=== PATIENT | male | born 1980 | race African-American/Black ===

== ENCOUNTER 2019-05-06 15:12 | Inpatient (IN) ==
--- OUTSIDE RECORDS SUMMARY | 2019-05-06 15:15 | External Medical Summary | Continuity of Care Document ---
:1980 Author Name Cecilia Mcnair Address Unavailable Unavailable , Care Team Providers Name Role Phone Unavailable Unavailable Unavailable Prabhjot [email or web address] Problems Asthma (493.90) (J45.909) Allergic rhinitis (477.9) (J30.9) Hyperlipidemia (272.4) (E78.5) Esophageal reflux (530.81) (K21.9) Allergies and Adverse Reactions No Known Drug Allergies (Allergy) Medications Fluticasone Propionate 50 MCG/ACT Nasal Suspension; USE 1 TO 2 SPRAYS IN EACH NOSTRIL ONCE DAILY. Xu Ryan 16 GM Bottle Quantity: 3 Refills: 3 ProAir HFA 108 (90 Base) MCG/ACT Inhalat ion Aerosol Solution; INHALE 2 PUFFS Every 4 hours PRN Xu Ryan 8.5 GM Inhaler Quantity: 3 Refills: 3 Montelukast Sodium 10 MG Oral Tablet; take 1 tablet by mouth once daily Xu Ryan Quantity: 90 Refills: 3 Advair Diskus 100-50 MCG/DOSE Inhalation Aerosol Powder Breath Activated; INHALE 1 PUFFS Twice daily Xu Ryan 60 Aerosol Powder Breath Quantity: 3 Activated Disp Pack Refills: 3 Simvastatin 20 MG Oral Tablet; TAKE 1 TABLET DAILY IN THE EV Xu RONQUILLO Refills: 0 Procedures Procedures not documented Immunizations Immunizations not documented Family History Unknown Family Member Family history of Asthma (V17.5) Status: Active Comment s: Family History Family history of Allergic Rhinitis Status: Active Comm ents: Family History Family history of Hyperlipidemia Status: Active Comment s: Family History Family history of Hypertension (V17.49) Status: Active Comments: Family History Social History - Smoking Status Never smoker Plan of Treatment Planned Observations Planned Goals not documented Results No Known Results Results not documented
[2019-05-06] MEDS ORDERED: ONDANSETRON INJ 2 MG/ML 2 ML VIAL IV STA (15:34)
[2019-05-06] MEDS ORDERED: LORazepam 1 MG/2 ML VIAL IV STA (15:34)
[2019-05-06] MEDS ORDERED: chlordiazePOXIDE HCl 25 MG CAP PO ONE (15:34)
[2019-05-06] MEDS ORDERED: GI COCKTAIL ED USE PO ONE (15:34)
[2019-05-06] MEDS ORDERED: LORazepam 1 MG/2 ML VIAL IV PRN (15:36)
[2019-05-06] MEDS ORDERED: SODIUM CHLORIDE 0.9% 1000ML 1,000 ML IV SCH (15:45)
[2019-05-06 15:56] LABS: Basophils # (auto) 0.01 K/uL (0-0.2); Basophils % (auto) 0.1 %; Eosinophils # (auto) 0.01 K/uL (0-0.5); Eosinophils % (auto) 0.1 %; Hematocrit (blood only) 39.7 % (42-52); Hemoglobin 14.3 g/dL (14.0-18.0); Immature Granulocytes # (auto) 0.01 K/uL (0.00-0.02); Immature Granulocytes % (auto) 0.1 %; Lymphocytes # (auto) 0.84 K/uL (1.2-3.4); Lymphocytes % (auto) 12.2 %; Mean Platelet Volume 8.5 fL (7.4-10.4); Monocytes % (auto) 2.9 %; Neutrophils # (auto) 5.81 K/uL (1.4-6.5); Neutrophils % (auto) 84.6 %; Platelet Count 243 K/uL (130-400); RDW Coefficient of Variation 14.7 % (11.5-14.5); RDW Standard Deviation 54.3 fL (36.4-46.3); Red Blood Count 3.97 M/uL (4.7-6.1); White Blood Count 6.88 K/uL (4.8-10.8)
[2019-05-06 16:06] LABS: INR 1.2 (0.9-1.1); Prothrombin Time 12.3 Seconds (9.0-12.0)
--- NOTE | 2019-05-06 16:35 | XRay Report ---
XR abdomen 2V w PA chest CLINICAL HISTORY: ab pain, vomiting pain. Nausea. COMPARISON STUDY: 04/26/2018 FINDINGS: The soft tissues, psoas shadows, renal outlines and intestinal gas pattern appear normal. T here is no evidence for bowel obstruction. There is no evidence for free intraperitoneal air. No abno rmal abdominal calcifications are seen. A frontal view of the chest was performed and is unremarkable . IMPRESSION: Normal study. The above report was generated using voice recognition software. It may contain grammatical, syntax or spelling errors. Electronically signed by: Gordon Armenta M.D. 05/06/2019 4:34 PM
[2019-05-06 16:37] LABS: Albumin Globulin Ratio 0.8 (0.9-2); Albumin Level 3.4 gm/dl (3.4-5.0); BUN Creatinine Ratio 14.3 (10-20); Bilirubin,Total 1.8 mg/dl (0.2-1); Calcium 9.2 mg/dl (8.5-10.1); Creatinine Clr Calc Pharmacy 127.8 ml/min; Est GFR (African American) 136.6; Est GFR (Non-African American) 117.8; Globulin 4.3 gm/dl (2.5-4.0); Potassium 3.5 mmol/L (3.5-5.1); Total Protein 7.7 gm/dl (6.4-8.2)
[2019-05-06 16:49] LABS: Appearance Urine Clear (Clear); Bacteria Urine Automated Negative (Negative); Color Urine Dark Yellow; Epithelial Cell Urine Auto >30 /lpf (0-5); Glucose Urine UA Negative (Negative); Ketones Urine 1+ (Negative); Leukocyte Esterase Urine Negative (Negative); Nitrite Urine Positive (Negative); Protein Urine 1+ (Negative); Specific Gravity Urine 1.037 (1.000-1.030); Urobilinogen Urine Negative (Negative); pH Urine 5.5 (4.5-7.5)
[2019-05-06 16:51] LABS: Bilirubin Urine 1+ (Negative)
[2019-05-06 16:52] LABS: Ictotest Urine Positive (Negative)
[2019-05-06] MEDS ORDERED: DIAZEPAM 5 MG/ML INJ 10ML VIAL IV STA (17:26)
--- NOTE | 2019-05-06 18:34 | History & Physical Report ---
Date of Service May 06, 2019 Assessment & Plan (1) Alcoholic hepatitis: Alex is a 39-year-old male with past medical history of hyperlipidemia, asthma, GERD, alcohol abuse, alcohol transaminitis who presents with 2 days of increased abdominal pain and vomiting context of a increased lipase suspicious for acute pancreatitis. Acute pancreatitis 2/2 alcohol abuse N.p.o. with sips and chips Banana bag x1, followed by LR 200 cc/h x 2 bags Pain control: 0.5mg morphine IV Q3H PRN - Sodium, Potassium, Cr within normal limits - US-Gallbladder to evaluate for cholelithiasis/cholecystitis - CBC daily - No leukocytosis on admit, afebrile on admit Alcohol Abuse - Recieved cholordiazepoxide 50mg x1 and ativan 1mg x2 in ED. 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 - Previously on fluoxetine, stopped >1 mo ago - Further management per primary team, would benefit from outpt followup once clinically stable. FEN/GI: NPO + LR 200cc/hr DVT Prophylaxis: SCDs Code Status: Full Code. Dispo: Med/Surg (2) Pancreatitis: (3) Alcohol abuse: (4) Encounter for smoking cessation counseling: (5) Hyperlipidemia: (6) Asthma: (7) Nausea, vomiting, and diarrhea: History of Present Illness Chief Complaint: Abdominal pain Primary Care Provider: Dorene Marquezmary Pavon is a 39-year-old male with past medical history of asthma, alcohol abuse, and hyperlipidemia who presented with 2 days of increased abdominal pain, vomiting, and decreased in context of 1/5/day alcohol use. He reports his abdominal pain began 1-2 days ago. He rates it as an 8/10 and does not know any remitting or exacerbating factors. He completely lost and has had minimal p.o. intake. Endorses fever, chills, shakes intermittent diaphoresis over the last 2 days. He has had several episodes of yellow emesis without blood or bile. Endorses intermittent diarrhea without melena or blood, denies constipation. Prior to admission he has been drinking a fifth per day of hard liquor. Last drink was this morning. He completed an inpatient detox program in [facility] in December 2017. He attended inpatient rehab after he began to have trouble with CYS last MarchJu and reports he was "always functional "up until the time, but lost due to alcohol difficulties last year. His sister Madie is formally adopting, he is not allowed to see them until procedures are complete. He reports that he has had tremors/shakes with withdrawal before, but denies any history of seizures, hallucinations, vision changes, or confusion. He reports he felt he was doing well following detox with an IOP program until his main social support his ex- had a heart attack and in March. Reports that following this he became extremely depressed and demotivated, "stopped caring, "and did not feel like he had the energy or willpower to "take care of himself ". He had tried fluoxetine for couple of weeks, but did not notice a benefit of it and stopped it. He has not taken it over a month. He also stopped taking his atorvastatin, and Pro Air. Denies auditory/visual hallucinations. Denies active/passive SI. Medical history: Hyperlipidemia, asthma, GERD, alcohol abuse Medication history: Omeprazole . Prescribed is not taking atorvastatin, montelukast, pro-air, fluoxetine. Surgical history: EGD, "normal per patient Social history: Alcohol: 1/5 hard liquor per day, most days of the week. Heavy use for several years Tobacco: Half pack per day 5-year history Recreational: Marijuana, last 3 days ago. Distant history of cocaine use more than 1 year ago. Family history: Denies Hx CODE STATUS: Full code. If he were unable to make decisions, he reports he would want his sister to call to make decisions for. Allergies Allergy/AdvReac Type Severity Reaction Status Date / Time No Known Allergies Allergy Verified 05/06/19 15:54 Home Medications Home Medications Medication Instructions Recorded Confirmed Type albuterol sulfate 2 puff INHALATION QID PRN 05/06/19 05/06/19 History omeprazole 20 mg PO DAILY 05/06/19 05/06/19 History Past Med/Surg History Medical History Hyperlipidemia (Chronic) Asthma (Chronic) Nausea, vomiting, and diarrhea (Acute) Transaminitis (Acute) Family History Other No known problems Social History Preferred Language: Syriac Feels Safe at Home: Hesitant to Answer Smoking Status: Current every day smoker Review of Systems Review of Systems: Constitutional: Endorses fever, chills, fatigue, malaise Eyes: Denies double vision, vision change, eye pain ENT: Denies ear pain, sore throat, sinus pain Cardiovascular: Denies chest pain, chest pressure, palpitations, extremity swelling Respiratory: Denies shortness of breath, cough, sputum production, difficulty breathing Gastrointestinal: Endorses abdominal pain, nausea, vomiting, diarrhea. Denies patient Genitourinary: Denies pain with urination, urinary urgency, urinary frequency Musculoskeletal: There is a fatigue, but denies weakness, muscle aches/pain, joint aches/pain Integumentary:Denies rash, lesions, bruising Neurological: Denies headache, numbness, tingling, focal weakness. Physical Exam Physical Exam: General: A&Ox3. NAD. Cooperative. Appears sad. Not responding to internal stimuli. HEENT: Atraumatic, normocephalic. No facial asymmetry. Pupils equal and reactive to light and accommodation. 23 beats of brief horizontal nystagmus which extinguish on Testing. No saccades. No visual field cuts. Visual acuity grossly intact. No carotid bruits. No anterior/posterior cervical adenopathy. Pulm: CTAB A&P. -wheezes, -rales, -rhonchi. Symmetrical chest rise. No increase work of breathing. No respiratory distress. Cardiac: RRR, -mrg. Radial pulses intact and symmetrical. Abdominal: Tender to palpation in the right upper quadrant and left quadrant without rigidity, or rebound. No guarding. Bowel sounds intact. Cerda sign equivocal. Extremities: Sensation intact in distal extremities and symmetrical. No paresthesias. Moving all extremities equally. Elbow flexion/extension, water engineer strength, finger flexion/extension, knee flexion, ankle plantarflexion/dorsiflexion intact with 5/5 strength. Constitutional: WD/WN, vitals as above Eyes: normal visual calderon by confrontation and + anicteric sclerae Neck: normal visual inspection and trachea midline Respiratory: normal respiratory effort, lungs clear to auscultation Cardiovascular: Rate/Rhythm: regular rate and regular rhythm Gastrointestinal (Abdomen): Inspection/Auscultation: + abdomen distended Percussion/Palpation: + abdomen tender (diffuse) and abdomen soft Musculoskeletal: Head/Neck/Chest: normocephalic and head atraumatic Neg for peripheral LE edema, + pedal pulses Skin: no rashes, warm and dry Neurologic: awake; not confused Speech / Cognition: normal speech Psychiatric: A+Ox3, euthymic affect Lymphatic: Exam as done by Beth Abdullahi, Results & Data Vital Signs (Past 12 Hours) Vital Signs Temp Pulse Resp BP Pulse Ox 05/06/19 16:15 97 05/06/19 15:14 37.0 C 99 H 20 153/106 H 99 Supervising Physician Co-Signing Physician Notes Pt seen and examined by me. Ongoing abd pain that is slightly better. Denies chest pain or SOB. Tolerating PO without issue. Agree with HPI/ROS as noted by Resident See above for my exam in PE section Agree with plan as outlined above Pancreatitis, likely EtOH related Pt with RUQ pain and hx of diarrhea with fatty foods, RUQ US pending Monitor LFTs NPO, IVF EtOH withdrawal protocol, hx of tremors but no seizures Hx of rehab, interested in rehab at this time PG Care Time/CCT Total # of Minutes Spent Total Time Spent with Patient: Total time spent is greater than 50% in coordination of care (as documented) at patient's floor/unit and/or counseling patient: Resident Activity Tracking Resident Involvement: Resident Care Provided Care Provided: Adult Hospital Medicine (1) Alcoholic hepatitis Ascites presence: unspecified Qualified Code(s): K70.10 - Alcoholic hepatitis without ascites (2) Pancreatitis Acute pancreatitis complication: unspecified Chronicity: acute Pancreatitis type: other Qualified Code(s): K85.80 - Other acute pancreatitis without nec rosis or infection
--- NOTE | 2019-05-06 20:20 | Emergency Department Note ---
Entered by Lore Curry acting as a scribe for Jose Broussard MD History of Present Illness General Chief complaint: Vomiting Stated complaint: VOMITING Time Seen by Provider: 05/06/19 15:18 Source: patient History of Present Illness Provider complaint: Vomiting Onset (ago): day(s) Maximum Pain Intensity: 9 Associated symptoms: + loss of appetite, + nausea/vomiting (vomiting) and + other (lousy) The patient is a 39 male w/ PMHx of asthma, transaminitis, and hyperlipidemia who presents to the ED w/ CC of intermittent vomiting beginning 2 days ago. The patient reports he has been lousy for months but his pain and vomiting started 2 days ago. He notes he vomited a lot today and has not been able to eat for a couple of days. The patient states he had a similar episode in the past and was seen here. He reports he has history of asthma, hyperlipidemia, and seasonal allergies. The patient states he is a smoker and drinks alcohol. He reports sometimes he drinks up to a fifth a day. The patient states he uses marijuana sometimes. He notes the last time he drank was this morning and the last time he used marijuana was a couple of days ago. The patient states he had a detox in December and March but is unable to continue because of his job. He reports he his last bowel movement was normal. Home Medications Home Medications Medication Instructions Recorded Confirmed Type albuterol sulfate 2 puff INHALATION QID PRN 05/06/19 05/06/19 History omeprazole 20 mg PO DAILY 05/06/19 05/06/19 History Allergies Allergy/AdvReac Type Severity Reaction Status Date / Time No Known Allergies Allergy Verified 05/06/19 15:54 Past Med/Surg History Medical History Hyperlipidemia (Chronic) Asthma (Chronic) Nausea, vomiting, and diarrhea (Acute) Transaminitis (Acute) Family History Other No known problems Social History Preferred Language: Kinyarwanda Feels Safe at Home: Hesitant to Answer Smoking Status: Current every day smoker Review of Systems See HPI for pertinent positives & negatives. and A total of 10 systems reviewed and were otherwise negative Physical Exam Vital Signs Vital Signs - 24 hr 05/06/19 15:14 05/06/19 16:15 05/06/19 18:12 Temperature 37.0 C Temperature Source Oral Sepsis Recent Fever Within 48 Hours No Sepsis New/Unexplained Change in Mental Status No Sepsis Action Taken by Nursing No Action Required Pulse Rate 99 H Pulse Rate [Finger] 98 H Pulse Rhythm Regular Pulse Strength Normal Respiratory Rate 20 17 Respiratory Effort / Characteristics Non-Labored Spontaneous Respiratory Depth Normal Respiratory Pattern Regular Blood Pressure 153/106 H Blood Pressure [Right Arm] 147/98 H Blood Pressure Mean 121 Blood Pressure Mean [Right Arm] 114 Pulse Oximetry 99 97 99 Oxygen Delivery Method Room Air Room Air Room Air 05/06/19 20:12 Temperature Temperature Source Sepsis Recent Fever Within 48 Hours Sepsis New/Unexplained Change in Mental Status Sepsis Action Taken by Nursing Pulse Rate Pulse Rate [Finger] 93 H Pulse Rhythm Pulse Strength Respiratory Rate 17 Respiratory Effort / Characteristics Respiratory Depth Respiratory Pattern Blood Pressure Blood Pressure [Right Arm] 154/104 H Blood Pressure Mean Blood Pressure Mean [Right Arm] 120 Pulse Oximetry 99 Oxygen Delivery Method Room Air GENERAL: Mildly anxious and uncomfortable in appearance. EYE EXAM: Normal conjunctiva. PERRL, no anisocoria and EOM's grossly intact w/o pain. OROPHARYNX: Moist mucous membranes. Grossly normal dentition. [No exudate, posterior pharynx is clear, no tonsillar/uvular deviation or swelling.] NECK: Supple, no nuchal rigidity, no adenopathy, non-tender. No signs of meningismus. LUNGS: Clear to auscultation. Normal chest wall mechanics. HEART: NSR, no MRG. ABDOMEN: RUQ pain, the abdomen is tender, not peritonitic, normo-active bowel sounds, no masses, no rebound or guarding. BACK: No CVA TTP. SKIN: No rashes and no bruising. UPPER EXTREMITIES: Upper extremities are grossly normal. Mild b/l UE tremors noted. LOWER EXTREMITIES: No pitting edema. No calf pain. NEURO EXAM: A&O x3, cranial nerves II-XII grossly intact, normal speech, moves all 4 extremities on command w/o issue. Course 1526: The patient was evaluated in room B12B. A complete history and physical exam was performed. 1712: I reviewed the patient's case with Dr. Abdullahi, [facility] Hospitalist. 1737: Upon reevaluation, the patient is resting comfortably. I discussed laboratory and radiographic results with him. The patient verbalized agreement of the treatment plan. The patient will be evaluated for further management and care. Administered Medications Lorazepam (Ativan) 1 mg in 2 mls @ 2 mls/min IV Q4H PRN PRN Reason: Alcohol Withdrawal Stop: 06/05/19 15:35 Last Admin: 05/06/19 16:36 Dose: 2 mls/min Documented by: [id number] Discontinued Medications Al Hydrox/Mg Hydrox/Simethicone () 1 dose PO ONE ONE Stop: 05/06/19 15:35 Last Admin: 05/06/19 16:02 Dose: 1 dose Documented by: [id number] Chlordiazepoxide HCl (Librium) 50 mg PO NOW ONE Stop: 05/06/19 15:35 Last Admin: 05/06/19 16:02 Dose: 50 mg Documented by: [id number] Diazepam (Valium) 5 mg IV NOW STA Stop: 05/06/19 17:27 Last Admin: 05/06/19 18:11 Dose: 5 mg Documented by: [id number] Lorazepam (Ativan) 1 mg in 2 mls @ 2 mls/min IV NOW STA Stop: 05/06/19 15:35 Last Admin: 05/06/19 16:02 Dose: 2 mls/min Documented by: [id number] Sodium Chloride (Nss 1000ml) 1,000 mls @ 999 mls/hr IV .Q1H1M MALU Stop: 05/06/19 16:45 Last Infusion: 05/06/19 16:58 Dose: 0 mls/hr Documented by: [id number] Admin: 05/06/19 15:54 Dose: 999 mls/hr Documented by: [id number] Ondansetron HCl (Zofran) 4 mg IV NOW STA Stop: 05/06/19 15:35 Last Admin: 05/06/19 16:03 Dose: 4 mg Documented by: [id number] Medical Decision Making Differential Diagnosis The patient is a 39 male w/ PMHx of asthma, transaminitis, and hyperlipidemia who presents to the ED w/ CC of intermittent vomiting beginning 2 days ago. Differential diagnosis: Etiologies such as biliary colic, cholecystitis, hepatitis, pancreatitis, cardiac disease, pancreatitis, gastritis, peptic ulcer disease, appendicitis, cystitis, diverticulitis, mesenteric ischemia, inflammatory bowel disease, ileus, bowel obstruction, testicular torsion, aortic pathology, shingles, as well as others were considered. Medical Records Attestation: I reviewed the patient's medical records. Home Medications Current Medication List: was personally reviewed by me Laboratory Data Attestation: I reviewed the patient's lab results. Result diagrams: 05/06/19 15:49 05/06/19 15:49 Lab Results 05/06/19 05/06/19 05/06/19 Range/Units 15:49 15:49 15:49 WBC 6.88 (4.8-10.8) K/uL RBC 3.97 L (4.7-6.1) M/uL Hgb 14.3 (14.0-18.0) g/dL Hct 39.7 L (42-52) % MCV 100.0 (80-100) fL MCH 36.0 H (25-34) pg MCHC 36.0 (32-36) g/dL RDW Std Deviation 54.3 H (36.4-46.3) fL RDW Coeff of Juli 14.7 H (11.5-14.5) % Plt Count 243 (130-400) K/uL MPV 8.5 (7.4-10.4) fL Immature Gran % (Auto) 0.1 % Neut % (Auto) 84.6 % Lymph % (Auto) 12.2 % [place] % (Auto) 2.9 % Eos % (Auto) 0.1 % Baso % (Auto) 0.1 % Immature Gran # (Auto) 0.01 (0.00-0.02) K/uL Neut # (Auto) 5.81 (1.4-6.5) K/uL Lymph # (Auto) 0.84 L (1.2-3.4) K/uL [place] # (Auto) 0.20 (0.11-0.59) K/uL Eos # (Auto) 0.01 (0-0.5) K/uL Baso # (Auto) 0.01 (0-0.2) K/uL PT 12.3 H (9.0-12.0) Seconds INR 1.2 H (0.9-1.1) Sodium 135 L (136-145) mmol/L Potassium 3.5 (3.5-5.1) mmol/L Chloride 99 (98-107) mmol/L Carbon Dioxide 20 L (21-32) mmol/L Anion Gap 16.0 H (3-11) BUN 11 (7-18) mg/dl Creatinine 0.74 (0.6-1.4) mg/dl Est Cr Clr Drug Dosing 127.8 ml/min Est GFR ( Amer) 136.6 Est GFR (Non-Af Amer) 117.8 BUN/Creatinine Ratio 14.3 (10-20) Glucose 77 (70-99) mg/dl Calcium 9.2 (8.5-10.1) mg/dl Total Bilirubin 1.8 H (0.2-1) mg/dl AST 1088 H (15-37) U/L ALT 417 H (12-78) U/L Alkaline Phosphatase 340 H (45-117) U/L Total Protein 7.7 (6.4-8.2) gm/dl Albumin 3.4 (3.4-5.0) gm/dl Globulin 4.3 H (2.5-4.0) gm/dl Albumin/Globulin Ratio 0.8 L (0.9-2) Lipase 707 H (73-393) U/L Specimen Hemolysis Urine Color Urine Appearance (Clear) Urine pH (4.5-7.5) Ur Specific [place] (1.000-1.030) Urine Protein (Negative) Urine Glucose (UA) (Negative) Urine Ketones (Negative) Urine Blood (Negative) Urine Nitrite (Negative) Urine Bilirubin (Negative) Urine Urobilinogen (Negative) Ur Leukocyte Esterase (Negative) Urine WBC (Auto) (0-5) /hpf Urine RBC (Auto) (0-4) /hpf U Hyaline Cast (Auto) (0-5) /lpf U Epithel Cells (Auto) (0-5) /lpf Urine Bacteria (Auto) (Negative) Ethyl Alcohol mg/dL (0-3) mg/dl 05/06/19 05/06/19 Range/Units 16:07 16:40 WBC (4.8-10.8) K/uL RBC (4.7-6.1) M/uL Hgb (14.0-18.0) g/dL Hct (42-52) % MCV (80-100) fL MCH (25-34) pg MCHC (32-36) g/dL RDW Std Deviation (36.4-46.3) fL RDW Coeff of Juli (11.5-14.5) % Plt Count (130-400) K/uL MPV (7.4-10.4) fL Immature Gran % (Auto) % Neut % (Auto) % Lymph % (Auto) % [place] % (Auto) % Eos % (Auto) % Baso % (Auto) % Immature Gran # (Auto) (0.00-0.02) K/uL Neut # (Auto) (1.4-6.5) K/uL Lymph # (Auto) (1.2-3.4) K/uL [place] # (Auto) (0.11-0.59) K/uL Eos # (Auto) (0-0.5) K/uL Baso # (Auto) (0-0.2) K/uL PT (9.0-12.0) Seconds INR (0.9-1.1) Sodium (136-145) mmol/L Potassium (3.5-5.1) mmol/L Chloride (98-107) mmol/L Carbon Dioxide (21-32) mmol/L Anion Gap (3-11) BUN (7-18) mg/dl Creatinine (0.6-1.4) mg/dl Est Cr Clr Drug Dosing ml/min Est GFR ( Amer) Est GFR (Non-Af Amer) BUN/Creatinine Ratio (10-20) Glucose (70-99) mg/dl Calcium (8.5-10.1) mg/dl Total Bilirubin (0.2-1) mg/dl AST (15-37) U/L ALT (12-78) U/L Alkaline Phosphatase (45-117) U/L Total Protein (6.4-8.2) gm/dl Albumin (3.4-5.0) gm/dl Globulin (2.5-4.0) gm/dl Albumin/Globulin Ratio (0.9-2) Lipase (73-393) U/L Specimen Hemolysis Urine Color Dark Yellow Urine Appearance Clear (Clear) Urine pH 5.5 (4.5-7.5) Ur Specific [place] 1.037 H (1.000-1.030) Urine Protein 1+ H (Negative) Urine Glucose (UA) Negative (Negative) Urine Ketones 1+ H (Negative) Urine Blood Negative (Negative) Urine Nitrite Positive A (Negative) Urine Bilirubin 1+ H (Negative) Urine Urobilinogen Negative (Negative) Ur Leukocyte Esterase Negative (Negative) Urine WBC (Auto) 1-5 (0-5) /hpf Urine RBC (Auto) 5-10 H (0-4) /hpf U Hyaline Cast (Auto) 10-30 H (0-5) /lpf U Epithel Cells (Auto) >30 H (0-5) /lpf Urine Bacteria (Auto) Negative (Negative) Ethyl Alcohol mg/dL 8.0 H (0-3) mg/dl Imaging Data Radiologist's Impression: Radiology results as stated below per my review and the radiologist's interpretation: XR abdomen 2V w PA chest CLINICAL HISTORY: ab pain, vomiting pain. Nausea. COMPARISON STUDY: 04/26/2018 FINDINGS: The soft tissues, psoas shadows, renal outlines and intestinal gas pattern appear normal. There is no evidence for bowel obstruction. There is no evidence for free intraperitoneal air. No abnormal abdominal calcifications are seen. A frontal view of the chest was performed and is unremarkable. IMPRESSION: Normal study. The above report was generated using voice recognition software. It may contain grammatical, syntax or spelling errors. Electronically signed by: Gordon Armenta M.D. 05/06/2019 4:34 PM Blood Pressure Blood Pressure Findings: Elevated blood pressure Blood Pressure Disposition: further management by hospitalist JULIET Narrative The patient is a 39 male w/ PMHx of asthma, transaminitis, and hyperlipidemia who presents to the ED w/ CC of intermittent vomiting beginning 2 days ago. Patient was seen and evaluated the bedside. The patient was relating that he was having some associated abdominal pain. The patient does admit to chronic alcohol use and that this may have been spurred to be even worse as the patient's ex- recently in the intensive care unit. The patient states that this has been affecting his professional and personal life and that his pain has gotten worse. The patient does appear somewhat tremulous on exam. The patient states he last drank earlier this morning. Patient's blood work is concerning for a likely acute alcoholic hepatitis and pancreatitis as he does h ave right upper quadrant and epigastric pain with an AST greater than 1000 lipase greater than 700. The patient has a normal white count. The patient's INR is slightly elevated at 1.2. The patient's sodium is slightly low this is likely secondary to his alcohol use. T bili is also elevated. Alcohol was detectable but not grossly high. The patient did receive multiple doses of IV benzodiazepines as well as some p.o. Librium. Given the concern for his hepatitis and pancreatitis with pain I believe the patient would benefit from further inpatient treatment and monitoring to ensure he does not go into withdrawal. I did speak with the on-call hospitalist who agreed to further evaluate treat the patient. Patient was admitted to the medicine service. Impression & Plan Alcoholic hepatitis, Pancreatitis, Alcohol abuse, Encounter for smoking cessation counseling, Counseling on substance use and abuse Discharge Plan Visit Data Chief Complaint: Vomiting Stated Complaint: VOMITING ED Provider: Jose Broussard Discharge Problem: Alcoholic hepatitis, Pancreatitis, Alcohol abuse, Encounter for smoking cessation counseling, Counseling on substance use and abuse Patient Disposition: Being Evaluated by Hospitalist Forms Stand Alone Forms: My [facility] [email or web address] Prescriptions Prescriptions: No Action omeprazole 20 mg capsule,delayed release(DR/EC) 20 mg PO DAILY RF: 0 albuterol sulfate 90 mcg/actuation HFA aerosol inhaler 2 puff inhalation QID PRN (Reason: Wheezing or Cough) RF: 0 Referrals Referrals: Dorene Dominguez [Primary Care Provider] - Discharge Problem: Alcoholic hepatitis Qualifiers: Ascites presence: unspecified Qualified Code(s): K70.10 - Alcoholic hepatitis without ascites Pancreatitis Qualifiers: Chronicity: acute Pancreatitis type: other Acute pancreatitis complication: unspecified Qualified Code(s): K85.80 - Other acute pancreatitis without necrosis or infection The scribe's documentation has been prepared under my direction and personally reviewed by me in its entirety. I confirm that the note above accurately reflects all work, treatment, procedures, and medical decision making performed by me.
[2019-05-06] MEDS ORDERED: LORazepam 1 MG TAB PO PRN (21:07)
[2019-05-06] MEDS ORDERED: MULTI-VITAMIN INFUSION 10 ML, THIAMINE HCL 100 MG, FOLIC ACID 1 MG in SODIUM CHLORIDE 0... IV SCH (21:30)
[2019-05-06] MEDS: MoRPHine SULFATE 2 MG/ML CARP IV PRN (22:32)
[2019-05-06] MEDS: chlordiazePOXIDE HCl 25 MG CAP PO SCH (22:32)
--- NOTE | 2019-05-06 23:02 | Ultrasound Report ---
US gallbladder HISTORY: Pain. Nausea. RUQ pain, hx of greasy food intolerance COMPARISON: 04/26/2018 FINDINGS: Normal gallbladder. Common bile duct 4 mm. Fatty infiltration of liver. Pancreas and right kidney are unremarkable. IMPRESSION: 1. Fatty infiltration of liver.. 2. Otherwise normal study. The above report was generated using voice recognition software. It may contain grammatical, syntax or spelling errors. Electronically signed by: Gordon Armenta M.D. 05/06/2019 11:01 PM
[2019-05-06] MEDS: THIAMINE HCL 100 MG TAB PO SCH (23:09)
[2019-05-06] MEDS: NICOTINE 14 MG/24 HR PATCH TD SCH (23:12)
[2019-05-07] MEDS: LACTATED RINGER'S 1,000 ML IV SCH ×5 (00:52→21:17)
[2019-05-07] MEDS ORDERED: PNEUMOCOCCAL POLYSACCHARIDES 25 MCG/0.5 ML VIAL/SYR IM ONE (02:30)
[2019-05-07] MEDS ORDERED: PNEUMOCOCCAL ADMINISTRATION CHARGE ONE (02:30)
[2019-05-07] MEDS: chlordiazePOXIDE HCl 25 MG CAP PO SCH ×4 (04:28→22:08)
[2019-05-07 06:10] LABS: Basophils # (auto) 0.01 K/uL (0-0.2); Basophils % (auto) 0.2 %; Eosinophils # (auto) 0.08 K/uL (0-0.5); Eosinophils % (auto) 1.8 %; Hematocrit (blood only) 34.2 % (42-52); Hemoglobin 11.7 g/dL (14.0-18.0); Immature Granulocytes # (auto) 0.01 K/uL (0.00-0.02); Immature Granulocytes % (auto) 0.2 %; Lymphocytes # (auto) 0.89 K/uL (1.2-3.4); Lymphocytes % (auto) 20.6 %; Mean Corpuscular Hgb Conc 34.2 g/dL (32-36); Mean Platelet Volume 8.7 fL (7.4-10.4); Monocytes # (auto) 0.26 K/uL (0.11-0.59); Neutrophils # (auto) 3.08 K/uL (1.4-6.5); Neutrophils % (auto) 71.2 %; Platelet Count 151 K/uL (130-400); RDW Coefficient of Variation 14.3 % (11.5-14.5); RDW Standard Deviation 52.4 fL (36.4-46.3); Red Blood Count 3.42 M/uL (4.7-6.1); White Blood Count 4.33 K/uL (4.8-10.8)
[2019-05-07] MEDS: MoRPHine SULFATE 2 MG/ML CARP IV PRN ×4 (06:35→21:17)
[2019-05-07 06:53] LABS: Albumin Globulin Ratio 0.8 (0.9-2); Albumin Level 2.8 gm/dl (3.4-5.0); BUN Creatinine Ratio 7.8 (10-20); Calcium 8.5 mg/dl (8.5-10.1); Creatinine Clr Calc Pharmacy 150.1 ml/min; Est GFR (African American) 145.9; Est GFR (Non-African American) 125.9; Globulin 3.6 gm/dl (2.5-4.0); Potassium 3.3 mmol/L (3.5-5.1); Total Protein 6.4 gm/dl (6.4-8.2)
[2019-05-07] MEDS ORDERED: FOLIC ACID 1 MG TAB PO SCH (09:00)
[2019-05-07] MEDS: THIAMINE HCL 100 MG TAB PO SCH (09:07)
[2019-05-07] MEDS: PANTOprazole 40 MG TAB PO SCH (09:07)
[2019-05-07] MEDS: ALBUTEROL HFA 8 GM INHALER INH PRN (09:34)
[2019-05-07] MEDS: NICOTINE 14 MG/24 HR PATCH TD SCH (09:34)
--- NOTE | 2019-05-07 11:16 | Family Medicine Progress Note ---
Date of Service May 07, 2019 Assessment & Plan (1) Alcohol-induced pancreatitis: - NPO with sips and chips - compazine PRN for nausea and vomiting - LR 200cc/hr - Pain control: 2.0mg morphine IV Q4H PRN - US Gallbladder showed normal gallbladder, normal pancreas, fatty liver changes - LFTs, alkphos improving - BP elevated likely due to pain - Consider advancing to clears later today if nausea/vomiting have subsided Present on Admission?: Yes (2) Alcohol abuse: - Pt reports drinking 1/5 of vodka daily for over a year - Pt doing well, some intermittent nausea but no tremors, sweating, agitation, is oriented - On CIWA protocol with chlordiazepoxide - CMP daily - Thiamine 100mg once daily - Folic acid 1mg IV once daily - Care management consulted for outpatient rehab, pt is amenable to rehab Present on Admission?: Yes (3) Fatty liver: - Pt's US shows signs of fatty liver disease in the setting of alcohol abuse, concern for progression to cirrhosis given patient's significant alcohol consumption and age - Daily LFTs and coag studies - Educated patient on the importance of alcohol cessation (4) Hypokalemia: - Pt's K 3.3 today, will replete 20 meq Diet: NPO with chips and sips DVT prophylaxis: SCDs, encourage ambulation Dispo: med/surg Code: FULL Supervising Physician Co-Signing Physician Notes Attending attestation Pt seen and examined in concert with Dr. Franklin. In agreement with the documented findings as noted in the resident documentation with any exceptions or additions as noted here. Improved but persistent epigastric and bilateral flank pain which was relieved w/ small dose of morphine prior to bed and with awakening this AM. Mild nausea w/ sips/chips presently. BM yesterday was nl. On examination, S1/S2 nl RRR no MCG. CTAB. Abd ND, BS+ve - TTP epigastrically predominantly. Acute alcoholic pancreatitis w/ alcohol abuse - continue IV hydration. No antiemetics required presently and minimal pain control. If improving in PM, can consider advance diet to clears. Alcohol abuse with transaminitis and fatty liver - 1/5 of vodka daily x > 1 year. Considerable home stressors including in the family and child custody problems which drive him to drink. Has been in counseling previously. 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 Strongly encouraged abstinence. Willing to d/w case management re: alcohol rehab resources. Alcohol withdrawal - continue chlordiazepoxide and monitor for further symptoms. Else see resident documentation as noted. Review of Systems Review of Systems: All systems reviewed & are unremarkable except as noted in HPI & below Constitutional: no fever, no chills and no sweats Respiratory: no cough and no dyspnea Cardiovascular: no chest pain, no palpitations and no edema Gastrointestinal: + abdominal pain (flank and epigastric), + nausea and + diarrhea/loose stools; no vomiting, no constipation, no blood in stools and no melena Genitourinary: no dysuria and no hematuria Neurologic: no tremor(s), no headache(s) and no confusion Psychiatric: no irritability, no suicidal ideation, no anxiety, no auditory hallucinations, no visual hallucinations and no tactile hallucinations Physical Exam Constitutional: well developed, well nourished and cooperative Eyes: + anicteric sclerae Respiratory: normal respiratory effort, lungs clear to auscultation no cough Cardiovascular: RRR, no murmur, no edema Extremities: normal capillary refill Gastrointestinal (Abdomen): Inspection/Auscultation: normal bowel sounds; abdomen not distended Percussion/Palpation: + abdomen tender (TTP over e pigastric area, some TTP over LUQ and RUQ near flanks) and abdomen soft; no guarding no ecchymoses of the abdomen or flanks Skin: no rashes, warm and dry Psychiatric: A+Ox3, euthymic affect Results & Data Vital Signs (Past 12 Hours) Vital Signs Temp Pulse Resp BP BP Pulse Ox 05/07/19 07:18 37.0 C 75 18 163/97 H 98 05/07/19 00:00 37.0 C 88 20 160/100 H 96 PG Care Time/CCT Total # of Minutes Spent Total Time Spent with Patient: Total time spent is greater than 50% in coordination of care (as documented) at patient's floor/unit and/or counseling patient: Resident Activity Tracking Resident Involvement: Resident Care Provided Care Provided: Adult Hospital Medicine (1) Alcohol-induced pancreatitis Acute pancreatitis complication: no infection or necrosis Chronicity: acute Qualified Code(s): K85.20 - Alcohol induced acute pancreatitis without necrosis or infection
[2019-05-07] MEDS ORDERED: PROCHLORPERAZINE 5 MG in SYRINGE 4 ML IV PRN (13:15)
[2019-05-07] MEDS: POTASSIUM CHLORIDE / WTR 10 MEQ/100 ML PLCT IV SCH ×2 (14:22→15:18)
[2019-05-07] MEDS ORDERED: HydrALAZINE HCL 20 MG/ML VIAL IV PRN (17:35)
[2019-05-08] MEDS: LACTATED RINGER'S 1,000 ML IV SCH ×2 (02:08→07:04)
[2019-05-08] MEDS: chlordiazePOXIDE HCl 25 MG CAP PO SCH (06:05)
[2019-05-08 06:12] LABS: Basophils # (auto) 0.01 K/uL (0-0.2); Basophils % (auto) 0.2 %; Hematocrit (blood only) 33.7 % (42-52); Hemoglobin 11.6 g/dL (14.0-18.0); Immature Granulocytes # (auto) 0.01 K/uL (0.00-0.02); Immature Granulocytes % (auto) 0.2 %; Lymphocytes # (auto) 1.01 K/uL (1.2-3.4); Lymphocytes % (auto) 20.3 %; Mean Corpuscular Hgb Conc 34.4 g/dL (32-36); Mean Corpuscular Volume 101.5 fL (80-100); Monocytes # (auto) 0.25 K/uL (0.11-0.59); Neutrophils % (auto) 72.3 %; Platelet Count 130 K/uL (130-400); RDW Coefficient of Variation 13.9 % (11.5-14.5); RDW Standard Deviation 51.6 fL (36.4-46.3); Red Blood Count 3.32 M/uL (4.7-6.1); White Blood Count 4.98 K/uL (4.8-10.8)
[2019-05-08 06:29] LABS: INR 1.2 (0.9-1.1); Prothrombin Time 12.2 Seconds (9.0-12.0)
[2019-05-08 06:36] LABS: RBC Morphology Unremarkable
[2019-05-08 06:41] LABS: Albumin Level 2.6 gm/dl (3.4-5.0); BUN Creatinine Ratio 2.9 (10-20); Calcium 8.6 mg/dl (8.5-10.1); Creatinine Clr Calc Pharmacy 157.6 ml/min; Est GFR (African American) 148.9; Est GFR (Non-African American) 128.4
[2019-05-08 06:44] LABS: Albumin Globulin Ratio 0.7 (0.9-2); Bilirubin,Total 1.6 mg/dl (0.2-1); Total Protein 6.6 gm/dl (6.4-8.2)
[2019-05-08] MEDS: ALBUTEROL HFA 8 GM INHALER INH PRN (07:06)
[2019-05-08] MEDS ORDERED: POTASSIUM CHLORIDE 20 MEQ in LACTATED RINGER'S 1,000 ML IV SCH (07:30)
--- NOTE | 2019-05-08 07:50 | Family Medicine Progress Note ---
Date of Service May 08, 2019 Assessment & Plan (1) Alcohol-induced pancreatitis: - Pt was advanced to full liquid diet which he has tolerated this morning, have further advanced for lunch and will monitor - compazine PRN for nausea and vomiting - Pain control: 2.0mg morphine IV Q4H PRN pain - US Gallbladder showed normal gallbladder, normal pancreas, fatty liver changes - LFTs, alkphos continue to improve - hydralazine as needed for SBP >180, DBP >110 (2) Alcohol abuse: - Pt reports drinking 1/5 of vodka daily for over a year - Pt doing well, no nausea at this time, slight epigastric pain but reports much improvement from yesterday - On CIWA protocol with chlordiazepoxide, was decreased to 10mg doses today, will decrease further to 5mg tomorrow - CMP daily - Thiamine 100mg once daily - Folic acid 1mg once daily - Care management consulted for outpatient rehab, pt is not interested in inpatient rehab however has had success in the past with alcohol rehab therapy - Have discussed naloxone as treatment for his alcohol cravings, will discuss further at scheduled follow up appointment with me in clinic (3) Fatty liver: - Pt's US shows signs of fatty liver disease in the setting of alcohol abuse, concern for progression to cirrhosis given patient's significant alcohol consumption and age - Daily LFTs and coag studies have been performed during his stay and are improving - Educated patient on the importance of alcohol cessation (4) Depression: - pt reports depressed mood since the of multiple important family members in his family within the last few years. Has been using alcohol as a coping strategy for that depression - No past or current SI/HI - Has tried counseling in the past and found it to be helpful for his depression - Was on fluoxetine outpatient for depression at one point but stopped taking it after about 4 weeks because he "didn't notice a difference" - Will start on sertraline 50mg PO daily on discharge and schedule outpatient follow up visit with me in the clinic to further discuss management Present on Admission?: Yes (5) Hypokalemia: - Pt's K 3.0 today despite 20meq oral yesterday, will replete Diet: normal low fat diet DVT prophylaxis: SCDs, encourage ambulation Dispo: home Code: FULL Supervising Physician Co-Signing Physician Notes Attending attestation Pt seen and examined in concert with Dr. Franklin. In agreement with the documented findings as noted in the resident documentation with any exceptions or additions as noted here. Gradually improved abdominal pain without pain medication mgmt. Tolerating liquid this AM. Recent history of depression/anxiety following considerable social stressors with benefit previously from therapy. Trial of fluoxetine x 1 month without apparent benefit and self d/c. Would be open to both interventions again. Reports no SI/HI, now or previously. On examination, S1/S2 nl RRR no MCG. CTAB. Abd ND, BS+ve - epigastric TTP Acute alcoholic pancreatitis w/ alcohol abuse - tolerating PO with good hydration. Advance diet and, if tolerated without pain, can discharge. Alcohol abuse with transaminitis and fatty liver - 1/5 of vodka daily x > 1 year. Considerable home stressors including in the family and child custody problems which drive him to drink. Has been in counseling previously. 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 Recommend abstinence. Case management for resources today. Alcohol withdrawal - continue chlordiazepoxide rapid taper and monitor for further symptoms. Depression/anxiety - start sertraline 50mg, group counseling encouraged. Else see resident documentation as noted. Subjective Pt seen and examined at bedside. No acute events overnight, his nausea has resolved without needing the compazine. Reports his abdominal pain is better than yesterday, no episodes of vomiting, no tremors, headaches, chest pain, SOB, diarrhea, constipation, fevers, chills, hallucinations. Had full liquid br eakfast this morning including cream of wheat. Reports feeling anxious and depressed today and wanted to discuss outpatient options for alcohol rehab as well as counseling and medication for depression. Review of Systems Review of Systems: All systems reviewed & are unremarkable except as noted in HPI & below Constitutional: no fever, no chills, no sweats and no malaise Respiratory: no cough and no dyspnea Cardiovascular: no chest pain, no palpitations, no syncope and no edema Gastrointestinal: + abdominal pain (mild, reports improvement from yesterday); no nausea (some nausea but has not needed compazine overnight) and no vomiting Genitourinary: no dysuria and no hematuria Psychiatric: + anxiety (reports some anxiety regarding his discharge and ability to remain sober) Physical Exam Constitutional: well developed, well nourished and cooperative Eyes: sclerae anicertic Respiratory: normal respiratory effort, lungs clear to auscultation no cough Cardiovascular: RRR, no murmur, no edema Extremities: normal capillary refill Gastrointestinal (Abdomen): Inspection/Auscultation: normal bowel sounds; abdomen not distended Percussion/Palpation: + abdomen tender (mild TTP epigastric area but improved from yesterday, no TTP L or R flank); no hepatosplenomegaly Skin: no rashes, warm and dry no jaundice Psychiatric: A+Ox3, euthymic affect Results & Data Vital Signs (Past 12 Hours) Vital Signs Temp Pulse Resp BP Pulse Ox 05/08/19 07:27 36.9 C 67 18 138/86 99 05/07/19 23:00 37.1 C 80 18 152/89 H 100 Laboratory Results 05/08/19 05/08/19 05/08/19 Range/Units 05:50 05:50 05:50 WBC 4.98 (4.8-10.8) K/uL RBC 3.32 L (4.7-6.1) M/uL Hgb 11.6 L (14.0-18.0) g/dL Hct 33.7 L (42-52) % MCV 101.5 H (80-100) fL MCH 34.9 H (25-34) pg MCHC 34.4 (32-36) g/dL RDW Std Deviation 51.6 H (36.4-46.3) fL RDW Coeff of Juli 13.9 (11.5-14.5) % Plt Count 130 (130-400) K/uL MPV 9.0 (7.4-10.4) fL Immature Gran % (Auto) 0.2 % Neut % (Auto) 72.3 % Lymph % (Auto) 20.3 % [place] % (Auto) 5.0 % Eos % (Auto) 2.0 % Baso % (Auto) 0.2 % Immature Gran # (Auto) 0.01 (0.00-0.02) K/uL Neut # (Auto) 3.60 (1.4-6.5) K/uL Lymph # (Auto) 1.01 L (1.2-3.4) K/uL [place] # (Auto) 0.25 (0.11-0.59) K/uL Eos # (Auto) 0.10 (0-0.5) K/uL Baso # (Auto) 0.01 (0-0.2) K/uL RBC Morphology Unremarkable PT 12.2 H (9.0-12.0) Seconds INR 1.2 H (0.9-1.1) Sodium 135 L (136-145) mmol/L Potassium 3.0 L (3.5-5.1) mmol/L Chloride 98 (98-107) mmol/L Carbon Dioxide 24 (21-32) mmol/L Anion Gap 13.0 H (3-11) BUN 2 L (7-18) mg/dl Creatinine 0.60 (0.6-1.4) mg/dl Est Cr Clr Drug Dosing 157.6 ml/min Est GFR ( Amer) 148.9 Est GFR (Non-Af Amer) 128.4 BUN/Creatinine Ratio 2.9 L (10-20) Glucose 76 (70-99) mg/dl Calcium 8.6 (8.5-10.1) mg/dl Total Bilirubin 1.6 H (0.2-1) mg/dl AST 487 H (15-37) U/L ALT 242 H (12-78) U/L Alkaline Phosphatase 242 H (45-117) U/L Total Protein 6.6 (6.4-8.2) gm/dl Albumin 2.6 L (3.4-5.0) gm/dl Globulin 4.0 (2.5-4.0) gm/dl Albumin/Globulin Ratio 0.7 L (0.9-2) Medications Administered Current Inpatient Medications Albuterol (Ventolin Hfa) 2 puffs INH QID PRN PRN Reason: Wheezing or Cough Stop: 06/05/19 21:06 Last Admin: 05/08/19 07:06 Dose: 2 puffs Documented by: Chlordiazepoxide HCl (Librium) 5 mg PO Q12H MALU Stop: 05/10/19 10:01 Chlordiazepoxide HCl (Librium) 10 mg PO Q8H MALU Stop: 05/09/19 06:21 Hydralazine HCl (Hydralazine Hcl) 10 mg IV Q6H PRN PRN Reason: SBP >180 or DBP >110 Stop: 06/06/19 17:34 Prochlorperazine 5 mg/ Syringe 5 mls @ 5 mls/min IV Q4H PRN PRN Reason: Nausea And Vomiting Stop: 06/06/19 13:14 Last Admin: 05/07/19 15:06 Dose: 5 mls/min Documented by: Folic Acid 1 mg/ Syringe 10 mls @ 5 mls/min IV QAM [facility] Stop: 06/07/19 08:59 Thiamine HCl 100 mg/ Syringe 10 mls @ 2 mls/min IV DAILY@0900 [facility] Stop: 06/07/19 08:59 Potassium Chloride 20 meq/ (Lactated Ringer's) 1,010 mls @ 200 mls/hr IV .Q5H3M [facility] Stop: 06/07/19 07:29 Lorazepam (Ativan) 1 mg PO ONE PRN; Protocol PRN Reason: EtoH Withdrawal AWSS 6-10 Miscellaneous (Remove Nicoderm Patch) 1 ea N/A QPM [facility] Stop: 06/05/19 22:59 Last Admin: 05/07/19 21:13 Dose: 1 ea Documented by: Morphine Sulfate (Morphine Sulfate) 2 mg IV Q4H PRN PRN Reason: Pain Stop: 05/20/19 18:50 Last Admin: 05/07/19 21:17 Dose: 2 mg Documented by: Nicotine ([facility]oderm Cq) [facility] [place] [facility] [place]: 06/05/19 18:44 Last Admin: 05/07/19 09:34 Dose: 14 mg Documented by: Pantoprazole Sodium (Protonix) 40 mg PO QAM [facility] Stop: 06/06/19 08:59 Last Admin: 05/07/19 09:07 Dose: 40 mg Documented by: PG Care Time/CCT Total # of Minutes Spent Total Time Spent with Patient: Total time spent is greater than 50% in coordination of care (as documented) at patient's floor/unit and/or counseling patient: Resident Activity Tracking Resident Involvement: Resident Care Provided Care Provided: Adult Hospital Medicine (1) Depression Depression Type: unspecified Qualified Code(s): F32.9 - Major depressive disorder, single episode, unspecified (2) Alcohol-induced pancreatitis Acute pancreatitis complication: no infection or necrosis Chronicity: acute Qualified Code(s): K85.20 - Alcohol induced acute pancreatitis without necrosis or infection
[2019-05-08] MEDS: NICOTINE 14 MG/24 HR PATCH TD SCH (08:26)
[2019-05-08] MEDS: PANTOprazole 40 MG TAB PO SCH (08:26)
[2019-05-08] MEDS ORDERED: FOLIC ACID 1 MG in SYRINGE 9.8 ML IV SCH (09:00)
[2019-05-08] MEDS ORDERED: THIAMINE HCL 100 MG in SYRINGE 9 ML IV SCH (09:00)
[2019-05-08] MEDS ORDERED: POTASSIUM CHLORIDE 20 MEQ TABCR PO STA (12:40)
--- NOTE | 2019-05-08 15:34 | Discharge Summary ---
Date of Service May 08, 2019 Admission HPI Per Admitting Provider Watson Pavon is a 39-year-old male with past medical history of asthma, alcohol abuse, and hyperlipidemia who presented with 2 days of increased abdominal pain, vomiting, and decreased in context of 1/5/day alcohol use. He reports his abdominal pain began 1-2 days ago. He rates it as an 8/10 and does not know any remitting or exacerbating factors. He completely lost and has had minimal p.o. intake. Endorses fever, chills, shakes intermittent diaphoresis over the last 2 days. He has had several episodes of yellow emesis without blood or bile. Endorses intermittent diarrhea without melena or blood, denies constipation. Prior to admission he has been drinking a fifth per day of hard liquor. Last drink was this morning. He completed an inpatient detox program in [facility] in December 2017. He attended inpatient rehab after he began to have trouble with CYS last MarchJu and reports he was "always functional "up until the time, but lost due to alcohol difficulties last year. His sister Madie is formally adopting, he is not allowed to see them until procedures are complete. He reports that he has had tremors/shakes with withdrawal before, but denies any history of seizures, hallucinations, vision changes, or confusion. He reports he felt he was doing well following detox with an IOP program until his main social support his ex- had a heart attack and in March. Reports that following this he became extremely depressed and demotivated, "stopped caring, "and did not feel like he had the energy or willpower to "take care of himself ". He had tried fluoxetine for couple of weeks, but did not notice a benefit of it and stopped it. He has not taken it over a month. He also stopped taking his atorvastatin, and Pro Air. Denies auditory/visual hallucinations. Denies active/passive SI. Medical history: Hyperlipidemia, asthma, GERD, alcohol abuse Medication history: Omeprazole . Prescribed is not taking atorvastatin, montelukast, pro-air, fluoxetine. Surgical history: EGD, "normal per patient Social history: Alcohol: 1/5 hard liquor per day, most days of the week. Heavy use for several years Tobacco: Half pack per day 5-year history Recreational: Marijuana, last 3 days ago. Distant history of cocaine use more than 1 year ago. Family history: Denies Hx CODE STATUS: Full code. If he were unable to make decisions, he reports he would want his sister to call to make decisions for. Admission Exam Per Admitting Provider General: A&Ox3. NAD. Cooperative. Appears sad. Not responding to internal stimuli. HEENT: Atraumatic, normocephalic. No facial asymmetry. Pupils equal and reactive to light and accommodation. 23 beats of brief horizontal nystagmus which extinguish on Testing. No saccades. No visual field cuts. Visual acuity grossly intact. No carotid bruits. No anterior/posterior cervical adenopathy. Pulm: CTAB A&P. -wheezes, -rales, -rhonchi. Symmetrical chest rise. No increase work of breathing. No respiratory distress. Cardiac: RRR, -mrg. Radial pulses intact and symmetrical. Abdominal: Tender to palpation in the right upper quadrant and left quadrant without rigidity, or rebound. No guarding. Bowel sounds intact. Cerda sign equivocal. Extremities: Sensation intact in distal extremities and symmetrical. No paresthesias. Moving all extremities equally. Elbow flexion/extension, audience development manager strength, finger flexion/extension, knee flexion, ankle plantarflexion/dorsiflexion intact with 5/5 strength. Principal Diagnosis acute alcohol pancreatitis, alcohol abuse, steatohepatosis Discharge Exam Constitutional well developed, well nourished and cooperative Eyes + anicteric sclerae Respiratory normal respiratory effort, lungs clear to auscultation no cough Cardiovascular RRR, no murmur, no edema Extremities: normal capillary refill Gastrointestinal (Abdomen) Inspection/Auscultation: normal bowel sounds; abdomen not distended Percussion/Palpation: + abdomen tender (mild TTP epigastric area but improved from yesterday, no TTP L or R flank) and abdomen soft; no guarding and no hepatosplenomegaly Skin no rashes, warm and dry no jaundice Psychiatric A+Ox3, euthymic affect Discharge Data Allergies Allergy/AdvReac Type Severity Reaction Status Date / Time No Known Allergies Allergy Verified 05/06/19 21:00 Consultations 05/06/19 17:26 ED Decision to Admit Stat 05/06/19 21:07 Consult Case Management - Discharge Planning Routine Ordered Studies 05/06/19 21:07 gallbladder HISTORY: Pain. Nausea. RUQ pain, hx of greasy food intolerance COMPARISON: 04/26/2018 FINDINGS: Normal gallbladder. Common bile duct 4 mm. Fatty infiltration of liver. Pancreas and right kidney are unremarkable. IMPRESSION: 1. Fatty infiltration of liver.. 2. Otherwise normal study. XR abdomen 2V w PA chest CLINICAL HISTORY: ab pain, vomiting pain. Nausea. COMPARISON STUDY: 04/26/2018 FINDINGS: The soft tissues, psoas shadows, renal outlines and intestinal gas pattern appear normal. There is no evidence for bowel obstruction. There is no evidence for free intraperitoneal air. No abnormal abdominal calcifications are seen. A frontal view of the chest was performed and is unremarkable. IMPRESSION: Normal study. Hospital Course (1) Alcohol-induced pancreatitis: - US Gallbladder showed normal gallbladder, normal pancreas, fatty liver changes - LFTs, alkphos continued to improve - given antiemetics, pain medication, fluids - repeat LFT at PCP appointment in 1 week (2) Alcohol abuse: - CIWA protocol with chlordiazepoxide, was decreased to one 10 mg pill 05/08 on d/c, then to 5mg TID 05/09 - received thiamine and folic acid - Care management consulted for outpatient rehab, pt is not interested in inpatient rehab however has had success in the past with alcohol rehab therapy - Have discussed naloxone as treatment for his alcohol cravings, will discuss further at scheduled follow up appointment with me in clinic (3) Fatty liver: - Pt's US shows signs of fatty liver disease in the setting of alcohol abuse, concern for progression to cirrhosis given patient's significant alcohol consumption and age - Daily LFTs and coag studies were elevated and continue to be elevated but improved during course - Educated patient on the importance of alcohol cessation (4) Depression: - pt reports depressed mood since the of multiple important family members in his family within the last few years. Has been using alcohol as a coping strategy for that depression - No past or current SI/HI - Has tried counseling in the past and found it to be helpful for his depression - Was on fluoxetine outpatient for depression at one point but stopped taking it after about 4 weeks because he "didn't notice a difference" - Will start on sertraline 50mg PO daily on discharge and schedule outpatient follow up visit with me in the clinic to further discuss management (5) Hypokalemia: - repleted Discharged to home Code: FULL Total Time Total Time Spent Total Time Spent (In Minutes): <60 minutes Discharge Plan Discharge Items Patient Disposition: Home - Self-Care Reason For Visit: ACUTE ETOH PANCREATITIS Discharge Diagnosis: acute alcohol pancreatitis, alcohol abuse, steatohepatosis Discharge Goals: Decrease discomfort, Diagnostic testing and Therapeutic intervention Activity: Resume your previous activity Non-emergency contact: Primary Care Provider Call non-emergency contact if: you have any medication questions, your symptoms worsen, your pain is worsening and your temperature is above 100.5 Follow-up/Referrals: Dorene Dominguez [Primary Care Provider] - Diet: Low Fat Addtl Provider Instructions: You were admitted for abdominal pain and vomiting and found to have pancreatitis, an inflammation of your pancreas. This was likely due to the alcohol you were drinking at home, and while you were here we treated you for withdrawal from alcohol with a medication called Librium (chlordiazepoxide). During your time here we talked about your risk of liver failure and dying if you continue to drink. You let us know that you want to stop drinking and want to do outpatient rehab. Please call the number provided to you by care management tomorrow to set up your rehab services. During your visit we also talked about your depression, and how you have taken medicine in the past but did not find it to be too helpful. Today I prescribed you Zoloft (sertraline), a medication for depression that you will take once a day regardless of how you feel. The medication can take multiple weeks to start working. We also talked about the rare possibility that the medication can make your depression worse. If you ever have any thoughts of hurting yourself or someone else go to the ER right away. We scheduled you for a follow up appointment with me in the [facility] (across the street from the hospital) for May 16 at 12:50PM. We will talk about medications to help decrease your cravings at this appointment. If you need to reschedule please call the office at . New Medications: Chlordiazepoxide - I have sent you home with a prescription for four of these pills. Take the 10mg pill this evening at around 10PM. Then tomorrow take one 5mg pill every 8 hours until you run out. DO NOT DRINK WHILE TAKING THIS MEDICATION. Sertraline - this is your new medication for depression. Take one pill once a day no matter how you feel. If you start to feel like you want to hurt yourself or someone else stop the medicine and go to the ER. Albuterol inhaler - I have sent you home with a prescription for an albuterol inhaler. You may use 2 puffs of this medication up to 4 times a day for trouble breathing. Contact [facility] clinic or return to the hospital if you are having worsening symptoms or any other concerns. Prescriptions: New chlordiazepoxide HCl 5 mg Capsule 5 mg PO Q8H Qty: 3 RF: 0 sertraline 50 mg tablet 50 mg PO DAILY Qty: 30 RF: 0 chlordiazepoxide HCl 10 mg capsule 10 mg PO ONCE Qty: 1 RF: 0 Continued omeprazole 20 mg capsule,delayed release(DR/EC) 20 mg PO DAILY RF: 0 albuterol sulfate 90 mcg/actuation HFA aerosol inhaler 2 puff inhalation QID PRN (Reason: Wheezing or Cough) Qty: 1 RF: 0 Stand-Alone Forms: My imeem, Work/School Release (Inpt) [employer]/Other Patient Handouts: Pancreatitis Acute Dc, ED Diet Low Fat Discharge Orders: Discharge Order (Routine); Ordered 05/08/19 Ordered By: Michelle Franklin Admission Data Admit Date/Time: 05/06/19 18:27 Attending Provider: Mati Olivera Admit Provider: Rei Kitchen Primary Care Provider: Dorene Dominguez Service: Medical Other Interventions: Discharge Summary Assessment (RN) Last Done: 05/08/19 15:50 DC Date/Time DO NOT enter until pt leaves facility: 05/08/19 16:40 Supervising Physician Co-Signing Physician Notes Attending attestation Pt seen and examined in concert with Dr. Franklin. In agreement with the documented findings as noted in the resident documentation with any exceptions or additions as noted here. Gradually improved abdominal pain without pain medication mgmt. Tolerating liquid this AM and progression well. Recent history of depression/anxiety foll owing considerable social stressors with benefit previously from therapy. Trial of fluoxetine x 1 month without apparent benefit and self d/c. Would be open to both interventions again. Reports no SI/HI, now or previously. On examination, S1/S2 nl RRR no MCG. CTAB. Abd ND, BS+ve - epigastric TTP Acute alcoholic pancreatitis w/ alcohol abuse - tolerating PO with good hydration. Alcohol abuse with transaminitis and fatty liver - 1/5 of vodka daily x > 1 year. Considerable home stressors including in the family and child custody problems which drive him to drink. Has been in counseling previously. 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 Recommend abstinence. Case management provided resources for rehabilitation services. Alcohol withdrawal - continue chlordiazepoxide rapid taper for tonight and tomorrow. Precautions re: worsening/changing sx. Depression/anxiety - started sertraline 50mg, group counseling encouraged. Follow up with Dr. Franklin next week. Else see resident documentation as noted. Resident Activity Tracking Resident Involvement: Resident Care Provided Care Provided: Adult Hospital Medicine
[2019-05-09] MEDS ORDERED: chlordiazePOXIDE HCl 5 MG CAP PO SCH (22:00)
== END 2019-05-08 16:40 | disposition home or self-care (01) | DRG 439 ==
LOC: ED 15:12 → SUATTDRO 18:27 → 4W 18:27
DX: K70.0 Alcoholic fatty liver; K85.20 Alcohol induced acute pancreatitis without necrosis or infection; Z79.899 Other long term (current) drug therapy; F10.188 Alcohol abuse with other alcohol-induced disorder; J45.909 Unspecified asthma, uncomplicated; F17.210 Nicotine dependence, cigarettes, uncomplicated; F32.9 Major depressive disorder, single episode, unspecified; Z63.4 Disappearance and death of family member; E78.5 Hyperlipidemia, unspecified; K21.9 Gastro-esophageal reflux disease without esophagitis; E87.6 Hypokalemia; Z65.3 Problems related to other legal circumstances; F41.9 Anxiety disorder, unspecified

== ENCOUNTER 2019-08-06 01:00 | Inpatient (IN) ==
[2019-08-06 01:18] LABS: Hematocrit (blood only) 39.8 % (42-52); Hemoglobin 14.2 g/dL (14.0-18.0); Mean Corpuscular Hemoglobin 32.9 pg (25-34); Mean Corpuscular Hgb Conc 35.7 g/dL (32-36); Mean Corpuscular Volume 92.1 fL (80-100); Mean Platelet Volume 8.8 fL (7.4-10.4); Platelet Count 262 K/uL (130-400); RDW Standard Deviation 49.3 fL (36.4-46.3); Red Blood Count 4.32 M/uL (4.7-6.1); White Blood Count 3.54 K/uL (4.8-10.8)
[2019-08-06 01:56] LABS: Albumin Globulin Ratio 0.6 (0.9-2); Albumin Level 2.8 gm/dl (3.4-5.0); BUN Creatinine Ratio 11.5 (10-20); Bilirubin,Total 2.7 mg/dl (0.2-1); Calcium 8.4 mg/dl (8.5-10.1); Creatinine Clr Calc Pharmacy 90.9 ml/min; Est GFR (African American) 105.8; Est GFR (Non-African American) 91.3; Globulin 4.7 gm/dl (2.5-4.0); Potassium 3.6 mmol/L (3.5-5.1); Total Protein 7.5 gm/dl (6.4-8.2)
[2019-08-06 02:06] LABS: Basophils # (auto) 0.02 K/uL (0-0.2); Basophils % (auto) 0.6 %; Eosinophils # (auto) 0.02 K/uL (0-0.5); Eosinophils % (auto) 0.6 %; Immature Granulocytes # (auto) 0.01 K/uL (0.00-0.02); Immature Granulocytes % (auto) 0.3 %; Lymphocytes # (auto) 1.88 K/uL (1.2-3.4); Lymphocytes % (auto) 53.1 %; Monocytes % (auto) 11.3 %; Neutrophils # (auto) 1.21 K/uL (1.4-6.5); Neutrophils % (auto) 34.1 %
[2019-08-06] MEDS ORDERED: MULTI-VITAMIN INFUSION 10 ML, THIAMINE HCL 100 MG, FOLIC ACID 1 MG in SODIUM CHLORIDE 0... IV ONE (02:50)
[2019-08-06] MEDS ORDERED: ONDANSETRON INJ 2 MG/ML 2 ML VIAL IV STA (02:51)
[2019-08-06 03:05] LABS: INR 1.2 (0.9-1.1); Prothrombin Time 12.6 Seconds (9.0-12.0)
[2019-08-06] MEDS ORDERED: IOVERSOL 100ml IV PRN (05:37)
--- NOTE | 2019-08-06 06:36 | Ultrasound Report ---
US liver CLINICAL HISTORY: abdominla pain, transaminitis pain COMPARISON STUDY: No previous studies for comparison. FINDINGS: Fatty replacement of the liver. Normal gallbladder. Common bile duct 4 mm. Right kidney is normal. IMPRESSION: Fatty replacement of the liver. Otherwise negative study. The above report was generated using voice recognition software. It may contain grammatical, syntax or spelling errors. Electronically signed by: Gordon Armenta M.D. 08/06/2019 6:34 AM
--- NOTE | 2019-08-06 06:44 | CT Scan Report ---
CT abd pelvis IV con only CT DOSE: 356.77 mGy.cm HISTORY: Pain upper abdominal pain, transaminitis TECHNIQUE: Multiaxial CT images of the abdomen and pelvis were performed following the use of intrave nous contrast. A dose lowering technique was utilized adhering to the principles of ALARA. COMPARISON STUDY: None. FINDINGS: The lung bases are clear. The liver, spleen, gallbladder, pancreas, kidneys, and adrenal gl ands are within normal limits. No bowel wall thickening or obstruction. The pelvic organs are unremar kable. No suspicious lytic or blastic osseous lesions. Note is made of fatty replacement of the liver . Normal appendix. Mild chronic sigmoid diverticulosis. No evidence for acute diverticulitis. IMPRESSION: No acute process. Chronic colonic diverticulosis. Fatty replacement of the liver. The above report was generated using voice recognition software. It may contain grammatical, syntax or spelling errors. Electronically signed by: Gordon Armenta M.D. 08/06/2019 6:43 AM
[2019-08-06 07:27] LABS: Hepatitis B Surface Antigen Neg (Neg)
[2019-08-06 07:55] LABS: Hepatitis C IgG 13Yrs+Old_Rflx Neg (Neg)
--- NOTE | 2019-08-06 08:33 | Emergency Department Note ---
History of Present Illness General Chief complaint: Abdominal Pain Stated complaint: ABDOMINAL PAIN Source: patient Mode of arrival: ambulatory Limitations: no limitations History of Present Illness Maximum Pain Intensity: 10 This patient is a 39-year-old male who presents to the emergency department for evaluation of abdominal pain. Patient states that for the past few weeks, he has had pain in both sides of his upper abdomen. He states that he has not been eating or drinking. He states the pain is there "most of the time." He reports he has been vomiting daily. Denies blood in the vomit, does note it has been darker in color. Patient admits to alcohol use every day. He states that he drinks 4 to 5 16-ounce drinks per day. He states he has been to detox twice in the past year. He also uses THC. He denies any significant withdrawal symptoms or seizures. Patient reports history of asthma and hyperlipidemia. He has had a prior EGD and has seen In [facility]. He denies any history of hepatitis, although notes that his daughter's mother does have hepatitis. Patient is a poor historian. Home Medications Home Medications Medication Instructions Recorded Confirmed Type omeprazole 20 mg PO DAILY 05/06/19 08/06/19 History sertraline 50 mg PO DAILY #30 tab 05/08/19 08/06/19 Rx Allergies Allergy/AdvReac Type Severity Reaction Status Date / Time No Known Allergies Allergy Verified 08/06/19 02:14 Past Med/Surg History Medical History Hyperlipidemia (Chronic) Asthma (Chronic) Nausea, vomiting, and diarrhea (Acute) Transaminitis (Acute) Family History Mother Myocardial infarction Social History Preferred Language: Lao Communication Ability: Effective [employer] Architect Required: No Beliefs That Will Affect Care: Synagogue Synagogue Beliefs: CHRISTIANS marital status: Single Current Living Situation: Significant Other Other Information That Helps Us Care for You: No Feels Safe at Home: Hesitant to Answer Safety Concerns: Afraid for Self Smoking Status: Current every day smoker Tobacco Type: cigarettes ; Cigarettes Per Day: 1/2 PPD ; Do You Dip or Chew Tobacco: No ; Tobacco Cessation Education Requested by Patient: Yes Hx Alcohol Use: Yes Alcohol type: beer and other Hx Substance Use: Yes substance use type: marijuana and prescription drug Last Used Substance: Just Prior to Arrival Last Used Substance Other:: YESTERDAY Review of Systems A total of 10 systems reviewed and were otherwise negative Physical Exam Vital Signs Vital Signs - 24 hr 08/06/19 01:04 08/06/19 01:06 08/06/19 01:09 Temperature 36.8 C Temperature Source Oral Sepsis Recent Fever Within 48 Hours No Sepsis Action Taken by Nursing No Action Required Pulse Rate 92 H 86 87 Pulse Rate [Right Finger] Pulse Rate from SpO2 Sensor Pulse Rhythm [Right Finger] Pulse Strength [Right Finger] Respiratory Rate 14 18 12 Respiratory Effort / Characteristics Non-Labored Respiratory Depth Normal Respiratory Pattern Regular Blood Pressure 150/100 H 150/100 H Blood Pressure [Right Arm] Blood Pressure Mean 116 116 Blood Pressure Mean [Right Arm] Blood Pressure Position [Right Arm] Pulse Oximetry 97 97 98 Oxygen Delivery Method Room Air 08/06/19 01:30 08/06/19 02:00 08/06/19 02:01 Temperature Temperature Source Sepsis Recent Fever Within 48 Hours Sepsis Action Taken by Nursing Pulse Rate 84 82 83 Pulse Rate [Right Finger] Pulse Rate from SpO2 Sensor Pulse Rhythm [Right Finger] Pulse Strength [Right Finger] Respiratory Rate 17 17 19 Respiratory Effort / Characteristics Respiratory Depth Respiratory Pattern Blood Pressure 135/97 139/102 H Blood Pressure [Right Arm] Blood Pressure Mean 109 114 Blood Pressure Mean [Right Arm] Blood Pressure Position [Right Arm] Pulse Oximetry 96 95 96 Oxygen Delivery Method 08/06/19 02:30 08/06/19 02:31 08/06/19 04:48 Temperature Temperature Source Sepsis Recent Fever Within 48 Hours Sepsis Action Taken by Nursing Pulse Rate 83 82 Pulse Rate [Right Finger] 86 Pulse Rate from SpO2 Sensor 83 Pulse Rhythm [Right Finger] Pulse Strength [Right Finger] Respiratory Rate 18 19 16 Respiratory Effort / Characteristics Non-Labored Spontaneous Respiratory Depth Normal Respiratory Pattern Regular Blood Pressure 122/77 Blood Pressure [Right Arm] 134/88 Blood Pressure Mean 92 Blood Pressure Mean [Right Arm] 103 Blood Pressure Position [Right Arm] Lying Pulse Oximetry 95 98 96 Oxygen Delivery Method Room Air 08/06/19 06:18 08/06/19 07:00 Temperature Temperature Source Sepsis Recent Fever Within 48 Hours Sepsis Action Taken by Nursing Pulse Rate Pulse Rate [Right Finger] 80 77 Pulse Rate from SpO2 Sensor Pulse Rhythm [Right Finger] Regular Pulse Strength [Right Finger] Normal Respiratory Rate 16 14 Respiratory Effort / Characteristics Non-Labored Spontaneous Respiratory Depth Normal Respiratory Pattern Regular Blood Pressure Blood Pressure [Right Arm] 141/96 H 140/103 H Blood Pressure Mean Blood Pressure Mean [Right Arm] 111 115 Blood Pressure Position [Right Arm] Lying Lying Pulse Oximetry 98 100 Oxygen Delivery Method Room Air Room Air VITALS: Vitals are noted on the nurse's note and reviewed by myself. Vital signs stable. GENERAL: This is a 39-year-old male, in no acute distress, nondiaphoretic, well-developed well-nourished. SKIN: The skin was without rashes, erythema, edema, or bruising. EARS: External auditory canals clear, tympanic membranes pearly hester without erythema or effusion bilaterally. EYES: Pupils equal round and reactive to light and accommodation. MOUTH: Mucous membranes moist. Tonsils are not enlarged. Pharynx without erythema or exudate. NECK: Supple without nuchal rigidity. No lymphadenopathy. HEART: Regular rate and rhythm without murmurs gallops or rubs. LUNGS: Clear to auscultation bilaterally without wheezes, rales or rhonchi. ABDOMEN: Positive bowel sounds x 4. Soft, mild tenderness to palpation across the upper abdomen. No guarding or rebound tenderness. NEURO: Patient was alert and oriented to person place and time. Course Consultations Consultation #1: [facility] hospitalist Administered Medications Albuterol (Duoneb) 3 ml NEB QIDR PRN PRN Reason: Shortness Of Breath Or Wheezing Stop: 09/05/19 18:59 Last Admin: 08/06/19 20:15 Dose: 3 ml Documented by: [id number] Lorazepam (Ativan) 1 mg in 2 mls @ 2 mls/min IV ONE PRN; Protocol PRN Reason: EtoH Withdrawal AWSS 6-10 Stop: 09/05/19 09:20 Last Admin: 08/07/19 17:26 Dose: 2 mls/min Documented by: [id number] Admin: 08/06/19 21:13 Dose: 2 mls/min Documented by: [id number] Miscellaneous (Remove Nicoderm Patch) 1 ea N/A HS MALU Stop: 09/05/19 20:59 Last Admin: 08/07/19 21:03 Dose: 1 ea Documented by: [id number] Admin: 08/06/19 21:12 Dose: 1 ea Documented by: [id number] Nicotine (Nicoderm Cq) 14 mg TD QAM MALU Stop: 09/05/19 12:59 Last Admin: 08/07/19 08:40 Dose: 14 mg Documented by: [id number] Admin: 08/06/19 13:56 Dose: 14 mg Documented by: [id number] Pantoprazole Sodium (Protonix) 40 mg PO BID MALU Stop: 09/06/19 20:59 Last Admin: 08/07/19 21:13 Dose: 40 mg Documented by: [id number] Sertraline HCl (Zoloft) 50 mg PO DAILY MALU Stop: 09/05/19 09:20 Last Admin: 08/07/19 08:43 Dose: 50 mg Documented by: [id number] Admin: 08/06/19 10:36 Dose: 50 mg Documented by: [id number] Discontinued Medications Gabapentin (Neurontin) 400 mg PO Q6H MALU Stop: 08/06/19 22:01 Last Admin: 08/06/19 21:13 Dose: 400 mg Documented by: [id number] Admin: 08/06/19 15:58 Dose: 400 mg Documented by: [id number] Gabapentin (Neurontin) 400 mg PO Q8H MALU Stop: 08/07/19 22:01 Last Admin: 08/07/19 21:03 Dose: 400 mg Documented by: [id number] Admin: 08/07/19 13:40 Dose: 400 mg Documented by: [id number] Admin: 08/07/19 06:29 Dose: 400 mg Documented by: [id number] Gabapentin (Neurontin) 800 mg PO NOW ONE Stop: 08/06/19 10:01 Last Admin: 08/06/19 10:37 Dose: 800 mg Documented by: [id number] Multivitamins 10 ml/ Thiamine HCl 100 mg/ Folic Acid 1 mg/Sodium Chloride 1,011.2 mls @ 1,011.2 mls/hr IV .Q1H ONE Stop: 08/06/19 03:49 Last Infusion: 08/06/19 04:46 Dose: 0 mls/hr Documented by: [id number] Admin: 08/06/19 03:10 Dose: 1,011.2 mls/hr Documented by: [id number] Lactated Ringer's (Lr) 1,000 mls @ 100 mls/hr IV .Q10H MALU Stop: 09/05/19 09:20 Last Infusion: 08/07/19 17:26 Dose: 0 mls/hr Documented by: [id number] Infusion: 08/07/19 12:00 Dose: 0 mls/hr Documented by: [id number] Admin: 08/07/19 10:33 Dose: 200 mls/hr Documented by: [id number] Infusion: 08/07/19 10:07 Dose: 200 mls/hr Documented by: [id number] Admin: 08/07/19 05:07 Dose: 200 mls/hr Documented by: [id number] Infusion: 08/07/19 05:07 Dose: 200 mls/hr Documented by: [id number] Infusion: 08/07/19 05:06 Dose: 200 mls/hr Documented by: [id number] Admin: 08/07/19 00:21 Dose: 200 mls/hr Documented by: [id number] Infusion: 08/07/19 00:21 Dose: 200 mls/hr Documented by: [id number] Admin: 08/06/19 19:58 Dose: 200 mls/hr Documented by: [id number] Infusion: 08/06/19 19:58 Dose: 200 mls/hr Documented by: [id number] Admin: 08/06/19 15:57 Dose: 200 mls/hr Documented by: [id number] Infusion: 08/06/19 15:35 Dose: 200 mls/hr Documented by: [id number] Admin: 08/06/19 10:35 Dose: 200 mls/hr Documented by: [id number] Folic Acid 1 mg/ Syringe 10 mls @ 5 mls/min IV QAM MALU Stop: 09/05/19 09:20 Last Admin: 08/07/19 08:39 Dose: 5 mls/min Documented by: [id number] Admin: 08/06/19 10:37 Dose: 5 mls/min Documented by: [id number] Thiamine HCl 100 mg/ Syringe 10 mls @ 2 mls/min IV QAM MALU Stop: 09/05/19 09:20 Last Admin: 08/07/19 08:39 Dose: 2 mls/min Documented by: [id number] Admin: 08/06/19 10:38 Dose: 2 mls/min Documented by: [id number] Pantoprazole Sodium 80 mg/ (Dextrose) 120 mls @ 480 mls/hr IV 0800 MALU Stop: 08/07/19 08:14 Last Infusion: 08/07/19 08:57 Dose: 0 mls/hr Documented by: [id number] Admin: 08/07/19 08:40 Dose: 480 mls/hr Documented by: [id number] Pantoprazole Sodium 40 mg/ (Dextrose) 100 mls @ 20 mls/hr IV Q5H MALU; Protocol Stop: 08/07/19 18:00 Last Infusion: 08/07/19 17:38 Dose: 0 mls/hr Documented by: [id number] Admin: 08/07/19 12:30 Dose: 20 mls/hr Documented by: [id number] Infusion: 08/07/19 12:30 Dose: 20 mls/hr Documented by: [id number] Admin: 08/07/19 08:40 Dose: 20 mls/hr Documented by: [id number] Magnesium Sulfate/Dextrose (Magnesium Sulfate / D5w) 1 gm in 100 mls @ 100 mls/hr IV Q1H MALU Stop: 08/07/19 13:14 Last Infusion: 08/07/19 15:03 Dose: 0 mls/hr Documented by: [id number] Admin: 08/07/19 13:39 Dose: 100 mls/hr Documented by: [id number] Infusion: 08/07/19 13:26 Dose: 100 mls/hr Documented by: [id number] Admin: 08/07/19 12:26 Dose: 100 mls/hr Documented by: [id number] Ioversol (Optiray 320 100ml) 94 ml IV ONCE PRN PRN Reason: Interaction Checking Stop: 08/10/19 05:36 Last Admin: 08/06/19 05:38 Dose: 94 ml Documented by: [id number] Ondansetron HCl (Zofran) 4 mg IV NOW [facility] Stop: 08/06/19 02:52 Last Admin: 08/06/19 02:57 Dose: 4 mg Documented by: [id number] Pantoprazole Sodium (Protonix) 40 mg PO DAILY MALU Stop: 09/05/19 09:44 Last Admin: 08/06/19 10:37 Dose: 40 mg Documented by: [id number] Medical Decision Making Differential Diagnosis Differential diagnosis includes appendicitis, diverticulitis, bowel obstruction, inflammatory bowel disease, renal colic, PUD, biliary pathology, pancreatitis, mesenteric ischemia, aortic pathology, infection, genitourinary, UTI, perforated viscus, among others. Home Medications Current Medication List: was personally reviewed by me Laboratory Data Attestation: I reviewed the patient's lab results. Result diagrams: 08/07/19 14:18 08/07/19 06:07 Lab Results 08/06/19 08/06/19 08/06/19 Range/Units 01:09 01:09 01:09 WBC 3.54 L (4.8-10.8) K/uL RBC 4.32 L (4.7-6.1) M/uL Hgb 14.2 (14.0-18.0) g/dL Hct 39.8 L (42-52) % MCV 92.1 (80-100) fL MCH 32.9 (25-34) pg MCHC 35.7 (32-36) g/dL RDW Std Deviation 49.3 H (36.4-46.3) fL RDW Coeff of Juli 15.0 H (11.5-14.5) % Plt Count 262 (130-400) K/uL MPV 8.8 (7.4-10.4) fL Immature Gran % (Auto) 0.3 % Neut % (Auto) 34.1 % Lymph % (Auto) 53.1 % Mcdonald % (Auto) 11.3 % Eos % (Auto) 0.6 % Baso % (Auto) 0.6 % Immature Gran # (Auto) 0.01 (0.00-0.02) K/uL Neut # (Auto) 1.21 L (1.4-6.5) K/uL Lymph # (Auto) 1.88 (1.2-3.4) K/uL Mcdonald # (Auto) 0.40 (0.11-0.59) K/uL Eos # (Auto) 0.02 (0-0.5) K/uL Baso # (Auto) 0.02 (0-0.2) K/uL PT 12.6 H (9.0-12.0) Seconds INR 1.2 H (0.9-1.1) Sodium 133 L (136-145) mmol/L Potassium 3.6 (3.5-5.1) mmol/L Chloride 98 (98-107) mmol/L Carbon Dioxide 26 (21-32) mmol/L Anion Gap 9.0 (3-11) BUN 12 (7-18) mg/dl Creatinine 1.04 (0.6-1.4) mg/dl Est Cr Clr Drug Dosing 90.9 ml/min Est GFR ( Amer) 105.8 Est GFR (Non-Af Amer) 91.3 BUN/Creatinine Ratio 11.5 (10-20) Glucose 146 H (70-99) mg/dl Calcium 8.4 L (8.5-10.1) mg/dl Total Bilirubin 2.7 H (0.2-1) mg/dl AST 893 H (15-37) U/L ALT 422 H (12-78) U/L Alkaline Phosphatase 423 H (45-117) U/L Total Protein 7.5 (6.4-8.2) gm/dl Albumin 2.8 L (3.4-5.0) gm/dl Globulin 4.7 H (2.5-4.0) gm/dl Albumin/Globulin Ratio 0.6 L (0.9-2) Lipase 465 H (73-393) U/L Ethyl Alcohol mg/dL (0-3) mg/dl Hepatitis A IgM Ab (NON-REACTIVE) Hep Bs Antigen (Neg) Hep B Core IgM Ab (NON-REACTIVE) Hepatitis C Antibody (Neg) 08/06/19 08/06/19 08/06/19 Range/Units 01:09 01:09 03:00 WBC (4.8-10.8) K/uL RBC (4.7-6.1) M/uL Hgb (14.0-18.0) g/dL Hct (42-52) % MCV (80-100) fL MCH (25-34) pg MCHC (32-36) g/dL RDW Std Deviation (36.4-46.3) fL RDW Coeff of Juli (11.5-14.5) % Plt Count (130-400) K/uL MPV (7.4-10.4) fL Immature Gran % (Auto) % Neut % (Auto) % Lymph % (Auto) % Mcdonald % (Auto) % Eos % (Auto) % Baso % (Auto) % Immature Gran # (Auto) (0.00-0.02) K/uL Neut # (Auto) (1.4-6.5) K/uL Lymph # (Auto) (1.2-3.4) K/uL Mcdonald # (Auto) (0.11-0.59) K/uL Eos # (Auto) (0-0.5) K/uL Baso # (Auto) (0-0.2) K/uL PT (9.0-12.0) Seconds INR (0.9-1.1) Sodium (136-145) mmol/L Potassium (3.5-5.1) mmol/L Chloride (98-107) mmol/L Carbon Dioxide (21-32) mmol/L Anion Gap (3-11) BUN (7-18) mg/dl Creatinine (0.6-1.4) mg/dl Est Cr Clr Drug Dosing ml/min Est GFR ( Amer) Est GFR (Non-Af Amer) BUN/Creatinine Ratio (10-20) Glucose (70-99) mg/dl Calcium (8.5-10.1) mg/dl Total Bilirubin (0.2-1) mg/dl AST (15-37) U/L ALT (12-78) U/L Alkaline Phosphatase (45-117) U/L Total Protein (6.4-8.2) gm/dl Albumin (3.4-5.0) gm/dl Globulin (2.5-4.0) gm/dl Albumin/Globulin Ratio (0.9-2) Lipase (73-393) U/L Ethyl Alcohol mg/dL 256.0 H (0-3) mg/dl Hepatitis A IgM Ab NON-REACTIVE (NON-REACTIVE) Hep Bs Antigen Neg (Neg) Hep B Core IgM Ab NON-REACTIVE (NON-REACTIVE) Hepatitis C Antibody Neg (Neg) Imaging Data Attestation: I personally reviewed and interpreted this imaging study as follows: Radiologist's Impression: US RUQ: No sonographic evidence of cholelithiasis, acute cholecystitis, or biliary dilatation. Echogenic liver suggesting steatosis. Unremarkable right kidney. CT ABDOMEN & PELVIS With Contrast: Hepatomegaly and steatosis. Gallbladder, spleen, pancreas, adrenal glands, and kidneys are unremarkable. Normal appendix. No obstructive or inflammatory changes of the bowel. Sigmoid diverticulosis without acute diverticulitis. Urinary bladder and prostate are unremarkable. No acute osseous findings. Radiologist: Say Akins M.D. Blood Pressure Blood Pressure Findings: Elevated blood pressure Blood Pressure Disposition: further management by hospitalist MDM Narrative The patient is a 39-year-old male who presents today complaining of abdominal pain. Labs revealed no leukocytosis or concerning anemia. Patient with transaminitis; AST 893, ALT 422, alkaline phosphatase 423 and total bilirubin 2.7. INR slightly elevated at 1.2. Lipase mildly elevated at 465. Ultrasound of the right upper quadrant performed and shows hepatic steatosis, no other acute findings. CT of the abdomen/pelvis performed with no acute findings. Given patient's significant transaminitis, ongoing pain and possibility of GI bleed, he will be admitted to the hospitalist service for further evaluation and care. Patient given IV hydration with a banana bag in the emergency department. Patient was agreeable with plan of care. Case discussed with the [facility] hospitalist service. Impression & Plan Bilateral upper abdominal pain, Transaminitis, Vomiting Discharge Plan Visit Data *Final* Discharge Date/Time: 08/06/19 08:35 Chief Complaint: Abdominal Pain Stated Complaint: ABDOMINAL PAIN ED Provider: Makenna Jett ED Midlevel Provider: Ninoska New Discharge Problem: Bilateral upper abdominal pain, Transaminitis, Vomiting Patient Disposition: Admitted As Inpatient Discharge Instructions Interventions: ED Discharge Assessment Last Done: 08/06/19 08:35 Discharge Problem: Vomiting Qualifiers: Vomiting type: unspecified Vomiting Intractability: non-intractable Nausea presence: with nausea Qualified Code(s): R11.2 - Nausea with vomiting, unspecified
[2019-08-06] MEDS ORDERED: GABAPENTIN 800MG ALCOHOL WITHDRAWAL LOAD PO STA (09:21)
[2019-08-06] MEDS ORDERED: ONDANSETRON INJ 2 MG/ML 2 ML VIAL IV PRN (09:21)
[2019-08-06] MEDS ORDERED: ACETAMINOPHEN 325 MG TAB PO PRN (09:21)
[2019-08-06] MEDS ORDERED: PANTOprazole 40 MG TAB PO SCH (09:45)
[2019-08-06] MEDS ORDERED: GABAPENTIN 400 MG CAP PO ONE (10:00)
[2019-08-06] MEDS: LACTATED RINGER'S 1,000 ML IV SCH ×3 (10:35→19:58)
[2019-08-06] MEDS: SERTRALINE HCL 50 MG TABLET PO SCH (10:36)
[2019-08-06] MEDS: FOLIC ACID 1 MG in SYRINGE 9.8 ML IV SCH (10:37)
[2019-08-06] MEDS: THIAMINE HCL 100 MG in SYRINGE 9 ML IV SCH (10:38)
[2019-08-06] MEDS: NICOTINE 14 MG/24 HR PATCH TD SCH (13:56)
--- NOTE | 2019-08-06 15:09 | History & Physical Report ---
Date of Service August 06, 2019 Assessment & Plan (1) Alcohol abuse: Drinks equivalent of 10-11 alcoholic drinks/day (drinking mostly higher ABV beer). History of withdrawals, but never need for intubation. - On gabapentin alcohol withdrawl protocol - Ativan PRN - Vitamin repletion - Counseled cessation - Will get CM on Thursday as he is interested in 30-day programs (2) Alcoholic hepatitis: AST/ALT was 893/422 on admission. Maddrey's DF was 5.5 on admission, making steroids not indicated. - Monitor LFTs & DF (3) Alcohol-induced pancreatitis: Lipase was [address] a/p on 08/06 showed no pancreatic inflammation. - LR at 200 mL/hr - Clear liquid diet - Trend lipase (4) Asthma: Reports shortness of breath, but breathing comfortably on room air. - DuoNebs PRN (5) Depression: Reports no suicidal ideation, but definite depression at the loss of his job. - Continue sertraline (6) GERD (gastroesophageal reflux disease): - Continue PPI (7) DVT prophylaxis: SCDs - Low DVT risk per admission calculator History of Present Illness Primary Care Provider: Dorene Dominguez 39yo M w/ hx of depression & alcohol abuse who presents with alcohol hepatitis and pancreatitis. He reports that he has been having increasing pain in the flanks for several weeks that has steadily increased. He reports that he has also been throwing up 1-2 times per day with bilious material. He denies any hematemesis, but does report some possible coffee ground material with his emesis. He also reports some darker, tarry stools over the last few weeks as well. He reports that he drinks the equivalent of about 10-11 beers a day (drinking a higher ABV beer in a larger 16oz can). He also reports some shortness of breath, though no cough. He denies any fevers, chills, sweats, dysuria, swelling in the abdomen or legs, any numbness, or tingling in the hands/feet. Allergies Allergy/AdvReac Type Severity Reaction Status Date / Time No Known Allergies Allergy Verified 08/06/19 02:14 Home Medications Home Medications Medication Instructions Recorded Confirmed Type omeprazole 20 mg PO DAILY 05/06/19 08/06/19 History sertraline 50 mg PO DAILY #30 tab 05/08/19 08/06/19 Rx Past Med/Surg History Medical History Hyperlipidemia (Chronic) Asthma (Chronic) Nausea, vomiting, and diarrhea (Acute) Transaminitis (Acute) Family History Mother Myocardial infarction Social History Preferred Language: Mexican Communication Ability: Effective Marketing Financial Analyst Required: No Beliefs That Will Affect Care: Spiritism Spiritism Beliefs: CHRISTIANS Current Living Situation: Significant Other Other Information That Helps Us Care for You: No Feels Safe at Home: Hesitant to Answer Safety Concerns: Afraid for Self Smoking Status: Current every day smoker Tobacco Type: cigarettes ; Cigarettes Per Day: 1/2 PPD ; Do You Dip or Chew Tobacco: No ; Tobacco Cessation Education Requested by Patient: Yes Hx Alcohol Use: Yes Alcohol type: beer and other Hx Substance Use: Yes substance use type: marijuana and prescription drug Last Used Substance: Just Prior to Arrival Last Used Substance Other:: YESTERDAY Review of Systems Review of Systems: All systems reviewed & are unremarkable except as noted in HPI & below Physical Exam Constitutional: WD/WN, vitals as above Eyes: EOM intact bilaterally; no conjunctival abnormality ENMT: external ear and nose normal, oropharynx normal Neck: trachea midline, no thyromegaly normal visual inspection Respiratory: normal respiratory effort, lungs clear to auscultation no respiratory distress Cardiovascular: RRR, no murmur, no edema Gastrointestinal (Abdomen): Inspection/Auscultation: abdomen normal to inspection and normal bowel sounds; abdomen not distended Percussion/Palpation: abdomen soft; abdomen nontender, no guarding, abdomen not rigid and no ascites Musculoskeletal: no cyanosis or clubbing, extremities motor strength 5/5 Skin: no rashes, warm and dry Neurologic: moves all extremities and awake Psychiatric: Orientation: alert, oriented to person and cooperative Results & Data Vital Signs (Past 12 Hours) Vital Signs Temp Pulse Resp BP Pulse Ox 08/06/19 08:57 36.7 C 64 16 139/92 96 08/06/19 08:25 79 16 132/86 98 08/06/19 07:00 77 14 140/103 H 100 08/06/19 06:18 80 16 141/96 H 98 08/06/19 04:48 86 16 134/88 96 Code Status & VTE Plan VTE Prophylaxis Plan VTE Prophylaxis will be ordered: Yes PG Care Time/CCT Total # of Minutes Spent Total Time Spent with Patient: Total time spent is greater than 50% in coordination of care (as documented) at patient's floor/unit and/or counseling patient: (1) Alcoholic hepatitis Ascites presence: unspecified Qualified Code(s): K70.10 - Alcoholic hepatitis without ascites (2) Alcohol-induced pancreatitis Chronicity: acute Acute pancreatitis complication: no infection or necrosis Qualified Code(s): K85.20 - Alcohol induced acute pancreatitis without necrosis or infection (3) Depression Depression Type: unspecified Qualified Code(s): F32.9 - Major depressive disorder, single episode, unspecified
[2019-08-06] MEDS: GABAPENTIN 400 MG CAP PO SCH ×2 (15:58→21:13)
[2019-08-06] MEDS ORDERED: ALBUT/IPRATROP 3MG/0.5MG NEB 3 ML VIAL NEB PRN (17:31)
[2019-08-06] MEDS: LORazepam 1 MG/2 ML VIAL IV PRN (21:13)
[2019-08-07] MEDS: LACTATED RINGER'S 1,000 ML IV SCH ×3 (00:21→10:33)
[2019-08-07] MEDS: GABAPENTIN 400 MG CAP PO SCH ×3 (06:29→21:03)
[2019-08-07 06:57] LABS: INR 1.3 (0.9-1.1)
[2019-08-07 07:09] LABS: Hematocrit (blood only) 29.5 % (42-52); Hemoglobin 10.5 g/dL (14.0-18.0); Mean Corpuscular Hemoglobin 32.7 pg (25-34); Mean Corpuscular Hgb Conc 35.6 g/dL (32-36); Mean Corpuscular Volume 91.9 fL (80-100); Mean Platelet Volume 8.9 fL (7.4-10.4); Platelet Count 226 K/uL (130-400); RDW Coefficient of Variation 15.1 % (11.5-14.5); RDW Standard Deviation 49.9 fL (36.4-46.3); Red Blood Count 3.21 M/uL (4.7-6.1); White Blood Count 3.56 K/uL (4.8-10.8)
[2019-08-07 07:30] LABS: Potassium 3.6 mmol/L (3.5-5.1)
[2019-08-07 07:31] LABS: Albumin Level 2.2 gm/dl (3.4-5.0); BUN Creatinine Ratio 7.7 (10-20); Calcium 8.7 mg/dl (8.5-10.1); Creatinine Clr Calc Pharmacy 112.6 ml/min; Est GFR (African American) 129.6; Est GFR (Non-African American) 111.9; Magnesium 1.4 mg/dl (1.8-2.4)
[2019-08-07 07:39] LABS: Albumin Globulin Ratio 0.6 (0.9-2); Bilirubin,Total 3.5 mg/dl (0.2-1); Globulin 3.7 gm/dl (2.5-4.0); Phosphorus 3.1 mg/dl (2.5-4.9); Total Protein 5.9 gm/dl (6.4-8.2)
[2019-08-07] MEDS ORDERED: PANTOprazole 80 MG in DEXTROSE 5% 100 ML IV SCH (08:00)
[2019-08-07] MEDS: FOLIC ACID 1 MG in SYRINGE 9.8 ML IV SCH (08:39)
[2019-08-07] MEDS: THIAMINE HCL 100 MG in SYRINGE 9 ML IV SCH (08:39)
[2019-08-07] MEDS: NICOTINE 14 MG/24 HR PATCH TD SCH (08:40)
[2019-08-07] MEDS: PANTOprazole 40 MG in DEXTROSE 5% 100 ML IV SCH ×2 (08:40→12:30)
[2019-08-07] MEDS: SERTRALINE HCL 50 MG TABLET PO SCH (08:43)
[2019-08-07 08:53] LABS: Ferritin 2672.5 ng/ml (8-388)
[2019-08-07 09:38] LABS: Folate (Folic Acid) 8.93 ng/ml (>5.38)
[2019-08-07] MEDS: MAGNESIUM SULFATE / D5W 1 GM/100 ML BAG IV SCH ×2 (12:26→13:39)
--- NOTE | 2019-08-07 16:48 | Hospitalist Progress Note ---
Date of Service August 07, 2019 Assessment & Plan (1) GI (gastrointestinal bleed): Patient reported weeks of coffee ground emesis and black, tarry stool. Hgb on admission was 14, down to 11 by 08/07. - Normal, brown BM on 08/07 with negative fecal occult. No emesis at all. - Started on PPI gtt on 08/07 when his hgb dropped; however, I have lower concern for GI bleed at this time given his negative fecal occult and lack of emesis. Hgb stable in the afternoon. - Continue PPI ggt for 24 hours. If hgb stable, can likely switch to PO BID. - Advance diet to full liquids per patient request. If hgb is again stable, can probably have a regular diet in the morning. (2) Alcohol abuse: Drinks equivalent of 10-11 alcoholic drinks/day (drinking mostly higher ABV beer). History of withdrawals, but never need for intubation. - On gabapentin alcohol withdrawal protocol - Ativan PRN - Vitamin repletion - Counseled cessation - Will get CM on Thursday as he is interested in 30-day programs (3) Alcoholic hepatitis: AST/ALT was 893/422 on admission. Maddrey's DF was 8.1 on 08/07, making steroids not indicated. - Monitor LFTs & DF - Improving LFTs, but DF is actually higher for higher Tbili and INR (4) Alcohol-induced pancreatitis: Lipase was [address] a/p on 08/06 showed no pancreatic inflammation. - LR at 100 mL/hr - Full liquid diet - Trend lipase - Resolved by 08/07 (5) Asthma: Reports shortness of breath, but breathing comfortably on room air. - DuoNebs PRN (6) Depression: Reports no suicidal ideation, but definite depression at the loss of his job. - Continue sertraline (7) GERD (gastroesophageal reflux disease): - Continue PPI gtt (8) DVT prophylaxis: SCDs - Low DVT risk per admission calculator & holding for possible GI bleed Subjective Feeling better today. Reports some bloating, but no nausea or vomiting. He had a BM that was brown, no tarry stool. Physical Exam Constitutional: WD/WN, vitals as above Eyes: EOM intact bilaterally; no conjunctival abnormality ENMT: external ear and nose normal, oropharynx normal Neck: trachea midline, no thyromegaly normal visual inspection Respiratory: normal respiratory effort, lungs clear to auscultation no respiratory distress Cardiovascular: RRR, no murmur, no edema Gastrointestinal (Abdomen): Inspection/Auscultation: abdomen normal to inspection and normal bowel sounds; abdomen not distended Percussion/Palpation: abdomen soft; abdomen nontender, no guarding, abdomen not rigid and no ascites Musculoskeletal: no cyanosis or clubbing, extremities motor strength 5/5 Skin: no rashes, warm and dry Neurologic: moves all extremities and awake Psychiatric: Orientation: alert, oriented to person and cooperative Results & Data Vital Signs (Past 12 Hours) Vital Signs Temp Pulse Resp BP Pulse Ox 08/07/19 15:36 36.7 C 80 21 155/92 H 100 PG Care Time/CCT Total # of Minutes Spent Total Time Spent with Patient: Total time spent is greater than 50% in coordination of care (as documented) at patient's floor/unit and/or counseling patient: (1) Alcoholic hepatitis Ascites presence: unspecified Qualified Code(s): K70.10 - Alcoholic hepatitis without ascites (2) Alcohol-induced pancreatitis Chronicity: acute Acute pancreatitis complication: no infection or necrosis Qualified Code(s): K85.20 - Alcohol induced acute pancreatitis without necrosis or infection (3) Depression Depression Type: unspecified Qualified Code(s): F32.9 - Major depressive disorder, single episode, unspecified
--- NOTE | 2019-08-07 16:48 | Gastrointestinal Consultation ---
Date of Consultation August 07, 2019 Assessment & Plan (1) GI (gastrointestinal bleed): UGI bleed--self limited with heme neg stools at present. Discussed EGD as inpt if desired. He is agreeable and plan for tomorrow afternoon with DR Elias. Proc and risks explained which include but not limited to med reaction, bleeding, perforation, aspiration. Recommend po PPI. anemia--Fe, B12, folate not explanatory elevated FE sat and ferritin-may be related to ETOH hepatitis but needs followed as outpt discussed with patient to rule out hemochromatosis elevated LFTS--likely from ETOH ETOH abuse recommend abstinece elevated lipase--resolved and no pancreatitis on CT so suspect not clinically significatn. I am going off service tomorrow at [address] Elias is assuming GI care then. History of Present Illness Reason for Consultation: coffee ground emesis Requesting Physician: Dr Link Willams Attending Physician: Link Willams MD History of Present Illness CC vomiting HPI Sister with patient for H and P. Reviewed [facility] EMR and this EMR. Noted Dr Elias OV 05/2018 for GERD, epi pain, vomiting, bloating, and diarrhea. He had EGD 06/2018 normal with random duod bx normal. Pt drinks ETOH heavily with 4-5 16 oz beers daily. He had been having epi pain, n/v, and coffee ground emeis and presented to ER. In ER noted to have elevated elevated with normocytic anemia. Ferritin and Fe sat and B12 elevated and folate normal. Stool heme neg. u/s of abdomen showed fatty liver and a/p CT diverticulosis and fatty liver. Lipase mildly elevated on admit today normal. He states abd pain 10/10 at home and 5/10 currently. States stools dark at times. No red stools nor red vomitus. States GERD and n/v better off ETOH for spell of 3 weeks. Allergies Allergy/AdvReac Type Severity Reaction Status Date / Time No Known Allergies Allergy Verified 08/06/19 02:14 Home Medications Home Medications Medication Instructions Recorded Confirmed Type omeprazole 20 mg PO DAILY 05/06/19 08/06/19 History sertraline 50 mg PO DAILY #30 tab 05/08/19 08/06/19 Rx Patient History Medical History Hyperlipidemia (Chronic) Asthma (Chronic) Nausea, vomiting, and diarrhea (Acute) Transaminitis (Acute) Family History Mother Myocardial infarction Social History Preferred Language: Danish Communication Ability: Effective Cardiology Nurse Practitioner Required: No Beliefs That Will Affect Care: Zoroastrianism Zoroastrianism Beliefs: CHRISTIANS marital status: Single Current Living Situation: Significant Other Other Information That Helps Us Care for You: No Feels Safe at Home: Hesitant to Answer Safety Concerns: Afraid for Self Smoking Status: Current every day smoker Tobacco Type: cigarettes ; Cigarettes Per Day: 1/2 PPD ; Do You Dip or Chew Tobacco: No ; Tobacco Cessation Education Requested by Patient: Yes Hx Alcohol Use: Yes Alcohol type: beer and other Hx Substance Use: Yes substance use type: marijuana and prescription drug Last Used Substance: Just Prior to Arrival Last Used Substance Other:: YESTERDAY Review of Systems Review of Systems: All systems reviewed & are unremarkable except as noted in HPI & below Physical Exam Constitutional: WD/WN, vitals as above Eyes: PERRL, conjunctivae normal, anicteric sclerae ENMT: external ear and nose normal, oropharynx normal Neck: normal visual inspection and trachea midline Respiratory: normal respiratory effort, lungs clear to auscultation Cardiovascular: RRR, no murmur, no edema Gastrointestinal (Abdomen): normal bowel sounds, soft, nontender, no hepatosplenomegaly Neurologic: patellar DTR's 2+ bilat, sensation intact Psychiatric: A+Ox3, euthymic affect Results & Data Vital Signs (Past 12 Hours) Vital Signs Temp Pulse Resp BP Pulse Ox 08/07/19 15:36 36.7 C 80 21 155/92 H 100
[2019-08-07] MEDS: LORazepam 1 MG/2 ML VIAL IV PRN (17:26)
[2019-08-07] MEDS: PANTOprazole 40 MG TAB PO SCH (21:13)
[2019-08-08 02:51] LABS: Hepatitis A Antibody IgM NON-REACTIVE (NON-REACTIVE); Hepatitis B Core Antibody IgM NON-REACTIVE (NON-REACTIVE)
[2019-08-08 07:00] LABS: Hematocrit (blood only) 29.4 % (42-52); Hemoglobin 10.5 g/dL (14.0-18.0); Mean Corpuscular Hemoglobin 33.2 pg (25-34); Mean Corpuscular Hgb Conc 35.7 g/dL (32-36); Mean Platelet Volume 8.5 fL (7.4-10.4); Platelet Count 213 K/uL (130-400); RDW Coefficient of Variation 15.6 % (11.5-14.5); RDW Standard Deviation 51.4 fL (36.4-46.3); Red Blood Count 3.16 M/uL (4.7-6.1); White Blood Count 3.47 K/uL (4.8-10.8)
[2019-08-08 07:17] LABS: INR 1.2 (0.9-1.1); Prothrombin Time 11.8 Seconds (9.0-12.0)
[2019-08-08 07:27] LABS: Albumin Level 2.3 gm/dl (3.4-5.0); BUN Creatinine Ratio 3.7 (10-20); Calcium 8.6 mg/dl (8.5-10.1); Creatinine Clr Calc Pharmacy 126.1 ml/min; Est GFR (African American) 135.8; Est GFR (Non-African American) 117.2; Potassium 3.7 mmol/L (3.5-5.1)
[2019-08-08 07:30] LABS: Albumin Globulin Ratio 0.6 (0.9-2); Bilirubin,Total 3.1 mg/dl (0.2-1); Globulin 3.8 gm/dl (2.5-4.0); Total Protein 6.1 gm/dl (6.4-8.2)
[2019-08-08] MEDS: THIAMINE HCL 100 MG TAB PO SCH (08:54)
[2019-08-08] MEDS: SERTRALINE HCL 50 MG TABLET PO SCH (08:55)
[2019-08-08] MEDS: FOLIC ACID 1 MG TAB PO SCH (08:55)
[2019-08-08] MEDS: PANTOprazole 40 MG TAB PO SCH ×2 (08:55→21:55)
[2019-08-08] MEDS: GABAPENTIN 400 MG CAP PO SCH ×2 (08:56→21:55)
[2019-08-08] MEDS: NICOTINE 14 MG/24 HR PATCH TD SCH (11:43)
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
--- NOTE | 2019-08-08 13:50 | History & Physical Report ---
Date of Service August 08, 2019 History of Present Illness Chief Complaint: Hematemesis Primary Care Provider: Dorene Dominguez For EGD Allergies Allergy/AdvReac Type Severity Reaction Status Date / Time No Known Allergies Allergy Verified 08/06/19 02:14 Home Medications Home Medications Medication Instructions Recorded Confirmed Type omeprazole 20 mg PO DAILY 05/06/19 08/06/19 History sertraline 50 mg PO DAILY #30 tab 05/08/19 08/06/19 Rx Past Med/Surg History Medical History Hyperlipidemia (Chronic) Asthma (Chronic) Nausea, vomiting, and diarrhea (Acute) Transaminitis (Acute) Family History Mother Myocardial infarction Social History Preferred Language: Ethiopian Communication Ability: Effective Home Sales Consultant Required: No Beliefs That Will Affect Care: Denominational Denominational Beliefs: CHRISTIANS marital status: Single Current Living Situation: Significant Other Other Information That Helps Us Care for You: No Feels Safe at Home: Hesitant to Answer Safety Concerns: Afraid for Self Smoking Status: Current every day smoker Tobacco Type: cigarettes ; Cigarettes Per Day: 1/2 PPD ; Do You Dip or Chew Tobacco: No ; Tobacco Cessation Education Requested by Patient: Yes Hx Alcohol Use: Yes Alcohol type: beer and other Hx Substance Use: Yes substance use type: marijuana and prescription drug Last Used Substance: Just Prior to Arrival Last Used Substance Other:: YESTERDAY Physical Exam Constitutional: well developed and well nourished Respiratory: normal respiratory effort Cardiovascular: Rate/Rhythm: regular rate and regular rhythm Gastrointestinal (Abdomen): Percussion/Palpation: abdomen soft Results & Data Vital Signs (Past 12 Hours) Vital Signs Temp Pulse Resp BP Pulse Ox 08/08/19 13:25 37.1 C 70 16 157/98 H 98 08/08/19 07:35 36.8 C 65 16 147/89 H 99 Code Status & VTE Plan VTE Prophylaxis Plan VTE Prophylaxis will be ordered: Yes
[2019-08-08] MEDS ORDERED: SODIUM CHLORIDE 0.9% 1000ML 1,000 ML IV SCH (14:00)
--- NOTE | 2019-08-08 14:07 | Anesthesiology Consultation ---
Date of Service August 08, 2019 Assessment & Plan Chart Review Chart Review: Acceptable Risk for Surgery Consults Requested none History Surgery Operation Date: 08/08/19 08:25 Proposed Procedures p Esophagogastroduodenoscopy Dr Curt Elias Height/Weight Height: 5 ft 7 in Weight: 75.7 kg Allergies Allergy/AdvReac Type Severity Reaction Status Date / Time No Known Allergies Allergy Verified 08/06/19 02:14 Medications Home Medications Medication Instructions Recorded Confirmed Last Taken omeprazole 20 mg PO DAILY 05/06/19 08/06/19 08/02/19 sertraline 50 mg PO DAILY #30 tab 05/08/19 08/06/19 08/05/19 Active Medications Generic Name Dose Route Start Last Admin Trade Name Freq PRN Reason Stop Dose Admin Albuterol 3 ml 08/06/19 17:31 08/06/19 20:15 Duoneb NEB 09/05/19 18:59 3 ml QIDR PRN Administration Shortness Of Breath Or Wheezing Folic Acid 1 mg 08/08/19 09:00 08/08/19 08:55 Folvite PO 09/07/19 08:59 1 mg QAM MALU Administration Gabapentin 400 mg 08/08/19 10:00 08/08/19 08:56 Neurontin PO 08/08/19 22:01 400 mg Q12H MALU Administration Lorazepam 1 mg in 2 mls @ 2 mls/min 08/06/19 09:21 08/07/19 17:26 Ativan IV 09/05/19 09:20 2 mls/min ONE PRN Administration EtoH Withdrawal AWSS 6-10 Protocol Miscellaneous 1 ea 08/06/19 21:00 08/07/19 21:03 Remove Nicoderm Patch N/A 09/05/19 20:59 1 ea HS MALU Administration Nicotine 14 mg 08/06/19 13:00 08/08/19 11:43 Nicoderm Cq TD 09/05/19 12:59 14 mg QAM MALU Administration Pantoprazole Sodium 40 mg 08/07/19 21:00 08/08/19 08:55 Protonix PO 09/06/19 20:59 40 mg BID MALU Administration Sertraline HCl 50 mg 08/06/19 09:21 08/08/19 08:55 Zoloft PO 09/05/19 09:20 50 mg DAILY MALU Administration Thiamine HCl 100 mg 08/08/19 09:00 08/08/19 08:54 Vitamin B-1 PO 09/07/19 08:59 100 mg QAM MALU Administration NPO Date Last Intake of Fluids: 08/08/19 Time Last Intake of Fluids: 08:00 Date Last Intake of Solids: 08/07/19 Time Last Intake of Solids: 23:00 Past Medical History Medical History Hyperlipidemia (Chronic) Asthma (Chronic) Nausea, vomiting, and diarrhea (Acute) Transaminitis (Acute) Past Family History Family History Mother Myocardial infarction Social History Smoking Status: Current every day smoker tobacco type: cigarettes Smoking cigarettes per day: 1/2 PPD Do You Dip or Chew Tobacco: No Hx Alcohol Use: Yes Alcohol type: beer and other alcohol intake frequency: 3 or more drinks per day Hx Substance Use: Yes substance use type: marijuana and prescription drug Last Used Substance: Just Prior to Arrival Last Used Substance Other:: YESTERDAY Physical Exam Vital Signs Last Vital Signs Temp 37.1 C 08/08/19 13:25 Pulse 70 08/08/19 13:25 Resp 16 08/08/19 13:25 BP 157/98 H 08/08/19 13:25 Pulse Ox 98 08/08/19 13:25 Testing Laboratory Results 08/08/19 06:51 08/08/19 06:51 PT 11.8 Seconds (9.0-12.0) 08/08/19 06:51 INR 1.2 (0.9-1.1) H 08/08/19 06:51 Blood Type O Positive 08/07/19 07:47 Antibody Screen NEGATIVE 08/07/19 07:47
--- NOTE | 2019-08-08 14:43 | GI REPORT ---
Patient Name: Watson Pavon Procedure Date: 08/08/2019 2:29 PM Date of : 1980 Admit Type: Inpatient Age: 39 Gender: Male Attending MD: Clark Elias MD Procedure: Upper GI endoscopy Providers: Clark Elias MD Referring MD: Wendy Sam Md Indications: Coffee-ground emesis Medicines: Propofol total dose 370 mg IV, Lidocaine 80 mg IV Complications: No immediate complications. Estimated Blood Loss: Estimated blood loss: none. Procedure: Pre-Anesthesia Assessment: - Prior to the procedure, a History and Physical was performed, and patient medications, allergies and sensitivities were reviewed. The patient's tolerance of previous anesthesia was reviewed. - The risks and benefits of the procedure and the sedation options and risks were discussed with the patient. All questions were answered and informed consent was obtained. After obtaining informed consent, the endoscope was passed under direct vision. Throughout the procedure, the patient's blood pressure, pulse, and oxygen saturations were monitored continuously. The Endoscope was introduced through the mouth, and advanced to the second part of duodenum. The upper GI endoscopy was accomplished without difficulty. The patient tolerated the procedure well. Findings: The Z-line was regular and was found 40 cm from the incisors. The examined esophagus was normal. Localized mild inflammation characterized by erythema was found in the gastric body. The examined duodenum was normal. Impression: - Z-line regular, 40 cm from the incisors. - Normal esophagus. - Acute gastritis. - Normal examined duodenum. - No specimens collected. Recommendation: - Return patient to hospital card for ongoing care. Clark Elias M.D. Clark Elias MD 08/08/2019 2:42:52 PM This report has been signed electronically. Note Initiated On: 08/08/2019 2:29 PM Number of Addenda: 0 I attest to the content of the Intraoperative Record and orders documented therein, exceptions below {[id number]}
[2019-08-08] MEDS ORDERED: LIDOCAINE HCL 2% 2 ML VIAL/AMP(20MG/ML) INFIL ONE (14:49)
[2019-08-08] MEDS ORDERED: PROPOFOL IV EMULSION 10 MG/ML 20 ML VIAL IV ONE (14:49)
--- NOTE | 2019-08-08 14:58 | Progress Note ---
DATE: 08/08/2019 The patient underwent an EGD today for evaluation of coffee ground emesis. The patient tolerated the procedure well and was found to have some mild erythema in the gastric body, probably from retching. There were no signs of active or passive bleeding. This was mild in character and should resolve probably within a week or two without treatment. No other source of bleeding or pathology was located. The patient tolerated the procedure well. IMPRESSION: The patient has some gastritis in the stomach, probably from vomiting. There is no active bleeding. No other additional treatment that is necessary. At this point, we will sign off the patient's case, please contact if any further GI input is needed.
--- NOTE | 2019-08-08 15:04 | Anesthesiology Progress Note ---
Date of Service August 08, 2019 Anesthesia Post Procedure Vital Signs Vital Signs: Temp Pulse Resp BP BP Pulse Ox 08/08/19 15:00 71 18 158/100 H 100 08/08/19 14:45 37.1 C 79 18 131/87 99 08/08/19 13:25 37.1 C 70 16 157/98 H 98 08/08/19 07:35 36.8 C 65 16 147/89 H 99 08/07/19 23:00 36.6 C 94 H 18 142/87 H 98 08/07/19 15:36 36.7 C 80 21 155/92 H 100 Pain Intensity Abdomen: Pain Intensity: 4 Left Buttock: Pain Intensity: 2 Transfer of Care Handoff Completed per policy Notes Mental Status: alert / awake / arousable and participated in evaluation Patient Amnestic to Procedure: Yes Nausea / Vomiting: adequately controlled Pain: adequately controlled Airway Patency, RR, SpO2: stable & adequate BP & HR: stable & adequate Hydration State: stable & adequate Anesthetic Complications: no major complications apparent
--- NOTE | 2019-08-08 15:37 | Hospitalist Progress Note ---
Date of Service August 08, 2019 Assessment & Plan (1) Bilateral upper abdominal pain: Likely secondary to alcoholic hepatitis and alcohol induced gastritis seen on EGD -Improving -Continue Protonix twice daily -Advance diet as tolerated to regular -Encouraged cessation from alcohol (2) GI (gastrointestinal bleed): Patient reported weeks of coffee ground emesis but denies black tarry stool. Hgb on admission was 14, down to 10.5 on 08/08 - Normal, brown BM on 08/07 with negative fecal occult. No emesis at all. - Started on PPI gtt on 08/07 when his hgb dropped; however, I have lower concern for GI bleed at this time given his negative fecal occult and lack of emesis. Hgb stable in the afternoon. -Change Protonix to 40 mg pO BID and remain on this for 1 month at a minimum. -Advance diet as above (3) Gastritis: As above (4) Alcohol abuse: Drinks equivalent of 10-11 alcoholic drinks/day History of withdrawals, but never need for intubation. - On gabapentin alcohol withdrawal protocol and he is interested in remaining on gabapentin daily upon discharge to reduce cravings -Interested in outpatient rehab program-Case management gave him information on this - Ativan PRN only while inpatient - Vitamin repletion with thiamine and folate (5) Alcoholic hepatitis: AST/ALT was 893/422 on admission. Maddrey's DF was 8.1 on 08/07, making steroids not indicated. LFTs remain elevated but an alcoholic hepatitis pattern, total bilirubin down from 3.1 INR 1.2 Platelets are normal Alkaline phosphatase remains elevated at 321 -Continue to follow LFTs but should improve However, ferritin is elevated at 2672 he has no family history of hemochromatosis but this should be followed as an outpatient Hepatitis A, B, and C are negative He has no evidence of gallstones or common bile duct obstruction (6) Alcohol-induced pancreatitis: Purely a chemical pancreatitis with lipase being [address] a/p on 08/06 showed no pancreatic inflammation. Lipase back to normal by the next day Does not have typical clinical signs of pancreatitis but is at risk for this given heavy alcohol use -Encouraged alcohol cessation Advancing diet today as tolerated (7) Asthma: Stable, no acute issues - DuoNebs PRN (8) Depression: Reports no suicidal ideation, but definite depression at the loss of his job. - Continue sertraline -Needs outpatient follow-up (9) GERD (gastroesophageal reflux disease): - Continue PPI as above (10) Current smoker: Encourage cessation -Continue nicotine patch as needed (11) DVT prophylaxis: SCDs - Low DVT risk per admission calculator Disposition-if tolerating regular diet and LFTs continue to improve by tomorrow, could discharge to home Subjective Feeling better. Still having some diffuse abdominal pains and occasional nausea. Is wanting to eat. Denies chest pain or shortness of breath He would like to try to quit drinking alcohol. Has a lot of social stressors Had EGD today which showed small amount of gastritis Review of Systems Review of Systems: All systems reviewed & are unremarkable except as noted in HPI & below Physical Exam Constitutional: WD/WN, vitals as above Eyes: PERRL, conjunctivae normal, anicteric sclerae ENMT: external ear and nose normal, oropharynx normal Neck: trachea midline, no thyromegaly Respiratory: normal respiratory effort, lungs clear to auscultation Cardiovascular: RRR, no murmur, no edema Gastrointestinal (Abdomen): normal bowel sounds, soft, nontender, no hepatosplenomegaly Musculoskeletal: Extremities: extremities normal to inspection; no cyanosis and no clubbing Skin: no rashes, warm and dry Neurologic: moves all extremities and awake; no focal motor deficits Psychiatric: Orientation: alert and oriented x 3 Affect: + depressed affect Mood: + depressed mood Results & Data Vital Signs (Past 12 Hours) Vital Signs Temp Pulse Resp BP Pulse Ox 08/08/19 15:15 72 18 162/95 H 100 08/08/19 15:00 71 18 158/100 H 100 08/08/19 14:45 37.1 C 79 18 131/87 99 08/08/19 13:25 37.1 C 70 16 157/98 H 98 08/08/19 07:35 36.8 C 65 16 147/89 H 99 Laboratory Results 08/08/19 08/08/19 08/08/19 Range/Units 06:51 06:51 06:51 WBC 3.47 L (4.8-10.8) K/uL RBC 3.16 L (4.7-6.1) M/uL Hgb 10.5 L (14.0-18.0) g/dL Hct 29.4 L (42-52) % MCV 93.0 (80-100) fL MCH 33.2 (25-34) pg MCHC 35.7 (32-36) g/dL RDW Std Deviation 51.4 H (36.4-46.3) fL RDW Coeff of Juli 15.6 H (11.5-14.5) % Plt Count 213 (130-400) K/uL MPV 8.5 (7.4-10.4) fL PT 11.8 (9.0-12.0) Seconds INR 1.2 H (0.9-1.1) Sodium 139 (136-145) mmol/L Potassium 3.7 (3.5-5.1) mmol/L Chloride 105 (98-107) mmol/L Carbon Dioxide 30 (21-32) mmol/L Anion Gap 4.0 (3-11) BUN 3 L (7-18) mg/dl Creatinine 0.75 (0.6-1.4) mg/dl Est Cr Clr Drug Dosing 126.1 ml/min Est GFR ( Amer) 135.8 Est GFR (Non-Af Amer) 117.2 BUN/Creatinine Ratio 3.7 L (10-20) Glucose 87 (70-99) mg/dl Calcium 8.6 (8.5-10.1) mg/dl Magnesium 2.0 (1.8-2.4) mg/dl Total Bilirubin 3.1 H (0.2-1) mg/dl AST 868 H (15-37) U/L ALT 385 H (12-78) U/L Alkaline Phosphatase 321 H (45-117) U/L Total Protein 6.1 L (6.4-8.2) gm/dl Albumin 2.3 L (3.4-5.0) gm/dl Globulin 3.8 (2.5-4.0) gm/dl Albumin/Globulin Ratio 0.6 L (0.9-2) PG Care Time/CCT Total # of Minutes Spent Total Time Spent with Patient: Total time spent is greater than 50% in coordination of care (as documented) at patient's floor/unit and/or counseling patient: (1) Depression Depression Type: unspecified Qualified Code(s): F32.9 - Major depressive disorder, single episode, unspecified (2) Alcoholic hepatitis Ascites presence: unspecified Qualified Code(s): K70.10 - Alcoholic hepatitis without ascites (3) Alcohol-induced pancreatitis Acute pancreatitis complication: no infection or necrosis Chronicity: acute Qualified Code(s): K85.20 - Alcohol induced acute pancreatitis without necrosis or infection
[2019-08-08] MEDS: LORazepam 1 MG/2 ML VIAL IV PRN (18:14)
[2019-08-08] MEDS ORDERED: LORazepam 1 MG TAB PO STA (18:38)
[2019-08-09 07:21] LABS: Basophils # (auto) 0.01 K/uL (0-0.2); Basophils % (auto) 0.3 %; Eosinophils # (auto) 0.08 K/uL (0-0.5); Eosinophils % (auto) 2.4 %; Hematocrit (blood only) 29.3 % (42-52); Hemoglobin 9.9 g/dL (14.0-18.0); Immature Granulocytes # (auto) 0.02 K/uL (0.00-0.02); Immature Granulocytes % (auto) 0.6 %; Lymphocytes # (auto) 1.33 K/uL (1.2-3.4); Lymphocytes % (auto) 40.1 %; Mean Corpuscular Hemoglobin 32.2 pg (25-34); Mean Corpuscular Hgb Conc 33.8 g/dL (32-36); Mean Corpuscular Volume 95.4 fL (80-100); Mean Platelet Volume 9.1 fL (7.4-10.4); Monocytes # (auto) 0.18 K/uL (0.11-0.59); Monocytes % (auto) 5.4 %; Neutrophils % (auto) 51.2 %; Platelet Count 224 K/uL (130-400); RDW Coefficient of Variation 16.1 % (11.5-14.5); RDW Standard Deviation 54.3 fL (36.4-46.3); Red Blood Count 3.07 M/uL (4.7-6.1); White Blood Count 3.32 K/uL (4.8-10.8)
[2019-08-09 07:56] LABS: Albumin Level 2.4 gm/dl (3.4-5.0); BUN Creatinine Ratio 5.4 (10-20); Bilirubin Direct 1.9 mg/dl (0-0.2); Calcium 8.5 mg/dl (8.5-10.1); Creatinine Clr Calc Pharmacy 133.2 ml/min; Est GFR (African American) 138.9; Est GFR (Non-African American) 119.9; Potassium 3.8 mmol/L (3.5-5.1)
--- NOTE | 2019-08-09 08:01 | Anesthesiology Progress Note ---
Date of Service August 09, 2019 Anesthesia Post Procedure Vital Signs Vital Signs: Temp Pulse Resp BP BP Pulse Ox Pulse Ox 08/09/19 07:54 36.8 C 81 16 136/86 96 08/09/19 03:40 36.7 C 68 18 129/78 99 08/09/19 00:20 99 08/08/19 23:25 37.1 C 85 18 154/80 H 99 08/08/19 22:00 37.1 C 75 18 159/92 H 99 08/08/19 20:22 37.4 C 90 16 150/96 H 98 08/08/19 18:18 36.9 C 84 20 156/95 H 99 08/08/19 15:51 37.2 C 66 20 149/94 H 98 08/08/19 15:15 72 18 162/95 H 100 08/08/19 15:00 71 18 158/100 H 100 08/08/19 14:45 37.1 C 79 18 131/87 99 08/08/19 13:25 37.1 C 70 16 157/98 H 98 Pain Intensity Abdomen: Pain Intensity: 2 Left Buttock: Pain Intensity: 0 Notes Mental Status: alert / awake / arousable and participated in evaluation Patient Amnestic to Procedure: Yes Nausea / Vomiting: adequately controlled Pain: adequately controlled Airway Patency, RR, SpO2: stable & adequate BP & HR: stable & adequate Hydration State: stable & adequate Anesthetic Complications: no major complications apparent and Pt Satisfied with anesthetic care
[2019-08-09 08:11] LABS: Bilirubin,Total 2.2 mg/dl (0.2-1); Total Protein 6.2 gm/dl (6.4-8.2)
[2019-08-09] MEDS: FOLIC ACID 1 MG TAB PO SCH (08:48)
[2019-08-09] MEDS: PANTOprazole 40 MG TAB PO SCH ×2 (08:49→15:54)
[2019-08-09] MEDS: SERTRALINE HCL 50 MG TABLET PO SCH (08:49)
[2019-08-09] MEDS: NICOTINE 14 MG/24 HR PATCH TD SCH (08:49)
[2019-08-09] MEDS: THIAMINE HCL 100 MG TAB PO SCH (08:49)
--- NOTE | 2019-08-09 09:18 | Medical Student H&P ---
Date of Service August 09, 2019 Assessment & Plan Treatment Plan (1) Gastrointestinal bleed: Patient reports several incidences of dark qanfzk-zragfk-bzph emesis over the past 1-2 weeks. Hgb on admission was 14, down to 9.9 today (08/09) with intervening Hgb of 11.0 on 08/07 and 10.5 on 08/08. EGD was performed yesterday, 08/08, and no bleeding was found. Though there was gastritis and inflammation seen in the stomach. All stools have been regular and brown in color since admission; however, patient has been unable to move his bowels since Thursday, 08/07. Patient has not had any emesis since admission. Patient was transitioned to full diet last night and has seemed to do well with both dinner last night and breakfast this morning. He was transitioned to PO PPIs BID on Thursday and should continue these on an outpatient basis. (2) Alcohol Use Disorder: Drinks equivalent of 8-12 alcoholic drinks/day (drinking 8% ABV apple cider). History of withdrawals, but never need for intubation. On gabapentin alcohol withdrawal protocol Ativan PRN Vitamin repletion Counseled cessation - Saw case management yesterday morning, 08/08. Patient has yet to receive information on outpatient support; nursing will be reaching out to them this morning. Patient has desire for cessation but worry about returning to same environment with partner who also suffers from alcohol use disorder. He would like to continue the gabapentin and ativan as an outpatient. (3) Tobacco Use: Patient has felt good using nicotine patches on an inpatient basis and would like to continue smoking cessation on an outpatient basis. Counseled on varenicline, bupropion, and nicotine patches - would like to continue this conversation with attending physician. (4) Alcoholic hepatitis: AST/ALT was 893/422 on admission and is trending down as it is 741/387 today. Maddrey's DF is 1.3 on 08/09, making steroids not indicated as prognosis is good. Continue to monitor LFTs, INR, and Total Bili. (5) Asthma: Does not endorse shortness of breath today; breathing comfortably on room air. Continue DuoNebs as needed. (6) Depression: Doing well with sertraline; continue. (7) GERD (gastroesophageal reflux disease): Continue PO PPI (8) DVT prophylaxis: SCDs - Low DVT risk per admission calculator & holding for possible GI bleed History of Present Illness Chief Complaint: Generalized Abdominal Pain Primary Care Provider: Dorene Dominguez Mr. Pavon is a 39-year-old male with a history of asthma, alcohol and substance use disorders, depression, and acute episodes of alcoholic hepatitis and pancreatitis. He presented to the ED on Thursday, 08/06, after 1-2 weeks of drinking 4-6 16 oz. hard apple ciders (8% alcohol content) per day with little to no food. At this time, the patient had some bilateral flank pain that extended broadly across his abdomen, occasionally dark, ppykbj-qrmjub-ujkl emesis 1-2 times per day, and tremors in his hands bilaterally. Upon admission, his AST and ALT were 893 and 422, respectively. Yesterday afternoon, he underwent an EGD that showed gastritis and inflammation in the stomach but no active bleeding. He was advanced to clear liquids followed by a normal diet last night and states he had a good appetite and did not have any trouble with eating. He has not moved his bowels since Thursday but feels that this may be due to not eating; he does not endorse bloating. Today, he states that he still has diffuse abdominal pain that has been present since he woke up this morning. He states that the pain feels crampy and is a 3-4 out of 10. He does not endorse nausea or vomiting. He states that he had some agitation last night but feels that this may have been due to interacting with his daughter's mother and changing hospital rooms multiple times. Over night, he had difficulty sleeping due to the addition of a roommate as well as some night sweats and chills. He states that he is anxious about being discharged from the hospital as he will have to return to his apartment where his daughter's mother lives with him. Allergies Allergy/AdvReac Type Severity Reaction Status Date / Time No Known Allergies Allergy Verified 08/06/19 02:14 Home Medications Home Medications Medication Instructions Recorded Confirmed Type sertraline 50 mg PO DAILY #30 tab 05/08/19 08/06/19 Rx folic acid 1 mg PO QAM #30 tab 08/09/19 Rx gabapentin 800 mg PO HS #60 cap 08/09/19 Rx nicotine 1 patch TD DAILY #14 ea 10/22/19 Rx pantoprazole 40 mg PO BID #60 tab 08/09/19 Rx thiamine HCl (vitamin B1) [Vitamin 100 mg PO QAM #30 tab 08/09/19 Rx B-1] Past Med/Surg History Medical History Hyperlipidemia (Chronic) Asthma (Chronic) Nausea, vomiting, and diarrhea (Acute) Transaminitis (Acute) Family History Mother Myocardial infarction Social History Preferred Language: Ukrainian 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 Beliefs That Will Affect Care: Denominational Denominational Beliefs: CHRISTIANS marital status: Single Current Living Situation: Significant Other Feels Safe at Home: Hesitant to Answer Smoking Status: Current every day smoker Tobacco Type: cigarettes ; Cigarettes Per Day: 1/2 PPD ; Hx Alcohol Use: Yes Alcohol type: beer and other Hx Substance Use: Yes substance use type: marijuana and prescription drug Last Used Substance: Just Prior to Arrival Review of Systems + chills, + sweats and + insomnia + abdominal pain and + constipation Partial thickness burn on left buttock due to falling asleep with a lit cigarette in hand. no tremor(s) + depression, + irritability and + anxiety Intermittent feelings of being too hot and too cold. + night sweats Physical Exam Physical Exam: General Appearance: Patient is in no acute distress and seems to be resting comfortably in his chair. He is friendly and cooperative. Respiratory: Lungs clear to auscultation bilaterally. No rales, rhonci, or wheezes. Cardiovascular: Regular rate and rhythm. No rubs, murmurs, or gallops. Pedal pulses appreciated. No lower extremity edema. Gastrointestinal: Some pain on palpation of right lower quadrant but otherwise abdomen was non-tender. No organomegaly. Neurological: Alert and oriented x 3. No focal neurological deficits appreciated. Slight tremor noted in hands bilaterally. Psychiatric: Patient endorses depression as well as frequent bouts of anxiety related to life stresses and apprehension around returning home. Describes mood as being low due to these things. Patient speaks at a low volume at a regular rate. Affect is consistent with stated mood. Results & Data Vital Signs (Past 12 Hours) Vital Signs Temp Pulse Resp BP BP Pulse Ox Pulse Ox 08/09/19 07:54 36.8 C 81 16 136/86 96 08/09/19 07:25 96 08/09/19 03:40 36.7 C 68 18 129/78 99 08/09/19 00:20 99 08/08/19 23:25 37.1 C 85 18 154/80 H 99 08/08/19 22:00 37.1 C 75 18 159/92 H 99 Laboratory Results Hgb 9.9 Hct 29.3 Total Bili 2.2 AST 741 ALT 387 Alk Phos 321 Code Status & VTE Plan VTE Prophylaxis Plan VTE Prophylaxis will be ordered: Yes
--- NOTE | 2019-08-09 15:40 | Discharge Summary ---
Date of Service August 09, 2019 Admission HPI Per Admitting Provider 39yo M w/ hx of depression & alcohol abuse who presents with alcohol hepatitis and pancreatitis. He reports that he has been having increasing pain in the flanks for several weeks that has steadily increased. He reports that he has also been throwing up 1-2 times per day with bilious material. He denies any hematemesis, but does report some possible coffee ground material with his emesis. He also reports some darker, tarry stools over the last few weeks as well. He reports that he drinks the equivalent of about 10-11 beers a day (drinking a higher ABV beer in a larger 16oz can). He also reports some shortness of breath, though no cough. He denies any fevers, chills, sweats, dysuria, swelling in the abdomen or legs, any numbness, or tingling in the hands/feet Principal Diagnosis Abdominal pain, alcoholic hepatitis, gastritis Discharge Exam Constitutional WD/WN, vitals as above Eyes PERRL, conjunctivae normal, anicteric sclerae ENMT external ear and nose normal, oropharynx normal Neck trachea midline, no thyromegaly Respiratory normal respiratory effort, lungs clear to auscultation Cardiovascular RRR, no murmur, no edema Gastrointestinal (Abdomen) normal bowel sounds, soft, nontender, no hepatosplenomegaly Musculoskeletal Extremities: extremities normal to inspection; no cyanosis and no clubbing Skin no rashes, warm and dry Neurologic moves all extremities and awake; no focal motor deficits Psychiatric Orientation: alert and oriented x 3 Discharge Data Allergies Allergy/AdvReac Type Severity Reaction Status Date / Time No Known Allergies Allergy Verified 08/06/19 02:14 Consultations 08/06/19 17:30 Consult Case Management - Discharge Planning Routine 08/07/19 07:40 Consult Gastroenterology Routine Procedures Performed Operation Date: 08/08/19 08:25 Actual Procedures p Esophagogastroduodenoscopy - Clark Elias Ordered Studies 08/06/19 02:50 US liver Urgent 08/06/19 05:17 CT abd pelvis IV con only Urgent Hospital Course (1) Bilateral upper abdominal pain: Likely secondary to alcoholic hepatitis and alcohol induced gastritis seen on EGD -Improving -Continue Protonix twice daily upon dc -tolerated regular diet -Encouraged cessation from alcohol (2) GI (gastrointestinal bleed): Patient reported weeks of coffee ground emesis but denies black tarry stool. Hgb on admission was 14, down to 9.9 on 08/09 Some of the drop could have been from previous GI bleeding from gastritis, some hemodilutional from IVFs - Normal, brown BM on 08/07 with negative fecal occult. No emesis at all during admission - Started on PPI gtt on 08/07 when his hgb dropped; however, with lower concern for GI bleed at this time -Changed Protonix to 40 mg pO BID and remain on this for 1 month at a minimum. -continued EtOH cessation encouraged (3) Gastritis: As above (4) Alcohol abuse: Drinks equivalent of 10-11 alcoholic drinks/day History of withdrawal, but never need for intubation. - On gabapentin alcohol withdrawal protocol and he is interested in remaining on gabapentin daily upon discharge to reduce cravings-continue gabapentin 800mg po qhs -Interested in outpatient rehab program-Case management gave him information on this - Ativan PRN only while inpatient but discussed with him about not needing for upon discharge as will be on gabapentin - Vitamin repletion with thiamine and folate (5) Alcoholic hepatitis: AST/ALT was 893/422 on admission. Maddrey's DF was 8.1 on 08/07, making steroids not indicated. LFTs remain elevated but decreasing and are in an alcoholic hepatitis pattern, total bilirubin down to 2.2 from 3.1 INR 1.2 Platelets are normal Alkaline phosphatase remains elevated at 321 -Continue to follow LFTs as an outpatient, but should improve if continues EtOH cessation However, ferritin is elevated at 2672 he has no family history of hemochromatosis but this should be followed as an outpatient by PCP or GI Hepatitis A, B, and C are negative He has no evidence of gallstones or common bile duct obstruction (6) Alcohol-induced pancreatitis: Purely a chemical pancreatitis with lipase being [address] a/p on 08/06 showed no pancreatic inflammation. Lipase back to normal by the next day Does not have typical clinical signs of pancreatitis but is at risk for this given heavy alcohol use -Encouraged alcohol cessation (7) Asthma: Stable, no acute issues - DuoNebs PRN (8) Depression: Reports no suicidal ideation, but definite depression at the loss of his job. - Continue sertraline -Needs outpatient follow-up (9) GERD (gastroesophageal reflux disease): - Continue PPI as above (10) Current smoker: Encouraged cessation -Continue nicotine patch as needed -advised to discuss with PCP regarding bupropion as outpt (11) DVT prophylaxis: SCDs - Low DVT risk per admission calculator Disposition-stable for dc to home Total Time Total Time Spent Total Time Spent (In Minutes): >30 min Total Time Includes: Examination of the Patient, Discharge Planning and Medication Reconciliation Discharge Plan Discharge Items Patient Disposition: Home - Self-Care Reason For Visit: ABDOMINAL PAIN Discharge Diagnosis: Alcoholic hepatitis, gastritis Condition on Discharge: Good Activity: Resume your previous activity Bathing: No limitations Exercise/Sports: Gradually increase as tolerated Driving/Machine Use: No limitations Non-emergency contact: Primary Care Provider and Psychiatrist Call non-emergency contact if: you have any medication questions, your symptoms worsen, your pain is not controlled, your pain is worsening, your pain is unusual for you, your pain is concerning for you, your temperature is above 101, your wound has increased redness, your wound has increased drainage and your wound pain has increased Follow-up/Referrals: Dorene Dominguez [Primary Care Provider] - 08/15/19 1:50 pm (Please, follow up at Dr. Dominguez's office with his associate, Dr. Rei Wilkins, on ThursdayAugust 15 at 1:50 pm. *If you need to change this appointment, call their office at [phone].) Diet: Regular Addtl Attending Provider Instructions: You were admitted with abdominal pain and found to have alcoholic hepatitis as well as inflammation of the stomach called gastritis on your upper endoscopy. Please continue to take the Protonix antacid pill twice daily for 1 month and then reduce down to once a day after that. It is very important that you continue to not drink any alcohol. It is also very important that you quit smoking. Please continue to take the gabapentin every night which will help reduce your cravings for alcohol. You can use nicotine replacement patches for smoking cessation and talk to your primary care doctor about starting bupropion as well. Please contact 1 of the outpatient alcohol rehab centers to set up an intake. Attending Alcoholics Anonymous meetings are also very helpful in your journey to staying sober. Please also have your primary care physician recheck your liver tests in about 1 week to ensure that your liver function is continuing to improve. Pending Studies at Discharge: No Stand-Alone Forms: Call Back Authorization, [facility], Smoking Cessation Medications and DC Order Prescriptions: New nicotine 14 mg/24 hr patch 24 hour 1 patch TD DAILY Qty: 14 RF: 2 gabapentin 400 mg Capsule 800 mg PO HS Qty: 60 RF: 0 thiamine HCl (vitamin B1) [Vitamin B-1] 100 mg Tablet 100 mg PO QAM Qty: 30 RF: 0 pantoprazole 40 mg Tablet,Delayed Release (Dr/Ec) 40 mg PO BID Qty: 60 RF: 0 folic acid 1 mg Tablet 1 mg PO QAM Qty: 30 RF: 0 Continued sertraline 50 mg tablet 50 mg PO DAILY Qty: 30 RF: 0 Discontinued omeprazole 20 mg capsule,delayed release(DR/EC) 20 mg PO DAILY RF: 0 Discharge Orders: Discharge Order (Routine); Ordered 08/09/19 Ordered By: Wendy De León/Other Patient Handouts: Gastritis, Pancreatitis Admission Data Admit Date/Time: 08/06/19 07:52 Attending Provider: Wendy Sam Admit Provider: Link Willams Primary Care Provider: Dorene Dominguez Other Providers: Juan Shaffer Other Interventions: Discharge Summary Assessment (RN) Last Done: 08/09/19 15:56 DC Date/Time DO NOT enter until pt leaves facility: 08/09/19 16:38
[2019-08-09] MEDS ORDERED: GABAPENTIN 400 MG CAP PO SCH (22:00)
== END 2019-08-09 16:38 | disposition home or self-care (01) | DRG 432 ==
LOC: ED 01:00 → 2N 07:52 → SUATTDRO 07:52 → 2N 08:35 → 3N 08-08 22:01

== ENCOUNTER 2019-10-28 16:07 | Observation (INO) ==
[2019-10-28] MEDS ORDERED: MULTI-VITAMIN INFUSION 10 ML, THIAMINE HCL 100 MG, FOLIC ACID 1 MG in SODIUM CHLORIDE 0... IV ONE (16:18)
[2019-10-28] MEDS ORDERED: FAMOTIDINE 20MG IV PUSH 20 MG/5 ML SYR IV STA (16:18)
[2019-10-28] MEDS ORDERED: LORazepam 1 MG/2 ML VIAL IV STA (16:22)
[2019-10-28] MEDS ORDERED: PROCHLORPERAZINE 1 ML IV ONE (16:22)
[2019-10-28] MEDS ORDERED: SODIUM CHLORIDE 0.9% 1000ML 1,000 ML IV SCH (16:30)
--- NOTE | 2019-10-28 16:32 | XRay Report ---
XR chest 1V portable CLINICAL HISTORY: abd pain upper COMPARISON STUDY: 05/06/2019 FINDINGS: The cardiac and mediastinal contours are normal. There is no evidence of focal pulmonary co nsolidation. There is no evidence of failure. No pleural effusions are visualized.[There is no free i ntraperitoneal air. IMPRESSION: No active disease in the chest. ACT 112: Negative or not required by law. Electronically signed by: Madi Novak M.D. 10/28/2019 4:31 PM
[2019-10-28 16:42] LABS: Basophils # (auto) 0.01 K/uL (0-0.2); Basophils % (auto) 0.1 %; Eosinophils # (auto) 0.01 K/uL (0-0.5); Eosinophils % (auto) 0.1 %; Hematocrit (blood only) 44.1 % (42-52); Hemoglobin 15.9 g/dL (14.0-18.0); Immature Granulocytes # (auto) 0.02 K/uL (0.00-0.02); Immature Granulocytes % (auto) 0.2 %; Lymphocytes # (auto) 0.83 K/uL (1.2-3.4); Lymphocytes % (auto) 9.4 %; Mean Corpuscular Hemoglobin 34.9 pg (25-34); Mean Corpuscular Hgb Conc 36.1 g/dL (32-36); Mean Corpuscular Volume 96.7 fL (80-100); Mean Platelet Volume 9.8 fL (7.4-10.4); Monocytes # (auto) 0.22 K/uL (0.11-0.59); Monocytes % (auto) 2.5 %; Neutrophils # (auto) 7.71 K/uL (1.4-6.5); Neutrophils % (auto) 87.7 %; Platelet Count 264 K/uL (130-400); RDW Coefficient of Variation 13.8 % (11.5-14.5); Red Blood Count 4.56 M/uL (4.7-6.1)
[2019-10-28 17:43] LABS: INR 1.3 (0.9-1.1); Prothrombin Time 12.7 Seconds (9.0-12.0)
[2019-10-28 18:24] LABS: Albumin Globulin Ratio 0.6 (0.9-2); Albumin Level 2.5 gm/dl (3.4-5.0); Bilirubin,Total 1.7 mg/dl (0.2-1); Calcium 8.6 mg/dl (8.5-10.1); Creatinine Clr Calc Pharmacy 95.5 ml/min; Est GFR (African American) 112.3; Est GFR (Non-African American) 96.9; Globulin 4.4 gm/dl (2.5-4.0); Phosphorus 2.9 mg/dl (2.5-4.9); Total Protein 6.9 gm/dl (6.4-8.2)
[2019-10-28 18:40] LABS: Magnesium 1.2 mg/dl (1.8-2.4); Potassium 3.7 mmol/L (3.5-5.1)
[2019-10-28] MEDS ORDERED: MAGNESIUM SULFATE / D5W 1 GM/100 ML BAG IV STA (18:45)
[2019-10-28 18:49] LABS: Bilirubin Direct 1.1 mg/dl (0-0.2)
[2019-10-28] MEDS ORDERED: SUCRALFATE 1 GM/10 ML UDC PO STA (19:07)
[2019-10-28] MEDS ORDERED: LORazepam 1 MG/2 ML VIAL IV PRN (19:26)
--- NOTE | 2019-10-28 19:45 | History & Physical Report ---
Date of Service October 28, 2019 Assessment & Plan (1) Hypomagnesemia: Watson Pavon is a 39 y/o male with past medical history of alcohol abuse, chronic alcoholic hepatitis, tobacco abuse, depression, HLD, pancreatitis, fatty liver who presented to [facility] for abdominal pain. Noted to have last significant heavy alcohol intake about 4 days ago, with 4 ounces of wine about 8 ounces ago, with concerns for alcohol withdrawal. He also was noted to have a Mag level of 1.2 and also was hyponatremic at 129. - Received 1gm of Mag in ED. - will order another 3gm of IV Mag starting on Admission - recheck in AM DVT ppx: SCDs, prefer to avoid chemical since alcoholic hep and dysfunctional l iver, prior GI bleed from alcoholic gastritis. FENGI: NSS @ 125mL/hr, Heart Healthy diet since hx of HLD Code: full Dispo: Med/surg tele since Tachycardia and need to monitor for withdrawal. (2) Hyponatremia: - Significantly low at 129, most likely from poor salt intake from a diet of alcohol which lacks salt. He is Euvolemic. - Received 1L NSS Bolus here in ED - Will continue with NSS with a meq/L of 154 to gradually rise sodium level safely in a stable patient. - Trend value, do not exceed 8 meq within 24 hours to avoid central pontine myelinolysis/Osmotic demyelination syndrome. (3) Transaminitis: - AST of 815 and ALT of 396, 2:1 ratio consistent with alcoholic hepatitis - Appears consistent with previous values and is poor indicator of damage from alcohol intake which will lead to cirrhosis as patient's liver doesn't appear to get a chance to repair. - Avoid hepatotoxic medications, hold home statin. - Trend values - US of liver in Jul 2019 admission showed fatty liver - had negative workup for Hepatitis B and C in July. (4) Alcoholic gastritis: - Most likely cause of abdominal pain - Has had same prior - Lipase was normal - prior EGD performed in July during admission showed gastritis - PPI 40mg BID for gastric acid suppression - Aspiration precautions in an alcoholic (5) Alcohol abuse: - AWSS ordered with Lorazepam IV per protocol - One-to-one observation as needed incase of hallucinations from DT - Could be anywhere from 72-96 hours from last binge drinking, notes small amount of wine today at 12pm, unreliable historian for accurate timeline but based on history could be toward the end of expected timeline for DTs, but still in window. HR is elevated, no tremors at the moment, notes some auditory hallucinations. His alcohol level was not elevated here in ED. - Banana bag given in ED along with Librium and Ativan x1 each - Strongly encouraged need to quit drinking to prevent a significantly shortened life span and cirrhosis of liver. - INR is abnormal at 1.3, PT 12.7, T Bili of 1.7, Albumin of 2.5 would be a MELD score of 7 - Continue with daily Thiamine 100mg IV and Folic Acid 1mg PO daily (6) Alcoholic hepatitis: - Appears chronic with AST: ALT 2:1 and not having any lab values that weren't elevated. He appears to have chronically elevated values >500s, consistent with alcoholic hepatitis (7) Current smoker: - Nicotine patch ordered - Smoking cessation (8) GERD (gastroesophageal reflux disease): - continue with home Protonix 40mg BID (9) Depression: Continue with Sertraline 50mg daily (10) Asthma: continue with Albuterol Sulfate 2 puff QID PRN (11) Hyperlipidemia: Hold simvastatin 5mg because of transaminitis History of Present Illness Chief Complaint: Hypomagnesemia; Abdominal Pain; Alcohol Abuse Primary Care Provider: Dorene Dominguez Watson Pavon is a 39 y/o male with past medical history of alcohol abuse, chronic alcoholic hepatitis, tobacco abuse, depression, HLD, pancreatitis, fatty liver who presented to [facility] for abdominal pain. He noted onset of pain was about 3-4 days ago per patient. He notes pain is generalized but more severe in epigastric area. He denies nausea, vomiting, diarrhea, black/bloody bowel movements. He notes pain is constant and waxes/wanes. It is worsened with movement and food, not relieved by anything. He notes a history of heavy drinking, drinking 11 beverages of hard alcohol per day but stopped about 4 days ago. His last alcoholic beverage was 4 ounces of wine at 12pm today. He notes being shaky prior to receiving benzos here in ED. He denies visual hallucinations but reports some auditory hallucinations of hearing people talking. He denies seizures or history of seizures with alcohol withdrawal. He denies head trauma. He has been to inpatient rehab x 2. Noting that he was discharged from [facility] end of July 2019 and stopped drinking for a couple weeks but then started again from life stressors from the holidays and that he ran out of his Gabapentin. He doesn't wish to go to inpatient rehab when discharged and plans to go to his sister's. He notes he wants to stop drinking so he can spend more time with his daughter. ED course: Banana Bag, Mag 1gm IV, Lorazepam 1mg IV, Librium x1 IV, NSS 1L, Pepcid 20mg IV, Sucralfate 1gm PO. Allergies Allergy/AdvReac Type Severity Reaction Status Date / Time No Known Allergies Allergy Verified 10/28/19 17:25 Home Medications Home Medications Medication Instructions Recorded Confirmed Type sertraline 50 mg PO DAILY #30 tab 05/08/19 10/28/19 Rx pantoprazole 40 mg PO BID #60 tab 08/09/19 10/28/19 Rx thiamine HCl (vitamin B1) [Vitamin 100 mg PO QAM #30 tab 08/09/19 10/28/19 Rx B-1] albuterol sulfate 2 puff INHALATION QID PRN 10/28/19 10/28/19 History simvastatin 0 mg PO HS 10/28/19 10/28/19 History Past Med/Surg History Medical History Asthma (Chronic) Hyperlipidemia (Chronic) Family History Mother Myocardial infarction Social History Preferred Language: Chinese Communication Ability: Effective [employer] Required: No Beliefs That Will Affect Care: None marital status: Unknown Current Living Situation: Significant Other Feels Safe at Home: No Is there a partner from a previous relationship who is making you feel unsafe now?: No (Ex- ) Safety Concerns: Afraid for Self Smoking Status: Current every day smoker Tobacco Type: cigarettes ; Cigarettes Per Day: 10 ; Hx Alcohol Use: Yes Alcohol type: beer and other Hx Substance Use: Yes substance use type: marijuana and prescription drug Last Used Substance: Just Prior to Arrival Last Used Substance Other:: today Review of Systems Review of Systems: All systems reviewed & are unremarkable except as noted in HPI & below Constitutional: + chills; no fever and no increased appetite Eyes: no diplopia and no eye pain Ear, Nose, Mouth, Throat: no epistaxis and no bleeding gums Respiratory: no cough and no dyspnea Cardiovascular: no chest pain and no edema Gastrointestinal: + abdominal pain; no nausea, no vomiting, no coffee ground emesis, no diarrhea/loose stools and no blood in stools Genitourinary: no dysuria and no difficulty urinating Musculoskeletal: no back pain and no joint pain Integumentary: no rash and no lesions Neurologic: no falls, no numbness and no confusion Psychiatric: no suicidal ideation, no homicidal ideation and no visual hallucinations Physical Exam Constitutional: WD/WN, vitals as above Eyes: PERRL, conjunctivae normal, anicteric sclerae ENMT: external ear and nose normal, oropharynx normal no tongue injuries or lacerations/abrasions Neck: normal visual inspection and trachea midline Respiratory: normal respiratory effort, lungs clear to auscultation Cardiovascular: RRR, no murmur, no edema Gastrointestinal (Abdomen): Inspection/Auscultation: abdomen normal to inspection; caput medusae absent Percussion/Palpation: + abdomen tender (epigastric without rebound) and abdomen soft; no guarding, abdomen not rigid and no ascites Musculoskeletal: Head/Neck/Chest: normocephalic and head atraumatic Extremities: strength 5/5 throughout Skin: no rashes, warm and dry Neurologic: moves all extremities and awake Motor/Sensory: no tremor Psychiatric: Orientation: alert and oriented x 3 Affect: + flat affect Results & Data Vital Signs (Past 12 Hours) Vital Signs Temp Pulse Pulse Resp BP BP Pulse Ox 10/28/19 18:31 95 H 27 H 10/28/19 18:30 96 H 31 H 122/74 10/28/19 18:01 98 H 25 H 10/28/19 18:00 96 H 29 H 146/96 H 10/28/19 17:31 97 H 25 H 10/28/19 17:30 97 H 24 122/84 10/28/19 17:07 95 H 24 152/107 H 10/28/19 17:06 100 H 24 152/107 H 98 10/28/19 17:00 95 H 24 10/28/19 16:30 96 H 24 10/28/19 16:18 102 H 18 10/28/19 16:16 36.8 C 99 H 20 133/84 98 10/28/19 16:11 99 H 16 133/84 Laboratory Results Laboratory Results - last 24 hr 10/28/19 10/28/19 10/28/19 15:17 16:28 17:11 WBC 8.80 RBC 4.56 L Hgb 15.9 Hct 44.1 MCV 96.7 MCH 34.9 H MCHC 36.1 H RDW Std Deviation 49.0 H RDW Coeff of Juli 13.8 Plt Count 264 MPV 9.8 Immature Gran % (Auto) 0.2 Neut % (Auto) 87.7 Lymph % (Auto) 9.4 [place] % (Auto) 2.5 Eos % (Auto) 0.1 Baso % (Auto) 0.1 Immature Gran # (Auto) 0.02 Neut # (Auto) 7.71 H Lymph # (Auto) 0.83 L [place] # (Auto) 0.22 Eos # (Auto) 0.01 Baso # (Auto) 0.01 PT 12.7 H INR 1.3 H Sodium 129 L Potassium 3.7 Chloride 91 L Carbon Dioxide 26 Anion Gap 12.0 H BUN 12 Creatinine 0.99 Est Cr Clr Drug Dosing 95.5 Est GFR ( Amer) 112.3 Est GFR (Non-Af Amer) 96.9 BUN/Creatinine Ratio 12.0 Glucose 134 H Osmolality Calcium 8.6 Phosphorus 2.9 Magnesium 1.2 L Total Bilirubin 1.7 H Direct Bilirubin 1.1 H AST 815 H ALT 396 H Alkaline Phosphatase 276 H Total Protein 6.9 Albumin 2.5 L Globulin 4.4 H Albumin/Globulin Ratio 0.6 L Lipase 387 Ethyl Alcohol mg/dL 10/28/19 10/28/19 10/28/19 17:11 17:11 20:09 WBC RBC Hgb Hct MCV MCH MCHC RDW Std Deviation RDW Coeff of Juli Plt Count MPV Immature Gran % (Auto) Neut % (Auto) Lymph % (Auto) [place] % (Auto) Eos % (Auto) Baso % (Auto) Immature Gran # (Auto) Neut # (Auto) Lymph # (Auto) [place] # (Auto) Eos # (Auto) Baso # (Auto) PT INR Sodium Cancelled Potassium Cancelled Chloride Cancelled Carbon Dioxide Cancelled Anion Gap Cancelled BUN Cancelled Creatinine Cancelled Est Cr Clr Drug Dosing Cancelled Est GFR ( Amer) Cancelled Est GFR (Non-Af Amer) Cancelled BUN/Creatinine Ratio Cancelled Glucose Cancelled Osmolality Pending Calcium Cancelled Phosphorus Cancelled Magnesium Cancelled Total Bilirubin Cancelled Direct Bilirubin Cancelled AST Cancelled ALT Cancelled Alkaline Phosphatase Cancelled Total Protein Cancelled Albumin Cancelled Globulin Cancelled Albumin/Globulin Ratio Cancelled Lipase Cancelled Ethyl Alcohol mg/dL < 3.0 Diagnostic Findings CXR - negative for acute process Code Status & VTE Plan Code Status Full Code VTE Prophylaxis Plan VTE Prophylaxis will be ordered: Yes Reason for no VTE drug order: Contraindicated Supervising Physician Co-Signing Physician Notes Attending addendum: I have physically seen this patient, have supervised the medical residents activities, and agree with the H&P unless as otherwise noted. Assessment and Plan: Alcohol abuse/chronic alcoholic hepatitis/alcoholic gastritis- Liver enzymes continue to be abnormal and about the same high as it was before. AWSS protocol Continues to have a coagulopathy with INR variable between 1.2-1.3. Patient is still in denial related to significance of his alcohol use, asking me if there is any dietary change he can make. Continue pantoprazole 40 mg p.o. twice daily. Continue thiamine 100 mg p.o. daily, folic acid 1 mg p.o. daily, and multivitamin daily. With the persistence of his abnormal liver enzymes, he should be seen by gastroenterology and/or hepatology. He may need to be considered for a liver biopsy to determine if cirrhosis is present. Remainder orders and notations as noted. Resident Activity Tracking Resident Involvement: Resident Care Provided Care Provided: Adult [facility] (1) Depression Depression Type: unspecified Qualified Code(s): F32.9 - Major depressive disorder, single episode, unspecified (2) Alcoholic hepatitis Ascites presence: unspecified Qualified Code(s): K70.10 - Alcoholic hepatitis without ascites (3) Alcoholic gastritis Chronicity: chronic Gastritis bleeding: presence of bleeding unspecified Qualified Code(s): K29.20 - Alcoholic gastritis without bleeding
[2019-10-28] MEDS ORDERED: MAGNESIUM HYDROXIDE SUSP 30 ML UDC PO PRN (21:29)
[2019-10-28] MEDS ORDERED: ALBUTEROL HFA 8 GM INHALER INH PRN (21:29)
[2019-10-28] MEDS ORDERED: ALUMINUM/MAGNESIUM SUSP 30 ML UDC PO PRN (21:29)
[2019-10-28] MEDS: SODIUM CHLORIDE 0.9% 1000ML 1,000 ML IV SCH (21:43)
[2019-10-28] MEDS: MAGNESIUM SULFATE / D5W 1 GM/100 ML BAG IV SCH ×2 (22:01→23:10)
--- NOTE | 2019-10-28 23:07 | Emergency Department Note ---
Entered by Shabana Bernard acting as a scribe for Cuco Coelho MD History of Present Illness General Chief complaint: Abdominal Pain Stated complaint: AB PAIN Time Seen by Provider: 10/28/19 16:15 Source: patient History of Present Illness Provider complaint: abdominal pain Onset (ago): week(s) (several ) Location: abdomen Severity: similar to prior episodes Pain Consistency: + other (worsening ) Relieved By: + none Associated symptoms: + loss of appetite and + nausea/vomiting The patient is a 39 year old male who presents to the Emergency Room with complaints of worsening abdominal pain. The patient reports that he has been experiencing abdominal pain for the past several weeks, but has worsening in the past several days. He notes that he has nausea and vomiting. He states that he has not been able to eat. He mentions that this pain feels similar to his history of GI issues. The patient states that he has a history of alcoholism and has withdrawal symptoms usually. He notes that during his episodes he has chills, but denies any seizure. Home Medications Home Medications Medication Instructions Recorded Confirmed Type sertraline 50 mg PO DAILY #30 tab 05/08/19 10/28/19 Rx pantoprazole 40 mg PO BID #60 tab 08/09/19 10/28/19 Rx thiamine HCl (vitamin B1) [Vitamin 100 mg PO QAM #30 tab 08/09/19 10/28/19 Rx B-1] albuterol sulfate 2 puff INHALATION QID PRN 10/28/19 10/28/19 History simvastatin 0 mg PO HS 10/28/19 10/28/19 History Allergies Allergy/AdvReac Type Severity Reaction Status Date / Time No Known Allergies Allergy Verified 10/28/19 17:25 Past Med/Surg History Medical History Asthma (Chronic) Hyperlipidemia (Chronic) Family History Mother Myocardial infarction Social History Preferred Language: Bur[place]ian Communication Ability: Effective Director Of [employer] Required: No Beliefs That Will Affect Care: None marital status: Single Current Living Situation: Significant Other Feels Safe at Home: No Is there a partner from a previous relationship who is making you feel unsafe now?: No (Ex- ) Safety Concerns: Afraid for Self Smoking Status: Current every day smoker Tobacco Type: cigarettes ; Cigarettes Per Day: 10 ; Hx Alcohol Use: Yes Alcohol type: beer and other Hx Substance Use: Yes substance use type: marijuana and prescription drug Last Used Substance: Just Prior to Arrival Last Used Substance Other:: today Review of Systems See HPI for pertinent positives & negatives. and A total of 10 systems reviewed and were otherwise negative Physical Exam Vital Signs Vital Signs - 24 hr 10/28/19 16:11 10/28/19 16:16 10/28/19 16:18 Temperature 36.8 C Temperature Source Oral Pulse Rate 99 H 99 H 102 H Pulse Rate [Right Finger] Pulse Rhythm Regular Pulse Strength Normal Respiratory Rate 16 20 18 Respiratory Effort / Characteristics Non-Labored Respiratory Depth Normal Respiratory Pattern Regular Blood Pressure 133/84 133/84 Blood Pressure [Right Arm] Blood Pressure Mean 94 100 Blood Pressure Mean [Right Arm] Blood Pressure Position Lying Pulse Oximetry 98 Oxygen Delivery Method Room Air Sepsis Recent Fever Within 48 Hours No Sepsis Action Taken by Nursing No Action Required 10/28/19 16:30 10/28/19 17:00 10/28/19 17:06 Temperature Temperature Source Pulse Rate 96 H 95 H Pulse Rate [Right Finger] 100 H Pulse Rhythm Pulse Strength Respiratory Rate 24 24 24 Respiratory Effort / Characteristics Respiratory Depth Respiratory Pattern Blood Pressure Blood Pressure [Right Arm] 152/107 H Blood Pressure Mean Blood Pressure Mean [Right Arm] 122 Blood Pressure Position Pulse Oximetry 98 Oxygen Delivery Method Room Air Sepsis Recent Fever Within 48 Hours Sepsis Action Taken by Nursing 10/28/19 17:07 10/28/19 17:30 10/28/19 17:31 Temperature Temperature Source Pulse Rate 95 H 97 H 97 H Pulse Rate [Right Finger] Pulse Rhythm Pulse Strength Respiratory Rate 24 24 25 H Respiratory Effort / Characteristics Respiratory Depth Respiratory Pattern Blood Pressure 152/107 H 122/84 Blood Pressure [Right Arm] Blood Pressure Mean 114 98 Blood Pressure Mean [Right Arm] Blood Pressure Position Pulse Oximetry Oxygen Delivery Method Sepsis Recent Fever Within 48 Hours Sepsis Action Taken by Nursing 10/28/19 18:00 10/28/19 18:01 10/28/19 18:30 Temperature Temperature Source Pulse Rate 96 H 98 H 96 H Pulse Rate [Right Finger] Pulse Rhythm Pulse Strength Respiratory Rate 29 H 25 H 31 H Respiratory Effort / Characteristics Respiratory Depth Respiratory Pattern Blood Pressure 146/96 H 122/74 Blood Pressure [Right Arm] Blood Pressure Mean 110 80 Blood Pressure Mean [Right Arm] Blood Pressure Position Pulse Oximetry Oxygen Delivery Method Sepsis Recent Fever Within 48 Hours Sepsis Action Taken by Nursing 10/28/19 18:31 10/28/19 19:00 10/28/19 19:01 Temperature Temperature Source Pulse Rate 95 H 101 H 100 H Pulse Rate [Right Finger] Pulse Rhythm Pulse Strength Respiratory Rate 27 H 33 H 30 H Respiratory Effort / Characteristics Respiratory Depth Respiratory Pattern Blood Pressure 138/85 Blood Pressure [Right Arm] Blood Pressure Mean 98 Blood Pressure Mean [Right Arm] Blood Pressure Position Pulse Oximetry Oxygen Delivery Method Sepsis Recent Fever Within 48 Hours Sepsis Action Taken by Nursing 10/28/19 19:30 10/28/19 19:31 10/28/19 20:00 Temperature Temperature Source Pulse Rate 92 H 95 H 96 H Pulse Rate [Right Finger] Pulse Rhythm Pulse Strength Respiratory Rate 21 28 H 20 Respiratory Effort / Characteristics Respiratory Depth Respiratory Pattern Blood Pressure 117/76 129/77 Blood Pressure [Right Arm] Blood Pressure Mean 95 82 Blood Pressure Mean [Right Arm] Blood Pressure Position Pulse Oximetry Oxygen Delivery Method Sepsis Recent Fever Within 48 Hours Sepsis Action Taken by Nursing 10/28/19 20:01 Temperature Temperature Source Pulse Rate 97 H Pulse Rate [Right Finger] Pulse Rhythm Pulse Strength Respiratory Rate 19 Respiratory Effort / Characteristics Respiratory Depth Respiratory Pattern Blood Pressure Blood Pressure [Right Arm] Blood Pressure Mean Blood Pressure Mean [Right Arm] Blood Pressure Position Pulse Oximetry Oxygen Delivery Method Sepsis Recent Fever Within 48 Hours Sepsis Action Taken by Nursing GENERAL: Awake, alert, uncomfortable appearing, in no distress, slightly diaphoretic HENT: Normocephalic, atraumatic. Oropharynx with dry mucous membranes and otherwise unremarkable. EYES: Normal conjunctiva. Sclera non-icteric. NECK: Supple. No nuchal rigidity. FROM. No JVD. RESPIRATORY: CTAB CARDIAC: Regular rate, normal rhythm. Extremities warm and well perfused. Pulses equal. ABDOMEN: Soft, non-distended. Generalized abdominal discomfort without any discrete tenderness to palpation. No rebound or guarding. No masses. RECTAL: Deferred. MUSCULOSKELETAL: Chest examination reveals no tenderness. The back is symmetrical on inspection without obvious abnormality. There is no CVA tenderness to palpation. No joint edema. LOWER EXTREMITIES: Calves are equal size bilaterally and non-tender. No edema. No discoloration. NEURO: Normal sensorium. No sensory or motor deficits noted. SKIN: No rash or jaundice noted. Course Course 1616: The patient was evaluated in room C3, and a complete history and physical examination were performed. 1924: I reviewed the patient's case with Dr. Horvath- [facility] Hospitalist. He will evaluate the patient for further management. Administered Medications Sodium Chloride (Nss 1000ml) 1,000 mls @ 125 mls/hr IV .Q8H MALU Stop: 11/27/19 21:28 Last Admin: 10/28/19 21:43 Dose: 125 mls/hr Documented by: [id number] Pantoprazole Sodium (Protonix) 40 mg PO BID MALU Stop: 11/27/19 21:28 Last Admin: 10/28/19 23:09 Dose: 40 mg Documented by: [id number] Discontinued Medications Sodium Chloride (Nss 1000ml) 1,000 mls @ 999 mls/hr IV .Q1H1M MALU Stop: 10/28/19 17:30 Last Infusion: 10/28/19 18:12 Dose: 0 mls/hr Documented by: [id number] Admin: 10/28/19 16:50 Dose: 999 mls/hr Documented by: [id number] Multivitamins 10 ml/ Thiamine HCl 100 mg/ Folic Acid 1 mg/Sodium Chloride 1,011.2 mls @ 1,011.2 mls/hr IV .Q1H ONE Stop: 10/28/19 17:17 Last Infusion: 10/28/19 17:50 Dose: 0 mls/hr Documented by: [id number] Admin: 10/28/19 16:49 Dose: 1,011.2 mls/hr Documented by: [id number] Famotidine (Pepcid 20mg Iv Push) 20 mg in 5 mls @ 2.5 mls/min IV NOW STA Stop: 10/28/19 16:19 Last Admin: 10/28/19 16:49 Dose: 2.5 mls/min Documented by: [id number] Lorazepam (Ativan) 1 mg in 2 mls @ 2 mls/min IV NOW STA Stop: 10/28/19 16:23 Last Admin: 10/28/19 16:49 Dose: 2 mls/min Documented by: [id number] Prochlorperazine (Compazine) 1 mls @ 1 mls/min IV ONE ONE Stop: 10/28/19 16:23 Last Admin: 10/28/19 16:49 Dose: 1 mls/min Documented by: [id number] Magnesium Sulfate/Dextrose (Magnesium Sulfate / D5w) 1 gm in 100 mls @ 100 mls/hr IV Q1H STA Stop: 10/28/19 19:44 Last Infusion: 10/28/19 19:53 Dose: 0 mls/hr Documented by: [id number] Admin: 10/28/19 18:53 Dose: 100 mls/hr Documented by: [id number] Magnesium Sulfate/Dextrose (Magnesium Sulfate / D5w) 1 gm in 100 mls @ 100 mls/hr IV Q1H MALU Stop: 10/29/19 00:49 Last Infusion: 10/29/19 01:14 Dose: 0 mls/hr Documented by: [id number] Admin: 10/29/19 00:08 Dose: 100 mls/hr Documented by: [id number] Infusion: 10/29/19 00:08 Dose: 100 mls/hr Documented by: [id number] Admin: 10/28/19 23:10 Dose: 100 mls/hr Documented by: [id number] Infusion: 10/28/19 23:01 Dose: 100 mls/hr Documented by: [id number] Admin: 10/28/19 22:01 Dose: 100 mls/hr Documented by: [id number] Sucralfate (Carafate) 1 gm PO NOW STA Stop: 10/28/19 19:08 Last Admin: 10/28/19 19:53 Dose: 1 gm Documented by: [id number] Medical Decision Making Differential Diagnosis Differential diagnosis: Etiologies such as appendicitis, diverticulitis, PUD, biliary pathology, UTI, pancreatitis, obstruction, mesenteric ischemia, aortic pathology, infections, inflammatory bowel disease, renal colic, as well as others were entertained. Medical Records Attestation: I reviewed the patient's medical records. Home Medications Current Medication List: was personally reviewed by me Laboratory Data Attestation: I reviewed the patient's lab results. Result diagrams: 10/28/19 16:28 10/28/19 17:11 Lab Results 10/28/19 10/28/19 10/28/19 Range/Units 15:17 16:28 17:11 WBC 8.80 (4.8-10.8) K/uL RBC 4.56 L (4.7-6.1) M/uL Hgb 15.9 (14.0-18.0) g/dL Hct 44.1 (42-52) % MCV 96.7 (80-100) fL MCH 34.9 H (25-34) pg MCHC 36.1 H (32-36) g/dL RDW Std Deviation 49.0 H (36.4-46.3) fL RDW Coeff of Juli 13.8 (11.5-14.5) % Plt Count 264 (130-400) K/uL MPV 9.8 (7.4-10.4) fL Immature Gran % (Auto) 0.2 % Neut % (Auto) 87.7 % Lymph % (Auto) 9.4 % [place] % (Auto) 2.5 % Eos % (Auto) 0.1 % Baso % (Auto) 0.1 % Immature Gran # (Auto) 0.02 (0.00-0.02) K/uL Neut # (Auto) 7.71 H (1.4-6.5) K/uL Lymph # (Auto) 0.83 L (1.2-3.4) K/uL [place] # (Auto) 0.22 (0.11-0.59) K/uL Eos # (Auto) 0.01 (0-0.5) K/uL Baso # (Auto) 0.01 (0-0.2) K/uL PT 12.7 H (9.0-12.0) Seconds INR 1.3 H (0.9-1.1) Sodium 129 L (136-145) mmol/L Potassium 3.7 (3.5-5.1) mmol/L Chloride 91 L (98-107) mmol/L Carbon Dioxide 26 (21-32) mmol/L Anion Gap 12.0 H (3-11) BUN 12 (7-18) mg/dl Creatinine 0.99 (0.6-1.4) mg/dl Est Cr Clr Drug Dosing 95.5 ml/min Est GFR ( Amer) 112.3 Est GFR (Non-Af Amer) 96.9 BUN/Creatinine Ratio 12.0 (10-20) Glucose 134 H (70-99) mg/dl Osmolality Calcium 8.6 (8.5-10.1) mg/dl Phosphorus 2.9 (2.5-4.9) mg/dl Magnesium 1.2 L (1.8-2.4) mg/dl Total Bilirubin 1.7 H (0.2-1) mg/dl Direct Bilirubin 1.1 H (0-0.2) mg/dl AST 815 H (15-37) U/L ALT 396 H (12-78) U/L Alkaline Phosphatase 276 H (45-117) U/L Total Protein 6.9 (6.4-8.2) gm/dl Albumin 2.5 L (3.4-5.0) gm/dl Globulin 4.4 H (2.5-4.0) gm/dl Albumin/Globulin Ratio 0.6 L (0.9-2) Lipase 387 (73-393) U/L Ethyl Alcohol mg/dL (0-3) mg/dl 10/28/19 10/28/19 10/28/19 Range/Units 17:11 17:11 20:09 WBC (4.8-10.8) K/uL RBC (4.7-6.1) M/uL Hgb (14.0-18.0) g/dL Hct (42-52) % MCV (80-100) fL MCH (25-34) pg MCHC (32-36) g/dL RDW Std Deviation (36.4-46.3) fL RDW Coeff of Juli (11.5-14.5) % Plt Count (130-400) K/uL MPV (7.4-10.4) fL Immature Gran % (Auto) % Neut % (Auto) % Lymph % (Auto) % [place] % (Auto) % Eos % (Auto) % Baso % (Auto) % Immature Gran # (Auto) (0.00-0.02) K/uL Neut # (Auto) (1.4-6.5) K/uL Lymph # (Auto) (1.2-3.4) K/uL [place] # (Auto) (0.11-0.59) K/uL Eos # (Auto) (0-0.5) K/uL Baso # (Auto) (0-0.2) K/uL PT (9.0-12.0) Seconds INR (0.9-1.1) Sodium Cancelled (136-145) mmol/L Potassium Cancelled (3.5-5.1) mmol/L Chloride Cancelled (98-107) mmol/L Carbon Dioxide Cancelled (21-32) mmol/L Anion Gap Cancelled (3-11) BUN Cancelled (7-18) mg/dl Creatinine Cancelled (0.6-1.4) mg/dl Est Cr Clr Drug Dosing Cancelled ml/min Est GFR ( Amer) Cancelled Est GFR (Non-Af Amer) Cancelled BUN/Creatinine Ratio Cancelled (10-20) Glucose Cancelled (70-99) mg/dl Osmolality Cancelled Calcium Cancelled (8.5-10.1) mg/dl Phosphorus Cancelled (2.5-4.9) mg/dl Magnesium Cancelled (1.8-2.4) mg/dl Total Bilirubin Cancelled (0.2-1) mg/dl Direct Bilirubin Cancelled (0-0.2) mg/dl AST Cancelled (15-37) U/L ALT Cancelled (12-78) U/L Alkaline Phosphatase Cancelled (45-117) U/L Total Protein Cancelled (6.4-8.2) gm/dl Albumin Cancelled (3.4-5.0) gm/dl Globulin Cancelled (2.5-4.0) gm/dl Albumin/Globulin Ratio Cancelled (0.9-2) Lipase Cancelled (73-393) U/L Ethyl Alcohol mg/dL < 3.0 (0-3) mg/dl Imaging Data Radiologist's Impression: Radiology results as stated below per my review and the radiologist's interpretation: XR chest 1V portable CLINICAL HISTORY: abd pain upper COMPARISON STUDY: 05/06/2019 FINDINGS: The cardiac and mediastinal contours are normal. There is no evidence of focal pulmonary consolidation. There is no evidence of failure. No pleural effusions are visualized.[There is no free intraperitoneal air. IMPRESSION: No active disease in the chest. ACT 112: Negative or not required by law. Electronically signed by: Madi Novak M.D. 10/28/2019 4:31 PM ECG Data Attestation: I personally reviewed and interpreted this ECG as follows: Indication: + abdominal pain Rate (beats per minute): 96 Rhythm: + normal sinus ECG Intervals/blocks: + Normal QT-c (437) ECG ST segments: no ST depression and no ST elevation ECG Findings: no PACs and no PVCs Blood Pressure Blood Pressure Findings: Elevated blood pressure Blood Pressure Disposition: did not require urgent referral MDM Narrative The patient is a pleasant 39-year-old gentleman with a past medical history of alcohol abuse, withdrawal, alcoholic gastritis and pancreatitis who presents emergency department with worsening generalized abdominal pain over the past several days per HPI. On arrival the patient is uncomfortable, no acute distress, afebrile stable vital signs. The patient appears mildly diaphoretic. He is not tremulous. He has generalized abdominal discomfort without discrete tenderness. EKG without overt acute ischemia. Chest x-ray negative for acute process/negative for free air. WBC, H/H, platelets wnl. Chemistry without acido sis. Hyponatremia of 129 with Osm pending. Magnesium of 1.2 with repletion provided. LFTs similar to prior range of values with AST, ALT, AP 800s, 300s, 200s respectively and total bilirubin 1.7. INR 1.3. Lipase wnl. etoh undetectable. Patient with some improvement after IV fluid hydration, antieme tic, Pepcid. Additionally was given Carafate for likely component of gastritis. However patient still uncomfortable. Patient is agreeable for admission. Case was discussed with Dr. Horvath, [facility] hospitalist, who will evaluate the patient for admission. Impression & Plan Alcoholic gastritis, Transaminitis, Hyponatremia, Hypomagnesemia Discharge Plan Visit Data *Final* Discharge Date/Time: 10/28/19 21:10 Chief Complaint: Abdominal Pain Stated Complaint: AB PAIN ED Provider: Cuco Coelho Discharge Problem: Alcoholic gastritis, Transaminitis, Hyponatremia, Hypomagnesemia Patient Disposition: Admitted As Inpatient Discharge Instructions Interventions: ED Discharge Assessment Last Done: 10/28/19 21:10 Discharge Problem: Alcoholic gastritis Qualifiers: Chronicity: chronic Gastritis bleeding: presence of bleeding unspecified Qualified Code(s): K29.20 - Alcoholic gastritis without bleeding The scribe's documentation has been prepared under my direction and personally reviewed by me in its entirety. I confirm that the note above accurately reflects all work, treatment, procedures, and medical decision making performed by me.
[2019-10-28] MEDS: PANTOprazole 40 MG TAB PO SCH (23:09)
[2019-10-29] MEDS: MAGNESIUM SULFATE / D5W 1 GM/100 ML BAG IV SCH (00:08)
[2019-10-29 01:33] LABS: Appearance Urine Clear (Clear); Bilirubin Urine Negative (Negative); Blood Urine Negative (Negative); Color Urine Yellow; Glucose Urine UA Negative (Negative); Ketones Urine Negative (Negative); Leukocyte Esterase Urine Negative (Negative); Nitrite Urine Negative (Negative); Protein Urine Negative (Negative); Specific Gravity Urine 1.009 (1.000-1.030); Urobilinogen Urine Negative (Negative); pH Urine 5.5 (4.5-7.5)
[2019-10-29] MEDS: SODIUM CHLORIDE 0.9% 1000ML 1,000 ML IV SCH ×3 (05:39→21:45)
[2019-10-29 06:26] LABS: Basophils # (auto) 0.01 K/uL (0-0.2); Basophils % (auto) 0.1 %; Eosinophils # (auto) 0.02 K/uL (0-0.5); Eosinophils % (auto) 0.2 %; Hematocrit (blood only) 37.2 % (42-52); Hemoglobin 13.3 g/dL (14.0-18.0); Immature Granulocytes # (auto) 0.03 K/uL (0.00-0.02); Immature Granulocytes % (auto) 0.3 %; Lymphocytes # (auto) 0.84 K/uL (1.2-3.4); Lymphocytes % (auto) 8.4 %; Mean Corpuscular Hemoglobin 34.3 pg (25-34); Mean Corpuscular Hgb Conc 35.8 g/dL (32-36); Mean Corpuscular Volume 95.9 fL (80-100); Mean Platelet Volume 9.1 fL (7.4-10.4); Monocytes # (auto) 0.41 K/uL (0.11-0.59); Monocytes % (auto) 4.1 %; Neutrophils # (auto) 8.71 K/uL (1.4-6.5); Neutrophils % (auto) 86.9 %; Platelet Count 202 K/uL (130-400); RDW Coefficient of Variation 13.8 % (11.5-14.5); RDW Standard Deviation 48.2 fL (36.4-46.3); Red Blood Count 3.88 M/uL (4.7-6.1); White Blood Count 10.02 K/uL (4.8-10.8)
[2019-10-29 06:35] LABS: INR 1.2 (0.9-1.1); Prothrombin Time 12.4 Seconds (9.0-12.0)
[2019-10-29 07:10] LABS: Albumin Globulin Ratio 0.5 (0.9-2); Albumin Level 2.1 gm/dl (3.4-5.0); BUN Creatinine Ratio 3.7 (10-20); Bilirubin,Total 1.3 mg/dl (0.2-1); Calcium 8.3 mg/dl (8.5-10.1); Creatinine Clr Calc Pharmacy 129.7 ml/min; Est GFR (African American) 132.3; Est GFR (Non-African American) 114.1; Globulin 4.3 gm/dl (2.5-4.0); Magnesium 2.5 mg/dl (1.8-2.4); Potassium 3.9 mmol/L (3.5-5.1); Total Protein 6.4 gm/dl (6.4-8.2)
[2019-10-29 07:12] LABS: Phosphorus 1.8 mg/dl (2.5-4.9)
[2019-10-29] MEDS: FOLIC ACID 1 MG TAB PO SCH (08:59)
[2019-10-29] MEDS: NICOTINE 14 MG/24 HR PATCH TD SCH (08:59)
[2019-10-29] MEDS: SERTRALINE HCL 50 MG TABLET PO SCH (08:59)
[2019-10-29] MEDS: THIAMINE HCL 100 MG in SYRINGE 9 ML IV SCH (09:00)
[2019-10-29] MEDS: ONDANSETRON INJ 2 MG/ML 2 ML VIAL IV PRN (09:37)
--- NOTE | 2019-10-29 12:38 | Hospitalist Progress Note ---
Date of Service October 29, 2019 Assessment & Plan (1) Hypomagnesemia: Continue admit to [facility] on telemetry Received 1gm of Mag in ED. He also received 3gm of IV Mag in addition Monitor electrolytes and replenish DVT ppx: SCDs due to possible hemorrhagic gastritis. FENGI: NSS @ 125mL/hr, Heart Healthy diet since hx of HLD Code: full Dispo: Med/surg tele with [facility] protocol (2) Hyponatremia: Improving , 129-->131 most likely due to alcohol abuse Continue with NSS at 80 cc/h (3) Transaminitis: Continue trending down transaminases AST of 815-->431and ALT of 396-->258, 2:1 ratio consistent with alcoholic hepatitis Appears consistent with previous values and is poor indicator of damage from alcohol intake which will lead to cirrhosis as patient's liver doesn't appear to get a chance to repair. Avoid hepatotoxic medications, hold home statin. Trend values US of liver in Jul 2019 admission showed fatty liver had negative workup for Hepatitis B and C in July. (4) Alcoholic gastritis: Most likely cause of abdominal pain Continue monitoring Lipase was normal prior EGD performed in July during admission showed gastritis PPI 40mg BID for gastric acid suppression Aspiration precautions in an alcoholic, patient is now completely alert and oriented (5) Alcohol abuse: AWSS ordered with Lorazepam IV per protocol One-to-one observation as needed incase of hallucinations from DT Banana bag given in ED along with Librium and Ativan x1 each Strongly encouraged need to quit drinking to prevent a significantly shortened life span and cirrhosis of liver. INR is abnormal at 1.3, PT 12.7, T Bili of 1.7, Albumin of 2.5 would be a MELD score of 7 Continue with daily Thiamine 100mg IV and Folic Acid 1mg PO daily (6) Alcoholic hepatitis: Appears chronic with AST: ALT 2:1 and not having any lab values that weren't elevated. He appears to have chronically elevated values >500s, consistent with alcoholic hepatitis (7) Current smoker: Nicotine patch ordered Smoking cessation recommended (8) GERD (gastroesophageal reflux disease): Continue with home Protonix 40mg BID (9) Depression: Continue with Sertraline 50mg daily (10) Asthma: continue with Albuterol Sulfate 2 puff QID PRN (11) Hiccups: Most likely due to irritation of phrenic nerve with alcohol abuse and vitamin depletion. Started Thorazine 25 mg 3 times daily scheduled. Continue thiamine and folic acid (12) Hyperlipidemia: Hold simvastatin 5mg because of transaminitis Disposition Home with family once when clinically stable Subjective Seen and examined at the bedside. He is complaining of hiccups that started this morning and are intractable. Patient stated that he is willing to eat but as soon as he had some food down he started to vomit. Patient is afebrile. Patient denies fever, chills, chest pain, shortness of breath, frequency, urgency. He still cannot tolerate any food. Review of Systems Review of Systems: All systems reviewed & are unremarkable except as noted in HPI & below Physical Exam Constitutional: WD/WN, vitals as above Eyes: PERRL, conjunctivae normal, anicteric sclerae ENMT: external ear and nose normal, oropharynx normal Neck: normal visual inspection and trachea midline Respiratory: normal respiratory effort, lungs clear to auscultation Cardiovascular: RRR, no murmur, no edema Gastrointestinal (Abdomen): Inspection/Auscultation: abdomen normal to inspection; caput medusae absent Percussion/Palpation: + abdomen tender (epigastric without rebound) and abdomen soft; no guarding, abdomen not rigid and no ascites Musculoskeletal: Head/Neck/Chest: normocephalic and head atraumatic Extremities: strength 5/5 throughout Skin: no rashes, warm and dry Neurologic: moves all extremities and awake Motor/Sensory: no tremor Psychiatric: Orientation: alert and oriented x 3 Affect: + flat affect Results & Data Vital Signs (Past 12 Hours) Vital Signs Temp Pulse Pulse Resp BP Pulse Ox 10/29/19 11:34 36.6 C 78 18 139/86 97 10/29/19 08:01 91 H 10/29/19 08:00 37.2 C 88 18 141/90 H 10/29/19 04:06 37.7 C H 93 H 18 118/74 97 PG Care Time/CCT Total # of Minutes Spent Total Time Spent with Patient: Total time spent is greater than 50% in coordination of care (as documented) at patient's floor/unit and/or counseling patient: (1) Depression Depression Type: unspecified Qualified Code(s): F32.9 - Major depressive disorder, single episode, unspecified (2) Alcoholic hepatitis Ascites presence: unspecified Qualified Code(s): K70.10 - Alcoholic hepatitis without ascites (3) Alcoholic gastritis Chronicity: chronic Gastritis bleeding: presence of bleeding unspecified Qualified Code(s): K29.20 - Alcoholic gastritis without bleeding
[2019-10-29] MEDS: PANTOprazole 40 MG TAB PO SCH ×2 (14:13→21:44)
[2019-10-29] MEDS: CHLORPROMAZINE HCL 25 MG TABLET PO SCH ×2 (14:13→21:44)
--- NOTE | 2019-10-29 21:24 | Electrocardiogram Report ---
Test Reason : Blood Pressure : / mmHG Vent. Rate : 096 BPM Atrial Rate : 096 BPM P-R Int : 120 ms QRS Dur : 088 ms QT Int : 346 ms P-R-T Axes : 038 063 042 degrees QTc Int : 437 ms Normal sinus rhythm Normal ECG When compared with ECG of 07-AUG-2019 06:43, No significant change was found Confirmed by Luis Villanueva ([id number]) on 10/29/2019 9:24:16 PM Referred By: REFERRED SELF Confirmed By:Luis Villanueva
[2019-10-29] MEDS: LORazepam 1 MG/2 ML VIAL IV PRN (21:41)
--- NOTE | 2019-10-30 01:29 | Billing Data ---
Date of Service October 30, 2019 Coding Level of Care Code 55520 Initial Inpt Care Lvl 3
[2019-10-30 05:50] LABS: Eosinophils # (auto) 0.07 K/uL (0-0.5); Eosinophils % (auto) 1.1 %; Hematocrit (blood only) 33.8 % (42-52); Hemoglobin 11.6 g/dL (14.0-18.0); Immature Granulocytes # (auto) 0.01 K/uL (0.00-0.02); Immature Granulocytes % (auto) 0.2 %; Lymphocytes # (auto) 1.17 K/uL (1.2-3.4); Lymphocytes % (auto) 18.9 %; Mean Corpuscular Hgb Conc 34.3 g/dL (32-36); Mean Corpuscular Volume 96.3 fL (80-100); Mean Platelet Volume 10.1 fL (7.4-10.4); Monocytes # (auto) 0.36 K/uL (0.11-0.59); Monocytes % (auto) 5.8 %; Neutrophils # (auto) 4.58 K/uL (1.4-6.5); Platelet Count 193 K/uL (130-400); RDW Coefficient of Variation 13.8 % (11.5-14.5); RDW Standard Deviation 48.4 fL (36.4-46.3); Red Blood Count 3.51 M/uL (4.7-6.1); White Blood Count 6.19 K/uL (4.8-10.8)
[2019-10-30] MEDS: SODIUM CHLORIDE 0.9% 1000ML 1,000 ML IV SCH (06:20)
[2019-10-30 06:22] LABS: Albumin Globulin Ratio 0.5 (0.9-2); BUN Creatinine Ratio 1.9 (10-20); Bilirubin,Total 1.2 mg/dl (0.2-1); Calcium 8.7 mg/dl (8.5-10.1); Creatinine Clr Calc Pharmacy 150.4 ml/min; Est GFR (African American) 140.6; Est GFR (Non-African American) 121.3; Globulin 4.2 gm/dl (2.5-4.0); Total Protein 6.2 gm/dl (6.4-8.2)
[2019-10-30] MEDS: SERTRALINE HCL 50 MG TABLET PO SCH (08:13)
[2019-10-30] MEDS: FOLIC ACID 1 MG TAB PO SCH (08:13)
[2019-10-30] MEDS: PANTOprazole 40 MG TAB PO SCH ×2 (08:13→20:38)
[2019-10-30] MEDS: CHLORPROMAZINE HCL 25 MG TABLET PO SCH ×3 (08:14→20:38)
[2019-10-30] MEDS: NICOTINE 14 MG/24 HR PATCH TD SCH (08:14)
--- NOTE | 2019-10-30 11:41 | Hospitalist Progress Note ---
Date of Service October 30, 2019 Assessment & Plan (1) Hypomagnesemia: Continue admit to [facility] on telemetry Improving, plan to discharge tomorrow if situation remains clinically stable. Patient reports that he is going to continue his AA meetings and he would like to find a counselor at [place] Received 1gm of Mag in ED. He also received 3gm of IV Mag in addition Monitor electrolytes and replenish DVT ppx: SCDs due to possible hemorrhagic gastritis. FENGI: NSS @ 125mL/hr, Heart Healthy diet since hx of HLD Code: full Dispo: Med/surg tele with [facility] protocol (2) Hyponatremia: Resolved, 129-->131-->139 most likely due to alcohol abuse Good p.o. intake plan to stop IV fluids (3) Transaminitis: Continue trending down transaminases AST of 815-->431-->264 and ALT of 396-->258-->195, 2:1 ratio consistent with alcoholic hepatitis Appears consistent with previous values and is poor indicator of damage from alcohol intake which will lead to cirrhosis as patient's liver doesn't appear to get a chance to repair. Avoid hepatotoxic medications, hold home statin. Trend values US of liver in Jul 2019 admission showed fatty liver had negative workup for Hepatitis B and C in July. (4) Alcoholic gastritis: Most likely cause of abdominal pain Continue monitoring Lipase was normal prior EGD performed in July during admission showed gastritis PPI 40mg BID for gastric acid suppression Aspiration precautions in an alcoholic, patient is now completely alert and oriented (5) Alcohol abuse: AWSS ordered with Lorazepam IV per protocol One-to-one observation as needed incase of hallucinations from DT Banana bag given in ED along with Librium and Ativan x1 each Strongly encouraged need to quit drinking to prevent a significantly shortened life span and cirrhosis of liver. INR is abnormal at 1.3-->1.2, PT 12.7, T Bili of 1.7, Albumin of 2.5 would be a MELD score of 7 Continue with daily Thiamine 100mg IV and Folic Acid 1mg PO daily (6) Alcoholic hepatitis: Appears chronic with AST: ALT 2:1 and not having any lab values that weren't elevated. He appears to have chronically elevated values >500s, consistent with alcoholic hepatitis (7) Current smoker: Nicotine patch ordered Smoking cessation recommended (8) GERD (gastroesophageal reflux disease): Continue with home Protonix 40mg BID (9) Depression: Continue with Sertraline 50mg daily (10) Asthma: continue with Albuterol Sulfate 2 puff QID PRN (11) Hyperlipidemia: Hold simvastatin 5mg because of transaminitis Disposition Home with family once when clinically stable Subjective Patient seen and examined at the bedside. Patient states that hiccups are improved but still occasionally present. He was started yesterday on Thorazine. Patient tolerated food well and nausea and vomiting is subsiding. P.o. intake is good. Patient is afebrile. Patient denies fever, chills, chest pain, shortness of breath, frequency, urgency. He still cannot tolerate any food. Review of Systems 2 Review of Systems: All systems reviewed & are unremarkable except as noted in HPI & below Physical Exam Constitutional: WD/WN, vitals as above Eyes: PERRL, conjunctivae normal, anicteric sclerae ENMT: external ear and nose normal, oropharynx normal Neck: normal visual inspection and trachea midline Respiratory: normal respiratory effort, lungs clear to auscultation Cardiovascular: RRR, no murmur, no edema Gastrointestinal (Abdomen): Inspection/Auscultation: abdomen normal to inspection; caput medusae absent Percussion/Palpation: abdomen soft; no guarding, abdomen not rigid and no ascites Musculoskeletal: Head/Neck/Chest: normocephalic and head atraumatic Extremities: strength 5/5 throughout Skin: no rashes, warm and dry Neurologic: moves all extremities and awake Motor/Sensory: no tremor Psychiatric: Orientation: alert and oriented x 3 Affect: + flat affect Results & Data Vital Signs (Past 12 Hours) Vital Signs Temp Pulse Pulse Resp BP Pulse Ox 10/30/19 08:22 36.9 C 85 16 146/97 H 99 10/30/19 07:22 90 10/30/19 03:56 37.1 C 98 H 18 157/97 H 98 PG Care Time/CCT Total # of Minutes Spent Total Time Spent with Patient: Total time spent is greater than 50% in coordination of care (as documented) at patient's floor/unit and/or counseling patient: (1) Depression Depression Type: unspecified Qualified Code(s): F32.9 - Major depressive disorder, single episode, unspecified (2) Alcoholic hepatitis Ascites presence: unspecified Qualified Code(s): K70.10 - Alcoholic hepatitis without ascites (3) Alcoholic gastritis Chronicity: chronic Gastritis bleeding: presence of bleeding unspecified Qualified Code(s): K29.20 - Alcoholic gastritis without bleeding
[2019-10-30] MEDS: THIAMINE HCL 100 MG in SYRINGE 9 ML IV SCH (11:49)
[2019-10-30] MEDS: ONDANSETRON INJ 2 MG/ML 2 ML VIAL IV PRN (21:48)
[2019-10-31 05:41] LABS: Basophils # (auto) 0.01 K/uL (0-0.2); Basophils % (auto) 0.2 %; Eosinophils # (auto) 0.13 K/uL (0-0.5); Eosinophils % (auto) 2.4 %; Hematocrit (blood only) 33.4 % (42-52); Hemoglobin 11.3 g/dL (14.0-18.0); Immature Granulocytes # (auto) 0.01 K/uL (0.00-0.02); Immature Granulocytes % (auto) 0.2 %; Lymphocytes # (auto) 1.35 K/uL (1.2-3.4); Lymphocytes % (auto) 24.4 %; Mean Corpuscular Hemoglobin 33.1 pg (25-34); Mean Corpuscular Hgb Conc 33.8 g/dL (32-36); Mean Corpuscular Volume 97.9 fL (80-100); Mean Platelet Volume 9.3 fL (7.4-10.4); Monocytes # (auto) 0.55 K/uL (0.11-0.59); Monocytes % (auto) 9.9 %; Neutrophils # (auto) 3.48 K/uL (1.4-6.5); Neutrophils % (auto) 62.9 %; Platelet Count 167 K/uL (130-400); RDW Coefficient of Variation 13.8 % (11.5-14.5); RDW Standard Deviation 49.2 fL (36.4-46.3); Red Blood Count 3.41 M/uL (4.7-6.1); White Blood Count 5.53 K/uL (4.8-10.8)
[2019-10-31 06:03] LABS: BUN Creatinine Ratio 4.2 (10-20); Calcium 9.2 mg/dl (8.5-10.1); Creatinine Clr Calc Pharmacy 158.6 ml/min; Est GFR (African American) 144.1; Est GFR (Non-African American) 124.3; Potassium 3.4 mmol/L (3.5-5.1)
[2019-10-31 06:05] LABS: Albumin Globulin Ratio 0.5 (0.9-2); Bilirubin,Total 1.1 mg/dl (0.2-1); Globulin 4.3 gm/dl (2.5-4.0); Total Protein 6.3 gm/dl (6.4-8.2)
[2019-10-31 06:13] LABS: Estimated Average Glucose 117 mg/dl; Hemoglobin A1C 5.7 % (4.5-5.6)
[2019-10-31] MEDS: NICOTINE 14 MG/24 HR PATCH TD SCH (08:23)
[2019-10-31] MEDS: THIAMINE HCL 100 MG in SYRINGE 9 ML IV SCH (08:23)
[2019-10-31] MEDS: SERTRALINE HCL 50 MG TABLET PO SCH (08:24)
[2019-10-31] MEDS: FOLIC ACID 1 MG TAB PO SCH (08:24)
[2019-10-31] MEDS: PANTOprazole 40 MG TAB PO SCH ×2 (08:24→20:14)
[2019-10-31] MEDS: CHLORPROMAZINE HCL 25 MG TABLET PO SCH ×3 (08:24→20:14)
[2019-10-31] MEDS: LORazepam 1 MG/2 ML VIAL IV PRN (09:30)
[2019-10-31] MEDS: POLYETHYLENE (MIRALAX) 17 GM PACK PO SCH (10:03)
[2019-10-31] MEDS ORDERED: POTASSIUM CHLORIDE 20 MEQ TABCR PO STA (13:07)
--- NOTE | 2019-10-31 13:08 | Hospitalist Progress Note ---
Date of Service October 31, 2019 Assessment & Plan (1) Hypomagnesemia: Continue admit to [facility] on telemetry Improving, plan to discharge tomorrow if situation remains clinically stable. Patient reports that he is going to continue his AA meetings and he would like to find a counselor at [place] Received 1gm of Mag in ED. He also received 3gm of IV Mag in addition Monitor electrolytes and replenish DVT ppx: SCDs due to possible hemorrhagic gastritis. FENGI: NSS @ 125mL/hr, Heart Healthy diet since hx of HLD Code: full Dispo: Med/surg tele with [facility] protocol (2) Hyponatremia: Resolved, 129-->131-->139 most likely due to alcohol abuse Good p.o. intake plan to stop IV fluids (3) Transaminitis: Continue trending down transaminases AST of 815-->431-->264 and ALT of 396-->258-->195, 2:1 ratio consistent with alcoholic hepatitis Appears consistent with previous values and is poor indicator of damage from alcohol intake which will lead to cirrhosis as patient's liver doesn't appear to get a chance to repair. Avoid hepatotoxic medications, hold home statin. Trend values US of liver in Jul 2019 admission showed fatty liver had negative workup for Hepatitis B and C in July. (4) Alcoholic gastritis: Most likely cause of abdominal pain Continue monitoring Lipase was normal prior EGD performed in July during admission showed gastritis PPI 40mg BID for gastric acid suppression Aspiration precautions in an alcoholic, patient is now completely alert and oriented (5) Alcohol abuse: AWSS ordered with Lorazepam IV per protocol One-to-one observation as needed incase of hallucinations from DT Banana bag given in ED along with Librium and Ativan x1 each Strongly encouraged need to quit drinking to prevent a significantly shortened life span and cirrhosis of liver. INR is abnormal at 1.3-->1.2, PT 12.7, T Bili of 1.7, Albumin of 2.5 would be a MELD score of 7 Continue with daily Thiamine 100mg IV and Folic Acid 1mg PO daily (6) Alcoholic hepatitis: Appears chronic with AST: ALT 2:1 and not having any lab values that weren't elevated. He appears to have chronically elevated values >500s, consistent with alcoholic hepatitis (7) Current smoker: Nicotine patch ordered Smoking cessation recommended (8) GERD (gastroesophageal reflux disease): Continue with home Protonix 40mg BID (9) Depression: Continue with Sertraline 50mg daily (10) Asthma: continue with Albuterol Sulfate 2 puff QID PRN (11) Hyperlipidemia: Hold simvastatin 5mg because of transaminitis Disposition Home with family once when clinically stable (12) Anemia: Possibly related to bone marrow suppression due to severe alcohol abuse. Iron study pending Present on Admission?: Yes Subjective Patient seen and examined at the bedside. This morning patient appeared less calm and pacing. His blood pressure was also elevated 186/110, she appeared to be signs of alcohol withdrawal. Patient hiccups are resolved on Thorazine. Patient tolerated food well and nausea and vomiting is subsiding. P.o. intake is good. Patient is afebrile. Patient denies fever, chills, chest pain, shortness of breath, frequency, urgency. He still cannot tolerate any food. Review of Systems Review of Systems: All systems reviewed & are unremarkable except as noted in HPI & below Physical Exam Constitutional: WD/WN, vitals as above Eyes: PERRL, conjunctivae normal, anicteric sclerae ENMT: external ear and nose normal, oropharynx normal Neck: normal visual inspection and trachea midline Respiratory: normal respiratory effort, lungs clear to auscultation Cardiovascular: RRR, no murmur, no edema Gastrointestinal (Abdomen): Inspection/Auscultation: abdomen normal to inspection; caput medusae absent Percussion/Palpation: abdomen soft; no guarding, abdomen not rigid and no ascites Musculoskeletal: Head/Neck/Chest: normocephalic and head atraumatic Extremities: strength 5/5 throughout Skin: no rashes, warm and dry Neurologic: moves all extremities and awake Motor/Sensory: no tremor Psychiatric: Orientation: alert and oriented x 3 Affect: + flat affect Results & Data Vital Signs (Past 12 Hours) Vital Signs Temp Pulse Pulse Resp BP BP Pulse Ox 10/31/19 08:41 37.0 C 75 20 178/93 H 186/110 H 98 10/31/19 07:00 66 10/31/19 03:55 36.9 C 63 16 153/84 H 95 PG Care Time/CCT Total # of Minutes Spent Total Time Spent with Patient: Total time spent is greater than 50% in coordination of care (as documented) at patient's floor/unit and/or counseling patient: (1) Depression Depression Type: unspecified Qualified Code(s): F32.9 - Major depressive disorder, single episode, unspecified (2) Alcoholic hepatitis Ascites presence: unspecified Qualified Code(s): K70.10 - Alcoholic hepatitis without ascites (3) Alcoholic gastritis Chronicity: chronic Gastritis bleeding: presence of bleeding unspecified Qualified Code(s): K29.20 - Alcoholic gastritis without bleeding
[2019-10-31 13:18] LABS: Reticulocyte % 0.6 % (0.5-2.0); Reticulocytes # 0.02 10^6/uL (0.02-0.10)
[2019-10-31 13:39] LABS: Iron 79 mcg/dl (35-175); Total Iron Binding Capacity 183 mcg/dl (250-450)
[2019-10-31 13:58] LABS: Folate (Folic Acid) > 24.00 ng/ml (>5.38); Vitamin B12 > 2000 pg/ml (211-911)
[2019-10-31] MEDS ORDERED: LORazepam 2 MG/4 ML VIAL IV PRN (20:51)
[2019-10-31] MEDS ORDERED: LORazepam 3 MG/6 ML VIAL IV PRN (20:51)
[2019-10-31] MEDS ORDERED: LORazepam 1 MG/2 ML VIAL IV PRN (20:51)
[2019-10-31] MEDS ORDERED: ATIVAN IV ALCOHOL WITHDRAWL IV PRN (20:51)
[2019-10-31] MEDS ORDERED: LORazepam 1 MG TAB PO PRN (20:51)
[2019-11-01 06:43] LABS: Basophils # (auto) 0.01 K/uL (0-0.2); Basophils % (auto) 0.2 %; Eosinophils % (auto) 1.9 %; Hematocrit (blood only) 33.6 % (42-52); Hemoglobin 11.3 g/dL (14.0-18.0); Immature Granulocytes # (auto) 0.03 K/uL (0.00-0.02); Immature Granulocytes % (auto) 0.6 %; Lymphocytes % (auto) 30.1 %; Mean Corpuscular Hemoglobin 32.9 pg (25-34); Mean Corpuscular Hgb Conc 33.6 g/dL (32-36); Mean Platelet Volume 9.4 fL (7.4-10.4); Monocytes # (auto) 0.72 K/uL (0.11-0.59); Monocytes % (auto) 13.6 %; Neutrophils # (auto) 2.85 K/uL (1.4-6.5); Neutrophils % (auto) 53.6 %; Platelet Count 186 K/uL (130-400); RDW Coefficient of Variation 13.8 % (11.5-14.5); RDW Standard Deviation 49.5 fL (36.4-46.3); Red Blood Count 3.43 M/uL (4.7-6.1); White Blood Count 5.31 K/uL (4.8-10.8)
[2019-11-01 07:00] LABS: Albumin Level 2.1 gm/dl (3.4-5.0); BUN Creatinine Ratio 4.1 (10-20); Calcium 9.7 mg/dl (8.5-10.1); Est GFR (Non-African American) 125.1; Potassium 3.5 mmol/L (3.5-5.1)
[2019-11-01 07:03] LABS: Albumin Globulin Ratio 0.5 (0.9-2); Bilirubin,Total 0.8 mg/dl (0.2-1); Globulin 4.5 gm/dl (2.5-4.0); Total Protein 6.6 gm/dl (6.4-8.2)
--- NOTE | 2019-11-01 08:20 | Hospitalist Progress Note ---
Date of Service November 01, 2019 Assessment & Plan (1) Hypomagnesemia: Eager to go home. Will see AA and counselor.Continue admit to [facility] on telemetry Feels better. (2) Hyponatremia: Resolved, 129-->131-->139 most likely due to alcohol abuse Good p.o. intake plan to stop IV fluids (3) Transaminitis: Improved Avoid hepatotoxic medications, hold home statin. US of liver in Jul 2019 admission showed fatty liver had negative workup for Hepatitis B and C in July. (4) Alcoholic gastritis: Resolved PPI 40mg QD for gastric acid suppression Aspiration precautions in an alcoholic, patient is now completely alert and oriented (5) Alcohol abuse: Pt will abstain from drinking alcohol and have AA support. (6) Alcoholic hepatitis: resolved (7) Current smoker: Nicotine patch ordered Smoking cessation recommended (8) GERD (gastroesophageal reflux disease): Continue with home Protonix 40mg QD (9) Depression: Continue with Sertraline 50mg daily (10) Asthma: continue with Albuterol Sulfate 2 puff QID PRN (11) Hyperlipidemia: Hold simvastatin 5mg because of transaminitis Disposition Home with family once when clinically stable (12) Anemia: Possibly related to bone marrow suppression due to severe alcohol abuse. Iron study reviewed. Subjective Patient seen and examined at the bedside. This morning patient appeared less calm and pacing. His blood pressure was also elevated 186/110, she appeared to be signs of alcohol withdrawal.Patient tolerated food well and nausea and vomiting is subsiding. P.o. intake is good. Patient is afebrile. Patient denies fever, chills, chest pain, shortness of breath, frequency, urgency. He still cannot tolerate any food. Review of Systems Review of Systems: All systems reviewed & are unremarkable except as noted in HPI & below Physical Exam Constitutional: WD/WN, vitals as above Eyes: PERRL, conjunctivae normal, anicteric sclerae ENMT: external ear and nose normal, oropharynx normal Neck: normal visual inspection and trachea midline Respiratory: normal respiratory effort, lungs clear to auscultation Cardiovascular: RRR, no murmur, no edema Gastrointestinal (Abdomen): Inspection/Auscultation: abdomen normal to inspection; caput medusae absent Percussion/Palpation: abdomen soft; no guarding, abdomen not rigid and no ascites Musculoskeletal: Head/Neck/Chest: normocephalic and head atraumatic Extremities: strength 5/5 throughout Skin: no rashes, warm and dry Neurologic: moves all extremities and awake Motor/Sensory: no tremor Psychiatric: Orientation: alert and oriented x 3 Affect: + flat affect Results & Data Vital Signs (Past 12 Hours) Vital Signs Temp Pulse Pulse Resp BP BP Pulse Ox 11/01/19 07:30 36.7 C 70 18 153/91 H 97 11/01/19 07:22 78 11/01/19 03:13 36.9 C 83 18 165/98 H 97 11/01/19 00:49 93 H 10/31/19 23:11 36.8 C 91 H 18 163/98 H 100 PG Care Time/CCT Total # of Minutes Spent Total Time Spent with Patient: Total time spent is greater than 50% in coordination of care (as documented) at patient's floor/unit and/or counseling patient: (1) Depression Depression Type: unspecified Qualified Code(s): F32.9 - Major depressive disorder, single episode, unspecified (2) Alcoholic hepatitis Ascites presence: unspecified Qualified Code(s): K70.10 - Alcoholic hepatitis without ascites (3) Alcoholic gastritis Chronicity: chronic Gastritis bleeding: presence of bleeding unspecified Qualified Code(s): K29.20 - Alcoholic gastritis without bleeding
[2019-11-01] MEDS: PANTOprazole 40 MG TAB PO SCH (09:03)
[2019-11-01] MEDS: CHLORPROMAZINE HCL 25 MG TABLET PO SCH (09:04)
[2019-11-01] MEDS: FOLIC ACID 1 MG TAB PO SCH (09:04)
[2019-11-01] MEDS: NICOTINE 14 MG/24 HR PATCH TD SCH (09:05)
[2019-11-01] MEDS: THIAMINE HCL 100 MG in SYRINGE 9 ML IV SCH (09:05)
[2019-11-01] MEDS: POLYETHYLENE (MIRALAX) 17 GM PACK PO SCH (09:05)
[2019-11-01] MEDS: SERTRALINE HCL 50 MG TABLET PO SCH (09:05)
--- NOTE | 2019-11-01 22:19 | Discharge Summary ---
Date of Service November 01, 2019 Admission HPI Per Admitting Provider Watson Pavon is a 39 y/o male with past medical history of alcohol abuse, chronic alcoholic hepatitis, tobacco abuse, depression, HLD, pancreatitis, fatty liver who presented to [facility] for abdominal pain. He noted onset of pain was about 3-4 days ago per patient. He notes pain is generalized but more severe in epigastric area. He denies nausea, vomiting, diarrhea, black/bloody bowel movements. He notes pain is constant and waxes/wanes. It is worsened with movement and food, not relieved by anything. He notes a history of heavy drinking, drinking 11 beverages of hard alcohol per day but stopped about 4 days ago. His last alcoholic beverage was 4 ounces of wine at 12pm today. He notes being shaky prior to receiving benzos here in ED. He denies visual hallucinations but reports some auditory hallucinations of hearing people talking. He denies seizures or history of seizures with alcohol withdrawal. He denies head trauma. He has been to inpatient rehab x 2. Noting that he was discharged from [facility] end of July 2019 and stopped drinking for a couple weeks but then started again from life stressors from the holidays and that he ran out of his Gabapentin. He doesn't wish to go to inpatient rehab when discharged and plans to go to his sister's. He notes he wants to stop drinking so he can spend more time with his daughter. ED course: Banana Bag, Mag 1gm IV, Lorazepam 1mg IV, Librium x1 IV, NSS 1L, Pepcid 20mg IV, Sucralfate 1gm PO. Principal Diagnosis none Discharge Exam Constitutional WD/WN, vitals as above Eyes PERRL, conjunctivae normal, anicteric sclerae ENMT external ear and nose normal, oropharynx normal Neck normal visual inspection and trachea midline Respiratory normal respiratory effort, lungs clear to auscultation Cardiovascular RRR, no murmur, no edema Gastrointestinal (Abdomen) Inspection/Auscultation: abdomen normal to inspection; caput medusae absent Percussion/Palpation: abdomen soft; no guarding, abdomen not rigid and no ascites Musculoskeletal Head/Neck/Chest: normocephalic and head atraumatic Extremities: strength 5/5 throughout Skin no rashes, warm and dry Neurologic moves all extremities and awake Motor/Sensory: no tremor Psychiatric Orientation: alert and oriented x 3 Affect: + flat affect Discharge Data Allergies Allergy/AdvReac Type Severity Reaction Status Date / Time No Known Allergies Allergy Verified 10/28/19 17:25 Consultations 10/28/19 19:07 ED Decision to Admit Stat 10/28/19 21:29 Consult Case Management - Discharge Planning Routine Hospital Course (1) Hypomagnesemia: Eager to go home. Will see AA and counselor.Continue admit to [facility] on telemetry Feels better. (2) Hyponatremia: Resolved, 129-->131-->139 most likely due to alcohol abuse Good p.o. intake plan to stop IV fluids (3) Transaminitis: Improved Avoid hepatotoxic medications, hold home statin. US of liver in Jul 2019 admission showed fatty liver had negative workup for Hepatitis B and C in July. (4) Alcoholic gastritis: Resolved PPI 40mg QD for gastric acid suppression Aspiration precautions in an alcoholic, patient is now completely alert and oriented (5) Alcohol abuse: Pt will abstain from drinking alcohol and have AA support. (6) Alcoholic hepatitis: resolved (7) Current smoker: Nicotine patch ordered Smoking cessation recommended (8) GERD (gastroesophageal reflux disease): Continue with home Protonix 40mg QD (9) Depression: Continue with Sertraline 50mg daily (10) Asthma: continue with Albuterol Sulfate 2 puff QID PRN (11) Hyperlipidemia: Hold simvastatin 5mg because of transaminitis Disposition Home with family once when clinically stable (12) Anemia: Possibly related to bone marrow suppression due to severe alcohol abuse. Iron study reviewed. Total Time Total Time Spent Total Time Spent (In Minutes): >30 min Discharge Plan Discharge Items Patient Disposition: Home - Self-Care Reason For Visit: HYPOMAGNESEMIA,ABDOMINAL PAIN,ALCOHOL ABUSE Discharge Diagnosis: HYPOMAGNESEMIA,ABDOMINAL PAIN,ALCOHOL ABUSE Goals: alcohol drinking cesation Activity: Resume your previous activity Non-emergency contact: Primary Care Provider and Specialist Call non-emergency contact if: you have any medication questions, your symptoms worsen, your pain is not controlled, your pain is worsening, you have a fever a nd your temperature is above 101 Follow-up/Referrals: Dorene Dominguez [Primary Care Provider] - 11/04/19 10:50 am (Please, follow up with Dr. Dominguez on ThursdayNovember 04 at 10:50 a m. *If you need to change this appointment, call the office at [phone].) Diet: Heart Healthy Addtl Attending Provider Instructions: Please follow up with PCP in 7 days. Continue AA meetings. Would recommend to fin counselor and population health coach. Pending Studies at Discharge: No Stand-Alone Forms: Call Back Authorization, My [facility], Smoking Cessation Medications and DC Order Prescriptions: New folic acid 1 mg Tablet 1 mg PO QAM 1 Days Qty: 30 RF: 0 gabapentin 100 mg capsule 100 mg PO BID Qty: 60 RF: 0 pantoprazole 40 mg tablet,delayed release (DR/EC) 40 mg PO DAILY 28 Days Qty: 28 RF: 0 Continued thiamine HCl (vitamin B1) [Vitamin B-1] 100 mg Tablet 100 mg PO QAM Qty: 30 RF: 0 simvastatin 5 mg Tablet 0 mg PO HS RF: 0 albuterol sulfate 90 mcg/actuation HFA aerosol inhaler 2 puff INHALATION QID PRN (Reason: Shortness Of Breath Or Wheezing) RF: 0 sertraline 50 mg tablet 50 mg PO DAILY Qty: 30 RF: 0 Discontinued pantoprazole 40 mg Tablet,Delayed Release (Dr/Ec) 40 mg PO BID Qty: 60 RF: 0 Discharge Orders: Discharge Order (Routine); Ordered 11/01/19 Ordered By: Karen Noriega Admission Data Admit Date/Time: 10/28/19 20:16 Attending Provider: Karen Noriega Admit Provider: Floyd Walls Primary Care Provider: Dorene Dominguez Other Providers: Moreno Horvath Other Interventions: Discharge Summary Assessment (RN) Last Done: 11/01/19 13:30 DC Date/Time DO NOT enter until pt leaves facility: 11/01/19 14:17
== END 2019-11-01 14:17 | disposition home or self-care (01) ==
LOC: ED 16:07 → INTOOBSV 20:16 → 2N 20:16 → SUATTDRO 20:16 → 2N 21:10

== ENCOUNTER 2020-04-14 10:35 | Observation (INO) ==
[2020-04-14] MEDS ORDERED: THIAMINE HCL 200 MG in SODIUM CHLORIDE 0.9% 50 ML IV STA (10:55)
[2020-04-14] MEDS ORDERED: ONDANSETRON INJ 2 MG/ML 2 ML VIAL IV STA (10:55)
[2020-04-14] MEDS ORDERED: PANTOprazole 40 MG in SYRINGE 0 ML IV ONE (10:55)
[2020-04-14] MEDS ORDERED: SODIUM CHLORIDE 0.9% 1000ML 1,000 ML IV SCH (11:00)
--- NOTE | 2020-04-14 11:05 | Emergency Department Note ---
Impression & Plan Alcohol withdrawal syndrome, Alcoholic intoxication, Abnormal LFTs ED Provider Note NAME: KAM PETERS III AGE: 40 SEX: M : 1980 ARRIVES VIA: Walk-In INFORMANT: Patient, ED PROVIDER(S): Agustin Mora DO CHIEF COMPLAINT: Abdominal pain HPI: The patient is a 40-year-old male who presented to the emergency department for an evaluation of abdominal pain nausea and vomiting. The patient states that he started having symptoms over the last 24 to 48 hours. He does have a history of alcoholism. He states he drinks approximately 1/5 of alcohol a day. He states he has been doing this for the last several months. He has had episodes of stopping alcohol for an extended period of time but he is also been through detox at multiple inpatient facilities. At this time the patient has been having increasing abdominal pain with abdominal distention. The patient also has been noticing epigastric abdominal pain nausea and vomiting. He denies having any hematemesis. He does state that he last drank alcohol 2 hours ago. He also had a fall this week where he struck his head and also his left upper extremity. He denies having any chest pain or difficulty breathing. He has been experiencing cough but no fever. He does use tobacco products. ROS: See above HPI for pertinent positives & negatives. A total of 10 systems reviewed and were otherwise negative. PAST MEDICAL HISTORY: See Below PAST SURGICAL HISTORY: See Below FAMILY HISTORY: See Below SOCIAL HISTORY: See Below HOME MEDICATIONS: See Below ALLERGIES: See Below VITALS: See Below PHYSICAL EXAMINATION: GENERAL: The patient is awake and alert. He is somewhat anxious appearing but overall comfortable. EYES: The conjunctivae are clear. The pupils are round and reactive. EARS, NOSE, MOUTH AND THROAT: The nose is without any evidence of any deformity. Mucous membranes are dry. NECK: The neck is nontender and supple. RESPIRATORY: Normal respiratory effort was noted. There were scattered rhonchi noted throughout. There is no tachypnea or conversational dyspnea. CARDIOVASCULAR: Regular rate and rhythm noted there no murmurs rubs or gallops normal S1 normal S2. GASTROINTESTINAL: The abdomen was moderately distended. There is epigastric tenderness to palpation. The liver appears enlarged and palpable below the right costophrenic angle. MUSCULOSKELETAL/EXTREMITIES: There is no evidence of gross deformity full range of motion is noted in the hips and shoulders. SKIN: There is no obvious evidence of any rash. There are no petechiae, pallor or cyanosis noted. NEUROLOGIC: Patient is awake alert and oriented x3 strength is symmetric patellar reflexes are 2+ bilaterally MEDICAL DECISION MAKING: [Provider summary] Triage Nursing notes reviewed. [Prior medical records reviewed] Vital Signs: reviewed and remarkable for [no significant abnormalities] Differential diagnosis: Etiologies such as appendicitis, diverticulitis, obstruction, inflammatory bowel disease, renal colic, PUD, biliary pathology, pancreatitis, mesenteric ischemia, aortic pathology, infections, genitourinary, UTI, perforated viscus, as well as others were entertained. ER treatment provided: See below Diagnostics interpreted by me: ECG: EKG was obtained in the emergency department. My interpretation is normal sinus rhythm at 77 bpm. There is no ectopy. There is no acute ST segment abnormalities noted. This was compared to a tracing from October 28, 2019. No significant changes were noted. Cardiac Monitoring: An order was placed for continuous cardiac monitoring. The monitor shows a rate of 88 with sinus rhythm. Laboratory studies: [As stated above and show below.] Imaging studies: [See below] Consultation(s): 1540: I discussed this case with Dr. Bennett. He is agreed to evaluate the terry ent in the emergency department for further management of alcohol withdrawal. ED COURSE: [] Procedures: [none] [PDMP:reviewed and no issues] [Critical Care:] [None] Past Med/Surg History Medical History Asthma Hyperlipidemia Surgical History No pertinent past surgical history Family History Mother Myocardial infarction Social History Preferred Language: Latvian Communication Ability: Effective Signal Operator Required: No Beliefs That Will Affect Care: None marital status: Unknown Current Living Situation: Significant Other Feels Safe at Home: Yes Smoking Status: Current every day smoker Tobacco Type: cigarettes ; Cigarettes Per Day: 10 ; Hx Alcohol Use: Yes Alcohol type: beer and other Hx Substance Use: Yes substance use type: marijuana and prescription drug Last Used Substance: Just Prior to Arrival Allergies Allergies Allergy/AdvReac Type Severity Reaction Status Date / Time No Known Allergies Allergy Verified 04/14/20 12:31 Home Meds Home Medications Medication Instructions Recorded Confirmed albuterol sulfate 2 puff INHALATION QID PRN 10/28/19 04/14/20 omeprazole magnesium [Prilosec OTC] 20 mg PO DAILY 12/11/19 04/14/20 Previous Rx's Medication Instructions Recorded sertraline 50 mg PO DAILY #30 tab 05/08/19 Results & Data (ED) Vital Signs Vital Signs - 24 hr 04/14/20 10:38 04/14/20 11:22 04/14/20 12:07 Temperature 37.0 C Temperature Source Oral Pulse Rate 98 H Pulse Rate [Apical] 82 Respiratory Rate 20 16 Respiratory Effort / Characteristics Non-Labored Respiratory Depth Normal Blood Pressure 152/105 H Blood Pressure [Right Arm] 158/97 H Blood Pressure Mean 120 Blood Pressure Mean [Right Arm] 117 Blood Pressure Position Sitting Pulse Oximetry 96 98 Oxygen Delivery Method Room Air Room Air Sepsis Recent Fever Within 48 Hours No Sepsis New/Unexplained Change in Mental Status No Sepsis Action Taken by Nursing No Action Required 04/14/20 12:48 04/14/20 13:37 04/14/20 15:00 Temperature Temperature Source Pulse Rate Pulse Rate [Apical] 81 82 84 Respiratory Rate 16 18 18 Respiratory Effort / Characteristics Respiratory Depth Blood Pressure Blood Pressure [Right Arm] 153/91 H 168/115 H 178/99 H Blood Pressure Mean Blood Pressure Mean [Right Arm] 111 132 125 Blood Pressure Position Pulse Oximetry 95 Oxygen Delivery Method Room Air Sepsis Recent Fever Within 48 Hours Sepsis New/Unexplained Change in Mental Status Sepsis Action Taken by Nursing Laboratory Data Result diagrams: 04/14/20 11:12 04/14/20 11:12 Lab Results 04/14/20 04/14/20 04/14/20 Range/Units 11:12 11:12 11:12 WBC 2.90 L (4.8-10.8) K/uL RBC 4.17 L (4.7-6.1) M/uL Hgb 15.6 (14.0-18.0) g/dL Hct 44.4 (42-52) % MCV 106.5 H (80-100) fL MCH 37.4 H (25-34) pg MCHC 35.1 (32-36) g/dL RDW Std Deviation 50.8 H (36.4-46.3) fL RDW Coeff of Juli 12.9 (11.5-14.5) % Plt Count 314 (130-400) K/uL MPV 8.7 (7.4-10.4) fL Immature Gran % (Auto) 0.0 % Neut % (Auto) 45.5 % Lymph % (Auto) 38.3 % [place] % (Auto) 8.3 % Eos % (Auto) 6.9 % Baso % (Auto) 1.0 % Neut # (Auto) 1.32 L (1.4-6.5) K/uL Lymph # (Auto) 1.11 L (1.2-3.4) K/uL [place] # (Auto) 0.24 (0.11-0.59) K/uL Eos # (Auto) 0.20 (0-0.5) K/uL Baso # (Auto) 0.03 (0-0.2) K/uL Immature Gran # (Auto) 0.00 (0.00-0.02) K/uL PT 14.0 H (9.0-12.0) Seconds INR 1.3 H (0.9-1.1) APTT 29.7 (21.0-31.0) Seconds PTT Ratio 1.1 Sodium 139 (136-145) mmol/L Potassium 3.5 (3.5-5.1) mmol/L Chloride 104 (98-107) mmol/L Carbon Dioxide 25 (21-32) mmol/L Anion Gap 10.0 (3-11) BUN 9 (7-18) mg/dl Creatinine 0.76 (0.6-1.4) mg/dl Est Cr Clr Drug Dosing 133.4 ml/min Est GFR ( Amer) 134.1 Est GFR (Non-Af Amer) 115.7 BUN/Creatinine Ratio 12.2 (10-20) Glucose 94 (70-99) mg/dl Osmolality (280-300) mOsm/kg Calcium 9.4 (8.5-10.1) mg/dl Magnesium 2.1 (1.8-2.4) mg/dl Total Bilirubin 0.4 (0.2-1) mg/dl Direct Bilirubin 0.2 (0-0.2) mg/dl AST 555 H (15-37) U/L ALT 232 H (12-78) U/L Alkaline Phosphatase 296 H (45-117) U/L Total Creatine Kinase 300 (39-308) U/L Troponin I < 0.015 (0-0.045) ng/ml Total Protein 8.4 H (6.4-8.2) gm/dl Albumin 3.5 (3.4-5.0) gm/dl Lipase 313 (73-393) U/L Ethyl Alcohol mg/dL (0-3) mg/dl 04/14/20 04/14/20 Range/Units 11:12 11:12 WBC (4.8-10.8) K/uL RBC (4.7-6.1) M/uL Hgb (14.0-18.0) g/dL Hct (42-52) % MCV (80-100) fL MCH (25-34) pg MCHC (32-36) g/dL RDW Std Deviation (36.4-46.3) fL RDW Coeff of Juli (11.5-14.5) % Plt Count (130-400) K/uL MPV (7.4-10.4) fL Immature Gran % (Auto) % Neut % (Auto) % Lymph % (Auto) % [place] % (Auto) % Eos % (Auto) % Baso % (Auto) % Neut # (Auto) (1.4-6.5) K/uL Lymph # (Auto) (1.2-3.4) K/uL [place] # (Auto) (0.11-0.59) K/uL Eos # (Auto) (0-0.5) K/uL Baso # (Auto) (0-0.2) K/uL Immature Gran # (Auto) (0.00-0.02) K/uL PT (9.0-12.0) Seconds INR (0.9-1.1) APTT (21.0-31.0) Seconds PTT Ratio Sodium (136-145) mmol/L Potassium (3.5-5.1) mmol/L Chloride (98-107) mmol/L Carbon Dioxide (21-32) mmol/L Anion Gap (3-11) BUN (7-18) mg/dl Creatinine (0.6-1.4) mg/dl Est Cr Clr Drug Dosing ml/min Est GFR ( Amer) Est GFR (Non-Af Amer) BUN/Creatinine Ratio (10-20) Glucose (70-99) mg/dl Osmolality 365 H* (280-300) mOsm/kg Calcium (8.5-10.1) mg/dl Magnesium (1.8-2.4) mg/dl Total Bilirubin (0.2-1) mg/dl Direct Bilirubin (0-0.2) mg/dl AST (15-37) U/L ALT (12-78) U/L Alkaline Phosphatase (45-117) U/L Total Creatine Kinase (39-308) U/L Troponin I (0-0.045) ng/ml Total Protein (6.4-8.2) gm/dl Albumin (3.4-5.0) gm/dl Lipase (73-393) U/L Ethyl Alcohol mg/dL 237.6 H (0-3) mg/dl Administered Medications Discontinued Medications Sodium Chloride (Nss 1000ml) 1,000 mls @ 999 mls/hr IV .Q1H1M MALU Stop: 04/14/20 12:00 Last Infusion: 04/14/20 12:13 Dose: 0 mls/hr Documented by: [id number] Admin: 04/14/20 11:19 Dose: 999 mls/hr Documented by: [id number] Thiamine HCl 200 mg/ Sodium (Chloride) 52 mls @ 208 mls/hr IV NOW STA Stop: 04/14/20 11:09 Last Infusion: 04/14/20 11:37 Dose: 0 mls/hr Documented by: [id number] Admin: 04/14/20 11:21 Dose: 208 mls/hr Documented by: [id number] Pantoprazole Sodium 40 mg/ (Syringe) 10 mls @ 5 mls/min IV NOW ONE Stop: 04/14/20 10:56 Last Admin: 04/14/20 11:19 Dose: 5 mls/min Documented by: [id number] Lorazepam (Ativan) 1 mg in 2 mls @ 2 mls/min IV NOW STA Stop: 04/14/20 14:49 Last Admin: 04/14/20 14:59 Dose: 2 mls/min Documented by: [id number] Ondansetron HCl (Zofran) 4 mg IV NOW STA Stop: 04/14/20 10:56 Last Admin: 04/14/20 11:21 Dose: 4 mg Documented by: [id number] Discharge Plan Visit Data Chief Complaint: Alcohol Withdrawal Stated Complaint: VOMITING,FLANK PAIN,UNABLE TO EAT ED Provider: Agustin Mora Discharge Problem: Alcohol withdrawal syndrome, Alcoholic intoxication, Abnormal LFTs Forms Stand Alone Forms: [facility] [employer] Prescriptions Prescriptions: No Action albuterol sulfate 90 mcg/actuation HFA aerosol inhaler 2 puff INHALATION QID PRN (Reason: Shortness Of Breath Or Wheezing) RF: 0 omeprazole magnesium [Prilosec OTC] 20 mg Tablet,Delayed Release (Dr/Ec) 20 mg PO DAILY RF: 0 sertraline 50 mg tablet 50 mg PO DAILY Qty: 30 RF: 0 Discharge Problem: Alcohol withdrawal syndrome Qualifiers: Complication of substance-induced condition: with unspecified complication Qualified Code(s): F10.239 - Alcohol dependence with withdrawal, unspecified Alcoholic intoxication Qualifiers: Complication of substance-induced condition: uncomplicated Qualified Code(s): F10.920 - Alcohol use, unspecified with intoxication, uncomplicated
[2020-04-14 11:28] LABS: Basophils # (auto) 0.03 K/uL (0-0.2); Eosinophils % (auto) 6.9 %; Hematocrit (blood only) 44.4 % (42-52); Hemoglobin 15.6 g/dL (14.0-18.0); Lymphocytes # (auto) 1.11 K/uL (1.2-3.4); Lymphocytes % (auto) 38.3 %; Mean Corpuscular Hemoglobin 37.4 pg (25-34); Mean Corpuscular Hgb Conc 35.1 g/dL (32-36); Mean Corpuscular Volume 106.5 fL (80-100); Mean Platelet Volume 8.7 fL (7.4-10.4); Monocytes # (auto) 0.24 K/uL (0.11-0.59); Monocytes % (auto) 8.3 %; Neutrophils # (auto) 1.32 K/uL (1.4-6.5); Neutrophils % (auto) 45.5 %; Platelet Count 314 K/uL (130-400); RDW Coefficient of Variation 12.9 % (11.5-14.5); RDW Standard Deviation 50.8 fL (36.4-46.3); Red Blood Count 4.17 M/uL (4.7-6.1)
[2020-04-14 11:40] LABS: INR 1.3 (0.9-1.1); Partial Thromboplastin Ratio 1.1; Partial Thromboplastin Time 29.7 Seconds (21.0-31.0)
[2020-04-14 11:54] LABS: Alanine Aminotransferase 232 U/L (12-78); Albumin Level 3.5 gm/dl (3.4-5.0); Aspartate Aminotransferase 555 U/L (15-37); BUN Creatinine Ratio 12.2 (10-20); Bilirubin Direct 0.2 mg/dl (0-0.2); Blood Urea Nitrogen 9 mg/dl (7-18); Calcium 9.4 mg/dl (8.5-10.1); Carbon Dioxide 25 mmol/L (21-32); Chloride 104 mmol/L (98-107); Creatinine Clr Calc Pharmacy 133.4 ml/min; Est GFR (African American) 134.1; Est GFR (Non-African American) 115.7; Glucose 94 mg/dl (70-99); Lipase 313 U/L (73-393); Magnesium 2.1 mg/dl (1.8-2.4); Potassium 3.5 mmol/L (3.5-5.1); Sodium 139 mmol/L (136-145)
[2020-04-14 11:57] LABS: Alkaline Phosphatase 296 U/L (45-117); Bilirubin,Total 0.4 mg/dl (0.2-1); Creatine Kinase 300 U/L (39-308); Total Protein 8.4 gm/dl (6.4-8.2); Troponin I < 0.015 ng/ml (0-0.045)
--- NOTE | 2020-04-14 11:59 | XRay Report ---
XR chest 1V portable CLINICAL HISTORY: pain pain COMPARISON STUDY: 10/28/2019 FINDINGS: The bones soft tissues and hemidiaphragms are normal. The cardiomediastinal silhouette is n ormal. The lungs are clear. The pulmonary vasculature is normal. IMPRESSION: Negative chest. ACT 112: Negative or not required by law. The above report was generated using voice recognition software. It may contain grammatical, syntax or spelling errors. Electronically signed by: Gordon Armenta M.D. 04/14/2020 11:58 AM
--- NOTE | 2020-04-14 13:35 | CT Scan Report ---
CT head/brain wo con CT DOSE: 1286.66 mGy.cm HISTORY: Mental status change. Trauma. fall TECHNIQUE: Multiaxial CT images of the head were performed without the use of intravenous contrast. A dose lowering technique was utilized adhering to the principles of ALARA. Comparison: None. Findings: The paranasal sinuses and mastoid air cells are clear. The calvarium and skull base are int act. The ventricles and sulci are within normal limits. There is no mass, hematoma, midline shift, or acute infarct. Impression: No acute intracranial abnormality. ACT 112: Negative or not required by law. The above report was generated using voice recognition software. It may contain grammatical, syntax or spelling errors. Electronically signed by: Gordon Armenta M.D. 04/14/2020 1:34 PM
--- NOTE | 2020-04-14 13:42 | CT Scan Report ---
CT abd pelvis wo con CT DOSE: HISTORY: Nausea vomiting TECHNIQUE: Multiaxial CT images of the abdomen and pelvis were performed without contrast. A dose lo wering technique was utilized adhering to the principles of ALARA. COMPARISON STUDY: 12/11/2019 FINDINGS: Lung bases are clear. Moderate hepatomegaly. Fatty replacement of the liver. Spleen and kid neys are unremarkable. Nonobstructive bowel pattern. Slight colonic wall edematous change. Bladder is midline. No free fluid within the pelvic cul-de-sac. IMPRESSION: 1. Hepatomegaly with fatty infiltration.. 2. Otherwise negative abdomen and pelvis. 3. Normal appendix. ACT 112: Negative or not required by law. The above report was generated using voice recognition software. It may contain grammatical, syntax or spelling errors. Electronically signed by: Gordon Armenta M.D. 04/14/2020 1:41 PM
[2020-04-14] MEDS ORDERED: LORazepam 1 MG/2 ML VIAL IV STA (14:48)
--- NOTE | 2020-04-14 15:28 | Electrocardiogram Report ---
Test Reason : Blood Pressure : / mmHG Vent. Rate : 077 BPM Atrial Rate : 077 BPM P-R Int : 132 ms QRS Dur : 096 ms QT Int : 418 ms P-R-T Axes : 036 056 042 degrees QTc Int : 473 ms Normal sinus rhythm Normal ECG When compared with ECG of 28-OCT-2019 16:37, No significant change was found Confirmed by Darien Lee ([id number]) on 04/14/2020 3:28:14 PM Referred By: Confirmed By:Doni Lee
--- NOTE | 2020-04-14 16:19 | History & Physical Report ---
Date of Service April 14, 2020 Assessment & Plan (1) Acute alcoholic hepatitis: Suspected due to acute abdominal pain in setting of increased acute on chronic LFTs. Functioning of liver relatively good with normal platelets, PTINR at baseline 1.3 and bilirubin 0.4 Maddrey's discriminant function 9.6 - no need for glucocorticoids IV thiamine given in ER therefore no use in taking level Trend CMP Alternative diagnoses: Prior viral hepatitis panel in Jul 2019, will repeat with AM labs TSH pending at time of admission Acetaminophen level pending at time of admission (2) Leukopenia: Supports diagnosis above of acute alcoholic hepatitis (3) Gastritis: Alternative cause of acute abdominal pain. Pantoprazole 40mg IV given in ER. Continue with pantoprazole 40mg PO daily as per hospital formulary (switched from his usual omeprazole). (4) Alcoholic intoxication: Risk of alcohol withdrawal, alcohol level positive in ER. Lorazepam 1mg IV given in ER. Start AWSS. Start alcohol withdrawal gabapentin protocol to limit use of benzodiazepines. Lorazepam 1-3mg PO PRN as per withdrawal protocol - depending on use; may need for MALU clonazepam but will defer for now. Consult top case assembler for possible referral to inpatient rehab (5) Fatty liver: Noted on CT. Suspected underlying alcoholic liver disease Follow up outpatient (6) Macrocytosis without anemia: B12 and folate levels with AM labs (7) DVT prophylaxis: Given young age and likely mobility no need for mechanical or chemical prophylaxis for now Admission and Anticipated Discharge Date Admission Date: 04/14/2020 History of Present Illness Chief Complaint: Alcohol intoxication/withdrawal Primary Care Provider: Dorene Dominguez Watson Pavon is a 40 year old male with known alcohol use disorder who presents to the ER with abdominal pain, nausea and vomiting. Started with abdominal pain at both sides started initially all week. Worse when he stops drinking alcohol. Cramping sensation. Associated nausea, vomiting, sweating, wild dreams. No hematemesis. Usually occurs within a day of stopping drinking. [place] like he was going through withdrawal when he first arrived and Ativan given which helped his symptoms. Last drank alcohol 2 hours ago. No change in bowel habits, constipation, diarrhea, melena, bright red blood in stool. Usually drinks 1/5th Vodka/day for the last 2 years. Not currently drinking more or less. Went cold turkey for 3 days, 2 weeks ago and went back to drinking alcohol due to severity of his withdrawal symptoms. Previous inpatient detox x2 - [facility] ([facility] Allergies Allergy/AdvReac Type Severity Reaction Status Date / Time No Known Allergies Allergy Verified 04/14/20 12:31 Home Medications Home Medications Medication Instructions Recorded Confirmed Type sertraline 50 mg PO DAILY #30 tab 05/08/19 04/14/20 Rx albuterol sulfate 2 puff INHALATION QID PRN 10/28/19 04/14/20 History omeprazole magnesium [Prilosec OTC] 20 mg PO DAILY 12/11/19 04/14/20 History Past Med/Surg History Medical History Abnormal LFTs (Acute) Alcohol use disorder Asthma Hyperlipidemia Surgical History No pertinent past surgical history Family History Mother Myocardial infarction Social History (Updated 04/15/20 @ 11:37 by Karols Bennett MD) Preferred Language: Croatian Communication Ability: Effective Systems Administration Analyst Required: No Beliefs That Will Affect Care: None marital status: Single Current Living Situation: Alone Other Information That Helps Us Care for You: No Feels Safe at Home: Yes Safety Concerns: Afraid for Self Smoking Status: Current every day smoker Tobacco Type: cigarettes ; Cigarettes Per Day: 10 ; Do You Dip or Chew Tobacco: No ; Second Hand Exposure: Yes ; Hx Alcohol Use: Yes Alcohol type: beer and hard liquor Alcohol type Comment: Fifth of vodka daily Alcohol Intake Frequency: Daily Hx Substance Use: Yes substance use type: marijuana and prescription drug Last Used Substance: Just Prior to Arrival Review of Systems Review of Systems: All systems reviewed & are unremarkable except as noted in HPI & below Physical Exam Constitutional: well developed and well nourished; no acute distress Eyes: + anicteric sclerae; normal pupil size ENMT: external ear and nose normal, oropharynx normal Neck: trachea midline, no thyromegaly Respiratory: normal respiratory effort, lungs clear to auscultation Cardiovascular: RRR, no murmur, no edema Gastrointestinal (Abdomen): Inspection/Auscultation: abdomen normal to inspection and normal bowel sounds; abdomen not distended Percussion/Palpation: + abdomen tender (RUQ pain), abdomen soft and + hepatomegaly; no guarding and abdomen not rigid Musculoskeletal: no cyanosis or clubbing, extremities motor strength 5/5 Skin: no rashes, warm and dry Neurologic: moves all extremities and awake; no focal motor deficits and not confused Speech / Cognition: normal speech Motor/Sensory: no tremor, no pronator drift and no sensory deficit Psychiatric: Orientation: alert and oriented x 3 Genitourinary: no CVA tenderness Lymphatic: no cervical or axillary lymphadenopathy Results & Data Results & Data ([facility]) Vital Signs (Past 12 Hours) Vital Signs Temp Pulse Pulse Resp BP BP Pulse Ox 04/14/20 15:00 84 18 178/99 H 95 04/14/20 13:37 82 18 168/115 H 04/14/20 12:48 81 16 153/91 H 04/14/20 12:07 82 16 158/97 H 04/14/20 11:22 98 04/14/20 10:38 37.0 C 98 H 20 152/[address] head/brain wo con Impression: No acute intracranial abnormality. XR chest 1V portable IMPRESSION: Negative chest. CT abd pelvis wo con IMPRESSION: 1. Hepatomegaly with fatty infiltration.. 2. Otherwise negative abdomen and pelvis. 3. Normal appendix. ECG Indication: toxicologic Rate (beats per minute): 77 Rhythm: normal sinus Findings: no acute ischemic change Comparison ECG Date: from (Oct 28, 2019) Change: no significant change Code Status & VTE Plan Code Status Full VTE Prophylaxis Plan VTE Prophylaxis will be ordered: No Reason for no VTE drug order: Treatment not indicated Reason for no VTE mechanical prophylaxis: Treatment not indicated PG Care Time/CCT Total # of Minutes Spent Total Time Spent with Patient: Total time spent is greater than 50% in coordination of care (as documented) at patient's floor/unit and/or counseling patient: Coding Level of Care Code 73552 Initial Inpt Care Lvl 3 Diagnoses Acute alcoholic hepatitis K70.10 Leukopenia D72.818 Leukopenia type: other Gastritis K29.70 Alcoholic intoxication F10.920 Complication of substance-induced condition: uncomplicated Fatty liver K76.0 Macrocytosis without anemia D75.89 DVT prophylaxis Z29.9 (1) Alcoholic intoxication Complication of substance-induced condition: uncomplicated Qualified Code(s): F10.920 - Alcohol use, unspecified with intoxication, uncomplicated (2) Leukopenia Leukopenia type: other Qualified Code(s): D72.818 - Other decreased white blood cell count
[2020-04-14] MEDS ORDERED: ALUMINUM/MAGNESIUM SUSP 30 ML UDC PO PRN (17:54)
[2020-04-14] MEDS ORDERED: ONDANSETRON INJ 2 MG/ML 2 ML VIAL IV PRN (17:54)
[2020-04-14] MEDS ORDERED: MAGNESIUM HYDROXIDE SUSP 30 ML UDC PO PRN (17:54)
[2020-04-14] MEDS ORDERED: GABAPENTIN 1200MG ALCOHOL WITHDRAWAL LOAD PO STA (17:54)
[2020-04-14] MEDS ORDERED: POLYETHYLENE (MIRALAX) 17 GM PACK PO PRN (17:54)
[2020-04-14] MEDS ORDERED: GABAPENTIN 600 MG TAB PO SCH (18:00)
[2020-04-14] MEDS: THIAMINE HCL 100 MG TAB PO SCH (20:10)
[2020-04-14] MEDS: ACETAMINOPHEN 325 MG TAB PO PRN (20:18)
[2020-04-14 20:26] LABS: Appearance Urine Clear (Clear); Bacteria Urine Automated Negative (Negative); Bilirubin Urine Negative (Negative); Blood Urine Negative (Negative); Color Urine Dark Yellow; Epithelial Cell Urine Auto 20-30 /lpf (0-5); Glucose Urine UA Negative (Negative); Ketones Urine 1+ (Negative); Leukocyte Esterase Urine Negative (Negative); Nitrite Urine Negative (Negative); Protein Urine 1+ (Negative); RBC Urine Automated 0-4 /hpf (0-4); Specific Gravity Urine 1.036 (1.000-1.030); Urobilinogen Urine Negative (Negative)
[2020-04-14 20:36] LABS: Mucus Urine Present (None Prsent)
[2020-04-14 20:50] LABS: Amphetamines+Metham, Urine Neg (Neg); Barbiturates, Urine Neg (Neg); Benzodiazepine, Urine Neg (Neg); Cocaine, Urine Neg (Neg); MDMA (Ecstacy), Urine Pos (Neg); Methadone, Urine Neg (Neg); Opiate, Urine Neg (Neg); Phencyclidine, Urine Neg (Neg)
[2020-04-14] MEDS ORDERED: HydrALAZINE HCL 20 MG/ML VIAL IV PRN (22:21)
[2020-04-14] MEDS: SODIUM CHLOR 0.45% + 20MEQ KCL 20 MEQ/1,000 ML BAG IV SCH (22:58)
[2020-04-15] MEDS: GABAPENTIN 600 MG TAB PO SCH ×4 (00:07→21:11)
[2020-04-15] MEDS: SODIUM CHLOR 0.45% + 20MEQ KCL 20 MEQ/1,000 ML BAG IV SCH ×2 (06:21→14:28)
[2020-04-15 06:58] LABS: Hematocrit (blood only) 38.9 % (42-52); Hemoglobin 13.4 g/dL (14.0-18.0); Mean Corpuscular Hemoglobin 36.8 pg (25-34); Mean Corpuscular Hgb Conc 34.4 g/dL (32-36); Mean Corpuscular Volume 106.9 fL (80-100); Mean Platelet Volume 8.7 fL (7.4-10.4); Platelet Count 222 K/uL (130-400); RDW Coefficient of Variation 12.9 % (11.5-14.5); RDW Standard Deviation 51.1 fL (36.4-46.3); Red Blood Count 3.64 M/uL (4.7-6.1); White Blood Count 4.51 K/uL (4.8-10.8)
[2020-04-15 07:07] LABS: INR 1.3 (0.9-1.1); Prothrombin Time 13.3 Seconds (9.0-12.0)
[2020-04-15 07:30] LABS: Albumin Level 3.1 gm/dl (3.4-5.0); BUN Creatinine Ratio 9.3 (10-20); Calcium 9.2 mg/dl (8.5-10.1); Creatinine Clr Calc Pharmacy 143.1 ml/min; Est GFR (African American) 137.9; Potassium 3.4 mmol/L (3.5-5.1)
[2020-04-15 07:33] LABS: Albumin Globulin Ratio 0.7 (0.9-2); Bilirubin,Total 0.8 mg/dl (0.2-1); Globulin 4.3 gm/dl (2.5-4.0); Total Protein 7.4 gm/dl (6.4-8.2)
[2020-04-15] MEDS: PANTOprazole 40 MG TAB PO SCH (08:17)
[2020-04-15] MEDS: THIAMINE HCL 100 MG TAB PO SCH (08:18)
[2020-04-15] MEDS: SERTRALINE HCL 50 MG TABLET PO SCH (08:18)
[2020-04-15 09:21] LABS: Hepatitis B Surface Antigen Neg (Neg)
[2020-04-15 09:22] LABS: Folate (Folic Acid) 15.45 ng/ml (>5.38)
[2020-04-15 09:50] LABS: Hepatitis C IgG 13Yrs+Old_Rflx Neg (Neg)
[2020-04-15] MEDS: HydrALAZINE HCL 20 MG/ML VIAL IV PRN ×2 (11:09→23:10)
--- NOTE | 2020-04-15 11:17 | Hospitalist Progress Note ---
Date of Service April 15, 2020 Assessment & Plan (1) Leukopenia: 40 yo M PMHx depression, anxiety, alcohol abuse disorder admitted for alcoholic hepatitis. Acute alcohol hepatitis: - Patient's abdominal pain and nausea are improving but not resolved at this time. - LFTs on admission: AST 555, ALT 232, Alk Phos 296, Tbili 0.8 - Downtrending since admission, but still grossly elevated. - Lipase normal, CTAP without evidence of pancreatitis. Fatty liver infiltration only. - MELD score 9 (1.9% three month mortality), Child Miller score 6 (15-20 year life expectancy given current lab values). - Leukopenia, electrolyte abnormalities, macrocytosis, elevated INR 1.3 all suggestive of chronic heavy alcohol use. - Advanced diet to regular, patient may eat as he tolerates but will scale back if becomes nauseous or has more abdominal pain. - Viral Hepatitis panel Hep C negative, Hep B surface Ag negative, Hep B core Ag and Hep A pending. - Continue IV fluids. - Continue thiamine, electrolyte repletion as needed. - Administered Vitamin K 10mg, recheck coag panel AM. - AWSS protocol, patient's highest score 3 and so has not received Ativan. Ativan PRN AWSS 6-10. Alcohol abuse disorder: - Used motivational interviewing with the patient today to attempt to determine his goals: goals are his physical wellness, spending time with his daughter. - Poor social supports in that his spouse has alcohol use disorder as well, however it sounds as if she too is seeking help. - Care Management provided patient with inpatient and outpatient rehab information; pt will think over both options. - Attempted to have PCP follow up last time I discharged him personally, will try again this admission. Code Status: FULL CODE FEN/GI: Regular diet as tolerated, NSS with KCl 20 meq @ 125cc/hr DVT ppx: ad gini on demand Dispo: med/surg for continued supportive care of alcohol hepatitis, pending patient decision regarding alcohol rehab (2) Abnormal LFTs: (3) Acute alcoholic hepatitis: (4) Alcohol withdrawal syndrome: (5) Alcohol abuse with alcohol-induced disorder: Admission and Anticipated Discharge Date Admission Date: April 14, 2020 Supervising Physician Co-Signing Physician Notes I personally examined the patient and verified all mcduffie points of history and exam, discussed case, and agree with decision making with Dr Velez. pain/nausea still there but feeling a bit better. not really shaky right now. vitals noted nad heent nc at mmm breathing unlabored no accessory muscles good effort. no tremulousness. mental status intact. no focal neuro deficits EtOH hepatitis - stable/slightly improved. give vitamin K for trial of synthetic function - check INR tomorrow. continue supportive care and trend LFT. encouaged cessation EtOH withdrawal - fortunately right now seems mild, but also only about 24hrs since last drink. continue protocol, continue to follow EtOH abuse - seems to self-medicate for anxiety. discussed external factors vs perception, with coping skills also being important in management. right now seems that only main coping skill is EtOH - discussed physical activity for stress management vs meditative/musical type of calm stress management. he expressed appreciation of these thoughts. would probably benefit from counselling both for anxiety and EtOH anxiety - as above, continue sertraline otherwise as above Subjective Today patient is feeling much more well than when he arrived to ED; is still having frequent bouts of diarrhea, and some intermittent nausea. No more agitation, still with mild tremor. No palpitations. Discussed at length that he came into the hospital because he and his girlfriend both use alcohol and felt that they "needed help to get well" so he came to the hospital. Has a long history of alcohol abuse, last admitted several months ago for alcoholic hepatitis and admitted by myself in April 2019 for alcohol p ancreatitis. Has poor coping skills and has periods of sobriety but when social stressors become too much to handle he self-medicates with alcohol. Started taking sertraline after April 2019 admission, but did not follow up with myself in primary care clinic. He reports feeling "fed up with drinking, but I don't know how to stop". Has had temporary success with inpatient and outpatient rehab in the past, but will relapse when stress arises. He is most concerned with his daughter and being available for her, while also being healthy in his life both for himself and for her. At this time denies chest pain, palpitations, shortness of breath, abdominal pain, fevers or chills. No agitation, no hallucinations. Review of Systems Review of Systems: All systems reviewed & are unremarkable except as noted in Subjective Constitutional: no fever, no chills and no malaise Respiratory: no cough and no dyspnea Cardiovascular: no chest pain, no palpitations and no edema Gastrointestinal: + diarrhea/loose stools; no abdominal pain and no constipation Physical Exam Constitutional: WD/WN, vitals as above Eyes: PERRL, conjunctivae normal, anicteric sclerae ENMT: external ear and nose normal, oropharynx normal Neck: normal visual inspection Respiratory: normal respiratory effort, lungs clear to auscultation Cardiovascular: RRR, no murmur, no edema Gastrointestinal (Abdomen): normal bowel sounds, soft, nontender, no hepatosplenomegaly Musculoskeletal: no cyanosis or clubbing, extremities motor strength 5/5 Skin: no rashes, warm and dry Neurologic: AAOx3, normal speech. PERRLA, EOMI, no nystagmus. Normal visual acuity bilaterally. Bilateral UE, LE, and face without sensory or motor deficits. Mild resting tremoe Psychiatric: A+Ox3, euthymic affect Results & Data Results & Data ([facility]) Vital Signs (Past 12 Hours) Vital Signs Temp Pulse Pulse Resp BP BP Pulse Ox 04/15/20 08:20 179/106 H 04/15/20 08:00 91 H 04/15/20 07:55 36.8 C 84 18 169/114 H 96 04/15/20 03:00 36.9 C 87 20 174/104 H 94 Resident Activity Tracking Resident Involvement: Resident Care Provided Care Provided: Adult Hospital Medicine (1) Alcohol withdrawal syndrome Complication of substance-induced condition: with unspecified complication Qualified Code(s): F10.239 - Alcohol dependence with withdrawal, unspecified (2) Leukopenia Leukopenia type: other Qualified Code(s): D72.818 - Other decreased white blood cell count
[2020-04-15] MEDS ORDERED: LOPERAMIDE HCL 2 MG CAP PO PRN (12:39)
[2020-04-15] MEDS: ACETAMINOPHEN 325 MG TAB PO PRN (12:55)
[2020-04-15] MEDS ORDERED: PHYTONADIONE 10 MG in SODIUM CHLORIDE 0.9% 50 ML IV SCH (14:30)
--- NOTE | 2020-04-15 16:14 | Billing Data ---
Date of Service April 15, 2020 Coding Level of Care Code 80976 Subseq Hosp Care Lvl 3
[2020-04-15] MEDS: LORazepam 1 MG TAB PO PRN (21:15)
[2020-04-15] MEDS: ALBUTEROL HFA 8 GM INHALER INH PRN (21:34)
[2020-04-16] MEDS: SODIUM CHLOR 0.45% + 20MEQ KCL 20 MEQ/1,000 ML BAG IV SCH ×3 (00:01→16:31)
[2020-04-16] MEDS: GABAPENTIN 600 MG TAB PO SCH ×2 (06:09→17:38)
[2020-04-16 06:56] LABS: Hematocrit (blood only) 37.5 % (42-52); Hemoglobin 12.9 g/dL (14.0-18.0); Mean Corpuscular Hemoglobin 36.6 pg (25-34); Mean Corpuscular Hgb Conc 34.4 g/dL (32-36); Mean Corpuscular Volume 106.5 fL (80-100); Mean Platelet Volume 9.2 fL (7.4-10.4); Platelet Count 191 K/uL (130-400); RDW Coefficient of Variation 12.6 % (11.5-14.5); RDW Standard Deviation 49.4 fL (36.4-46.3); Red Blood Count 3.52 M/uL (4.7-6.1); White Blood Count 3.02 K/uL (4.8-10.8)
[2020-04-16 07:08] LABS: INR 1.2 (0.9-1.1); Prothrombin Time 12.2 Seconds (9.0-12.0)
[2020-04-16 07:31] LABS: BUN Creatinine Ratio 4.3 (10-20); Calcium 9.1 mg/dl (8.5-10.1); Creatinine Clr Calc Pharmacy 152.5 ml/min; Est GFR (African American) 141.3; Est GFR (Non-African American) 121.9; Potassium 3.6 mmol/L (3.5-5.1)
[2020-04-16 07:34] LABS: Albumin Globulin Ratio 0.7 (0.9-2); Bilirubin,Total 0.9 mg/dl (0.2-1); Globulin 4.6 gm/dl (2.5-4.0); Total Protein 7.6 gm/dl (6.4-8.2)
[2020-04-16] MEDS: SERTRALINE HCL 50 MG TABLET PO SCH (07:51)
[2020-04-16] MEDS: PANTOprazole 40 MG TAB PO SCH (07:52)
[2020-04-16] MEDS: THIAMINE HCL 100 MG TAB PO SCH (07:52)
[2020-04-16] MEDS: lisinopriL 10 MG TAB PO SCH (09:39)
[2020-04-16] MEDS ORDERED: SODIUM CHLORIDE 0.65% NA SOLN 45 ML (OCEAN) PRN (12:12)
--- NOTE | 2020-04-16 12:22 | Hospitalist Progress Note ---
Date of Service April 16, 2020 Assessment & Plan (1) Leukopenia: 40 yo M PMHx depression, anxiety, alcohol abuse disorder admitted for alcoholic hepatitis. Acute alcohol hepatitis: - Patient's abdominal pain and nausea are improved - LFTs on admission: AST 555, ALT 232, Alk Phos 296, Tbili 0.8 - Downtrending this AM: AST 473, ALT 201, Alk Phos 237 - Lipase normal, CTAP without evidence of pancreatitis. Fatty liver infiltration only - MELD score 9 (1.9% three month mortality), Child Miller score 6 (15-20 year life expectancy given current lab values) - Viral Hepatitis panel Hep C negative, Hep B surface Ag negative, Hep B core Ag and Hep A pending. - Continue IV fluids - Continue thiamine, electrolyte repletion as needed. - AWSS protocol Alcohol use disorder: - goals are his physical wellness, spending time with his daughter. - Poor social supports in that his spouse has alcohol use disorder as well, however it sounds as if she too is seeking help. - Care Management provided patient with inpatient and outpatient rehab informa tion; pt leaning toward outpatient rehab at this time - will arrange follow-up with Dr. Franklin this week, with considerations of Naltrexone/Vivitrol injections in clinic HTN: - elevated SBP overnight, potential contributions from continued alcohol withdrawal - started Lisinopril 10mg QAM - continue to monitor Diet: Regular, NSS with KCl 20 meq @ 125cc/hr DVT ppx: ad gini as tolerated Code Status: Full Code Admission and Anticipated Discharge Date Admission Date: April 14, 2020 Supervising Physician Co-Signing Physician Notes Resident Physician Supervision Note: I independently interviewed and examined the patient and verified the mcduffie history and physical, reviewed labs and image studies, discussed the case with the resident Dr. Lobo and agree with the findings and care plan. Subjective Patient feels well this morning, does not feel like he has had any continued abdominal pain or nausea/vomiting at this point. Received one dose of Ativan overnight. Main form of his withdrawal over the last three months he feels like has represented it self as wild and weird dreams, and last night this was heightened. Review of Systems Review of Systems: All systems reviewed & are unremarkable except as noted in Subjective Physical Exam Constitutional: WD/WN, vitals as above Eyes: PERRL, conjunctivae normal, anicteric sclerae Respiratory: normal respiratory effort, lungs clear to auscultation Cardiovascular: Rate/Rhythm: regular rate and regular rhythm Heart Sounds: normal S1 and normal S2; no gallop, no murmur and no cardiac rub Vessels: no JVD Gastrointestinal (Abdomen): normal bowel sounds, soft, nontender, no hepatosplenomegaly Musculoskeletal: no cyanosis or clubbing, extremities motor strength 5/5 Skin: no rashes, warm and dry Neurologic: patellar DTR's 2+ bilat, sensation intact moves all extremities; no focal motor deficits Motor/Sensory: no tremor and normal movement Psychiatric: A+Ox3, euthymic affect Results & Data Results & Data ([facility]) Vital Signs (Past 12 Hours) Vital Signs Temp Pulse Resp BP Pulse Ox 04/16/20 11:31 37.2 C 89 18 164/105 H 92 04/16/20 07:40 36.9 C 76 18 154/93 H 97 04/16/20 04:18 36.8 C 78 20 164/101 H 98 Laboratory Results 04/16/20 04/16/20 04/16/20 Range/Units 06:13 06:13 06:13 WBC 3.02 L (4.8-10.8) K/uL RBC 3.52 L (4.7-6.1) M/uL Hgb 12.9 L (14.0-18.0) g/dL Hct 37.5 L (42-52) % MCV 106.5 H (80-100) fL MCH 36.6 H (25-34) pg MCHC 34.4 (32-36) g/dL RDW Std Deviation 49.4 H (36.4-46.3) fL RDW Coeff of Juli 12.6 (11.5-14.5) % Plt Count 191 (130-400) K/uL MPV 9.2 (7.4-10.4) fL PT 12.2 H (9.0-12.0) Seconds INR 1.2 H (0.9-1.1) Sodium 139 (136-145) mmol/L Potassium 3.6 (3.5-5.1) mmol/L Chloride 106 (98-107) mmol/L Carbon Dioxide 25 (21-32) mmol/L Anion Gap 8.0 (3-11) BUN 3 L (7-18) mg/dl Creatinine 0.67 (0.6-1.4) mg/dl Est Cr Clr Drug Dosing 152.5 ml/min Est GFR ( Amer) 141.3 Est GFR (Non-Af Amer) 121.9 BUN/Creatinine Ratio 4.3 L (10-20) Glucose 94 (70-99) mg/dl Calcium 9.1 (8.5-10.1) mg/dl Total Bilirubin 0.9 (0.2-1) mg/dl AST 473 H (15-37) U/L ALT 201 H (12-78) U/L Alkaline Phosphatase 237 H (45-117) U/L Total Protein 7.6 (6.4-8.2) gm/dl Albumin 3.0 L (3.4-5.0) gm/dl Globulin 4.6 H (2.5-4.0) gm/dl Albumin/Globulin Ratio 0.7 L (0.9-2) Medications Administered Current Inpatient Medications Al Hydrox/Mg Hydrox/Simethicone (Maalox) 15 ml PO Q4H PRN PRN Reason: Dyspepsia Stop: 05/14/20 17:53 Albuterol (Ventolin Hfa) 2 puffs INH QID PRN PRN Reason: Shortness Of Breath Or Wheezing Stop: 05/15/20 12:36 Last Admin: 04/15/20 21:34 Dose: 2 puffs Documented by: Gabapentin (Neurontin) 600 mg PO Q12H [facility] Stop: 04/17/20 06:01 Gabapentin (Neurontin) 600 mg PO Q24H [facility] Stop: 04/18/20 06:01 Hydralazine HCl (Hydralazine Hcl) 5 mg IV Q4H PRN PRN Reason: SBP >180, DBP > 110 Stop: 05/14/20 22:20 Last Admin: 04/15/20 23:10 Dose: 5 mg Documented by: Potassium Chloride/Sodium Chloride (1/2 Nss + 20meq Kcl 1000ml) 20 meq in 1,000 mls @ 125 mls/hr IV .Q8H [facility] Stop: 05/14/20 22:29 Last Admin: 04/16/20 07:51 Dose: 125 mls/hr Documented by: Lisinopril (Zestril) 10 mg PO QAM [facility] Stop: 05/16/20 09:29 Last Admin: 04/16/20 09:39 Dose: 10 mg Documented by: Loperamide HCl (Imodium) 2 mg PO Q12H PRN PRN Reason: Diarrhea Stop: 05/15/20 12:38 Last Admin: 04/15/20 12:55 Dose: 2 mg Documented by: Lorazepam (Ativan) 1 - 3 mg PO UD PRN; Protocol PRN Reason: EtoH Withdrawal AWSS 6-10+ Stop: 05/14/20 17:53 Last Admin: 04/15/20 21:15 Dose: 1 mg Documented by: Magnesium Hydroxide (Milk Of Magnesia) 30 ml PO Q12H PRN PRN Reason: Constipation Stop: 05/14/20 17:53 Ondansetron HCl (Zofran) 4 mg IV Q6H PRN PRN Reason: Nausea Stop: 05/14/20 17:53 Last Admin: 04/15/20 11:05 Dose: 4 mg Documented by: Pantoprazole Sodium (Protonix) 40 mg PO DAILY [facility]; Protocol Stop: 05/15/20 08:59 Last Admin: 04/16/20 07:52 Dose: 40 mg Documented by: Polyethylene Glycol (Miralax Powder Packet) 17 gm PO DAILY PRN PRN Reason: Constipation Stop: 05/14/20 17:53 Sertraline HCl (Zoloft) 50 mg PO DAILY [facility] Stop: 05/15/20 08:59 Last Admin: 04/16/20 07:51 Dose: 50 mg Documented by: Thiamine HCl (Vitamin B-1) 100 mg PO QAM [facility] Stop: 05/14/20 17:53 Last Admin: 04/16/20 07:52 Dose: 100 mg Documented by: Resident Activity Tracking Resident Involvement: Resident Care Provided Care Provided: Adult Hospital Medicine (1) Leukopenia Leukopenia type: other Qualified Code(s): D72.818 - Other decreased white blood cell count
[2020-04-16] MEDS: LORazepam 1 MG TAB PO PRN (16:35)
[2020-04-16] MEDS: NICOTINE 7 MG/24 HR TDSY TD SCH (20:24)
[2020-04-17] MEDS: SODIUM CHLOR 0.45% + 20MEQ KCL 20 MEQ/1,000 ML BAG IV SCH ×2 (00:12→08:06)
[2020-04-17] MEDS: GABAPENTIN 600 MG TAB PO SCH (05:10)
[2020-04-17] MEDS: ALBUTEROL HFA 8 GM INHALER INH PRN (07:03)
[2020-04-17] MEDS: PANTOprazole 40 MG TAB PO SCH (07:43)
[2020-04-17] MEDS: THIAMINE HCL 100 MG TAB PO SCH (07:43)
[2020-04-17] MEDS: SERTRALINE HCL 50 MG TABLET PO SCH (07:44)
[2020-04-17] MEDS: lisinopriL 10 MG TAB PO SCH (07:44)
[2020-04-17] MEDS: NICOTINE 7 MG/24 HR TDSY TD SCH (07:45)
[2020-04-17 08:08] LABS: INR 1.2 (0.9-1.1); Prothrombin Time 12.6 Seconds (9.0-12.0)
[2020-04-17 08:22] LABS: Albumin Level 3.2 gm/dl (3.4-5.0); BUN Creatinine Ratio 7.4 (10-20); Calcium 9.2 mg/dl (8.5-10.1); Creatinine Clr Calc Pharmacy 151.5 ml/min; Est GFR (African American) 140.4; Est GFR (Non-African American) 121.2; Potassium 3.6 mmol/L (3.5-5.1)
[2020-04-17 08:25] LABS: Albumin Globulin Ratio 0.7 (0.9-2); Bilirubin,Total 0.7 mg/dl (0.2-1); Globulin 4.7 gm/dl (2.5-4.0); Total Protein 7.9 gm/dl (6.4-8.2)
--- NOTE | 2020-04-17 11:03 | Discharge Summary ---
Date of Service April 17, 2020 Admission HPI Per Admitting Provider Watson Pavon is a 40 year old male with known alcohol use disorder who presents to the ER with abdominal pain, nausea and vomiting. Started with abdominal pain at both sides started initially all week. Worse when he stops drinking alcohol. Cramping sensation. Associated nausea, vomiting, sweating, wild dreams. No hematemesis. Usually occurs within a day of stopping drinking. [place] like he was going through withdrawal when he first arrived and Ativan given which helped his symptoms. Last drank alcohol 2 hours ago. No change in bowel habits, constipation, diarrhea, melena, bright red blood in stool. Usually drinks 1/5th Vodka/day for the last 2 years. Not currently drinking more or less. Went cold turkey for 3 days, 2 weeks ago and went back to drinking alcohol due to severity of his withdrawal symptoms. Previous inpatient detox x2 - [facility] ([facility]). Principal Diagnosis Alcoholic Hepatitis Discharge Exam Constitutional WD/WN, vitals as above Eyes PERRL, conjunctivae normal, anicteric sclerae Respiratory normal respiratory effort, lungs clear to auscultation Cardiovascular Rate/Rhythm: regular rate and regular rhythm Heart Sounds: normal S1 and normal S2; no gallop, no murmur and no cardiac rub Vessels: no JVD Gastrointestinal (Abdomen) normal bowel sounds, soft, nontender, no hepatosplenomegaly Musculoskeletal no cyanosis or clubbing, extremities motor strength 5/5 Skin no rashes, warm and dry Neurologic patellar DTR's 2+ bilat, sensation intact moves all extremities; no focal motor deficits Motor/Sensory: no tremor and normal movement Psychiatric A+Ox3, euthymic affect Discharge Data Allergies Allergy/AdvReac Type Severity Reaction Status Date / Time No Known Allergies Allergy Verified 04/14/20 12:31 Consultations 04/14/20 15:48 ED Decision to Admit Stat 04/14/20 20:08 Consult Case Management - Discharge Planning Routine Ordered Studies 04/14/20 10:56 CT abd pelvis wo con Stat CT head/brain wo con Stat Hospital Course (1) Leukopenia: 40 yo M PMHx depression, anxiety, alcohol abuse disorder admitted for alcoholic hepatitis. Acute alcohol hepatitis: - Patient's abdominal pain and nausea are improved - LFTs on admission: AST 555, ALT 232, Alk Phos 296, Tbili 0.8 - Downtrending on discharge: AST 423, ALT 224, Alk Phos 223, Tbili 0.7 - CTAP without evidence of pancreatitis. Fatty liver infiltration only - MELD score 9 (1.9% three month mortality), Child Miller score 6 (15-20 year life expectancy given current lab values) - Viral Hepatitis panel Hep C negative, Hep B surface Ag negative, Hep B core Ag and Hep A pending. - repeat Hepatic Function Test in one week Alcohol use disorder: - goals are his physical wellness, spending time with his daughter. - Poor social supports in that his spouse has alcohol use disorder as well, however it sounds as if she too is seeking help. - Care Management provided patient with inpatient and outpatient rehab information; pt leaning toward outpatient rehab at this time - will arrange follow-up with Dr. Franklin this week, with considerations of Naltrexone/Vivitrol injections in clinic - Continue Gabapentin 600mg BID for an additional week, before downtrend to 600mg Q24h to curb craving while waiting for Lft to normalize before starting naltrexone - Continue thiamine 100mg daily Probable underlying Anxiety ds - continue Zoloft 50mg daily HTN: - started Lisinopril 10mg QAM - monitor outpatient BPs, as portion of hypertension may be related to alcohol withdrawals. Total Time Total Time Spent Total Time Spent (In Minutes): 30 Discharge Plan Discharge Items Patient Disposition: Home - Self-Care Reason For Visit: ALCOHOL INTOXICATION, ACUTE ALCOHOLIC HEPATITIS Discharge Diagnosis: alcohol-induced hepatitis Activity: Per Instructions section Non-emergency contact: Primary Care Provider Call non-emergency contact if: you have any medication questions and your symptoms worsen Follow-up/Referrals: Dorene Dominguez [Primary Care Provider] - Michelle Franklin DO [Resident] - 04/19/20 12:50 pm Diet: Regular Addtl Attending Provider Instructions: You were admitted to the hospital for abdominal pain, nausea, and vomiting. You were found on labwork and cat scan of your belly to have alcohol-induced hepatitis. You were treated with IV fluids, given medication to help prevent alcohol withdrawal symptoms, and given resources for inpatient/outpatient rehab options. Additionally, you were started on a medication for your blood pressure that now that you should continue now that you are being discharged. Following discharge you will have a follow up appointment with Dr. Franklin on 04/19 at 12:50pm to establish care and to discuss maintaining your sobriety. This appointment will be conducted at the [facility] at [address], [place], [place]. This is the building right in-front of the hospital on your left hand side as you are entering the hospital grounds. In one week, you will have a recheck of your Liver enzymes to continue to monitor when you would be eligible to receive the outpatient medications. Pending Studies at Discharge: No Stand-Alone Forms: My [facility], Smoking Cessation Medications and DC Order Prescriptions: New thiamine HCl (vitamin B1) [Vitamin B-1] 100 mg Tablet 100 mg PO QAM 30 Days Qty: 30 RF: 0 lisinopril 10 mg Tablet 10 mg PO QAM 30 Days Qty: 30 RF: 0 gabapentin 600 mg tablet 600 mg PO BID 7 Days Qty: 14 RF: 0 Continued albuterol sulfate 90 mcg/actuation HFA aerosol inhaler 2 puff INHALATION QID PRN (Reason: Shortness Of Breath Or Wheezing) RF: 0 omeprazole magnesium [Prilosec OTC] 20 mg Tablet,Delayed Release (Dr/Ec) 20 mg PO DAILY RF: 0 sertraline 50 mg tablet 50 mg PO DAILY Qty: 30 RF: 0 Discharge Orders: Discharge Order (Routine); Ordered 04/17/20 Ordered By: Jacques Lobo Admission Data Admit Date/Time: 04/14/20 15:54 Attending Provider: Mahsa Gaitan Admit Provider: Karlos Bennett Primary Care Provider: Dorene Dominguez Other Providers: Karlos Bennett ; Kindra Wilson ; Robb Chou Other Interventions: Discharge Summary Assessment (RN) Last Done: 04/17/20 11:02 DC Date/Time DO NOT enter until pt leaves facility: 04/17/20 11:43 Supervising Physician Co-Signing Physician Notes Resident Physician Supervision Note: I independently interviewed and examined the patient and verified the mcduffie history and physical, reviewed labs and image studies, discussed the case with the resident Dr. Lobo and agree with the findings and care plan. Resident Activity Tracking Resident Involvement: Resident Care Provided Care Provided: Adult Hospital Medicine
[2020-04-17 13:25] LABS: Hepatitis A Antibody IgM NON-REACTIVE (NON-REACTIVE); Hepatitis B Core Antibody IgM NON-REACTIVE (NON-REACTIVE)
[2020-04-18] MEDS ORDERED: GABAPENTIN 600 MG TAB PO SCH (06:00)
[2020-04-19 12:59] LABS: MDA negative; MDEA negative; MDMA (Ecstasy) Urine, Confirm negative; Marijuana Quant, GCMS Urine 20 ng/mL (<5)
== END 2020-04-17 11:43 | disposition home or self-care (01) ==
LOC: ED 10:35 → 2W 15:54 → SUATTDRO 15:54 → INTOOBSV 15:54 → 2W 17:39

== ENCOUNTER 2020-05-02 21:50 | Observation (INO) ==
[2020-05-02] MEDS ORDERED: LORazepam 1 MG/2 ML VIAL IV STA (22:32)
[2020-05-02] MEDS ORDERED: ONDANSETRON INJ 2 MG/ML 2 ML VIAL IV STA (22:32)
[2020-05-02] MEDS ORDERED: SODIUM CHLORIDE 0.9% 1000ML 1,000 ML IV SCH (22:45)
[2020-05-02 22:59] LABS: Basophils # (auto) 0.02 K/uL (0-0.2); Basophils % (auto) 0.6 %; Hematocrit (blood only) 41.6 % (42-52); Hemoglobin 14.9 g/dL (14.0-18.0); Lymphocytes % (auto) 45.7 %; Mean Corpuscular Hemoglobin 36.4 pg (25-34); Mean Corpuscular Hgb Conc 35.8 g/dL (32-36); Mean Corpuscular Volume 101.7 fL (80-100); Mean Platelet Volume 9.1 fL (7.4-10.4); Monocytes # (auto) 0.17 K/uL (0.11-0.59); Monocytes % (auto) 5.2 %; Neutrophils # (auto) 1.49 K/uL (1.4-6.5); Neutrophils % (auto) 45.5 %; Platelet Count 205 K/uL (130-400); RDW Coefficient of Variation 12.5 % (11.5-14.5); RDW Standard Deviation 46.5 fL (36.4-46.3); Red Blood Count 4.09 M/uL (4.7-6.1); White Blood Count 3.28 K/uL (4.8-10.8)
[2020-05-02 23:12] LABS: INR 1.3 (0.9-1.1); Partial Thromboplastin Time 28.2 Seconds (21.0-31.0); Prothrombin Time 13.5 Seconds (9.0-12.0)
[2020-05-02 23:14] LABS: Albumin Level 3.6 gm/dl (3.4-5.0); BUN Creatinine Ratio 9.8 (10-20); Calcium 8.7 mg/dl (8.5-10.1); Creatinine Clr Calc Pharmacy 137.7 ml/min; Est GFR (African American) 140.4; Est GFR (Non-African American) 121.2; Magnesium 1.7 mg/dl (1.8-2.4); Potassium 3.1 mmol/L (3.5-5.1)
[2020-05-02 23:17] LABS: Albumin Globulin Ratio 0.7 (0.9-2); Bilirubin,Total 0.7 mg/dl (0.2-1); Globulin 4.9 gm/dl (2.5-4.0); Total Protein 8.5 gm/dl (6.4-8.2)
[2020-05-03 00:56] LABS: Appearance Urine Clear (Clear); Bilirubin Urine Negative (Negative); Blood Urine Negative (Negative); Color Urine Dark Yellow; Glucose Urine UA Negative (Negative); Ketones Urine Trace (Negative); Leukocyte Esterase Urine Negative (Negative); Nitrite Urine Negative (Negative); Protein Urine Negative (Negative); Specific Gravity Urine 1.024 (1.000-1.030); Urobilinogen Urine Negative (Negative); pH Urine 6.5 (4.5-7.5)
--- NOTE | 2020-05-03 00:56 | Emergency Department Note ---
History of Present Illness General Chief complaint: Flank Pain Stated complaint: SIDE PAINS, CANT EAT OR DRINK, VOMITING, DEPRESSIO History of Present Illness Maximum Pain Intensity: 9 This 40 yo presents to the ER complaining of alcohol abuse Location: Generalized Quality: Shaky Severity: Moderate Duration: Today Timing: Today Context: Patient states he is an alcoholic and needs help with detox Modifying factors: better with alcohol; worse with not drinking Patient states he has been drinking since his last discharge. Patient complains of feeling nausea and having bouts of diarrhea. He last drank a few hours ago. Patient denies chest pain, dyspnea, fevers, abdominal pain. Home Medications Home Medications Medication Instructions Recorded Confirmed Type sertraline 50 mg PO DAILY #30 tab 05/08/19 05/02/20 Rx albuterol sulfate 2 puff INHALATION QID PRN 10/28/19 05/02/20 History omeprazole magnesium [Prilosec OTC] 20 mg PO BID 12/11/19 05/02/20 History lisinopril 10 mg PO QAM 30 Days #30 tab 04/17/20 05/02/20 Rx thiamine HCl (vitamin B1) [Vitamin 100 mg PO QAM 30 Days #30 tab 04/17/20 05/02/20 Rx B-1] gabapentin 600 mg PO BID 05/02/20 05/02/20 History Allergies Allergy/AdvReac Type Severity Reaction Status Date / Time No Known Allergies Allergy Verified 05/02/20 23:27 Past Med/Surg History Medical History Abnormal LFTs (Acute) Alcohol use disorder Asthma Hyperlipidemia Surgical History No pertinent past surgical history Family History Mother Myocardial infarction Social History Preferred Language: Tajik Communication Ability: Effective Neurophysiological Technician Required: No Beliefs That Will Affect Care: None marital status: Single Current Living Situation: Alone Feels Safe at Home: Yes Smoking Status: Current every day smoker Tobacco Type: cigarettes ; Cigarettes Per Day: 10 ; Second Hand Exposure: Yes ; Hx Alcohol Use: Yes Alcohol type: beer and hard liquor Alcohol type Comment: Fifth of vodka daily Alcohol Intake Frequency: Daily Hx Substance Use: Yes substance use type: marijuana and prescription drug Last Used Substance: Just Prior to Arrival Review of Systems A total of 10 systems reviewed and were otherwise negative Physical Exam Vital Signs Vital Signs - 24 hr 05/02/20 21:59 05/02/20 22:52 05/02/20 23:00 Temperature 36.8 C Temperature Source Oral Pulse Rate 92 H 83 Pulse Rate from SpO2 Sensor 82 Respiratory Rate 18 15 Blood Pressure 163/105 H 159/107 H Blood Pressure Mean 124 119 Pulse Oximetry 98 100 99 Oxygen Delivery Method Room Air Room Air Sepsis Recent Fever Within 48 Hours No Sepsis New/Unexplained Change in Mental Status No Sepsis Action Taken by Nursing No Action Required 05/02/20 23:30 05/03/20 00:00 Temperature Temperature Source Pulse Rate 93 H 91 H Pulse Rate from SpO2 Sensor 93 H 91 H Respiratory Rate 25 H 19 Blood Pressure 169/106 H 163/102 H Blood Pressure Mean 126 123 Pulse Oximetry 97 98 Oxygen Delivery Method Sepsis Recent Fever Within 48 Hours Sepsis New/Unexplained Change in Mental Status Sepsis Action Taken by Nursing VITALS: Vitals are noted on the nurse's note and reviewed by myself. Vital signs reviewed. GENERAL: Male with EtOH odor, in no acute distress, nondiaphoretic, well- developed well-nourished. SKIN: The skin was without rashes, erythema, edema, or bruising. There is no tenting of the skin. Capillary reflex less than 2 seconds. HEAD: Normocephalic atraumatic. EARS: External auditory canals clear, tympanic membranes pearly hester without erythema or effusion bilaterally. EYES: Pupils equal round and reactive to light and accommodation. Conjunctivae with mild injection, sclerae without icterus. Extraocular movements intact. NOSE: Patent, turbinates without inflammation or discharge. MOUTH: Mucous membranes moist. Pharynx without erythema or exudate. Uvula midline. Airway patent. Tongue does not deviate. NECK: Supple without nuchal rigidity. No lymphadenopathy. No thyromegaly. Cervical spine is nontender. No JVD. HEART: Regular rate and rhythm LUNGS: Clear to auscultation bilaterally without wheezes, rales or rhonchi. No retractions or accessory muscle use. ABDOMEN: Positive bowel sounds x 4. Normal tympanic percussion. Soft, nontender, without masses or organomegaly. Cerda sign negative. No guarding or rebound tenderness. No CVA tenderness MUSCULOSKELETAL: No muscle atrophy, erythema, or edema noted. NEURO: Patient was alert and oriented to person place and time. Normal sensation to light and sharp touch. No focal neurological deficits. Course Administered Medications Discontinued Medications Sodium Chloride (Nss 1000ml) 1,000 mls @ 999 mls/hr IV .Q1H1M MALU Stop: 05/02/20 23:45 Last Infusion: 05/03/20 00:33 Dose: 0 mls/hr Documented by: [id number] Admin: 05/02/20 22:58 Dose: 999 mls/hr Documented by: [id number] Lorazepam (Ativan) 1 mg in 2 mls @ 2 mls/min IV NOW STA Stop: 05/02/20 22:33 Last Admin: 05/02/20 22:59 Dose: 2 mls/min Documented by: [id number] Ondansetron HCl (Zofran) 4 mg IV NOW STA Stop: 05/02/20 22:33 Last Admin: 05/02/20 22:58 Dose: 4 mg Documented by: [id number] Medical Decision Making Medical Records Attestation: I reviewed the patient's medical records. Home Medications Current Medication List: was personally reviewed by me Laboratory Data Attestation: I reviewed the patient's lab results. Result diagrams: 05/02/20 22:47 05/02/20 22:47 Lab Results 05/02/20 05/02/20 05/02/20 Range/Units 22:47 22:47 22:47 WBC 3.28 L (4.8-10.8) K/uL RBC 4.09 L (4.7-6.1) M/uL Hgb 14.9 (14.0-18.0) g/dL Hct 41.6 L (42-52) % MCV 101.7 H (80-100) fL MCH 36.4 H (25-34) pg MCHC 35.8 (32-36) g/dL RDW Std Deviation 46.5 H (36.4-46.3) fL RDW Coeff of Juli 12.5 (11.5-14.5) % Plt Count 205 (130-400) K/uL MPV 9.1 (7.4-10.4) fL Immature Gran % (Auto) 0.0 % Neut % (Auto) 45.5 % Lymph % (Auto) 45.7 % [place] % (Auto) 5.2 % Eos % (Auto) 3.0 % Baso % (Auto) 0.6 % Neut # (Auto) 1.49 (1.4-6.5) K/uL Lymph # (Auto) 1.50 (1.2-3.4) K/uL [place] # (Auto) 0.17 (0.11-0.59) K/uL Eos # (Auto) 0.10 (0-0.5) K/uL Baso # (Auto) 0.02 (0-0.2) K/uL Immature Gran # (Auto) 0.00 (0.00-0.02) K/uL PT 13.5 H (9.0-12.0) Seconds INR 1.3 H (0.9-1.1) APTT 28.2 (21.0-31.0) Seconds PTT Ratio 1.0 Sodium 140 (136-145) mmol/L Potassium 3.1 L (3.5-5.1) mmol/L Chloride 106 (98-107) mmol/L Carbon Dioxide 27 (21-32) mmol/L Anion Gap 8.0 (3-11) BUN 7 (7-18) mg/dl Creatinine 0.68 (0.6-1.4) mg/dl Est Cr Clr Drug Dosing 137.7 ml/min Est GFR ( Amer) 140.4 Est GFR (Non-Af Amer) 121.2 BUN/Creatinine Ratio 9.8 L (10-20) Glucose 93 (70-99) mg/dl Calcium 8.7 (8.5-10.1) mg/dl Magnesium 1.7 L (1.8-2.4) mg/dl Total Bilirubin 0.7 (0.2-1) mg/dl AST 823 H (15-37) U/L ALT 341 H (12-78) U/L Alkaline Phosphatase 282 H (45-117) U/L Total Protein 8.5 H (6.4-8.2) gm/dl Albumin 3.6 (3.4-5.0) gm/dl Globulin 4.9 H (2.5-4.0) gm/dl Albumin/Globulin Ratio 0.7 L (0.9-2) Lipase 276 (73-393) U/L Urine Color Urine Appearance (Clear) Urine pH (4.5-7.5) Ur Specific [place] (1.000-1.030) Urine Protein (Negative) Urine Glucose (UA) (Negative) Urine Ketones (Negative) Urine Blood (Negative) Urine Nitrite (Negative) Urine Bilirubin (Negative) Urine Urobilinogen (Negative) Ur Leukocyte Esterase (Negative) Ethyl Alcohol mg/dL (0-3) mg/dl 05/02/20 05/03/20 Range/Units 22:47 00:38 WBC (4.8-10.8) K/uL RBC (4.7-6.1) M/uL Hgb (14.0-18.0) g/dL Hct (42-52) % MCV (80-100) fL MCH (25-34) pg MCHC (32-36) g/dL RDW Std Deviation (36.4-46.3) fL RDW Coeff of Juli (11.5-14.5) % Plt Count (130-400) K/uL MPV (7.4-10.4) fL Immature Gran % (Auto) % Neut % (Auto) % Lymph % (Auto) % [place] % (Auto) % Eos % (Auto) % Baso % (Auto) % Neut # (Auto) (1.4-6.5) K/uL Lymph # (Auto) (1.2-3.4) K/uL [place] # (Auto) (0.11-0.59) K/uL Eos # (Auto) (0-0.5) K/uL Baso # (Auto) (0-0.2) K/uL Immature Gran # (Auto) (0.00-0.02) K/uL PT (9.0-12.0) Seconds INR (0.9-1.1) APTT (21.0-31.0) Seconds PTT Ratio Sodium (136-145) mmol/L Potassium (3.5-5.1) mmol/L Chloride (98-107) mmol/L Carbon Dioxide (21-32) mmol/L Anion Gap (3-11) BUN (7-18) mg/dl Creatinine (0.6-1.4) mg/dl Est Cr Clr Drug Dosing ml/min Est GFR ( Amer) Est GFR (Non-Af Amer) BUN/Creatinine Ratio (10-20) Glucose (70-99) mg/dl Calcium (8.5-10.1) mg/dl Magnesium (1.8-2.4) mg/dl Total Bilirubin (0.2-1) mg/dl AST (15-37) U/L ALT (12-78) U/L Alkaline Phosphatase (45-117) U/L Total Protein (6.4-8.2) gm/dl Albumin (3.4-5.0) gm/dl Globulin (2.5-4.0) gm/dl Albumin/Globulin Ratio (0.9-2) Lipase (73-393) U/L Urine Color Dark Yellow Urine Appearance Clear (Clear) Urine pH 6.5 (4.5-7.5) Ur Specific [place] 1.024 (1.000-1.030) Urine Protein Negative (Negative) Urine Glucose (UA) Negative (Negative) Urine Ketones Trace H (Negative) Urine Blood Negative (Negative) Urine Nitrite Negative (Negative) Urine Bilirubin Negative (Negative) Urine Urobilinogen Negative (Negative) Ur Leukocyte Esterase Negative (Negative) Ethyl Alcohol mg/dL 288.1 H (0-3) mg/dl Blood Pressure Blood Pressure Findings: Elevated blood pressure Blood Pressure Disposition: Referred to patients primary care provider MDM Narrative Prior records/ancillary studies reviewed and summarized above. Nursing notes reviewed. Additional history obtained from nursing. The patient's history was concerning for alcoholism. Differential diagnosis: Etiologies such as alcoholism, withdrawal, metabolic, infection, hypo/hyperglycemia, electrolyte abnormalities, cardiac sources, intracerebral event, toxicologic, neurologic, as well as others were entertained. Physical examination: As above. ER treatment provided: IV Lock An order was placed for continuous cardiac monitoring. The monitor shows a rate of 60-1 10 with a sinus rhythm. IV fluids, Ativan On reassessment the patient felt better. Diagnostics interpretation by me: The labs revealed elevated LFTs slightly higher from baseline. INR 1.3. Elevated alcohol Consultation: A consultation was placed with the hospitalist, Dr. Aldana. The case was discussed and diagnostics were reviewed. The patient was evaluated in the ER for further treatment. Exam and history seem consistent with alcohol abuse with withdrawal symptoms. Patient is requesting admission. Medicine was consulted. Patient felt better after the Ativan. Patient will be evaluated for possible admission. By the evaluation outlined above emergent etiologies such as infection, cardiac sources, intracerebral event, neurologic, abnormalities blood glucose, metabolic, as well as others were deemed relatively unlikely. The pt informed about the findings as listed above. All questions were answered and pleased with the treatment. The chart was completed utilizing [employer] Speech voice recognition software. Grammatical errors, random word insertions, pronoun errors, and incomplete sentences are an occassional consequence of this system due to software limitations, ambient noise, and hardware issues. Any formal questions or concerns about the content, text, or information contained within the body of this dictation should be directly addressed to the physician marketing assistant retail division for clarification. Impression & Plan Acute alcoholic hepatitis, Alcohol abuse with alcohol-induced disorder Discharge Plan Visit Data Chief Complaint: Flank Pain Stated Complaint: SIDE PAINS, CANT EAT OR DRINK, VOMITING, DEPRESSIO ED Provider: Omid Isaac ED Midlevel Provider: Anitra Perez Discharge Problem: Acute alcoholic hepatitis, Alcohol abuse with alcohol-induced disorder Patient Disposition: Being Evaluated by Hospitalist Condition: Fair Forms Stand Alone Forms: [facility] [place] Prescriptions Prescriptions: No Action albuterol sulfate 90 mcg/actuation HFA aerosol inhaler 2 puff INHALATION QID PRN (Reason: Shortness Of Breath Or Wheezing) RF: 0 omeprazole magnesium [Prilosec OTC] 20 mg Tablet,Delayed Release (Dr/Ec) 20 mg PO BID RF: 0 sertraline 50 mg tablet 50 mg PO DAILY Qty: 30 RF: 0 thiamine HCl (vitamin B1) [Vitamin B-1] 100 mg Tablet 100 mg PO QAM 30 Days Qty: 30 RF: 0 lisinopril 10 mg Tablet 10 mg PO QAM 30 Days Qty: 30 RF: 0 gabapentin 600 mg Tablet 600 mg PO BID RF: 0 Referrals Referrals: Dorene Dominguez [Primary Care Provider] -
--- NOTE | 2020-05-03 00:58 | History & Physical Report ---
Date of Service May 03, 2020 Assessment & Plan (1) Alcohol abuse with alcohol-induced disorder: Watson Pavon is a 40 y/o male with past medical history of alcohol abuse, chronic alcoholic hepatitis, tobacco abuse, depression, HLD, pancreatitis, fatty liver who presented to [facility] for abdominal pain. - Typical symptoms that patient presents with during alcohol abuse. No signs of infection. Patient obviously intoxicated in ED currently, with EtOH level of 288. - He received NSS 1L Bolus, Zofran 4mg IV x1, Ativan 1mg x1 in ED. - Labs consistent with long standing alcohol abuse. - AST 823 and ALT 341. - Suspect flank pain from musculoskeletal soreness from vomiting vs. swollen inflammed liver from alcohol abuse. vs. gastritis. Lipase WNL, no pancreatitis. - MELD score 9 with 1.9% 3 month mortality. - Does not wish to go to inpatient rehab. - INR elevated at 1.3, no signs of acute bleeding - Cardiac monitoring to watch for withdrawal tachycardia - Provided education to patient on need to quit. - AWSS protocol with Gabapentin load and Ativan PO protocols ordered. No prior history of seziure and still acutely intoxicated. Hopefully Gabapentin load will help limit need for significant Ativan dosage, but will treat appropriately based on withdrawal symptoms. - Will also give a Banana bag x1, LR 1L Bolus as hypovolemic, Zofran 1mg IV PRN, Aspiration precautions, fall precautions. FENGI: Regular diet, LR 1L Bolus since hypokalemic and requires more fluid support, Pantoprazole 40mg PO DVT ppx: Young and mobile with fall risk and already INR of 1.3, no current indications, very low risk. Code: Full Code Dispo: Med/surg Tele, Observation (2) Alcoholic intoxication: as above (3) Gastritis: Patient's omeprazole NF, will order Pantoprazole 40mg PO daily (4) Macrocytosis without anemia: Etiology from Alcohol abuse; MCV > 100; Folate 1mg PO ordered (5) Acute hypokalemia: 3.1 in ED Treat with KCl 40meq PO. Trend (6) Hypomagnesemia: 1.7 in ED replace with Mag Oxide 400mg PO x1 repeat in AM History of Present Illness Chief Complaint: Alcohol Withdrawal Management Primary Care Provider: Dorene Dominguez Caveat: History Limited by Alcohol intoxication Watson Pavon is a 40 y/o male with past medical history of alcohol abuse, chronic alcoholic hepatitis, tobacco abuse, depression, HLD, pancreatitis, fatty liver who presented to [facility] for abdominal pain. He noted onset of pain was about 2 days ago per patient. He notes pain is localized to bilateral flanks. He notes nausea, vomiting for two days with limited oral intake, poor appetite from nausea. Denies diarrhea, black/bloody bowel movements. He notes pain is constant and waxes/wanes. It is worsened with movement and food, not relieved by anything. He notes a history of heavy drinking, drinking maybe 2 pints of vodka per day for the past 7 days. He notes his last drink was 6pm on 05/02 which is approximately 6 hours ago. He notes chattering of teeth prior to receiving Ativan x1 here in ED. He denies visual hallucinations and auditory hallucinations. He denies seizures or history of seizures with alcohol withdrawal. He denies head trauma. He has been to inpatient rehab x 2. He has been seen at [facility] several times for same with most recent discharge on 04/17/2020. He doesn't wish to go to inpatient rehab when discharged as he has to move out of his apartment in 2 weeks. He came here to the ED after family told him to seek help, which he admits he needs. He notes his Dad "reamed me out" over his drinking. He notes that his is also an alcoholic and came to the hospital to be evaluated as well for same. Allergies Allergy/AdvReac Type Severity Reaction Status Date / Time No Known Allergies Allergy Verified 05/02/20 23:27 Home Medications Home Medications Medication Instructions Recorded Confirmed Type sertraline 50 mg PO DAILY #30 tab 05/08/19 05/02/20 Rx albuterol sulfate 2 puff INHALATION QID PRN 10/28/19 05/02/20 History omeprazole magnesium [Prilosec OTC] 20 mg PO BID 12/11/19 05/02/20 History lisinopril 10 mg PO QAM 30 Days #30 tab 04/17/20 05/02/20 Rx thiamine HCl (vitamin B1) [Vitamin 100 mg PO QAM 30 Days #30 tab 04/17/20 05/02/20 Rx B-1] gabapentin 600 mg PO BID 05/02/20 05/02/20 History Past Med/Surg History Medical History Abnormal LFTs (Acute) Alcohol use disorder Asthma Hyperlipidemia Surgical History No pertinent past surgical history Family History Mother Myocardial infarction Social History Preferred Language: Armenian Communication Ability: Effective Manager Culture Required: No Beliefs That Will Affect Care: None marital status: Single Current Living Situation: Alone Other Information That Helps Us Care for You: No Feels Safe at Home: Yes Safety Concerns: Feels Safe At This Time Smoking Status: Current every day smoker Tobacco Type: cigarettes ; Cigarettes Per Day: 10 ; Do You Dip or Chew Tobacco: Yes ; Second Hand Exposure: Yes ; Hx Alcohol Use: Yes Alcohol type: beer Alcohol type Comment: Fifth of vodka daily Alcohol Intake Frequency: Daily Hx Substance Use: Yes substance use type: marijuana Last Used Substance: Just Prior to Arrival Review of Systems Review of Systems: Caveat: Limited by Acute Alcohol intoxication Constitutional: no fever and no chills Eyes: no diplopia and no spots in vision Ear, Nose, Mouth, Throat: no epistaxis and no sore throat Respiratory: no cough and no dyspnea Cardiovascular: no chest pain and no palpitations Gastrointestinal: as per Subjective / HPI Genitourinary: no dysuria and no urinary frequency Musculoskeletal: no back pain and no neck pain Integumentary: no rash and no unusual bruising Neurologic: no falls, no localized weakness, no numbness, no seizure-like activity and no syncope Endocrine: no polydipsia, no polyphagia and no polyuria Physical Exam Constitutional: cooperative and comfortable appears acutely intoxicated Eyes: PERRL, conjunctivae normal, anicteric sclerae ENMT: external ear and nose normal, oropharynx normal Neck: normal visual inspection and trachea midline Respiratory: normal respiratory effort, lungs clear to auscultation Cardiovascular: RRR, no murmur, no edema Gastrointestinal (Abdomen): Percussion/Palpation: abdomen nontender, no guarding and abdomen not rigid mildly distended Musculoskeletal: Head/Neck/Chest: normocephalic and head atraumatic Skin: no rashes, warm and dry Neurologic: moves all extremities and awake slurred speech Psychiatric: Orientation: alert and oriented x 3 Affect: + depressed affect Suicidal Thoughts: denies suicidal thoughts Homicidal Thoughts: denies homicidal thoughts Hallucinations: no auditory hallucinations and no visual hallucinations Judgement: + impaired judgement Results & Data Results & Data ([facility]) Vital Signs (Past 12 Hours) Vital Signs Temp Pulse Resp BP Pulse Ox 05/03/20 00:00 91 H 19 163/102 H 98 05/02/20 23:30 93 H 25 H 169/106 H 97 05/02/20 23:00 83 15 159/107 H 99 05/02/20 22:52 100 05/02/20 21:59 36.8 C 92 H 18 163/105 H 98 Laboratory Results Laboratory Results - last 24 hr 05/02/20 05/02/20 05/02/20 22:47 22:47 22:47 WBC 3.28 L RBC 4.09 L Hgb 14.9 Hct 41.6 L MCV 101.7 H MCH 36.4 H MCHC 35.8 RDW Std Deviation 46.5 H RDW Coeff of Juli 12.5 Plt Count 205 MPV 9.1 Immature Gran % (Auto) 0.0 Neut % (Auto) 45.5 Lymph % (Auto) 45.7 Hendry % (Auto) 5.2 Eos % (Auto) 3.0 Baso % (Auto) 0.6 Neut # (Auto) 1.49 Lymph # (Auto) 1.50 Hendry # (Auto) 0.17 Eos # (Auto) 0.10 Baso # (Auto) 0.02 Immature Gran # (Auto) 0.00 PT 13.5 H INR 1.3 H APTT 28.2 PTT Ratio 1.0 Sodium 140 Potassium 3.1 L Chloride 106 Carbon Dioxide 27 Anion Gap 8.0 BUN 7 Creatinine 0.68 Est Cr Clr Drug Dosing 137.7 Est GFR ( Amer) 140.4 Est GFR (Non-Af Amer) 121.2 BUN/Creatinine Ratio 9.8 L Glucose 93 Calcium 8.7 Magnesium 1.7 L Total Bilirubin 0.7 AST 823 H ALT 341 H Alkaline Phosphatase 282 H Total Protein 8.5 H Albumin 3.6 Globulin 4.9 H Albumin/Globulin Ratio 0.7 L Lipase 276 Urine Color Urine Appearance Urine pH Ur Specific Benham Urine Protein Urine Glucose (UA) Urine Ketones Urine Blood Urine Nitrite Urine Bilirubin Urine Urobilinogen Ur Leukocyte Esterase Urine Opiates Screen Ur Methadone, Qual Urine Barbiturates Ur Phencyclidine (PCP) U Amphetamin/Meth Scrn Urine MDEA MDMA (Ecstasy) Screen MDMA Urine MDMA U Benzodiazepines Scrn Ur Cocaine Metabolite U Marijuana (THC) Screen U Marijuana THC Carboxy Drug Screen Comment Ethyl Alcohol mg/dL 05/02/20 05/03/20 05/03/20 22:47 00:38 00:38 WBC RBC Hgb Hct MCV MCH MCHC RDW Std Deviation RDW Coeff of Juli Plt Count MPV Immature Gran % (Auto) Neut % (Auto) Lymph % (Auto) Hendry % (Auto) Eos % (Auto) Baso % (Auto) Neut # (Auto) Lymph # (Auto) Hendry # (Auto) Eos # (Auto) Baso # (Auto) Immature Gran # (Auto) PT INR APTT PTT Ratio Sodium Potassium Chloride Carbon Dioxide Anion Gap BUN Creatinine Est Cr Clr Drug Dosing Est GFR ( Amer) Est GFR (Non-Af Amer) BUN/Creatinine Ratio Glucose Calcium Magnesium Total Bilirubin AST ALT Alkaline Phosphatase Total Protein Albumin Globulin Albumin/Globulin Ratio Lipase Urine Color Dark Yellow Urine Appearance Clear Urine pH 6.5 Ur Specific Benham 1.024 Urine Protein Negative Urine Glucose (UA) Negative Urine Ketones Trace H Urine Blood Negative Urine Nitrite Negative Urine Bilirubin Negative Urine Urobilinogen Negative Ur Leukocyte Esterase Negative Urine Opiates Screen Neg Ur Methadone, Qual Neg Urine Barbiturates Neg Ur Phencyclidine (PCP) Neg U Amphetamin/Meth Scrn Neg Urine MDEA MDMA (Ecstasy) Screen Pos H MDMA Urine MDMA U Benzodiazepines Scrn Neg Ur Cocaine Metabolite Neg U Marijuana (THC) Screen Pos H U Marijuana THC Carboxy Drug Screen Comment Ethyl Alcohol mg/dL 288.1 H 05/03/20 00:38 WBC RBC Hgb Hct MCV MCH MCHC RDW Std Deviation RDW Coeff of Juli Plt Count MPV Immature Gran % (Auto) Neut % (Auto) Lymph % (Auto) Hendry % (Auto) Eos % (Auto) Baso % (Auto) Neut # (Auto) Lymph # (Auto) Hendry # (Auto) Eos # (Auto) Baso # (Auto) Immature Gran # (Auto) PT INR APTT PTT Ratio Sodium Potassium Chloride Carbon Dioxide Anion Gap BUN Creatinine Est Cr Clr Drug Dosing Est GFR ( Amer) Est GFR (Non-Af Amer) BUN/Creatinine Ratio Glucose Calcium Magnesium Total Bilirubin AST ALT Alkaline Phosphatase Total Protein Albumin Globulin Albumin/Globulin Ratio Lipase Urine Color Urine Appearance Urine pH Ur Specific Benham Urine Protein Urine Glucose (UA) Urine Ketones Urine Blood Urine Nitrite Urine Bilirubin Urine Urobilinogen Ur Leukocyte Esterase Urine Opiates Screen Ur Methadone, Qual Urine Barbiturates Ur Phencyclidine (PCP) U Amphetamin/Meth Scrn Urine MDEA Pending MDMA (Ecstasy) Screen MDMA Pending Urine MDMA Pending U Benzodiazepines Scrn Ur Cocaine Metabolite U Marijuana (THC) Screen U Marijuana THC Carboxy Pending Drug Screen Comment Pending Ethyl Alcohol mg/dL Code Status & VTE Plan Code Status Full Code VTE Prophylaxis Plan VTE Prophylaxis will be ordered: No Reason for no VTE drug order: Treatment not indicated Reason for no VTE mechanical prophylaxis: Treatment not indicated Supervising Physician Co-Signing Physician Notes Attending addendum: I have physically seen this patient, have supervised the medical residents activities, and agree with the H&P unless as otherwise noted. Assessment and Plan: Alcohol abuse/alcoholic hepatitis/risk of withdrawal/severe abdominal pain- Received 1 L normal saline bolus in ED, and will give a second liter. AST 823, ALT 341, about the highest that he is ever had. INR 1.3, indicates early coagulopathy, with his highest being 1.8 in the past. AWSS protocol with gabapentin. Thiamine 100 mg p.o. Daily Folic acid 1 mg p.o. daily Nephrocaps 1 tablet p.o. daily Education. Hypokalemia/hypomagnesemia- Klor-Con 40 mEq p.o. x1 now and mag oxide 400 mg p.o. x1 NSS + KCl 20 mEq At 100 mils per hour. Repeat labs in a.m. Gastritis- Pantoprazole 40 mg p.o. daily Remainder of orders and notations as noted Resident Activity Tracking Resident Involvement: Resident Care Provided Care Provided: Adult Hospital Medicine (1) Alcoholic intoxication Complication of substance-induced condition: uncomplicated Qualified Code(s): F10.920 - Alcohol use, unspecified with intoxication, uncomplicated
[2020-05-03] MEDS ORDERED: MAGNESIUM OXIDE 400 MG TAB PO ONE (01:00)
[2020-05-03 01:17] LABS: Amphetamines+Metham, Urine Neg (Neg); Barbiturates, Urine Neg (Neg); Benzodiazepine, Urine Neg (Neg); Cocaine, Urine Neg (Neg); MDMA (Ecstacy), Urine Pos (Neg); Methadone, Urine Neg (Neg); Opiate, Urine Neg (Neg); Phencyclidine, Urine Neg (Neg)
[2020-05-03] MEDS ORDERED: POTASSIUM CHLORIDE 20 MEQ TABCR PO STA (01:49)
[2020-05-03] MEDS ORDERED: ONDANSETRON INJ 2 MG/ML 2 ML VIAL IV PRN (01:49)
[2020-05-03] MEDS ORDERED: POLYETHYLENE (MIRALAX) 17 GM PACK PO PRN (01:49)
[2020-05-03] MEDS ORDERED: GABAPENTIN 1200MG ALCOHOL WITHDRAWAL LOAD PO STA (01:49)
[2020-05-03] MEDS ORDERED: MAGNESIUM HYDROXIDE SUSP 30 ML UDC PO PRN (01:49)
[2020-05-03] MEDS ORDERED: LORazepam 1 MG TAB PO PRN (01:49)
[2020-05-03] MEDS ORDERED: LACTATED RINGER'S 1,000 ML IV ONE (01:49)
[2020-05-03] MEDS ORDERED: ALUMINUM/MAGNESIUM SUSP 30 ML UDC PO PRN (01:49)
[2020-05-03] MEDS ORDERED: GABAPENTIN 600 MG TAB PO SCH (02:00)
[2020-05-03] MEDS ORDERED: MULTI-VITAMIN INFUSION 10 ML, THIAMINE HCL 100 MG, FOLIC ACID 1 MG in SODIUM CHLORIDE 0... IV ONE (03:00)
[2020-05-03] MEDS: PANTOprazole 40 MG TAB PO SCH (03:27)
[2020-05-03] MEDS: FOLIC ACID 1 MG TAB PO SCH (08:03)
[2020-05-03] MEDS: GABAPENTIN 600 MG TAB PO SCH ×3 (08:03→21:38)
[2020-05-03] MEDS: SERTRALINE HCL 50 MG TABLET PO SCH (08:04)
[2020-05-03] MEDS: THIAMINE HCL 100 MG TAB PO SCH (08:04)
[2020-05-03 09:08] LABS: Acetaminophen < 2 ug/ml (10-30); Salicylate < 1.7 mg/dl (2.8-20)
--- NOTE | 2020-05-03 10:17 | Hospitalist Progress Note ---
Date of Service May 03, 2020 Assessment & Plan (1) Alcohol abuse with alcohol-induced disorder: 40 yo M PMHx alcohol abuse, chronic alcoholic hepatitis, tobacco abuse, depression, HLD, pancreatitis, fatty liver admitted for alcohol withdrawal and abdominal pain. Chronic Alcohol Hepatitis and Alcohol Withdrawal in patient with Alcohol Abuse Hx: - Typical symptoms that patient presents with during alcohol abuse. Patient is afebrile and without leukocytosis. - On arrival patient was intoxicated in ED, with EtOH level of 288. - He received NSS 1L Bolus, Zofran 4mg IV x1, Ativan 1mg x1 in ED, Ativan x1 overnight for AWSS score 6. - AST 823 and ALT 341. INR 1.3, normal Tbili. No signs of active bleeding and INR persistently elevated on several admissions. - MELD score 9 with 1.9% 3 month mortality. - Does not wish to go to inpatient rehab, however will call patient's sister at patient's request today to see if he can be eventually discharged to a safer, sober environment. - Continue cardiac monitoring to watch for withdrawal tachycardia. - AWSS Ativan protocol, gabapentin. No prior history of seizure. - Discussed gravity of patient's condition and concern for bad outcomes in the future, and patient wants help however feels "trapped". Integrative Medicine Physician to provide outpatient resources. - Zofran PRN nausea. - Thiamine, folic acid, magnesium while admitted. Full diet as tolerated, replete electrolytes as needed. Hypokalemia/ Hypomagnesemia: - K 3.1 on admission. Mg 1.7 on admission. - Admits to very little food intake recently, will replete orally and repeat BMP. Gastritis: - Pantoprazole 40mg daily while admitted. Macrocytosis without anemia: - MCV >100, no anemia. - Likely 2/2 alcohol abuse. - Folate ordered. FEN/GI: Regular diet, Pantoprazole 40mg PO DVT ppx: Young and mobile with fall risk and already INR of 1.3, no current indications, very low risk. Code: Full Code Dispo: Med/surg Tele, Observation (2) Alcoholic intoxication: (3) Gastritis: (4) Macrocytosis without anemia: (5) Acute hypokalemia: (6) Hypomagnesemia: Admission and Anticipated Discharge Date Admission Date: May 03, 2020 Supervising Physician Co-Signing Physician Notes I also saw the patient this afternoon concurrent with the resident physician and I confirmed [email or web address] portions the history and physical examination. I agree with the impression and plan as noted above. Upon our exam, the patient is alert and oriented. He answers questions appropriately. His affect is blunted. He tells us that the abdominal pain noted earlier has improved; he does note a decreased appetite. This is the second admission for similar in the last 2 weeks. Blood pressure 157/87 INR 1.3 Potassium 3.1, magnesium 1.7 AST 823, ALT 341, alkaline phosphatase 282. Total bilirubin 0.7 Impression Alcoholism, withdrawal Hypokalemia, hypomagnesemia Alcoholic hepatitis Plan Replete electrolytes Protocol management of withdrawal Thiamine, folic acid supplementation Case management referral Subjective Patient with some anxiety and tremulousness overnight. Some abdominal pain worst on the epigastric and LUQ areas. No nausea or vomiting. Reports that after being discharged last admission that same day his roommate who is also an alcohol abuser was asking him to go get alcohol. Reports doing much better with sobriety when he lives in s house with sober people like his sister. He is not interested in inpatient rehab at this time however would like me to call his sister to see if he can live with her following d/c. At this time denies shortness of breath, chest pain, fevers or chills, some tremors and anxiety, no auditory or visual hallucinations, no agitation. Review of Systems Review of Systems: All systems reviewed & are unremarkable except as noted in Subjective Physical Exam Constitutional: WD/WN, vitals as above cooperative and comfortable Eyes: PERRL, conjunctivae normal, anicteric sclerae ENMT: external ear and nose normal, oropharynx normal Neck: normal visual inspection and trachea midline Respiratory: normal respiratory effort, lungs clear to auscultation Cardiovascular: RRR, no murmur, no edema Gastrointestinal (Abdomen): Inspection/Auscultation: normal bowel sounds Percussion/Palpation: + abdomen tender (epigastric, LUQ); no guarding and abdomen not rigid mildly distended Musculoskeletal: no cyanosis or clubbing, extremities motor strength 5/5 Skin: no rashes, warm and dry no jaundice Neurologic: PERRL, EOMI, accommodation nl, no face palsy, no dysarthria moves all extremities and awake no asterixis Psychiatric: Orientation: alert and oriented x 3 Affect: + depressed affect Suicidal Thoughts: denies suicidal thoughts Homicidal Thoughts: denies homicidal thoughts Hallucinations: no auditory hallucinations and no visual hallucinations Judgement: + impaired judgement Results & Data Results & Data ([facility]) Vital Signs (Past 12 Hours) Vital Signs Temp Pulse Pulse Resp BP BP BP 05/03/20 08:36 96 H 05/03/20 07:20 36.5 C 95 H 16 157/87 H 05/03/20 03:26 36.7 C 90 20 158/92 H 05/03/20 02:38 87 05/03/20 01:30 36.7 C 80 19 173/118 H 05/03/20 01:00 91 H 18 172/107 H 05/03/20 00:00 91 H 19 163/102 H 05/02/20 23:30 93 H 25 H 169/106 H 05/02/20 23:00 83 15 159/107 H 05/02/20 22:52 Pulse Ox 05/03/20 08:36 05/03/20 07:20 97 05/03/20 03:26 100 05/03/20 02:38 05/03/20 01:30 100 05/03/20 01:00 98 05/03/20 00:00 98 05/02/20 23:30 97 05/02/20 23:00 99 05/02/20 22:52 100 Resident Activity Tracking Resident Involvement: Resident Care Provided Care Provided: Adult Hospital Medicine (1) Alcoholic intoxication Complication of substance-induced condition: uncomplicated Qualified Code(s): F10.920 - Alcohol use, unspecified with intoxication, uncomplicated
[2020-05-03] MEDS ORDERED: LORazepam 2 MG/4 ML VIAL IV PRN (11:21)
[2020-05-03] MEDS ORDERED: LORazepam 3 MG/6 ML VIAL IV PRN (11:21)
[2020-05-03] MEDS ORDERED: ATIVAN IV ALCOHOL WITHDRAWL IV PRN (11:21)
[2020-05-03] MEDS: LORazepam 1 MG/2 ML VIAL IV PRN ×4 (12:21→23:51)
[2020-05-03] MEDS: NICOTINE 21 MG/24 HR TDSY TD SCH (21:38)
--- NOTE | 2020-05-04 02:02 | Billing Data ---
Date of Service May 04, 2020 Coding Level of Care Code 87932 Initial Inpt Care Lvl 3
[2020-05-04] MEDS: GABAPENTIN 600 MG TAB PO SCH ×3 (06:35→23:28)
[2020-05-04] MEDS: PANTOprazole 40 MG TAB PO SCH (08:09)
[2020-05-04] MEDS: SERTRALINE HCL 50 MG TABLET PO SCH (08:09)
[2020-05-04] MEDS: FOLIC ACID 1 MG TAB PO SCH (08:09)
[2020-05-04] MEDS: NICOTINE 21 MG/24 HR TDSY TD SCH (08:09)
[2020-05-04] MEDS: THIAMINE HCL 100 MG TAB PO SCH (08:09)
[2020-05-04] MEDS: LORazepam 1 MG/2 ML VIAL IV PRN ×3 (08:19→20:47)
[2020-05-04 08:24] LABS: Hematocrit (blood only) 36.1 % (42-52); Hemoglobin 12.7 g/dL (14.0-18.0); Mean Corpuscular Hemoglobin 35.9 pg (25-34); Mean Corpuscular Hgb Conc 35.2 g/dL (32-36); Mean Platelet Volume 9.6 fL (7.4-10.4); Platelet Count 125 K/uL (130-400); RDW Coefficient of Variation 12.3 % (11.5-14.5); RDW Standard Deviation 45.7 fL (36.4-46.3); Red Blood Count 3.54 M/uL (4.7-6.1); White Blood Count 2.22 K/uL (4.8-10.8)
[2020-05-04 08:47] LABS: INR 1.3 (0.9-1.1); Prothrombin Time 13.1 Seconds (9.0-12.0)
[2020-05-04 08:52] LABS: Albumin Level 3.1 gm/dl (3.4-5.0); BUN Creatinine Ratio 4.7 (10-20); Creatinine Clr Calc Pharmacy 143.3 ml/min; Est GFR (African American) 137.9; Magnesium 1.2 mg/dl (1.8-2.4); Potassium 3.3 mmol/L (3.5-5.1)
[2020-05-04 08:59] LABS: Albumin Globulin Ratio 0.7 (0.9-2); Bilirubin,Total 1.7 mg/dl (0.2-1); Globulin 4.6 gm/dl (2.5-4.0); Total Protein 7.7 gm/dl (6.4-8.2)
[2020-05-04] MEDS: lisinopriL 10 MG TAB PO SCH (09:40)
--- NOTE | 2020-05-04 14:41 | Hospitalist Progress Note ---
Date of Service May 04, 2020 Assessment & Plan (1) Alcohol abuse with alcohol-induced disorder: 40 yo M PMHx alcohol abuse, chronic alcoholic hepatitis, tobacco abuse, depression, HLD, pancreatitis, fatty liver admitted for alcohol withdrawal and abdominal pain. Chronic Alcohol Hepatitis and Alcohol Withdrawal in patient with Alcohol Abuse Hx: - Typical symptoms that patient presents with during alcohol abuse. Patient is afebrile and without leukocytosis. Intermittent tachycardia to 100s without sensation of palpitations. - On arrival patient was intoxicated in ED, with EtOH level of 288. - He received NSS 1L Bolus, Zofran 4mg IV x1, Ativan 1mg x1 in ED, Ativan x1 overnight for AWSS score 6. - LFTs uptrending (AST 823->1331, ALT 341 -> 482). INR 1.3. TBili 0.7->1.7 today. Plts 205 -> 125. No signs of active bleeding and INR persistently elevated on several admissions. - MELD score 9 with 1.9% 3 month mortality on admission - GI consult placed and appreciate recommendations. US Abdomen placed today. - Continue cardiac monitoring to watch for withdrawal tachycardia. - AWSS Ativan protocol, gabapentin. No prior history of seizure. - Zofran PRN nausea. - Thiamine, folic acid, magnesium while admitted. Full diet as tolerated, replete electrolytes as needed. - Discussed gravity of patient's condition and concern for bad outcomes in the future, and patient wants help however feels "trapped". Freight Flow Sales Leader to provide outpatient resources. - Does not wish to go to inpatient rehab, however will call patient's sister at patient's request today to see if he can be eventually discharged to a safer, sober environment. - Repeat CMP tomorrow. HTN: - This admission with BP 160s/110s with some tachycardia as above. - Labetalol 5mg IV q6h PRN SBP 180, DBP > 110. - Continue home lisinopril 10mg daily. Hypokalemia/ Hypomagnesemia: - K 3.1 -> 3.3 today. Mg 1.7 -> 1.2 today. - Admits to very little food intake recently. - KCl 40meq PO, Mag Sulfate 1g x2 IV given. - Repeat CMP tomorrow. Gastritis: - Pantoprazole 40mg daily. Macrocytosis without anemia: - MCV >100, no anemia. - Likely 2/2 alcohol abuse. - Folate ordered. FEN/GI: Regular diet, Pantoprazole 40mg PO; replete electrolytes as needed DVT ppx: Young and mobile with fall risk and already INR of 1.3, no current indications, very low risk Code: Full Code Dispo: Med/surg Tele (2) Alcoholic intoxication: (3) Gastritis: (4) Macrocytosis without anemia: (5) Acute hypokalemia: (6) Hypomagnesemia: Admission and Anticipated Discharge Date Admission Date: May 03, 2020 Supervising Physician Co-Signing Physician Notes Patient seen and examined with PGY-2 Dr. Franklin. Agree with history, exam findings, assessment and plan of care as outlined. In brief, Mr. Pavon is a 40 year old male with history significant for gastritis, HTN and alcohol use disorder. admitted for ETOH withdrawal. He is feeling less shaky today. Was ambulating in the muhammad. Denies palpitations or chest pain. Does not some abdominal pain in the upper sides of the abdomen. On exam, his abdomen is a bit distended, but soft and nontender. No asterixis. Not tremulous. Seen ambulating in the hallway with a steady gait. 1. Alcohol use disorder, in withdrawal. AWSS protocol. Continue folic acid. Motivated to maintain sobriety. 2. EOTH hepatitis. Liver enzymes are now starting to trend up. INR is elevated despite no anticoagulation. ABD ultrasound ordered. Appreciate GI recommendations. 3. Electrolyte derangement. repleting Mg and K. 4. Gastritis. Continue PPI. Dispo: pending clinical improvement. Subjective Patient without acute events overnight. Needed Ativan twice overnight for AWSS score 6. Had episodes of hypertension overnight. On interview denies abdominal pain, nausea, vomiting, constipation. Endorses diarrhea, not watery and non- bloody. Denies chest pain or shortness of breath. No dizziness or headaches. No fevers or chills. Denies tremors on my interview. Some mild anxiety when prompted. Review of Systems Review of Systems: All systems reviewed & are unremarkable except as noted in Subjective Physical Exam Constitutional: WD/WN, vitals as above cooperative and comfortable Eyes: PERRL, conjunctivae normal, anicteric sclerae ENMT: external ear and nose normal, oropharynx normal Neck: normal visual inspection Respiratory: normal respiratory effort, lungs clear to auscultation Cardiovascular: RRR, no murmur, no edema Gastrointestinal (Abdomen): Inspection/Auscultation: normal bowel sounds Percussion/Palpation: + abdomen tender (epigastric, LUQ); no guarding and abdomen not rigid mildly distended Musculoskeletal: no cyanosis or clubbing, extremities motor strength 5/5 Skin: no rashes, warm and dry no jaundice Neurologic: moves all extremities and awake no asterixis Psychiatric: Orientation: alert and oriented x 3 Affect: + depressed affect Results & Data Results & Data ([facility]) Vital Signs (Past 12 Hours) Vital Signs Temp Pulse Pulse Resp BP BP Pulse Ox 05/04/20 12:30 110 H 05/04/20 11:59 36.9 C 99 H 22 156/112 H 155/105 H 96 05/04/20 07:46 37.1 C 89 18 159/99 H 159/106 H 97 05/04/20 07:00 102 H 05/04/20 03:00 37.0 C 98 H 18 160/107 H 94 Resident Activity Tracking Resident Involvement: Resident Care Provided Care Provided: Adult Hospital Medicine (1) Alcoholic intoxication Complication of substance-induced condition: uncomplicated Qualified Code(s): F10.920 - Alcohol use, unspecified with intoxication, uncomplicated
[2020-05-04] MEDS ORDERED: LABETALOL HCL IV 5 MG/ML 20ML IV PRN (15:25)
[2020-05-04] MEDS ORDERED: POTASSIUM CHLORIDE 20 MEQ TABCR PO STA (17:24)
[2020-05-04] MEDS: MAGNESIUM SULFATE / D5W 1 GM/100 ML BAG IV SCH ×2 (18:53→20:39)
--- NOTE | 2020-05-04 18:56 | Ultrasound Report ---
US abdomen complete CLINICAL HISTORY: 40 years-old Male with Abdominal pain, diarrhea. Acute generalized abdominal pain with diarrhea TECHNIQUE: Multiple real time sonographic images of the abdomen were obtained assessing hester-scale a ppearance. COMPARISON: CT abdomen and pelvis 04/14/2020 FINDINGS: PANCREAS: The pancreas is partially obscured by bowel gas. The visualized portions of the pancreas are normal without focal lesion or pancreatic duct dilatation. LIVER: Hepatomegaly with hepatic steatosis. There is no intrahepatic bile duct dilation, focal lesi on, or contour nodularity. There is no ascites. GALLBLADDER: The gallbladder is mildly contracted without cholelithiasis, wall thickening, or perich olecystic fluid. Negative sonographic Cerda's sign. The common bile duct measures cm. RIGHT KIDNEY: The right kidney measures 11.4 cm. The parenchymal echotexture and cortical thickness are normal. No nephrolithiasis or hydronephrosis. LEFT KIDNEY: The left kidney measures 11.2 cm. The parenchymal echotexture and cortical thickness a re normal. No nephrolithiasis or hydronephrosis. SPLEEN: The spleen measures 9.8 cm and is normal in echotexture. No focal lesions are identified. VASCULATURE: The visualized aorta and inferior vena cava are sub-visualized although appear normal a s seen. IMPRESSION: 1. Hepatomegaly with hepatic steatosis. 2. Otherwise unremarkable abdominal ultrasound. ACT 112: Negative or not required by law. The above report was generated using voice recognition software. It may contain grammatical, syntax o r spelling errors. Electronically signed by: Bharat Light M.D. 05/04/2020 6:55 PM
[2020-05-05 07:58] LABS: Basophils # (auto) 0.01 K/uL (0-0.2); Basophils % (auto) 0.3 %; Eosinophils # (auto) 0.21 K/uL (0-0.5); Hematocrit (blood only) 36.4 % (42-52); Hemoglobin 12.4 g/dL (14.0-18.0); Immature Granulocytes # (auto) 0.01 K/uL (0.00-0.02); Immature Granulocytes % (auto) 0.3 %; Lymphocytes # (auto) 0.96 K/uL (1.2-3.4); Lymphocytes % (auto) 32.1 %; Mean Corpuscular Hemoglobin 35.3 pg (25-34); Mean Corpuscular Hgb Conc 34.1 g/dL (32-36); Mean Corpuscular Volume 103.7 fL (80-100); Mean Platelet Volume 9.6 fL (7.4-10.4); Monocytes # (auto) 0.17 K/uL (0.11-0.59); Monocytes % (auto) 5.7 %; Neutrophils # (auto) 1.63 K/uL (1.4-6.5); Neutrophils % (auto) 54.6 %; Platelet Count 132 K/uL (130-400); RDW Coefficient of Variation 12.5 % (11.5-14.5); RDW Standard Deviation 47.6 fL (36.4-46.3); Red Blood Count 3.51 M/uL (4.7-6.1); White Blood Count 2.99 K/uL (4.8-10.8)
[2020-05-05 08:02] LABS: Albumin Level 3.1 gm/dl (3.4-5.0); BUN Creatinine Ratio 9.1 (10-20); Calcium 9.1 mg/dl (8.5-10.1); Creatinine Clr Calc Pharmacy 154.4 ml/min; Est GFR (African American) 142.1; Est GFR (Non-African American) 122.6; Magnesium 1.9 mg/dl (1.8-2.4); Potassium 3.6 mmol/L (3.5-5.1)
[2020-05-05 08:05] LABS: Albumin Globulin Ratio 0.7 (0.9-2); Bilirubin,Total 1.3 mg/dl (0.2-1); Globulin 4.6 gm/dl (2.5-4.0); Total Protein 7.7 gm/dl (6.4-8.2)
[2020-05-05] MEDS: PANTOprazole 40 MG TAB PO SCH (08:13)
[2020-05-05] MEDS: SERTRALINE HCL 50 MG TABLET PO SCH (08:13)
[2020-05-05] MEDS: THIAMINE HCL 100 MG TAB PO SCH (08:13)
[2020-05-05] MEDS: NICOTINE 21 MG/24 HR TDSY TD SCH (08:13)
[2020-05-05] MEDS: lisinopriL 10 MG TAB PO SCH (08:13)
[2020-05-05] MEDS: FOLIC ACID 1 MG TAB PO SCH (08:13)
[2020-05-05] MEDS ORDERED: LORazepam 0.5 MG TAB PO STA (11:28)
[2020-05-05] MEDS: GABAPENTIN 600 MG TAB PO SCH (11:33)
--- NOTE | 2020-05-05 13:38 | Discharge Summary ---
Date of Service May 05, 2020 Admission HPI Per Admitting Provider Caveat: History Limited by Alcohol intoxication Watson Pavon is a 40 y/o male with past medical history of alcohol abuse, chronic alcoholic hepatitis, tobacco abuse, depression, HLD, pancreatitis, fatty liver who presented to [facility] for abdominal pain. He noted onset of pain was about 2 days ago per patient. He notes pain is localized to bilateral flanks. He notes nausea, vomiting for two days with limited oral intake, poor appetite from nausea. Denies diarrhea, black/bloody bowel movements. He notes pain is constant and waxes/wanes. It is worsened with movement and food, not relieved by anything. He notes a history of heavy drinking, drinking maybe 2 pints of vodka per day for the past 7 days. He notes his last drink was 6pm on 05/02 which is approximately 6 hours ago. He notes chattering of teeth prior to receiving Ativan x1 here in ED. He denies visual hallucinations and auditory hallucinations. He denies seizures or history of seizures with alcohol withdrawal. He denies head trauma. He has been to inpatient rehab x 2. He has been seen at [facility] several times for same with most recent discharge on 04/17/2020. He doesn't wish to go to inpatient rehab when discharged as he has to move out of his apartment in 2 weeks. He came here to the ED after family told him to seek help, which he admits he needs. He notes his Dad "reamed me out" over his drinking. He notes that his is also an alcoholic and came to the hospital to be evaluated as well for same. Admission Exam Per Admitting Provider Constitutional: cooperative and comfortable appears acutely intoxicated Eyes: PERRL, conjunctivae normal, anicteric sclerae ENMT: external ear and nose normal, oropharynx normal Neck: normal visual inspection and trachea midline Respiratory: normal respiratory effort, lungs clear to auscultation Cardiovascular: RRR, no murmur, no edema Gastrointestinal (Abdomen): Percussion/Palpation: abdomen nontender, no guarding and abdomen not rigid mildly distended Musculoskeletal: Head/Neck/Chest: normocephalic and head atraumatic Skin: no rashes, warm and dry Neurologic: moves all extremities and awake slurred speech Psychiatric: Orientation: alert and oriented x 3 Affect: + depressed affect Suicidal Thoughts: denies suicidal thoughts Homicidal Thoughts: denies homicidal thoughts Hallucinations: no auditory hallucinations and no visual hallucinations Judgement: + impaired judgement Principal Diagnosis alcohol hepatitis alcohol withdrawal Discharge Exam Constitutional WD/WN, vitals as above Eyes PERRL, conjunctivae normal, anicteric sclerae Neck normal visual inspection Respiratory normal respiratory effort, lungs clear to auscultation Cardiovascular RRR, no murmur, no edema Gastrointestinal (Abdomen) Inspection/Auscultation: + abdomen distended (Mildly) and normal bowel sounds Percussion/Palpation: abdomen soft; abdomen nontender and no guarding Skin no rashes, warm and dry Neurologic Motor/Sensory: no asterixis Psychiatric A+Ox3, euthymic affect Discharge Data Allergies Allergy/AdvReac Type Severity Reaction Status Date / Time No Known Allergies Allergy Verified 05/02/20 23:27 Consultations 05/02/20 23:53 ED Decision to Admit Stat 05/03/20 01:49 Consult Case Management - Discharge Planning Routine Ordered Studies 05/04/20 13:21 US abdomen complete Routine Hospital Course (1) Alcohol abuse with alcohol-induced disorder: 40 yo M PMHx alcohol abuse, chronic alcoholic hepatitis, tobacco abuse, depression, HLD, pancreatitis, fatty liver admitted for alcohol withdrawal and abdominal pain. Chronic Alcohol Hepatitis and Alcohol Withdrawal in patient with Alcohol Abuse Hx: - Typical symptoms that patient presents with during alcohol abuse. Patient is afebrile and without leukocytosis. Intermittent tachycardia to 100s without sensation of palpitations. - On arrival patient was intoxicated in ED, with EtOH level of 288. - He received IV fluids, Zofran, Ativan per AWSS protocol. No seizures. - LFTs this admission: AST 823->1331->892, ALT 341 -> 482->421). TBili 0 .7->1.7->1.3 today. INR 1.3. Plts 205 -> 125->132. No signs of active bleeding and INR persistently elevated on several admissions. - MELD score 9 with 1.9% 3 month mortality on admission. - US Abdomen showed fatty liver but no other acute abnormalities. - Intermittent tachycardia with HR curve downtrending since admission to normalization. - Thiamine, folic acid, magnesium while admitted. - Discussed gravity of patient's condition and concern for bad outcomes in the future, and patient wants help however feels "trapped". Displayer provided outpatient resources. - Does not wish to go to inpatient rehab, however will move in with sister who is not an alcohol abuser to be in a more safe environment. - Repeat CMP by PCP. - Patient may benefit from naltrexone therapy in outpatient setting. HTN: - This admission with BP 160s/110s with some tachycardia as above. - Continue home lisinopril 10mg daily. May need titrated up in outpatient setting. Hypokalemia/ Hypomagnesemia: - K and Mg repleted x1 this admission, likely low 2/2 poor PO intake for several days in outpatient setting. - Admits to very little food intake recently. Good appetite on discharge. Gastritis: - Continue pantoprazole 40mg daily in outpatient setting. Macrocytosis without anemia: - MCV >100, no anemia. - Likely 2/2 alcohol abuse. - Folate repletion provided while admitted. Dispo: home with self care (2) Alcoholic intoxication: as above (3) Gastritis: (4) Macrocytosis without anemia: (5) Acute hypokalemia: (6) Hypomagnesemia: Total Time Total Time Spent Total Time Spent (In Minutes): see attending attestation Discharge Plan Discharge Items Patient Disposition: Home - Self-Care Reason For Visit: ALCOHOL WITHDRAWAL Discharge Diagnosis: alcohol hepatitis alcohol withdrawal Condition on Discharge: Fair Activity: Per Instructions section Non-emergency contact: Primary Care Provider and Body Joiner Call non-emergency contact if: your symptoms worsen and your temperature is above 101 Follow-up/Referrals: Clark Elias [Physician] - (Please call Dr. Elias's office for an appointment to discuss your liver disease.) Michelle Franklin DO [Resident] - (Please schedule an appointment with Dr. Franklin at your earliest convenience.) Diet: Regular Addtl Attending Provider Instructions: You were admitted to the hospital for hepatitis causing abdominal pain. You had labwork and an ultrasound which showed that your alcohol use have caused inflammation and damage to your liver. While you were here we gave you medication for the symptoms of alcohol withdrawal, and your symptoms continued to improve. You were tolerating food well and did not have any belly pain, and we felt safe to discharge you home. It is important that you do not return to drinking. With time the alcohol use will cause permanent harm to your liver. If you are interested, please use the provided resources for outpatient alcohol rehab services. To promote success, you should have no alcohol in the house. You should limit those experiences and stressors that make you want to drink. Seek out supportive friends and family who encourage you not to drink alcohol. While you were admitted your blood pressure was very high. We can discuss this more at your follow up appointment in my office. Please continue taking your lisinopril. Please call my (Dr. Franklin's) office at [phone] to schedule an appointment for follow up within 7 days of discharge. At that visit we can talk about medicine to help stop your alcohol cravings. We cannot start these medications until your liver has recovered completely from the damage that your prior alcohol use has done, however these medicines could provide you a lot of benefit and are worth considering. Please call Dr. Elias, the GI doctors office to schedule an appointment to talk about your liver inflammation. The number for his office is listed above. I have sent your lisinopril 10 milligrams once daily and Protonix (pantoprazole) once daily to the [facility] on [address]. Pending Studies at Discharge: No Stand-Alone Forms: My [facility], Smoking Cessation Medications and DC Order Prescriptions: New pantoprazole 40 mg Tablet,Delayed Release (Dr/Ec) 40 mg PO QAM Qty: 30 RF: 0 lisinopril 10 mg Tablet 10 mg PO QAM Qty: 30 RF: 0 Continued albuterol sulfate 90 mcg/actuation HFA aerosol inhaler 2 puff INHALATION QID PRN (Reason: Shortness Of Breath Or Wheezing) RF: 0 omeprazole magnesium [Prilosec OTC] 20 mg Tablet,Delayed Release (Dr/Ec) 20 mg PO BID RF: 0 sertraline 50 mg tablet 50 mg PO DAILY Qty: 30 RF: 0 thiamine HCl (vitamin B1) [Vitamin B-1] 100 mg Tablet 100 mg PO QAM 30 Days Qty: 30 RF: 0 gabapentin 600 mg Tablet 600 mg PO BID RF: 0 Discontinued lisinopril 10 mg Tablet 10 mg PO QAM 30 Days Qty: 30 RF: 0 Discharge Orders: Discharge Order (Routine); Ordered 05/05/20 Ordered By: Michelle Franklin Admission Data Admit Date/Time: 05/05/20 07:13 Attending Provider: Shari Chin Admit Provider: Floyd Walls Primary Care Provider: Dorene Dominguez Other Providers: Moreno Horvath Other Interventions: Discharge Summary Assessment (RN) Last Done: 05/05/20 14:49 DC Date/Time DO NOT enter until pt leaves facility: 05/05/20 14:58 Supervising Physician Co-Signing Physician Notes Patient seen and examined with PGY-2 Dr. Franklin. Agree with history, exam findings, assessment and plan of care as outlined. In brief, Mr. Pavon is a 40 year old male with history significant for gastritis, HTN and alcohol use disorder. Admitted for ETOH withdrawal and alcohol related hepatitis. Abdominal pain is resolved. Feeling well. No complaints this morning. On exam, well appearing. No asterixis. Not tremulous. 1. Alcohol use disorder. AWSS protocolhas not required Ativan. Continue folic acid. Motivated to maintain sobriety. 2. EOTH hepatitis. Liver enzymes are now improving and trending down again. INR is elevated despite no anticoagulation. Abdominal ultrasound showed fatty liver. 3. Electrolyte derangement. Repleted Mg and K. 4. Gastritis. Continue PPIRx sent to pharmacy for home. Dispo: discharge home today. Will follow up with Dr. Franklin at [facility] late next week. I personally spent 25 minutes discharge planning for this patient. Resident Activity Tracking Resident Involvement: Resident Care Provided Care Provided: Adult Hospital Medicine
[2020-05-06] MEDS ORDERED: GABAPENTIN 600 MG TAB PO SCH (12:00)
[2020-05-07 06:59] LABS: MDA negative; MDEA negative; MDMA (Ecstasy) Urine, Confirm negative; Marijuana Quant, GCMS Urine 21 ng/mL (<5)
== END 2020-05-05 14:58 | disposition home or self-care (01) | DRG 433 ==
LOC: ED 21:50 → 2W 21:50 → SUATTDRO 05-03 00:51 → 2W 05-03 01:25

== ENCOUNTER 2020-05-26 10:08 | Inpatient (IN) ==
[2020-05-26] MEDS ORDERED: MULTI-VITAMIN INFUSION 10 ML, THIAMINE HCL 100 MG, FOLIC ACID 1 MG in SODIUM CHLORIDE 0... IV ONE (10:18)
[2020-05-26] MEDS ORDERED: LORazepam 2 MG/4 ML VIAL IV STA (10:18)
[2020-05-26] MEDS ORDERED: ONDANSETRON INJ 2 MG/ML 2 ML VIAL IV STA (10:18)
[2020-05-26] MEDS ORDERED: PROMETHAZINE 6.25 MG/50.25 ML BAG IV STA (10:18)
--- NOTE | 2020-05-26 10:25 | Emergency Department Note ---
Impression & Plan Alcohol withdrawal, Hypomagnesemia, Hypokalemia, Elevated liver enzymes, Shaking ED Provider Note NAME: KAM PETERS III AGE: 40 SEX: M : 1980 ARRIVES VIA: Ambulance INFORMANT: [Patient][ems, nurses] ED PROVIDER(S): [Tunde Hammond MD] CHIEF COMPLAINT: Shaking, vomiting. HISTORY OF PRESENT ILLNESS: The patient is a 40-year-old male presents the ED with complaints of shaking, vomiting and he thinks alcohol withdrawal. He also has some left upper quadrant abdominal pain that is moderate in severity and intermittent, no pain radiation. The patient is an alcoholic. He typically drinks about 1/5 of liquor a day. His last alcohol intake was at 7 PM last evening. He has not had alcohol today. He feels he may be having withdrawal. He feels very shaky and he is trembling. The patient has had issues like this in the past. He was admitted to our spital and then discharged on the of last month. He was then seen in the ER on the of last month for similar symptoms to today symptoms. The patient states that he is now living with his sister, he has been with her now for 1 day. This has caused some increased stress in his life. He and his sister called the ambulance today. The sister was concerned about possible seizure although, the patient never lost consciousness and thinks he was just trembling. REVIEW OF SYSTEMS: See HPI for pertinent positives and negatives. A total of ten systems were rev iewed and were otherwise negative. PMHx/PSHx: See Below SOCIAL HISTORY: See Below. PHYSICAL EXAM: GENERAL: Patient is in mild distress, seems anxious, trembling. HEENT: No acute trauma, normocephalic atraumatic, mucous membranes moist, no nasal congestion, no scleral icterus. NECK: No stridor, no adenopathy, no meningismus, trachea is midline. LUNGS: Clear to auscultation bilaterally, no wheeze, no rhonchi, breath sounds equal. HEART: Without murmurs gallops or rubs, regular rate and rhythm. ABDOMEN: Soft, nontender, bowel sounds positive, no hernias, no peritonitis. I cannot really reproduce any abdominal pain with palpation. EXTREMITIES: No cyanosis or edema, full range of motion of all the joints wi thout pain or difficulty, no signs for acute trauma. NEUROLOGIC: Oriented x 3, no acute motor or sensory deficits, no focal weakness. No extremity drift although he does have significant extremity trembling and shaking. SKIN: No rash, no jaundice, no diaphoresis. DIFFERENTIAL DIAGNOSIS: Appendicitis, infections, diverticulitis, UTI, obstruction, mesenteric ischemia, aortic pathology, inflammatory bowel disease, renal colic, PUD, pancreatitis, biliary pathology, hernia, volvulus, constipation, alcohol withdrawal, dehydration, seizure, gastritis, as well as other pathologies. EMERGENCY DEPARTMENT COURSE/PROCEDURES: ECG: Indication was possible seizure. The ECG shows a normal sinus rhythm with a rate of 72. The QTc is 481. There is no ST elevation, no PVCs. Continuous Cardiac Monitoring: An order was placed for continuous cardiac monitoring. The monitor shows a rate of 79 with normal sinus rhythm. Critical Care Note: I have personally spent greater than 35 minutes of critical care time in the direct management of this patient. This includes bedside care, interpretation of diagnostic studies, and testing, discussion with consultants, patient, and family members, and other required patient management activities. This 35 minutes is in excess of all separately billable procedures. MEDICAL DECISION MAKING: There is a lower white blood cell count and hemoglobin, this is baseline looking back at previous testing. There was a normal platelet count. INR slightly elevated, likely consistent with his liver disease. Potassium is low at 2.9. Magnesium was low at 1.2. No kidney failure. There were significant liver enzyme elevations, likely consistent with his alcohol abuse/alcoholic liver disease. ECG showed a sinus rhythm, no acute ischemia. Cardiac enzyme testing x1 is not consistent with acute cardiac injury. No evidence for pancreatitis by our testing. The patient appeared to be in a euthyroid state. Alcohol level was undetectable. Urine tox and urinalysis are still pending. Chest x-ray did not show CHF or pneumonia. The patient presents with tremors and shakes. He appeared to be in alcohol withdrawal. He was given IV Ativan, 2 mg. He received a small bolus of IV saline. He was given IV saline mixed with multivitamins, thiamine and folate. He received IV magnesium and IV potassium. He was given a dose of IV Zofran for nausea. He received IV Phenergan for nausea. The patient has had significant improvement with the above medications, he seems to be much more comfortable. He no longer seems to be shaky. I do not think the patient had a true seizure. I think he was shaking from alcohol withdrawal. He did not lose his consciousness. The patient does have significant electrolyte abnormalities as well as significantly elevated liver enzymes. He has not been able to eat. I do think hospitalization is warranted. I spoke to the patient and case management. The on-call hospitalist was consulted. Past Med/Surg History Medical History Abnormal LFTs (Acute) Alcohol use disorder Asthma Hyperlipidemia Surgical History No pertinent past surgical history Social History Smoking Status: Current every day smoker Tobacco Type: Cigarettes Cigarettes Per Day: 10; Second Hand Exposure: Yes; Hx Alcohol Use: Yes Alcohol type: beer and hard liquor Alcohol type Comment: Fifth of vodka daily Hx Substance Use: Yes Last Used Substance: Just Prior to Arrival Last Used Substance Other:: today Preferred Language: Kenyan Communication Ability: Effective Technical Solutions Director Required: No Beliefs That Will Affect Care: None marital status: Single Current Living Situation: Family Current Living Situation Comment: MOVED IN WITH SISTER How many Children do You have: 1 Other Information That Helps Us Care for You: No Feels Safe at Home: Yes Safety Concerns: Feels Safe At This Time Allergies Allergies Allergy/AdvReac Type Severity Reaction Status Date / Time No Known Allergies Allergy Verified 05/26/20 11:13 Home Meds Home Medications Medication Instructions Recorded Confirmed albuterol sulfate 2 puff INHALATION QID PRN 10/28/19 05/26/20 omeprazole magnesium [Prilosec OTC] 20 mg PO BID 12/11/19 05/26/20 sertraline 50 mg PO HS 05/26/20 05/26/20 Previous Rx's Medication Instructions Recorded pantoprazole 40 mg PO QAM #30 tab 05/05/20 Results & Data (ED) Vital Signs Vital Signs - 24 hr 05/26/20 10:16 05/26/20 10:52 05/26/20 11:00 Temperature 37.3 C Temperature Source Oral Pulse Rate 93 H 77 72 Pulse Rate from SpO2 Sensor 77 74 Pulse Rhythm Regular Respiratory Rate 18 19 20 Respiratory Effort / Characteristics Non-Labored Spontaneous Respiratory Depth Normal Respiratory Pattern Regular Blood Pressure 173/98 H 154/114 H 161/103 H Blood Pressure Mean 123 127 124 Pulse Oximetry 98 98 98 Oxygen Delivery Method Room Air Sepsis Recent Fever Within 48 Hours No Sepsis New/Unexplained Change in Mental Status No Sepsis Action Taken by Nursing No Action Required 05/26/20 11:30 05/26/20 12:00 05/26/20 12:30 Temperature Temperature Source Pulse Rate 83 81 90 Pulse Rate from SpO2 Sensor 84 82 88 Pulse Rhythm Respiratory Rate 22 23 20 Respiratory Effort / Characteristics Respiratory Depth Respiratory Pattern Blood Pressure 162/104 H 171/116 H 166/108 H Blood Pressure Mean 111 142 132 Pulse Oximetry 99 99 98 Oxygen Delivery Method Sepsis Recent Fever Within 48 Hours Sepsis New/Unexplained Change in Mental Status Sepsis Action Taken by Long-Term Medications Current Medication List: was personally reviewed by me Laboratory Data Attestation: I reviewed the patient's lab results. Result diagrams: 05/26/20 10:42 05/26/20 10:42 Lab Results 05/26/20 05/26/20 05/26/20 Range/Units 10:42 10:42 10:42 WBC 3.86 L (4.8-10.8) K/uL RBC 3.48 L (4.7-6.1) M/uL Hgb 12.4 L (14.0-18.0) g/dL Hct 34.9 L (42-52) % MCV 100.3 H (80-100) fL MCH 35.6 H (25-34) pg MCHC 35.5 (32-36) g/dL RDW Std Deviation 50.2 H (36.4-46.3) fL RDW Coeff of Juli 14.0 (11.5-14.5) % Plt Count 165 (130-400) K/uL MPV 8.7 (7.4-10.4) fL Immature Gran % (Auto) 0.0 % Neut % (Auto) 74.4 % Lymph % (Auto) 15.5 % [place] % (Auto) 7.5 % Eos % (Auto) 2.3 % Baso % (Auto) 0.3 % Neut # (Auto) 2.87 (1.4-6.5) K/uL Lymph # (Auto) 0.60 L (1.2-3.4) K/uL [place] # (Auto) 0.29 (0.11-0.59) K/uL Eos # (Auto) 0.09 (0-0.5) K/uL Baso # (Auto) 0.01 (0-0.2) K/uL Immature Gran # (Auto) 0.00 (0.00-0.02) K/uL PT 13.2 H (9.0-12.0) Seconds INR 1.3 H (0.9-1.1) APTT 25.1 (21.0-31.0) Seconds PTT Ratio 0.9 Sodium 141 (136-145) mmol/L Potassium 2.9 L (3.5-5.1) mmol/L Chloride 105 (98-107) mmol/L Carbon Dioxide 26 (21-32) mmol/L Anion Gap 10.0 (3-11) BUN 6 L (7-18) mg/dl Creatinine 0.81 (0.6-1.4) mg/dl Est Cr Clr Drug Dosing 115.6 ml/min Est GFR ( Amer) 130.7 Est GFR (Non-Af Amer) 112.7 BUN/Creatinine Ratio 6.9 L (10-20) Glucose 116 H (70-99) mg/dl Calcium 9.1 (8.5-10.1) mg/dl Magnesium 1.2 L (1.8-2.4) mg/dl Total Bilirubin 1.6 H (0.2-1) mg/dl AST 1183 H (15-37) U/L ALT 462 H (12-78) U/L Alkaline Phosphatase 220 H (45-117) U/L Total Creatine Kinase 213 (39-308) U/L Troponin I < 0.015 (0-0.045) ng/ml Total Protein 8.6 H (6.4-8.2) gm/dl Albumin 3.4 (3.4-5.0) gm/dl Globulin 5.2 H (2.5-4.0) gm/dl Albumin/Globulin Ratio 0.7 L (0.9-2) Lipase 279 (73-393) U/L TSH 0.782 (0.300-4.500) uIu/ml Ethyl Alcohol mg/dL (0-3) mg/dl 08/08/20 Range/Units 10:42 WBC (4.8-10.8) K/uL RBC (4.7-6.1) M/uL Hgb (14.0-18.0) g/dL Hct (42-52) % MCV (80-100) fL MCH (25-34) pg MCHC (32-36) g/dL RDW Std Deviation (36.4-46.3) fL RDW Coeff of Juli (11.5-14.5) % Plt Count (130-400) K/uL MPV (7.4-10.4) fL Immature Gran % (Auto) % Neut % (Auto) % Lymph % (Auto) % [place] % (Auto) % Eos % (Auto) % Baso % (Auto) % Neut # (Auto) (1.4-6.5) K/uL Lymph # (Auto) (1.2-3.4) K/uL [place] # (Auto) (0.11-0.59) K/uL Eos # (Auto) (0-0.5) K/uL Baso # (Auto) (0-0.2) K/uL Immature Gran # (Auto) (0.00-0.02) K/uL PT (9.0-12.0) Seconds INR (0.9-1.1) APTT (21.0-31.0) Seconds PTT Ratio Sodium (136-145) mmol/L Potassium (3.5-5.1) mmol/L Chloride (98-107) mmol/L Carbon Dioxide (21-32) mmol/L Anion Gap (3-11) BUN (7-18) mg/dl Creatinine (0.6-1.4) mg/dl Est Cr Clr Drug Dosing ml/min Est GFR ( Amer) Est GFR (Non-Af Amer) BUN/Creatinine Ratio (10-20) Glucose (70-99) mg/dl Calcium (8.5-10.1) mg/dl Magnesium (1.8-2.4) mg/dl Total Bilirubin (0.2-1) mg/dl AST (15-37) U/L ALT (12-78) U/L Alkaline Phosphatase (45-117) U/L Total Creatine Kinase (39-308) U/L Troponin I (0-0.045) ng/ml Total Protein (6.4-8.2) gm/dl Albumin (3.4-5.0) gm/dl Globulin (2.5-4.0) gm/dl Albumin/Globulin Ratio (0.9-2) Lipase (73-393) U/L TSH (0.300-4.500) uIu/ml Ethyl Alcohol mg/dL < 3.0 (0-3) mg/dl Administered Medications Potassium Chloride 40 meq/ (Sodium Chloride) 1,020 mls @ 125 mls/hr IV .Q8H10M MALU Stop: 05/27/20 14:58 Last Admin: 05/26/20 14:49 Dose: 125 mls/hr Documented by: [id number] Nicotine (Nicoderm Cq) 7 mg TD QAM MALU Stop: 06/25/20 14:59 Last Admin: 05/26/20 15:54 Dose: 7 mg Documented by: [id number] Discontinued Medications Gabapentin (Neurontin) 1,200 mg PO NOW ONE Stop: 05/26/20 14:46 Last Admin: 05/26/20 14:56 Dose: 1,200 mg Documented by: [id number] Sodium Chloride (Nss) 500 mls @ 999 mls/hr IV .Q31M MALU Stop: 05/26/20 11:00 Last Infusion: 05/26/20 11:15 Dose: 0 mls/hr Documented by: [id number] Admin: 05/26/20 10:32 Dose: 999 mls/hr Documented by: [id number] Lorazepam (Ativan) 2 mg in 4 mls @ 4 mls/min IV NOW STA Stop: 05/26/20 10:19 Last Admin: 05/26/20 10:32 Dose: 4 mls/min Documented by: [id number] Promethazine HCl (Phenergan) 6.25 mg in 50.25 mls @ 201 mls/hr IV NOW STA Stop: 05/26/20 10:32 Last Infusion: 05/26/20 10:51 Dose: 0 mls/hr Documented by: [id number] Admin: 05/26/20 10:32 Dose: 201 mls/hr Documented by: [id number] Multivitamins 10 ml/ Thiamine HCl 100 mg/ Folic Acid 1 mg/Sodium Chloride 1,011.2 mls @ 1,011.2 mls/hr IV .Q1H ONE Stop: 05/26/20 11:17 Last Infusion: 05/26/20 11:48 Dose: 0 mls/hr Documented by: [id number] Admin: 05/26/20 10:46 Dose: 1,011.2 mls/hr Documented by: [id number] Magnesium Sulfate/Dextrose (Magnesium Sulfate / D5w) 1 gm in 100 mls @ 100 mls/hr IV Q1H MALU Stop: 05/26/20 13:21 Last Infusion: 05/26/20 14:39 Dose: 0 mls/hr Documented by: [id number] Admin: 05/26/20 12:55 Dose: 1,003 mls/hr Documented by: [id number] Infusion: 05/26/20 12:50 Dose: 0 mls/hr Documented by: [id number] Admin: 05/26/20 11:47 Dose: 100 mls/hr Documented by: [id number] Potassium Chloride (K Fernando / Wtr) 10 meq in 100 mls @ 100 mls/hr IV ONE ONE Stop: 05/26/20 12:21 Last Infusion: 05/26/20 12:50 Dose: 0 mls/hr Documented by: [id number] Admin: 05/26/20 11:47 Dose: 100 mls/hr Documented by: [id number] Ondansetron HCl (Zofran) 4 mg IV NOW STA Stop: 05/26/20 10:19 Last Admin: 05/26/20 10:32 Dose: 4 mg Documented by: [id number] Imaging Data Radiologist's Impression: XR chest 1V portable CLINICAL HISTORY: weakness COMPARISON STUDY: 04/14/2020 FINDINGS: The bones soft tissues and hemidiaphragms are normal. The cardiomediastinal silhouette is normal. The lungs are clear. The pulmonary vasculature is normal. IMPRESSION: Negative chest. Blood Pressure Blood Pressure Findings: Elevated blood pressure Blood Pressure Disposition: further management by hospitalist Discharge Plan Visit Data *Final* Discharge Date/Time: 05/26/20 13:36 Chief Complaint: Illness ED Provider: Tunde Hammond Discharge Problem: Alcohol withdrawal, Hypomagnesemia, Hypokalemia, Elevated liver enzymes, Shaking Patient Disposition: Admitted As Inpatient Condition: Fair Discharge Instructions Interventions: ED Discharge Assessment Last Done: 05/26/20 13:36 Discharge Problem: Alcohol withdrawal Qualifiers: Complication of substance-induced condition: uncomplicated Qualified Code(s): F10.230 - Alcohol dependence with withdrawal, uncomplicated
[2020-05-26] MEDS ORDERED: SODIUM CHLORIDE 0.9% 500 ML IV SCH (10:30)
[2020-05-26 10:57] LABS: Basophils # (auto) 0.01 K/uL (0-0.2); Basophils % (auto) 0.3 %; Eosinophils # (auto) 0.09 K/uL (0-0.5); Eosinophils % (auto) 2.3 %; Hematocrit (blood only) 34.9 % (42-52); Hemoglobin 12.4 g/dL (14.0-18.0); Lymphocytes % (auto) 15.5 %; Mean Corpuscular Hemoglobin 35.6 pg (25-34); Mean Corpuscular Hgb Conc 35.5 g/dL (32-36); Mean Corpuscular Volume 100.3 fL (80-100); Mean Platelet Volume 8.7 fL (7.4-10.4); Monocytes # (auto) 0.29 K/uL (0.11-0.59); Monocytes % (auto) 7.5 %; Neutrophils # (auto) 2.87 K/uL (1.4-6.5); Neutrophils % (auto) 74.4 %; Platelet Count 165 K/uL (130-400); RDW Standard Deviation 50.2 fL (36.4-46.3); Red Blood Count 3.48 M/uL (4.7-6.1); White Blood Count 3.86 K/uL (4.8-10.8)
--- NOTE | 2020-05-26 10:59 | XRay Report ---
XR chest 1V portable CLINICAL HISTORY: weakness COMPARISON STUDY: 04/14/2020 FINDINGS: The bones soft tissues and hemidiaphragms are normal. The cardiomediastinal silhouette is n ormal. The lungs are clear. The pulmonary vasculature is normal. IMPRESSION: Negative chest. ACT 112: Negative or not required by law. The above report was generated using voice recognition software. It may contain grammatical, syntax or spelling errors. Electronically signed by: Godron Armenta M.D. 05/26/2020 10:58 AM
[2020-05-26 11:12] LABS: INR 1.3 (0.9-1.1); Partial Thromboplastin Ratio 0.9; Partial Thromboplastin Time 25.1 Seconds (21.0-31.0); Prothrombin Time 13.2 Seconds (9.0-12.0)
[2020-05-26 11:14] LABS: Alanine Aminotransferase 462 U/L (12-78); Albumin Level 3.4 gm/dl (3.4-5.0); BUN Creatinine Ratio 6.9 (10-20); Blood Urea Nitrogen 6 mg/dl (7-18); Calcium 9.1 mg/dl (8.5-10.1); Carbon Dioxide 26 mmol/L (21-32); Chloride 105 mmol/L (98-107); Creatinine Clr Calc Pharmacy 115.6 ml/min; Est GFR (African American) 130.7; Est GFR (Non-African American) 112.7; Glucose 116 mg/dl (70-99); Lipase 279 U/L (73-393); Magnesium 1.2 mg/dl (1.8-2.4); Potassium 2.9 mmol/L (3.5-5.1); Sodium 141 mmol/L (136-145)
[2020-05-26] MEDS ORDERED: POTASSIUM CHLORIDE / WTR 10 MEQ/100 ML PLCT IV ONE (11:22)
[2020-05-26 11:25] LABS: Albumin Globulin Ratio 0.7 (0.9-2); Alkaline Phosphatase 220 U/L (45-117); Aspartate Aminotransferase 1183 U/L (15-37); Bilirubin,Total 1.6 mg/dl (0.2-1); Creatine Kinase 213 U/L (39-308); Globulin 5.2 gm/dl (2.5-4.0); Thyroid Stimulating Hormone 0.782 uIu/ml (0.300-4.500); Total Protein 8.6 gm/dl (6.4-8.2); Troponin I < 0.015 ng/ml (0-0.045)
[2020-05-26] MEDS: MAGNESIUM SULFATE / D5W 1 GM/100 ML BAG IV SCH ×2 (11:47→12:55)
--- NOTE | 2020-05-26 11:53 | History & Physical Report ---
Date of Service May 26, 2020 Assessment & Plan (1) Alcohol withdrawal syndrome: Gabapentin for at risk of alcohol withdrawal - did well on this previously Ativan PRN for AWSS >=6 Patient appears to be more interest in inpatient rehabilitation on this occasion although he has said similar things in the past. (2) Acute alcoholic hepatitis: Ellinger alcoholic hepatitis score 6 - lower risk of Maddrey's discriminate function 7.1 - good prognosis, no need for prednisolone Gentle IV hydration, repeat CMP with AM labs (3) Acute hypokalemia: KCl with IV fluids. Monitor daily. (4) Hypomagnesemia: Mg 1.2. Mg sulphage 1g IV given in ER. Repeat with AM labs History of Present Illness Chief Complaint: Alcohol withdrawal, request for alcohol detox. Primary Care Provider: Dorene Dominguez Watson Pavon is a 40 year old male well known to our service with alcohol use disorder and chronic alcoholic steatohepatitis who presents to the ER with alcohol withdrawal, shaking vomiting, LUQ pain, requesting detox and possible inpatient rehabilitation. Similar symptoms to every time he stops drinking alcohol. Last drink was last nigth. He reportedly went back to drinking alcohol almost immediately on discharge on the last occasion. He has been struggling since his partner he was living with also has alcohol use disorder. He apparently has moved on in with his sister since then however. He usually drinks fifth vodka/day. No melena, bright red blood in stool, change in bowels. Allergies Allergy/AdvReac Type Severity Reaction Status Date / Time No Known Allergies Allergy Verified 05/26/20 11:13 Home Medications Home Medications Medication Instructions Recorded Confirmed Type albuterol sulfate 2 puff INHALATION QID PRN 10/28/19 05/26/20 History omeprazole magnesium [Prilosec OTC] 20 mg PO BID 12/11/19 05/26/20 History pantoprazole 40 mg PO QAM #30 tab 05/05/20 05/26/20 Rx sertraline 50 mg PO HS 05/26/20 05/26/20 History Past Med/Surg History Medical History Abnormal LFTs (Acute) Alcohol use disorder Asthma Hyperlipidemia Surgical History No pertinent past surgical history Social History Smoking Status: Current every day smoker Tobacco Type: Cigarettes Cigarettes Per Day: 10; Second Hand Exposure: Yes; Hx Alcohol Use: Yes Alcohol type: beer and hard liquor Alcohol type Comment: Fifth of vodka daily Hx Substance Use: Yes Last Used Substance: Just Prior to Arrival Last Used Substance Other:: today Preferred Language: Kuwaiti Communication Ability: Effective Harpsichord Maker Required: No Beliefs That Will Affect Care: None marital status: Single Current Living Situation: Family Current Living Situation Comment: MOVED IN WITH SISTER How many Children do You have: 1 Other Information That Helps Us Care for You: No Feels Safe at Home: Yes Safety Concerns: Feels Safe At This Time Review of Systems Review of Systems: All systems reviewed & are unremarkable except as noted in HPI & below Physical Exam Constitutional: well developed and well nourished; no acute distress Eyes: + anicteric sclerae; normal pupil size ENMT: external ear and nose normal, oropharynx normal Respiratory: normal respiratory effort, lungs clear to auscultation Cardiovascular: RRR, no murmur, no edema Gastrointestinal (Abdomen): Inspection/Auscultation: abdomen normal to inspection and normal bowel sounds Percussion/Palpation: + abdomen tender (Generlazed, worse in LUQ), abdomen soft and + hepatomegaly; no guarding and abdomen not rigid Musculoskeletal: no cyanosis or clubbing, extremities motor strength 5/5 Skin: no rashes, warm and dry Neurologic: moves all extremities and awake; not confused Psychiatric: A+Ox3, euthymic affect Genitourinary: no CVA tenderness Lymphatic: no cervical or axillary lymphadenopathy Results & Data Results & Data ([facility]) Vital Signs (Past 12 Hours) Vital Signs Temp Pulse Resp BP Pulse Ox 05/26/20 10:52 77 19 154/114 H 98 05/26/20 10:16 37.3 C 93 H 18 173/98 H 98 Diagnostic Findings XR chest 1V portable IMPRESSION: Negative chest. ECG Indication: abdominal pain Rate (beats per minute): 72 Rhythm: normal sinus Findings: no acute ischemic change Comparison ECG Date: from (04/14/2020) Change: no significant change Code Status & VTE Plan Code Status Full VTE Prophylaxis Plan VTE Prophylaxis will be ordered: No Reason for no VTE drug order: Treatment not indicated Reason for no VTE mechanical prophylaxis: Treatment not indicated PG Care Time/CCT Total # of Minutes Spent Total Time Spent with Patient: Total time spent is greater than 50% in coordination of care (as documented) at patient's floor/unit and/or counseling patient: Coding Level of Care Code 18925 Initial Inpt Care Lvl 2 Diagnoses Alcohol withdrawal syndrome F10.239 Complication of substance-induced condition: with unspecified complication Acute alcoholic hepatitis K70.10 Acute hypokalemia E87.6 Hypomagnesemia E83.42 (1) Alcohol withdrawal syndrome Complication of substance-induced condition: with unspecified complication Qualified Code(s): F10.239 - Alcohol dependence with withdrawal, unspecified
[2020-05-26] MEDS ORDERED: ALBUTEROL HFA 8 GM INHALER INH PRN (14:26)
[2020-05-26] MEDS ORDERED: GABAPENTIN 1200MG ALCOHOL WITHDRAWAL LOAD PO STA (14:26)
[2020-05-26] MEDS ORDERED: GABAPENTIN 600 MG TAB PO ONE (14:45)
[2020-05-26] MEDS: POTASSIUM CHLORIDE 40 MEQ in SODIUM CHLORIDE 0.45 % 1,000 ML IV SCH ×2 (14:49→23:21)
[2020-05-26] MEDS ORDERED: NICOTINE POLACRILEX 2 MG GUM MT PRN (14:58)
[2020-05-26] MEDS: NICOTINE 7 MG/24 HR TDSY TD SCH (15:54)
[2020-05-26 16:37] LABS: Appearance Urine Clear (Clear); Bacteria Urine Automated Negative (Negative); Blood Urine Negative (Negative); Color Urine Dark Yellow; Epithelial Cell Urine Auto >30 /lpf (0-5); Glucose Urine UA Negative (Negative); Ketones Urine Trace (Negative); Leukocyte Esterase Urine Trace (Negative); Nitrite Urine Negative (Negative); Protein Urine 1+ (Negative); RBC Urine Automated 0-4 /hpf (0-4); Specific Gravity Urine 1.019 (1.000-1.030); Urobilinogen Urine Negative (Negative); pH Urine 6.5 (4.5-7.5)
[2020-05-26 17:01] LABS: Bilirubin Urine Negative (Negative); Ictotest Urine Negative (Negative)
[2020-05-26 17:02] LABS: Amphetamines+Metham, Urine Neg (Neg); Barbiturates, Urine Neg (Neg); Benzodiazepine, Urine Neg (Neg); Cocaine, Urine Neg (Neg); MDMA (Ecstacy), Urine Neg (Neg); Methadone, Urine Neg (Neg); Opiate, Urine Neg (Neg); Phencyclidine, Urine Neg (Neg)
[2020-05-26 17:14] LABS: Mucus Urine Present (None Prsent)
--- NOTE | 2020-05-26 18:50 | Electrocardiogram Report ---
Test Reason : Blood Pressure : / mmHG Vent. Rate : 072 BPM Atrial Rate : 072 BPM P-R Int : 126 ms QRS Dur : 090 ms QT Int : 440 ms P-R-T Axes : 036 053 026 degrees QTc Int : 481 ms Normal sinus rhythm Prolonged QT Abnormal ECG When compared with ECG of 14-APR-2020 11:09, No significant change was found Confirmed by Darien Lee ([id number]) on 05/26/2020 6:50:12 PM Referred By: REFERRED SELF Confirmed By:Doni Lee
[2020-05-26] MEDS: GABAPENTIN 600 MG TAB PO SCH (19:29)
[2020-05-26] MEDS: SERTRALINE HCL 50 MG TABLET PO SCH (19:29)
[2020-05-26] MEDS ORDERED: MoRPHine SULFATE 2 MG/ML CARP IV STA (23:04)
[2020-05-26] MEDS: POTASSIUM CHLORIDE / WTR 10 MEQ/100 ML PLCT IV SCH (23:51)
[2020-05-27] MEDS: POTASSIUM CHLORIDE / WTR 10 MEQ/100 ML PLCT IV SCH ×3 (00:55→02:46)
[2020-05-27] MEDS: GABAPENTIN 600 MG TAB PO SCH ×3 (01:50→18:08)
[2020-05-27] MEDS ORDERED: Nursing to Pharmacy Communication SCH ×2 (04:15→13:15)
[2020-05-27 07:08] LABS: Hematocrit (blood only) 30.8 % (42-52); Hemoglobin 10.6 g/dL (14.0-18.0); Mean Corpuscular Hemoglobin 35.6 pg (25-34); Mean Corpuscular Hgb Conc 34.4 g/dL (32-36); Mean Corpuscular Volume 103.4 fL (80-100); Mean Platelet Volume 8.7 fL (7.4-10.4); Platelet Count 122 K/uL (130-400); RDW Coefficient of Variation 14.2 % (11.5-14.5); RDW Standard Deviation 53.1 fL (36.4-46.3); Red Blood Count 2.98 M/uL (4.7-6.1)
[2020-05-27 07:16] LABS: INR 1.2 (0.9-1.1); Prothrombin Time 12.8 Seconds (9.0-12.0)
[2020-05-27] MEDS: PANTOprazole 40 MG TAB PO SCH (07:47)
[2020-05-27] MEDS: FOLIC ACID 1 MG TAB PO SCH (07:48)
[2020-05-27] MEDS: NICOTINE 7 MG/24 HR TDSY TD SCH (07:48)
[2020-05-27] MEDS: THIAMINE HCL 100 MG TAB PO SCH (07:48)
[2020-05-27 08:00] LABS: Albumin Globulin Ratio 0.7 (0.9-2); Albumin Level 2.9 gm/dl (3.4-5.0); BUN Creatinine Ratio 3.5 (10-20); Bilirubin,Total 1.6 mg/dl (0.2-1); Calcium 8.9 mg/dl (8.5-10.1); Creatinine Clr Calc Pharmacy 148.6 ml/min; Est GFR (African American) 144.9; Globulin 4.1 gm/dl (2.5-4.0)
[2020-05-27] MEDS: POTASSIUM CHLORIDE 40 MEQ in SODIUM CHLORIDE 0.45 % 1,000 ML IV SCH (10:26)
--- NOTE | 2020-05-27 15:21 | Hospitalist Progress Note ---
Date of Service May 27, 2020 Assessment & Plan (1) Alcohol withdrawal syndrome: Gabapentin for at risk of alcohol withdrawal - did well on this previously Ativan PRN for AWSS >=6 Utox on admission + for THC, otherwise neg Patient appears to be more interest in inpatient rehabilitation on this occasion although he has said similar things in the past Pt interested in medical marijuana card, given info for Dr. Rei Jordan in [place] (2) Acute alcoholic hepatitis: [place] alcoholic hepatitis score 6 - lower risk of Maddrey's discriminate function 7.1 - good prognosis, no need for prednisolone Gentle IV hydration, LFTs improving hx of fatty liver seen on prior imaging (3) Acute hypokalemia: KCl with IV fluids. Monitor daily. (4) Hypomagnesemia: Mg 1.2. Mg sulphage 1g IV given in ER. Repeat without change Replace and monitor (5) HTN (hypertension): Pt did not fill lisinopril rx given on recent d/c BP still quite elevated in the 170s systolic Start HCTZ 25mg, which is generally more effective and better tolerated than lisinopril in pts of decent (6) Abdominal pain: L sided pain with bloating, similar to recent pancreatitis Lipase 279 on admission, repeat NPO for now Ongoing IVF (7) DVT prophylaxis: ambulation (8) B12 deficiency: Presumed due to elevated MCV with mild anemia and now with fingers and toes with numbness and tingling in the setting of long standing alcohol use Low value of checking B12 again due to replacement on admission Tx IM daily Started on B1, folate on admission Admission and Anticipated Discharge Date Admission Date: May 26, 2020 Subjective Pt states he still feels "off", but better than yesterday overall. He was very anxious this AM, but this is better. Still feels shaky, but also better. He did eat lunch and no n/v, but did note some L sided abd pain and now with bloating, which he did not have prior. Pain is somewhat similar to onset of pain when pt had pancreatitis. Pt denies fever, SOB, chest pain, c/d, LE pain or swelling. Pt states he has a lot of stress right now with moving to his sister's home. His girlfriend is currently in rehab. He states that he is interested in outpt vs inpt rehab. He has gone in the past. His concern at present is COVID and restrictions in different facilities. He does want to pursue counseling regardless. CM has given him a list of resources. He is also interested in a medical marijuana card for help with his anxiety. Pt states he was given an rx for HTN medication on recent d/c, but never filled it. Pt also notes b/l fingers and toes with numbness and tingling, which is new. Review of Systems Review of Systems: Pertinent positives and negatives reviewed in HPI--all others negative Physical Exam Constitutional: WD/WN, vitals as above Eyes: normal visual calderon by confrontation and + anicteric sclerae Neck: normal visual inspection and trachea midline Respiratory: normal respiratory effort, lungs clear to auscultation Cardiovascular: Rate/Rhythm: regular rate and regular rhythm Gastrointestinal (Abdomen): Inspection/Auscultation: abdomen not distended Percussion/Palpation: abdomen soft; abdomen nontender Musculoskeletal: Head/Neck/Chest: normocephalic and head atraumatic negative for edema, peripheral pulses intact Skin: no rashes, warm and dry Neurologic: awake; not confused Speech / Cognition: + abnormal speech (pt does have occasional stutter) Psychiatric: A+Ox3, euthymic affect Results & Data Results & Data ([facility]) Vital Signs (Past 12 Hours) Vital Signs Temp Pulse Resp BP Pulse Ox 05/27/20 07:52 37.2 C 76 17 172/107 H 97 PG Care Time/CCT Total # of Minutes Spent Total Time Spent with Patient: Total time spent is greater than 50% in coordination of care (as documented) at patient's floor/unit and/or counseling patient: Coding Level of Care Code 23944 Subseq Hosp Care Lvl 3 Diagnoses Alcohol withdrawal syndrome F10.239 Complication of substance-induced condition: with unspecified complication Acute alcoholic hepatitis K70.10 Acute hypokalemia E87.6 Hypomagnesemia E83.42 HTN (hypertension) I10 Abdominal pain R10.9 DVT prophylaxis Z29.9 B12 deficiency E53.8 (1) Alcohol withdrawal syndrome Complication of substance-induced condition: with unspecified complication Qualified Code(s): F10.239 - Alcohol dependence with withdrawal, unspecified
[2020-05-27] MEDS: hydroCHLOROthiazide 25 MG TAB PO SCH (15:58)
[2020-05-27] MEDS: CYANOCOBALAMIN 1000 MCG/ML VIAL IM SCH (15:58)
[2020-05-27] MEDS: MAGNESIUM SULFATE / D5W 1 GM/100 ML BAG IV SCH ×2 (15:58→18:09)
[2020-05-27] MEDS ORDERED: MULTI-VITAMIN INFUSION 10 ML, THIAMINE HCL 100 MG, FOLIC ACID 1 MG in SODIUM CHLORIDE 0... IV ONE (16:00)
[2020-05-27] MEDS: SERTRALINE HCL 50 MG TABLET PO SCH (20:23)
[2020-05-27] MEDS: LORazepam 1 MG/2 ML VIAL IV PRN (23:50)
[2020-05-28] MEDS: GABAPENTIN 600 MG TAB PO SCH ×2 (01:07→14:20)
[2020-05-28 08:10] LABS: BUN Creatinine Ratio 4.8 (10-20); Calcium 9.6 mg/dl (8.5-10.1); Creatinine Clr Calc Pharmacy 131.9 ml/min; Est GFR (African American) 137.9; Magnesium 2.1 mg/dl (1.8-2.4); Potassium 3.9 mmol/L (3.5-5.1)
[2020-05-28 08:12] LABS: Albumin Globulin Ratio 0.7 (0.9-2); Bilirubin,Total 1.6 mg/dl (0.2-1); Globulin 4.6 gm/dl (2.5-4.0); Total Protein 7.6 gm/dl (6.4-8.2)
[2020-05-28] MEDS: FOLIC ACID 1 MG TAB PO SCH (08:57)
[2020-05-28] MEDS: hydroCHLOROthiazide 25 MG TAB PO SCH (08:57)
[2020-05-28] MEDS: NICOTINE 7 MG/24 HR TDSY TD SCH (08:57)
[2020-05-28] MEDS: THIAMINE HCL 100 MG TAB PO SCH (08:57)
[2020-05-28] MEDS: PANTOprazole 40 MG TAB PO SCH (08:58)
[2020-05-28] MEDS: CYANOCOBALAMIN 1000 MCG/ML VIAL IM SCH (08:58)
[2020-05-28] MEDS: LACTATED RINGER'S 1,000 ML IV SCH ×2 (14:22→22:48)
--- NOTE | 2020-05-28 19:55 | Hospitalist Progress Note ---
Date of Service May 28, 2020 Assessment & Plan (1) Alcohol withdrawal syndrome: Gabapentin for at risk of alcohol withdrawal - did well on this previously Ativan PRN for AWSS >=6 Utox on admission + for THC, otherwise neg Patient making plans with CM for [facility] on d/c Pt interested in medical marijuana card, given info for Dr. Rei Jordan in [place] (2) Acute alcoholic hepatitis: [place] alcoholic hepatitis score 6 - lower risk of Maddrey's discriminate function 7.1 - good prognosis, no need for prednisolone Gentle IV hydration, LFTs improving hx of fatty liver seen on prior imaging (3) Acute hypokalemia: KCl with IV fluids. Monitor daily. (4) Hypomagnesemia: Mg 1.2. Mg sulphage 1g IV given in ER. Repeat without change Replace and monitor (5) HTN (hypertension): Pt did not fill lisinopril rx given on recent d/c BP still quite elevated in the 170s systolic Start HCTZ 25mg, which is generally more effective and better tolerated than lisinopril in pts of decent (6) Abdominal pain: L sided pain with bloating, similar to recent pancreatitis Lipase 279 on admission, repeat on 05/27 was 424 Trial of clears given sx mostly resolved (7) DVT prophylaxis: ambulation (8) B12 deficiency: Presumed due to elevated MCV with mild anemia and now with fingers and toes with numbness and tingling in the setting of long standing alcohol use Low value of checking B12 again due to replacement on admission Tx IM daily Started on B1, folate on admission, should continue all of these as outpt (9) Hyperlipidemia: Pt states he was to be taking medication for this, but has not Lipid panel pending Admission and Anticipated Discharge Date Admission Date: May 26, 2020 Subjective Pt is feeling much better today. Not as much anxiety. Minimal tremors. He states that his abd pain and bloating are much better. He is hungry and would like to eat. Still with some bloating, but much less. Pain is "essentially gone". Pt denies fever, SOB, chest pain, c/d, LE pain or swelling. Review of Systems Review of Systems: Pertinent positives and negatives reviewed in HPI--all others negative Physical Exam Constitutional: WD/WN, vitals as above Eyes: normal visual calderon by confrontation and + anicteric sclerae Neck: normal visual inspection and trachea midline Respiratory: normal respiratory effort, lungs clear to auscultation Cardiovascular: Rate/Rhythm: regular rate and regular rhythm Gastrointestinal (Abdomen): Inspection/Auscultation: + abdomen distended (much improved, soft) Percussion/Palpation: abdomen soft; abdomen nontender Musculoskeletal: Head/Neck/Chest: normocephalic and head atraumatic Skin: no rashes, warm and dry Neurologic: awake; not confused Speech / Cognition: + abnormal speech (pt does have occasional stutter) Psychiatric: A+Ox3, euthymic affect Results & Data Results & Data ([facility]) Vital Signs (Past 12 Hours) Vital Signs Temp Pulse Resp BP Pulse Ox 05/28/20 15:27 36.9 C 69 18 142/92 H 98 PG Care Time/CCT Total # of Minutes Spent Total Time Spent with Patient: Total time spent is greater than 50% in coordination of care (as documented) at patient's floor/unit and/or counseling patient: Coding Level of Care Code 85828 Subseq Hosp Care Lvl 3 Diagnoses Alcohol withdrawal syndrome F10.239 Complication of substance-induced condition: with unspecified complication Acute alcoholic hepatitis K70.10 Acute hypokalemia E87.6 Hypomagnesemia E83.42 HTN (hypertension) I10 Abdominal pain R10.9 DVT prophylaxis Z29.9 B12 deficiency E53.8 Hyperlipidemia E78.5 (1) Alcohol withdrawal syndrome Complication of substance-induced condition: with unspecified complication Qualified Code(s): F10.239 - Alcohol dependence with withdrawal, unspecified
[2020-05-28] MEDS: SERTRALINE HCL 50 MG TABLET PO SCH (20:27)
[2020-05-29] MEDS ORDERED: LOPERAMIDE HCL 2 MG CAP PO STA (01:16)
[2020-05-29] MEDS: GABAPENTIN 600 MG TAB PO SCH (02:09)
[2020-05-29] MEDS: LACTATED RINGER'S 1,000 ML IV SCH ×2 (07:30→16:08)
[2020-05-29 07:59] LABS: Albumin Level 2.9 gm/dl (3.4-5.0); BUN Creatinine Ratio 4.4 (10-20); Calcium 9.7 mg/dl (8.5-10.1); Creatinine Clr Calc Pharmacy 128.3 ml/min; Est GFR (African American) 136.4; Est GFR (Non-African American) 117.7; Potassium 3.8 mmol/L (3.5-5.1)
[2020-05-29 08:02] LABS: Albumin Globulin Ratio 0.7 (0.9-2); Bilirubin,Total 1.2 mg/dl (0.2-1); Globulin 4.4 gm/dl (2.5-4.0); Total Protein 7.4 gm/dl (6.4-8.2)
[2020-05-29] MEDS: hydroCHLOROthiazide 25 MG TAB PO SCH (10:16)
[2020-05-29] MEDS: FOLIC ACID 1 MG TAB PO SCH (10:16)
[2020-05-29] MEDS: NICOTINE 7 MG/24 HR TDSY TD SCH (10:17)
[2020-05-29] MEDS: CYANOCOBALAMIN 1000 MCG/ML VIAL IM SCH (10:17)
[2020-05-29] MEDS: THIAMINE HCL 100 MG TAB PO SCH (10:17)
[2020-05-29] MEDS: PANTOprazole 40 MG TAB PO SCH (10:17)
[2020-05-29] MEDS ORDERED: IBUPROFEN 200 MG TAB PO STA (16:52)
[2020-05-29] MEDS ORDERED: LORazepam 1 MG TAB PO STA (20:25)
[2020-05-29] MEDS: SERTRALINE HCL 50 MG TABLET PO SCH (20:44)
--- NOTE | 2020-05-29 22:33 | Hospitalist Progress Note ---
Date of Service May 29, 2020 Assessment & Plan (1) Alcohol withdrawal syndrome: Gabapentin for at risk of alcohol withdrawal - did well on this previously. Will continue to titrate his gabapentin. Patient awaiting placement Ativan PRN for AWSS >=6 Utox on admission + for THC, otherwise neg Patient making plans with CM for [facility] on d/c Pt interested in medical marijuana card, given info for Dr. Rei Jordan in [place] (2) Acute alcoholic hepatitis: [place] alcoholic hepatitis score 6 - lower risk of Maddrey's discriminate function 7.1 - good prognosis, no need for prednisolone Gentle IV hydration, LFTs improving hx of fatty liver seen on prior imaging (3) Acute hypokalemia: KCl with IV fluids. Monitor daily. (4) Hypomagnesemia: replaced and will monitor. (5) HTN (hypertension): Pt did not fill lisinopril rx given on recent d/c BP still quite elevated in the 170s systolic Start HCTZ 25mg, which is generally more effective and better tolerated than lisinopril in pts of decent (6) Abdominal pain: L sided pain with bloating, similar to recent pancreatitis Lipase 279 on admission, repeat on 05/27 was 424 Trial of clears given sx mostly resolved (7) DVT prophylaxis: ambulation (8) B12 deficiency: Presumed due to elevated MCV with mild anemia and now with fingers and toes with numbness and tingling in the setting of long standing alcohol use Low value of checking B12 again due to replacement on admission Tx IM daily Continue B1, folate on admission, should continue all of these as outpt (9) Hyperlipidemia: Pt states he was to be taking medication for this, but has not Lipid panel: LDL is high. Admission and Anticipated Discharge Date Admission Date: May 26, 2020 Subjective 40 YO MALE REPORTS feeling better today. He reports his symptoms have improved and he has less tremors today. Review of Systems Review of Systems: All systems reviewed & are unremarkable except as noted in HPI & below Physical Exam Physical Exam: Constitutional: WD/WN, vitals as above Eyes: normal visual calderon by confrontation and + anicteric sclerae Neck: normal visual inspection and trachea midline Respiratory: normal respiratory effort, lungs clear to auscultation Cardiovascular: Rate/Rhythm: regular rate and regular rhythm Gastrointestinal (Abdomen): Inspection/Auscultation: + abdomen distended (much improved, softer) Percussion/Palpation: abdomen soft; abdomen nontender Musculoskeletal: Head/Neck/Chest: normocephalic and head atraumatic Skin: no rashes, warm and dry Neurologic: awake; not confused Speech / Cognition: + abnormal speech (pt does have occasional stutter) Psychiatric: A+Ox3, euthymic affect Results & Data Results & Data ([facility]) Vital Signs (Past 12 Hours) Vital Signs Temp Pulse Resp BP BP Pulse Ox 05/29/20 19:20 64 174/111 H 171/106 H 05/29/20 19:09 36.9 C 62 16 189/100 H 97 05/29/20 15:06 37.1 C 63 18 160/95 H 98 PG Care Time/CCT Total # of Minutes Spent Total Time Spent with Patient: Total time spent is greater than 50% in coordination of care (as documented) at patient's floor/unit and/or counseling patient: Coding Level of Care Code 08026 Subseq Hosp Care Lvl 2 Diagnoses Alcohol withdrawal syndrome F10.239 Complication of substance-induced condition: with unspecified complication Acute alcoholic hepatitis K70.10 Acute hypokalemia E87.6 Hypomagnesemia E83.42 HTN (hypertension) I10 Abdominal pain R10.9 DVT prophylaxis Z29.9 B12 deficiency E53.8 Hyperlipidemia E78.5 (1) Alcohol withdrawal syndrome Complication of substance-induced condition: with unspecified complication Qualified Code(s): F10.239 - Alcohol dependence with withdrawal, unspecified
[2020-05-30 00:55] LABS: Marijuana Quant, GCMS Urine 12 ng/mL (<5)
[2020-05-30] MEDS ORDERED: GABAPENTIN 600 MG TAB PO SCH (02:00)
[2020-05-30] MEDS: hydroCHLOROthiazide 25 MG TAB PO SCH (09:10)
[2020-05-30] MEDS: THIAMINE HCL 100 MG TAB PO SCH (09:10)
[2020-05-30] MEDS: FOLIC ACID 1 MG TAB PO SCH (09:10)
[2020-05-30] MEDS: NICOTINE 7 MG/24 HR TDSY TD SCH (09:10)
[2020-05-30] MEDS: PANTOprazole 40 MG TAB PO SCH (09:10)
[2020-05-30] MEDS: CYANOCOBALAMIN 1000 MCG/ML VIAL IM SCH (09:10)
[2020-05-30] MEDS: SERTRALINE HCL 50 MG TABLET PO SCH (19:54)
--- NOTE | 2020-05-30 22:34 | Hospitalist Progress Note ---
Date of Service May 30, 2020 Assessment & Plan (1) Alcohol withdrawal syndrome: Gabapentin for at risk of alcohol withdrawal - did well on this previously. Will continue to titrate his gabapentin. Patient awaiting placement Ativan PRN for AWSS >=6 Utox on admission + for THC, otherwise neg Patient making plans with CM for [facility] on d/c Pt interested in medical marijuana card, given info for Dr. Rei Jordan in [place]. Patient continues to wait for placement. (2) Acute alcoholic hepatitis: [place] alcoholic hepatitis score 6 - lower risk of Maddrey's discriminate function 7.1 - good prognosis, no need for prednisolone Gentle IV hydration, LFTs improving hx of fatty liver seen on prior imaging (3) Acute hypokalemia: KCl with IV fluids. Monitor daily. (4) Hypomagnesemia: replaced and will monitor. (5) HTN (hypertension): Pt did not fill lisinopril rx given on recent d/c BP still quite elevated in the 170s systolic Start HCTZ 25mg, which is generally more effective and better tolerated than lisinopril in pts of decent (6) Abdominal pain: L sided pain with bloating, similar to recent pancreatitis Lipase 279 on admission, repeat on 05/27 was 424 Trial of clears given sx mostly resolved (7) DVT prophylaxis: ambulation (8) B12 deficiency: Presumed due to elevated MCV with mild anemia and now with fingers and toes with numbness and tingling in the setting of long standing alcohol use Low value of checking B12 again due to replacement on admission Tx IM daily Continue B1, folate on admission, should continue all of these as outpt (9) Hyperlipidemia: Pt states he was to be taking medication for this, but has not Lipid panel: LDL is high. Admission and Anticipated Discharge Date Admission Date: May 26, 2020 Subjective 40 yo male reports that he still has tremors, but they are better than yesterday. Review of Systems Review of Systems: All systems reviewed & are unremarkable except as noted in HPI & below Physical Exam Physical Exam: Constitutional: WD/WN, vitals as above Eyes: normal visual calderon by confrontation and + anicteric sclerae Neck: normal visual inspection and trachea midline Respiratory: normal respiratory effort, lungs clear to auscultation Cardiovascular: Rate/Rhythm: regular rate and regular rhythm Gastrointestinal (Abdomen): Inspection/Auscultation: + abdomen distended (much improved, softer) Percussion/Palpation: abdomen soft; abdomen nontender Musculoskeletal: Head/Neck/Chest: normocephalic and head atraumatic Skin: no rashes, warm and dry Neurologic: awake; not confused Speech / Cognition: + abnormal speech (pt does have occasional stutter) Psychiatric: A+Ox3, euthymic affect Results & Data Results & Data ([facility]) Vital Signs (Past 12 Hours) Vital Signs Temp Pulse Resp BP Pulse Ox 05/30/20 15:49 36.8 C 75 18 149/87 H 96 PG Care Time/CCT Total # of Minutes Spent Total Time Spent with Patient: Total time spent is greater than 50% in coordination of care (as documented) at patient's floor/unit and/or counseling patient: Coding Level of Care Code 02721 Subseq Hosp Care Lvl 2 Diagnoses Alcohol withdrawal syndrome F10.239 Complication of substance-induced condition: with unspecified complication Acute alcoholic hepatitis K70.10 Acute hypokalemia E87.6 Hypomagnesemia E83.42 HTN (hypertension) I10 Abdominal pain R10.9 DVT prophylaxis Z29.9 B12 deficiency E53.8 Hyperlipidemia E78.5 Time Spent (min) 25 (1) Alcohol withdrawal syndrome Complication of substance-induced condition: with unspecified complication Qualified Code(s): F10.239 - Alcohol dependence with withdrawal, unspecified
[2020-05-31] MEDS: PANTOprazole 40 MG TAB PO SCH (06:13)
[2020-05-31] MEDS: NICOTINE 7 MG/24 HR TDSY TD SCH (09:34)
[2020-05-31] MEDS: THIAMINE HCL 100 MG TAB PO SCH (09:34)
[2020-05-31] MEDS: FOLIC ACID 1 MG TAB PO SCH (09:34)
[2020-05-31] MEDS: hydroCHLOROthiazide 25 MG TAB PO SCH (09:34)
[2020-05-31] MEDS: CYANOCOBALAMIN 1000 MCG/ML VIAL IM SCH (09:35)
[2020-05-31] MEDS: LORazepam 0.5 MG/1 ML VIAL IV PRN (11:40)
[2020-05-31] MEDS: SERTRALINE HCL 50 MG TABLET PO SCH (20:35)
--- NOTE | 2020-05-31 21:43 | Hospitalist Progress Note ---
Date of Service May 31, 2020 Assessment & Plan (1) Alcohol withdrawal syndrome: Gabapentin for at risk of alcohol withdrawal - did well on this previously. Will continue to titrate his gabapentin. Patient awaiting placement Ativan PRN for AWSS >=6 Utox on admission + for THC, otherwise neg Patient making plans with CM for [facility] on d/c Patient appears to be improving today. Pt interested in medical marijuana card, given info for Dr. Rei Jordan in [place]. Patient continues to wait for placement. Patient will need to be more complaint with his medications such as his sertraline. (2) Acute alcoholic hepatitis: [place] alcoholic hepatitis score 6 - lower risk of Maddrey's discriminate function 7.1 - good prognosis, no need for prednisolone Gentle IV hydration, LFTs improving hx of fatty liver seen on prior imaging (3) Acute hypokalemia: KCl with IV fluids. Monitor daily. (4) Hypomagnesemia: replaced and will monitor. (5) HTN (hypertension): Pt did not fill lisinopril rx given on recent d/c BP still quite elevated in the 170s systolic Start HCTZ 25mg, which is generally more effective and better tolerated than lisinopril in pts of decent (6) Abdominal pain: L sided pain with bloating, similar to recent pancreatitis Lipase 279 on admission, repeat on 05/27 was 424 Trial of clears given sx mostly resolved (7) DVT prophylaxis: ambulation (8) B12 deficiency: Presumed due to elevated MCV with mild anemia and now with fingers and toes with numbness and tingling in the setting of long standing alcohol use Low value of checking B12 again due to replacement on admission Tx IM daily Continue B1, folate on admission, should continue all of these as outpt (9) Hyperlipidemia: Pt states he was to be taking medication for this, but has not Lipid panel: LDL is high. Admission and Anticipated Discharge Date Admission Date: May 26, 2020 Subjective Patient reports he is having less tremors today. He reports he is having some anxiety. He starts sertraline at home, but reports he is not compliant with it. Review of Systems Review of Systems: All systems reviewed & are unremarkable except as noted in HPI & below Physical Exam Physical Exam: Constitutional: WD/WN, vitals as above Eyes: normal visual calderon by confrontation and + anicteric sclerae Neck: normal visual inspection and trachea midline Respiratory: normal respiratory effort, lungs clear to auscultation Cardiovascular: Rate/Rhythm: regular rate and regular rhythm Gastrointestinal (Abdomen): Inspection/Auscultation: + abdomen distended (much improved, softer) Percussion/Palpation: abdomen soft; abdomen nontender Musculoskeletal: Head/Neck/Chest: normocephalic and head atraumatic Skin: no rashes, warm and dry Neurologic: awake; not confused Speech / Cognition: + abnormal speech (pt does have occasional stutter) Psychiatric: A+Ox3, euthymic affect Results & Data Results & Data ([facility]) Vital Signs (Past 12 Hours) Vital Signs Temp Pulse Resp BP Pulse Ox 05/31/20 15:43 36.9 C 65 17 139/83 99 05/31/20 11:36 36.9 C 80 16 135/81 98 PG Care Time/CCT Total # of Minutes Spent Total Time Spent with Patient: Total time spent is greater than 50% in coordination of care (as documented) at patient's floor/unit and/or counseling patient: Coding Level of Care Code 65233 Subseq Hosp Care Lvl 2 Diagnoses Alcohol withdrawal syndrome F10.239 Complication of substance-induced condition: with unspecified complication Acute alcoholic hepatitis K70.10 Acute hypokalemia E87.6 Hypomagnesemia E83.42 HTN (hypertension) I10 Abdominal pain R10.9 DVT prophylaxis Z29.9 B12 deficiency E53.8 Hyperlipidemia E78.5 Time Spent (min) 25 (1) Alcohol withdrawal syndrome Complication of substance-induced condition: with unspecified complication Qualified Code(s): F10.239 - Alcohol dependence with withdrawal, unspecified
[2020-06-01] MEDS: PANTOprazole 40 MG TAB PO SCH (08:58)
[2020-06-01] MEDS: NICOTINE 7 MG/24 HR TDSY TD SCH (08:59)
[2020-06-01] MEDS: FOLIC ACID 1 MG TAB PO SCH (08:59)
[2020-06-01] MEDS: hydroCHLOROthiazide 25 MG TAB PO SCH (08:59)
[2020-06-01] MEDS: CYANOCOBALAMIN 1000 MCG/ML VIAL IM SCH (09:00)
[2020-06-01] MEDS: THIAMINE HCL 100 MG TAB PO SCH (09:00)
[2020-06-01] MEDS: SERTRALINE HCL 50 MG TABLET PO SCH (20:39)
--- NOTE | 2020-06-01 22:41 | Hospitalist Progress Note ---
Date of Service June 01, 2020 Assessment & Plan (1) Alcohol withdrawal syndrome: Gabapentin for at risk of alcohol withdrawal - did well on this previously. Will continue to titrate his gabapentin. Patient awaiting placement Ativan PRN for AWSS >=6 Utox on admission + for THC, otherwise neg Patient making plans with CM for [facility] on d/c Patient appears to be back to his baseline today. Pt interested in medical marijuana card, given info for Dr. Rei Jordan in [place]. Patient continues to wait for placement. Patient will need to be more complaint with his medications such as his sertraline as he does not take it daily at home. (2) Acute alcoholic hepatitis: [place] alcoholic hepatitis score 6 - lower risk of Maddrey's discriminate function 7.1 - good prognosis, no need for prednisolone Gentle IV hydration, LFTs improving hx of fatty liver seen on prior imaging (3) Acute hypokalemia: KCl with IV fluids. Monitor daily. (4) Hypomagnesemia: replaced and will monitor. (5) HTN (hypertension): Pt did not fill lisinopril rx given on recent d/c BP still quite elevated in the 170s systolic Start HCTZ 25mg, which is generally more effective and better tolerated than lisinopril in pts of decent (6) Abdominal pain: L sided pain with bloating, similar to recent pancreatitis Lipase 279 on admission, repeat on 05/27 was 424 Trial of clears given sx mostly resolved (7) DVT prophylaxis: ambulation (8) B12 deficiency: Presumed due to elevated MCV with mild anemia and now with fingers and toes with numbness and tingling in the setting of long standing alcohol use Low value of checking B12 again due to replacement on admission Tx IM daily Continue B1, folate on admission, should continue all of these as outpt (9) Hyperlipidemia: Pt states he was to be taking medication for this Lipid panel: LDL is high. may consider low intermediate dose at discharge. Admission and Anticipated Discharge Date Admission Date: May 26, 2020 Subjective Patient reports he is back to his baseline. He is concerned if his meds will be sent to his rehab and is teyw ill accept him with covid pending. Case management has left for the day. will discus with them in AM. Review of Systems Review of Systems: All systems reviewed & are unremarkable except as noted in HPI & below Physical Exam Physical Exam: Constitutional: WD/WN, vitals as above Eyes: normal visual calderon by confrontation and + anicteric sclerae Neck: normal visual inspection and trachea midline Respiratory: normal respiratory effort, lungs clear to auscultation Cardiovascular: Rate/Rhythm: regular rate and regular rhythm Gastrointestinal (Abdomen): Inspection/Auscultation: + abdomen distended (much improved, softer) Percussion/Palpation: abdomen soft; abdomen nontender Musculoskeletal: Head/Neck/Chest: normocephalic and head atraumatic Skin: no rashes, warm and dry Neurologic: awake; not confused Speech / Cognition: + abnormal speech (pt does have occasional stutter) Psychiatric: A+Ox3, euthymic affect Results & Data Results & Data ([facility]) Vital Signs (Past 12 Hours) Vital Signs Temp Pulse Resp BP Pulse Ox 06/01/20 15:01 37.2 C 83 17 133/77 96 PG Care Time/CCT Total # of Minutes Spent Total Time Spent with Patient: Total time spent is greater than 50% in coordination of care (as documented) at patient's floor/unit and/or counseling patient: Coding Level of Care Code 59452 Subseq Hosp Care Lvl 2 Diagnoses Alcohol withdrawal syndrome F10.239 Complication of substance-induced condition: with unspecified complication Acute alcoholic hepatitis K70.10 Acute hypokalemia E87.6 Hypomagnesemia E83.42 HTN (hypertension) I10 Abdominal pain R10.9 DVT prophylaxis Z29.9 B12 deficiency E53.8 Hyperlipidemia E78.5 Time Spent (min) 25 (1) Alcohol withdrawal syndrome Complication of substance-induced condition: with unspecified complication Qualified Code(s): F10.239 - Alcohol dependence with withdrawal, unspecified
[2020-06-02] MEDS: LORazepam 0.5 MG/1 ML VIAL IV PRN (01:39)
[2020-06-02] MEDS: NICOTINE 7 MG/24 HR TDSY TD SCH (09:32)
[2020-06-02] MEDS: CYANOCOBALAMIN 1000 MCG/ML VIAL IM SCH (09:33)
[2020-06-02] MEDS: FOLIC ACID 1 MG TAB PO SCH (09:33)
[2020-06-02] MEDS: hydroCHLOROthiazide 25 MG TAB PO SCH (09:33)
[2020-06-02] MEDS: PANTOprazole 40 MG TAB PO SCH (09:33)
[2020-06-02] MEDS: THIAMINE HCL 100 MG TAB PO SCH (09:33)
--- NOTE | 2020-06-02 16:38 | Hospitalist Progress Note ---
Date of Service June 02, 2020 Assessment & Plan (1) Alcohol withdrawal syndrome: Gabapentin for at risk of alcohol withdrawal - did well on this previously. - No withdrawal symptoms today. - Finished gabapentin. -> Patient making plans with for [facility] on d/c. (2) Acute alcoholic hepatitis: [place] alcoholic hepatitis score 6 - lower risk of . Maddrey's discriminate function was 7.1 - good prognosis, no need for prednisolone. Hx of fatty liver seen on prior imaging. - LFTs improving -> AST/ALT were last checked on 05/29 and were coming down. (3) HTN (hypertension): Pt did not fill lisinopril rx given on recent d/c. BP still quite elevated in the 170s systolic. - Started HCTZ on 05/27 -> BP generally ok at this point. (4) B12 deficiency: Presumed due to elevated MCV with mild anemia and now with fingers and toes with numbness and tingling in the setting of long standing alcohol use. - Tx IM daily - Discharge on oral - Continue B1, folate (5) Hyperlipidemia: Pt states he was to be taking medication for this. Lipid panel: LDL is high. - Consider statin on discharge; would like LFTs to be nearly normal before starting (6) DVT prophylaxis: Ambulation Admission and Anticipated Discharge Date Admission Date: May 26, 2020 Subjective Feels fine. Just waiting for Covid test for discharge. Reports no fevers/chills, chest pain, shortness of breath, abdominal pain, nausea, or vomiting. Physical Exam Constitutional: WD/WN, vitals as above Eyes: EOM intact bilaterally; no conjunctival abnormality ENMT: external ear and nose normal, oropharynx normal Neck: trachea midline, no thyromegaly normal visual inspection Respiratory: normal respiratory effort, lungs clear to auscultation no respiratory distress Cardiovascular: RRR, no murmur, no edema Gastrointestinal (Abdomen): Inspection/Auscultation: abdomen normal to inspection; abdomen not distended Musculoskeletal: no cyanosis or clubbing, extremities motor strength 5/5 Skin: no rashes, warm and dry Neurologic: moves all extremities and awake Psychiatric: Orientation: alert, oriented to person and cooperative Results & Data Results & Data ([facility]) Vital Signs (Past 12 Hours) Vital Signs Temp Pulse Resp BP Pulse Ox 06/02/20 07:42 36.6 C 59 L 16 132/86 99 PG Care Time/CCT Total # of Minutes Spent Total Time Spent with Patient: Total time spent is greater than 50% in coordination of care (as documented) at patient's floor/unit and/or counseling patient: Coding Level of Care Code 76472 Subseq Hosp Care Lvl 2 Diagnoses Alcohol withdrawal syndrome F10.239 Complication of substance-induced condition: with unspecified complication Acute alcoholic hepatitis K70.10 HTN (hypertension) I10 B12 deficiency E53.8 Hyperlipidemia E78.5 DVT prophylaxis Z29.9 (1) Alcohol withdrawal syndrome Complication of substance-induced condition: with unspecified complication Qualified Code(s): F10.239 - Alcohol dependence with withdrawal, unspecified
[2020-06-02] MEDS: SERTRALINE HCL 50 MG TABLET PO SCH (20:34)
[2020-06-03] MEDS: LORazepam 0.5 MG/1 ML VIAL IV PRN (00:01)
[2020-06-03 07:18] LABS: Hematocrit (blood only) 35.8 % (42-52); Hemoglobin 12.1 g/dL (14.0-18.0); Mean Corpuscular Hemoglobin 35.3 pg (25-34); Mean Corpuscular Hgb Conc 33.8 g/dL (32-36); Mean Corpuscular Volume 104.4 fL (80-100); Mean Platelet Volume 9.1 fL (7.4-10.4); Platelet Count 368 K/uL (130-400); RDW Coefficient of Variation 14.9 % (11.5-14.5); RDW Standard Deviation 57.9 fL (36.4-46.3); Red Blood Count 3.43 M/uL (4.7-6.1); White Blood Count 4.35 K/uL (4.8-10.8)
[2020-06-03 08:04] LABS: Albumin Level 3.1 gm/dl (3.4-5.0); BUN Creatinine Ratio 18.1 (10-20); Calcium 8.8 mg/dl (8.5-10.1); Creatinine Clr Calc Pharmacy 126.5 ml/min; Est GFR (African American) 135.6; Magnesium 1.9 mg/dl (1.8-2.4); Potassium 3.4 mmol/L (3.5-5.1)
[2020-06-03 08:08] LABS: Albumin Globulin Ratio 0.7 (0.9-2); Bilirubin,Total 0.6 mg/dl (0.2-1); Globulin 4.4 gm/dl (2.5-4.0); Phosphorus 3.9 mg/dl (2.5-4.9); Total Protein 7.5 gm/dl (6.4-8.2)
[2020-06-03] MEDS: hydroCHLOROthiazide 25 MG TAB PO SCH (08:58)
[2020-06-03] MEDS: FOLIC ACID 1 MG TAB PO SCH (08:58)
[2020-06-03] MEDS: PANTOprazole 40 MG TAB PO SCH (08:59)
[2020-06-03] MEDS: NICOTINE 7 MG/24 HR TDSY TD SCH (08:59)
[2020-06-03] MEDS: CYANOCOBALAMIN 1000 MCG/ML VIAL IM SCH (08:59)
[2020-06-03] MEDS: THIAMINE HCL 100 MG TAB PO SCH (08:59)
--- NOTE | 2020-06-03 15:57 | Hospitalist Progress Note ---
Date of Service June 03, 2020 Assessment & Plan (1) Alcohol withdrawal syndrome: Gabapentin for at risk of alcohol withdrawal - did well on this previously. - No withdrawal symptoms today. - Finished gabapentin. -> Patient making plans with for [facility] on d/c. Still stable. (2) Acute alcoholic hepatitis: [place] alcoholic hepatitis score 6 - lower risk of . Maddrey's discriminate function was 7.1 - good prognosis, no need for prednisolone. Hx of fatty liver seen on prior imaging. - LFTs improving -> AST/ALT were last checked on 05/29 and were coming down. - Down to 110/140 on 06/03. (3) HTN (hypertension): Pt did not fill lisinopril rx given on recent d/c. BP still quite elevated in the 170s systolic. - Started HCTZ on 05/27 -> BP generally ok at this point. (4) B12 deficiency: Presumed due to elevated MCV with mild anemia and now with fingers and toes with numbness and tingling in the setting of long standing alcohol use. - Tx IM daily - Discharge on oral - Continue B1, folate (5) Hyperlipidemia: Pt states he was to be taking medication for this. Lipid panel: LDL is high. - Consider statin on discharge; would like LFTs to be nearly normal before starting (6) DVT prophylaxis: Ambulation Admission and Anticipated Discharge Date Admission Date: May 26, 2020 Subjective No focal complaints today. A bit tired. Reports no fevers/chills, chest pain, shortness of breath, abdominal pain, nausea, or vomiting. Physical Exam Constitutional: WD/WN, vitals as above Eyes: EOM intact bilaterally; no conjunctival abnormality ENMT: external ear and nose normal, oropharynx normal Neck: trachea midline, no thyromegaly normal visual inspection Respiratory: normal respiratory effort, lungs clear to auscultation no respiratory distress Cardiovascular: RRR, no murmur, no edema Gastrointestinal (Abdomen): Inspection/Auscultation: abdomen normal to insp ection; abdomen not distended Musculoskeletal: no cyanosis or clubbing, extremities motor strength 5/5 Skin: no rashes, warm and dry Neurologic: moves all extremities and awake Psychiatric: Orientation: alert, oriented to person and cooperative Results & Data Results & Data ([facility]) Vital Signs (Past 12 Hours) Vital Signs Temp Pulse Resp BP Pulse Ox 06/03/20 07:57 36.8 C 62 15 124/75 98 PG Care Time/CCT Total # of Minutes Spent Total Time Spent with Patient: Total time spent is greater than 50% in coordination of care (as documented) at patient's floor/unit and/or counseling patient: Coding Level of Care Code 08203 Subseq Hosp Care Lvl 2 Diagnoses Alcohol withdrawal syndrome F10.239 Complication of substance-induced condition: with unspecified complication Acute alcoholic hepatitis K70.10 HTN (hypertension) I10 B12 deficiency E53.8 Hyperlipidemia E78.5 DVT prophylaxis Z29.9 (1) Alcohol withdrawal syndrome Complication of substance-induced condition: with unspecified complication Qualified Code(s): F10.239 - Alcohol dependence with withdrawal, unspecified
[2020-06-03] MEDS: SERTRALINE HCL 50 MG TABLET PO SCH (20:57)
[2020-06-03] MEDS: LORazepam 1 MG/2 ML VIAL IV PRN (23:43)
[2020-06-04] MEDS: FOLIC ACID 1 MG TAB PO SCH (08:05)
[2020-06-04] MEDS: hydroCHLOROthiazide 25 MG TAB PO SCH (08:05)
[2020-06-04] MEDS: PANTOprazole 40 MG TAB PO SCH (08:05)
[2020-06-04] MEDS: THIAMINE HCL 100 MG TAB PO SCH (08:05)
[2020-06-04] MEDS: CYANOCOBALAMIN 1000 MCG/ML VIAL IM SCH (08:06)
[2020-06-04] MEDS: NICOTINE 7 MG/24 HR TDSY TD SCH (08:06)
--- NOTE | 2020-06-04 15:25 | Hospitalist Progress Note ---
Date of Service June 04, 2020 Assessment & Plan (1) Alcohol withdrawal syndrome: Gabapentin for at risk of alcohol withdrawal - did well on this previously. - No withdrawal symptoms today. - Finished gabapentin. -> Patient making plans with for [facility] on d/c. Still stable, but not lost the bed. (2) Acute alcoholic hepatitis: [place] alcoholic hepatitis score 6 - lower risk of . Maddrey's discriminate function was 7.1 - good prognosis, no need for prednisolone. Hx of fatty liver seen on prior imaging. - LFTs improving -> AST/ALT were last checked on 05/29 and were coming down. - Down to 110/140 on 06/03. (3) HTN (hypertension): Pt did not fill lisinopril rx given on recent d/c. BP still quite elevated in the 170s systolic. - Started HCTZ on 05/27 -> BP generally ok at this point. (4) B12 deficiency: Presumed due to elevated MCV with mild anemia and now with fingers and toes with numbness and tingling in the setting of long standing alcohol use. - Tx IM daily - Discharge on oral - Continue B1, folate (5) Hyperlipidemia: Pt states he was to be taking medication for this. Lipid panel: LDL is high. - Consider statin on discharge; would like LFTs to be nearly normal before starting (6) DVT prophylaxis: Ambulation Admission and Anticipated Discharge Date Admission Date: May 26, 2020 Subjective No issues. Reports no fevers/chills, chest pain, shortness of breath, abdominal pain, nausea, or vomiting. Physical Exam Constitutional: WD/WN, vitals as above Eyes: EOM intact bilaterally; no conjunctival abnormality ENMT: external ear and nose normal, oropharynx normal Neck: trachea midline, no thyromegaly normal visual inspection Respiratory: normal respiratory effort, lungs clear to auscultation no respiratory distress Cardiovascular: RRR, no murmur, no edema Gastrointestinal (Abdomen): Inspection/Auscultation: abdomen normal to inspection; abdomen not distended Musculoskeletal: no cyanosis or clubbing, extremities motor strength 5/5 Skin: no rashes, warm and dry Neurologic: moves all extremities and awake Psychiatric: Orientation: alert, oriented to person and cooperative Results & Data Results & Data ([facility]) Vital Signs (Past 12 Hours) Vital Signs Temp Pulse Resp BP Pulse Ox 06/04/20 07:37 36.6 C 67 18 139/81 99 PG Care Time/CCT Total # of Minutes Spent Total Time Spent with Patient: Total time spent is greater than 50% in coordination of care (as documented) at patient's floor/unit and/or counseling patient: Coding Level of Care Code 59461 Subseq Hosp Care Lvl 1 Diagnoses Alcohol withdrawal syndrome F10.239 Complication of substance-induced condition: with unspecified complication Acute alcoholic hepatitis K70.10 HTN (hypertension) I10 B12 deficiency E53.8 Hyperlipidemia E78.5 DVT prophylaxis Z29.9 (1) Alcohol withdrawal syndrome Complication of substance-induced condition: with unspecified complication Qualified Code(s): F10.239 - Alcohol dependence with withdrawal, unspecified
[2020-06-04] MEDS: SERTRALINE HCL 50 MG TABLET PO SCH (20:45)
[2020-06-04] MEDS: MELATONIN 3 MG TAB PO PRN (20:46)
[2020-06-04] MEDS ORDERED: TRAZODONE HCL 50 MG TAB PO PRN (21:00)
[2020-06-05] MEDS: CYANOCOBALAMIN 1000 MCG/ML VIAL IM SCH (07:55)
[2020-06-05] MEDS: FOLIC ACID 1 MG TAB PO SCH (07:55)
[2020-06-05] MEDS: NICOTINE 7 MG/24 HR TDSY TD SCH (07:56)
[2020-06-05] MEDS: PANTOprazole 40 MG TAB PO SCH (07:56)
[2020-06-05] MEDS: hydroCHLOROthiazide 25 MG TAB PO SCH (07:56)
[2020-06-05] MEDS: THIAMINE HCL 100 MG TAB PO SCH (07:56)
--- NOTE | 2020-06-05 16:33 | Hospitalist Progress Note ---
Date of Service June 05, 2020 Assessment & Plan (1) Alcohol withdrawal syndrome: Gabapentin for at risk of alcohol withdrawal - did well on this previously. - No withdrawal symptoms today. - Finished gabapentin. -> Patient making plans with for [facility] on d/c. Still stable, but now lost the bed. Plan for discharge once able. (2) Acute alcoholic hepatitis: [place] alcoholic hepatitis score 6 - lower risk of . Maddrey's discriminate function was 7.1 - good prognosis, no need for prednisolone. Hx of fatty liver seen on prior imaging. - LFTs improving -> AST/ALT were last checked on 05/29 and were coming down. - Down to 110/140 on 06/03. (3) HTN (hypertension): Pt did not fill lisinopril rx given on recent d/c. - Started HCTZ on 05/27 -> BP generally ok at this point. Now 125/80. (4) B12 deficiency: Presumed due to elevated MCV with mild anemia and now with fingers and toes with numbness and tingling in the setting of long standing alcohol use. - Tx IM daily - Discharge on oral - Continue B1, folate (5) Hyperlipidemia: Pt states he was to be taking medication for this. Lipid panel: LDL is high. - Consider statin on discharge; would like LFTs to be nearly normal before starting (6) DVT prophylaxis: Ambulation Admission and Anticipated Discharge Date Admission Date: May 26, 2020 Subjective No issues. No major issues overnight. Reports no fevers/chills, chest pain, shortness of breath, abdominal pain, nausea, or vomiting. Physical Exam Constitutional: WD/WN, vitals as above Eyes: EOM intact bilaterally; no conjunctival abnormality ENMT: external ear and nose normal, oropharynx normal Neck: trachea midline, no thyromegaly normal visual inspection Respiratory: normal respiratory effort, lungs clear to auscultation no res piratory distress Cardiovascular: RRR, no murmur, no edema Gastrointestinal (Abdomen): Inspection/Auscultation: abdomen normal to inspection; abdomen not distended Musculoskeletal: no cyanosis or clubbing, extremities motor strength 5/5 Skin: no rashes, warm and dry Neurologic: moves all extremities and awake Psychiatric: Orientation: alert, oriented to person and cooperative Results & Data Results & Data ([facility]) Vital Signs (Past 12 Hours) Vital Signs Temp Pulse Resp BP Pulse Ox 06/05/20 15:26 37.1 C 90 16 124/79 97 06/05/20 08:31 36.5 C 61 17 144/90 H 98 PG Care Time/CCT Total # of Minutes Spent Total Time Spent with Patient: Total time spent is greater than 50% in coordination of care (as documented) at patient's floor/unit and/or counseling patient: Coding Level of Care Code 42728 Subseq Hosp Care Lvl 1 Diagnoses Alcohol withdrawal syndrome F10.239 Complication of substance-induced condition: with unspecified complication Acute alcoholic hepatitis K70.10 HTN (hypertension) I10 B12 deficiency E53.8 Hyperlipidemia E78.5 DVT prophylaxis Z29.9 (1) Alcohol withdrawal syndrome Complication of substance-induced condition: with unspecified complication Qualified Code(s): F10.239 - Alcohol dependence with withdrawal, unspecified
[2020-06-05] MEDS: SERTRALINE HCL 50 MG TABLET PO SCH (20:57)
[2020-06-05] MEDS: MELATONIN 3 MG TAB PO PRN (20:58)
[2020-06-06] MEDS: hydroCHLOROthiazide 25 MG TAB PO SCH (07:54)
[2020-06-06] MEDS: PANTOprazole 40 MG TAB PO SCH (07:54)
[2020-06-06] MEDS: THIAMINE HCL 100 MG TAB PO SCH (07:54)
[2020-06-06] MEDS: CYANOCOBALAMIN 1000 MCG/ML VIAL IM SCH (07:54)
[2020-06-06] MEDS: FOLIC ACID 1 MG TAB PO SCH (07:54)
[2020-06-06] MEDS: NICOTINE 7 MG/24 HR TDSY TD SCH (07:54)
--- NOTE | 2020-06-06 12:49 | Hospitalist Progress Note ---
Date of Service June 06, 2020 Assessment & Plan (1) Alcohol withdrawal syndrome: Gabapentin for at risk of alcohol withdrawal - did well on this previously. - No withdrawal symptoms today. - Finished gabapentin. -> Patient making plans with for [facility] on d/c. Still stable, but now lost the bed. Plan for discharge once able. Hopefully this weekend. (2) Acute alcoholic hepatitis: [place] alcoholic hepatitis score 6 - lower risk of . Maddrey's discriminate function was 7.1 - good prognosis, no need for prednisolone. Hx of fatty liver seen on prior imaging. - LFTs improving -> AST/ALT were last checked on 05/29 and were coming down. - Down to 110/140 on 06/03. Will recheck tomorrow AM. (3) HTN (hypertension): Pt did not fill lisinopril rx given on recent d/c. - Started HCTZ on 05/27 -> BP generally ok at this point. Now 140/90. (4) B12 deficiency: Presumed due to elevated MCV with mild anemia and now with fingers and toes with numbness and tingling in the setting of long standing alcohol use. - Tx IM daily - Discharge on oral - Continue B1, folate (5) Hyperlipidemia: Pt states he was to be taking medication for this. Lipid panel: LDL is high. - Consider statin on discharge; would like LFTs to be nearly normal before starting (6) DVT prophylaxis: Ambulation Admission and Anticipated Discharge Date Admission Date: May 26, 2020 Subjective No issues today. Doing well. Reports no fevers/chills, chest pain, shortness of breath, abdominal pain, nausea, or vomiting. Physical Exam Constitutional: WD/WN, vitals as above Eyes: EOM intact bilaterally; no conjunctival abnormality ENMT: external ear and nose normal, oropharynx normal Neck: trachea midline, no thyromegaly normal visual inspection Respiratory: normal respiratory effort, lungs clear to auscultation no respiratory distress Cardiovascular: RRR, no murmur, no edema Gastrointestinal (Abdomen): Inspection/Auscultation: abdomen normal to inspection; abdomen not distended Musculoskeletal: no cyanosis or clubbing, extremities motor strength 5/5 Skin: no rashes, warm and dry Neurologic: moves all extremities and awake Psychiatric: Orientation: alert, oriented to person and cooperative Results & Data Results & Data ([facility]) Vital Signs (Past 12 Hours) Vital Signs Pulse Resp BP Pulse Ox 06/06/20 08:49 62 17 142/93 H 98 PG Care Time/CCT Total # of Minutes Spent Total Time Spent with Patient: Total time spent is greater than 50% in coordination of care (as documented) at patient's floor/unit and/or counseling patient: Coding Level of Care Code 57714 Subseq Hosp Care Lvl 2 Diagnoses Alcohol withdrawal syndrome F10.239 Complication of substance-induced condition: with unspecified complication Acute alcoholic hepatitis K70.10 HTN (hypertension) I10 B12 deficiency E53.8 Hyperlipidemia E78.5 DVT prophylaxis Z29.9 (1) Alcohol withdrawal syndrome Complication of substance-induced condition: with unspecified complication Qualified Code(s): F10.239 - Alcohol dependence with withdrawal, unspecified
[2020-06-06] MEDS: SERTRALINE HCL 50 MG TABLET PO SCH (20:36)
[2020-06-06] MEDS: MELATONIN 3 MG TAB PO PRN (20:37)
[2020-06-07 07:38] LABS: Hematocrit (blood only) 37.6 % (42-52); Hemoglobin 12.5 g/dL (14.0-18.0); Mean Corpuscular Hemoglobin 35.7 pg (25-34); Mean Corpuscular Hgb Conc 33.2 g/dL (32-36); Mean Corpuscular Volume 107.4 fL (80-100); Platelet Count 518 K/uL (130-400); RDW Coefficient of Variation 14.4 % (11.5-14.5); RDW Standard Deviation 57.1 fL (36.4-46.3); White Blood Count 4.53 K/uL (4.8-10.8)
[2020-06-07 07:47] LABS: INR 1.1 (0.9-1.1); Prothrombin Time 11.5 Seconds (9.0-12.0)
[2020-06-07 08:09] LABS: Albumin Level 3.4 gm/dl (3.4-5.0); BUN Creatinine Ratio 15.3 (10-20); Calcium 9.8 mg/dl (8.5-10.1); Creatinine Clr Calc Pharmacy 105.2 ml/min; Est GFR (African American) 125.7; Est GFR (Non-African American) 108.5; Potassium 3.7 mmol/L (3.5-5.1)
[2020-06-07 08:12] LABS: Albumin Globulin Ratio 0.8 (0.9-2); Bilirubin,Total 0.3 mg/dl (0.2-1); Globulin 4.5 gm/dl (2.5-4.0); Total Protein 7.9 gm/dl (6.4-8.2)
[2020-06-07] MEDS: hydroCHLOROthiazide 25 MG TAB PO SCH (08:20)
[2020-06-07] MEDS: THIAMINE HCL 100 MG TAB PO SCH (08:20)
[2020-06-07] MEDS: PANTOprazole 40 MG TAB PO SCH (08:20)
[2020-06-07] MEDS: NICOTINE 7 MG/24 HR TDSY TD SCH (08:20)
[2020-06-07] MEDS: FOLIC ACID 1 MG TAB PO SCH (08:20)
[2020-06-07] MEDS: CYANOCOBALAMIN 1000 MCG/ML VIAL IM SCH (08:21)
--- NOTE | 2020-06-07 13:59 | Hospitalist Progress Note ---
Date of Service June 07, 2020 Assessment & Plan (1) Alcohol withdrawal syndrome: - No withdrawal symptoms currently . - Finished gabapentin. -> Patient making plans with CM for [facility] on d/c. Hopefully this Thursday. (2) Acute alcoholic hepatitis: [place] alcoholic hepatitis score 6 - lower risk of . Maddrey's discriminate function was 7.1 - good prognosis, no need for prednisolone. Hx of fatty liver seen on prior imaging. - LFTs continue to trend downward. (3) HTN (hypertension): Pt did not fill lisinopril rx given on recent d/c. - Started HCTZ on 05/27 -> BP acceptable . (4) B12 deficiency: Presumed due to elevated MCV with mild anemia and now with fingers and toes with numbness and tingling in the setting of long standing alcohol use. - Tx IM daily - Discharge on oral B12 - Continue B1, folate (5) Hyperlipidemia: Pt states he was to be taking medication for this. Lipid panel: LDL is high. - Consider statin on discharge; would like LFTs to be nearly normal before starting (6) DVT prophylaxis: Ambulation Admission and Anticipated Discharge Date Admission Date: May 26, 2020 Subjective Alert and oriented. No complaints. Anticipate discharge on Thursday to [facility]. Liver function enzymes continue to trend downward Review of Systems Review of Systems: Constitutional-no fever or chills ENT-no blurred vision, no double vision, no epistaxis, no sore throat Respiratory-no cough, no wheezing, no shortness of breath Cardiac-no palpitations, no chest pain, no syncope GI-no nausea, vomiting, diarrhea, melena, hematochezia -no urinary retention, no urinary incontinence, no dysuria, no hematuria Musculoskeletal-no joint pain, no muscle tenderness Skin-no bruising, no rashes, no pruritus Neuro-no isolated weakness, no paresthesia, no weakness Psych-no depression, no anxiety Physical Exam Physical Exam: General-alert and oriented x3, no fevers, no chills HEENT-head atraumatic and normocephalic, TMs intact bilaterally, pupils equal and reactive to light, extraocular muscles intact Neck-no lymphadenopathy or thyromegaly, trachea midline Chest-clear to auscultation percussion. No rales wheezing or rhonchi Cardiac-regular rate and rhythm, normal S1 and S2, no murmurs Abdomen-normal bowel sounds, nontender, no hepatosplenomegaly Extremities-no cyanosis, clubbing, or edema Neuro-cranial nerves II through XII intact, motor and sensory function within normal limits, strength symmetrical 5/5, no focal deficits Psych-normal affect, normal mood Results & Data Results & Data ([facility]) Vital Signs (Past 12 Hours) Vital Signs Temp Pulse Resp BP Pulse Ox 06/07/20 07:31 36.5 C 63 16 142/88 H 98 Laboratory Results 06/07/20 07:24 06/07/20 07:24 PG Care Time/CCT Total # of Minutes Spent Total Time Spent with Patient: Total time spent is greater than 50% in coordination of care (as documented) at patient's floor/unit and/or counseling patient: Coding Level of Care Code 34636 Subseq Hosp Care Lvl 2 Diagnoses Alcohol withdrawal syndrome F10.239 Complication of substance-induced condition: with unspecified complication Acute alcoholic hepatitis K70.10 HTN (hypertension) I10 B12 deficiency E53.8 Hyperlipidemia E78.5 DVT prophylaxis Z29.9 (1) Alcohol withdrawal syndrome Complication of substance-induced condition: with unspecified complication Qualified Code(s): F10.239 - Alcohol dependence with withdrawal, unspecified
[2020-06-07] MEDS: SERTRALINE HCL 50 MG TABLET PO SCH (20:53)
[2020-06-07] MEDS: MELATONIN 3 MG TAB PO PRN (20:55)
[2020-06-08] MEDS: hydroCHLOROthiazide 25 MG TAB PO SCH (09:36)
[2020-06-08] MEDS: PANTOprazole 40 MG TAB PO SCH (09:36)
[2020-06-08] MEDS: FOLIC ACID 1 MG TAB PO SCH (09:36)
[2020-06-08] MEDS: THIAMINE HCL 100 MG TAB PO SCH (09:36)
[2020-06-08] MEDS: CYANOCOBALAMIN 1000 MCG/ML VIAL IM SCH (09:36)
[2020-06-08] MEDS: NICOTINE 7 MG/24 HR TDSY TD SCH (11:42)
--- NOTE | 2020-06-08 12:04 | Hospitalist Progress Note ---
Date of Service June 08, 2020 Assessment & Plan (1) Alcohol withdrawal syndrome: - No withdrawal symptoms currently . - Finished gabapentin. -> Patient making plans with for [facility] [facility] [facility] on d/c. Hopefully this Thursday. (2) Acute alcoholic hepatitis: [place] alcoholic hepatitis score 6 - lower risk of . Maddrey's discriminate function was 7.1 - good prognosis, no need for prednisolone. Hx of fatty liver seen on prior imaging. - LFTs continue to trend downward. Repeat liver panel tomorrow, June 09 (3) HTN (hypertension): Pt did not fill lisinopril rx given on recent d/c. - Started HCTZ on 05/27 -> BP acceptable . (4) B12 deficiency: Presumed due to elevated MCV with mild anemia and now with fingers and toes with numbness and tingling in the setting of long standing alcohol use. - Tx IM daily - Discharge on oral B12 - Continue B1, folate (5) Hyperlipidemia: Pt states he was to be taking medication for this. Lipid panel: LDL is high. - Consider statin therapy when liver profile normalizes. (6) DVT prophylaxis: Ambulation Admission and Anticipated Discharge Date Admission Date: May 26, 2020 Subjective Alert and oriented. No complaints. Review of Systems Review of Systems: Constitutional-no fever or chills ENT-no blurred vision, no double vision, no epistaxis, no sore throat Respiratory-no cough, no wheezing, no shortness of breath Cardiac-no palpitations, no chest pain, no syncope GI-no nausea, vomiting, diarrhea, melena, hematochezia -no urinary retention, no urinary incontinence, no dysuria, no hematuria Musculoskeletal-no joint pain, no muscle tenderness Skin-no bruising, no rashes, no pruritus Neuro-no isolated weakness, no paresthesia, no weakness Psych-no depression, no anxiety Physical Exam Physical Exam: General-alert and oriented x3, no fevers, no chills HEENT-head atraumatic and normocephalic, TMs intact bilaterally, pupils equal and reactive to light, extraocular muscles intact Neck-no lymphadenopathy or thyromegaly, trachea midline Chest-clear to auscultation percussion. No rales wheezing or rhonchi Cardiac-regular rate and rhythm, normal S1 and S2, no murmurs Abdomen-normal bowel sounds, nontender, no hepatosplenomegaly Extremities-no cyanosis, clubbing, or edema Neuro-cranial nerves II through XII intact, motor and sensory function within normal limits, strength symmetrical 5/5, no focal deficits Psych-normal affect, normal mood Results & Data Results & Data ([facility]) Vital Signs (Past 12 Hours) Vital Signs Temp Pulse Resp BP Pulse Ox 06/08/20 07:45 36.7 C 59 L 16 155/94 H 98 PG Care Time/CCT Total # of Minutes Spent Total Time Spent with Patient: Total time spent is greater than 50% in coordination of care (as documented) at patient's floor/unit and/or counseling patient: Coding Level of Care Code 82277 Subseq Hosp Care Lvl 2 Diagnoses Alcohol withdrawal syndrome F10.239 Complication of substance-induced condition: with unspecified complication Acute alcoholic hepatitis K70.10 HTN (hypertension) I10 B12 deficiency E53.8 Hyperlipidemia E78.5 DVT prophylaxis Z29.9 (1) Alcohol withdrawal syndrome Complication of substance-induced condition: with unspecified complication Qualified Code(s): F10.239 - Alcohol dependence with withdrawal, unspecified
[2020-06-08] MEDS: SERTRALINE HCL 50 MG TABLET PO SCH (21:07)
[2020-06-08] MEDS: MELATONIN 3 MG TAB PO PRN (23:45)
[2020-06-09 06:28] LABS: Albumin Level 3.2 gm/dl (3.4-5.0); Bilirubin Direct 0.1 mg/dl (0-0.2); Bilirubin,Total 0.4 mg/dl (0.2-1); Total Protein 7.4 gm/dl (6.4-8.2)
[2020-06-09] MEDS: NICOTINE 7 MG/24 HR TDSY TD SCH (08:45)
[2020-06-09] MEDS: THIAMINE HCL 100 MG TAB PO SCH (08:46)
[2020-06-09] MEDS: hydroCHLOROthiazide 25 MG TAB PO SCH (08:46)
[2020-06-09] MEDS: CYANOCOBALAMIN 1000 MCG/ML VIAL IM SCH (08:47)
[2020-06-09] MEDS: PANTOprazole 40 MG TAB PO SCH (08:47)
[2020-06-09] MEDS: FOLIC ACID 1 MG TAB PO SCH (08:47)
--- NOTE | 2020-06-09 14:33 | Hospitalist Progress Note ---
Date of Service June 09, 2020 Assessment & Plan (1) Alcohol withdrawal: Patient has completed alcohol withdrawal protocol Has been accepted for [place] re[facility] It is anticipated the bed will be available on Thursday and that he will be eligible for transfer as long as his hepatitis panel is improving Continue with multivitamin, folic acid, thiamine Lorazepam as needed Discussed need for complete abstinence. Patient endorses same (2) Acute alcoholic hepatitis: LFTs are trending down nicely Do not anticipate any further intervention Continue to follow daily labs (3) HTN (hypertension): Patient is not on any outpatient antihypertensives Was started on hydrochlorothiazide 25 mg every morning this admission Continue to follow trend of systolic blood pressure Will need outpatient follow-up (4) B12 deficiency: Continue cyanocobalamin 1000 mcg IM daily while inpatient We will need to discharge on oral B12 Continue folic acid (5) Hyperlipidemia: Pt states he was to be taking medication for this. Lipid panel: LDL is high. We will begin statin therapy when liver profile normalizes (6) DVT prophylaxis: No chemical prophylaxis required Patient is ambulating frequently throughout the day in the hallways Continue to monitor Admission and Anticipated Discharge Date Admission Date: May 26, 2020 Subjective There is a 40-year-old -Tong[place] male admitted 05/26/2020 for alcohol intoxication and alcoholic hepatitis. He has completed withdrawal protocol and at this point is comfortable. He has no further signs of withdrawal. He continues to have elevated transaminases but they are trending down nicely. He has no nausea or vomiting. He is tolerating diet. He is ambulating in the halls with no difficulty. At this point in time the patient has been accepted for inpatient alcohol rehab and is awaiting an open bed. Review of Systems Review of Systems: All systems reviewed & are unremarkable except as noted in HPI & below Physical Exam Physical Exam: GENERAL : No acute distress EYES: No icterus, gaze conjugate NOSE: No evidence of epistaxis MOUTH: No lesions or candidiasis NECK: Supple LUNGS: CTA B/L, no wheezes, rales or rhonchi HEART: Regular, rate controlled ABDOMEN: Soft, NT, ND, BS Present EXTREMITIES: No LE edema, pedal pulses intact NEURO: A&OX3 Results & Data Results & Data ([facility]) Vital Signs (Past 12 Hours) Vital Signs Temp Pulse Resp BP Pulse Ox 06/09/20 07:37 36.4 C L 68 16 137/88 99 Laboratory Results Laboratory Tests 05/29/20 06/03/20 06/07/20 07:12 06:40 07:24 AST 400 H 108 H 75 H ALT 267 H 139 H 112 H Alkaline Phosphatase 166 H 124 H 111 06/09/20 05:28 AST 61 H ALT 97 H Alkaline Phosphatase 105 06/07/20 07:24 Diagnostic Findings No new diagnostics PG Care Time/CCT Total # of Minutes Spent Total Time Spent with Patient: Total time spent is greater than 50% in coordination of care (as documented) at patient's floor/unit and/or counseling patient: 30 minutes Coding Level of Care Code 89788 Subseq Hosp Care Lvl 2 Diagnoses Alcohol withdrawal F10.230 Complication of substance-induced condition: uncomplicated Acute alcoholic hepatitis K70.10 HTN (hypertension) I10 B12 deficiency E53.8 Hyperlipidemia E78.5 DVT prophylaxis Z29.9 Time Spent (min) 30 (1) Alcohol withdrawal Complication of substance-induced condition: uncomplicated Qualified Code(s): F10.230 - Alcohol dependence with withdrawal, uncomplicated
[2020-06-09] MEDS: SERTRALINE HCL 50 MG TABLET PO SCH (20:39)
[2020-06-09] MEDS: MELATONIN 3 MG TAB PO PRN (23:20)
[2020-06-10 08:12] LABS: Albumin Level 3.1 gm/dl (3.4-5.0); Bilirubin Direct 0.1 mg/dl (0-0.2); Bilirubin,Total 0.3 mg/dl (0.2-1); Total Protein 7.5 gm/dl (6.4-8.2)
[2020-06-10] MEDS: NICOTINE 7 MG/24 HR TDSY TD SCH (08:30)
[2020-06-10] MEDS: FOLIC ACID 1 MG TAB PO SCH (08:31)
[2020-06-10] MEDS: PANTOprazole 40 MG TAB PO SCH (08:31)
[2020-06-10] MEDS: CYANOCOBALAMIN 1000 MCG/ML VIAL IM SCH (08:32)
[2020-06-10] MEDS: hydroCHLOROthiazide 25 MG TAB PO SCH (08:32)
[2020-06-10] MEDS: THIAMINE HCL 100 MG TAB PO SCH (08:32)
--- NOTE | 2020-06-10 11:46 | Discharge Summary ---
Date of Service June 10, 2020 Admission HPI Per Admitting Provider Watson Pavon is a 40 year old male well known to our service with alcohol use disorder and chronic alcoholic steatohepatitis who presents to the ER with alcohol withdrawal, shaking vomiting, LUQ pain, requesting detox and possible inpatient rehabilitation. Similar symptoms to every time he stops drinking alcohol. Last drink was last nigth. He reportedly went back to drinking alcohol almost immediately on discharge on the last occasion. He has been struggling since his partner he was living with also has alcohol use disorder. He apparently has moved on in with his sister since then however. He usually drinks fifth vodka/day. No melena, bright red blood in stool, change in bowels. Admission Exam Per Admitting Provider Constitutional: well developed and well nourished; no acute distress Eyes: + anicteric sclerae; normal pupil size ENMT: external ear and nose normal, oropharynx normal Respiratory: normal respiratory effort, lungs clear to auscultation Cardiovascular: RRR, no murmur, no edema Gastrointestinal (Abdomen): Inspection/Auscultation: abdomen normal to inspection and normal bowel sounds Percussion/Palpation: + abdomen tender (Generlazed, worse in LUQ), abdomen soft and + hepatomegaly; no guarding and abdomen not rigid Musculoskeletal: no cyanosis or clubbing, extremities motor strength 5/5 Skin: no rashes, warm and dry Neurologic: moves all extremities and awake; not confused Psychiatric: A+Ox3, euthymic affect Genitourinary: no CVA tenderness Lymphatic: no cervical or axillary lymphadenopathy Principal Diagnosis Ethanol withdrawal Transaminitis Discharge Exam GENERAL : No acute distress EYES: No icterus, gaze conjugate NOSE: No evidence of epistaxis MOUTH: No lesions or candidiasis. Mucosa moist NECK: Supple LUNGS: CTA B/L, no wheezes, rales or rhonchi HEART: Regular, rate controlled ABDOMEN: Soft, NT, ND, BS Present EXTREMITIES: No LE edema, pedal pulses intact NEURO: A&OX3 Discharge Data Allergies Allergy/AdvReac Type Severity Reaction Status Date / Time No Known Allergies Allergy Verified 05/26/20 11:13 Consultations 05/26/20 11:49 ED Decision to Admit Stat 05/26/20 14:26 Consult Case Management - Discharge Planning Routine Ordered Studies Laboratory Tests 05/29/20 06/03/20 06/07/20 07:12 06:40 07:24 Total Bilirubin Direct Bilirubin AST 400 H 108 H 75 H ALT 267 H 139 H 112 H Alkaline Phosphatase 166 H 124 H 111 Total Protein Albumin 06/09/20 06/10/20 05:28 07:31 Total Bilirubin 0.3 Direct Bilirubin 0.1 AST 61 H 60 H ALT 97 H 95 H Alkaline Phosphatase 105 102 Total Protein 7.5 Albumin 3.1 L Hospital Course (1) Alcohol withdrawal: Patient has completed alcohol withdrawal protocol Has been accepted for [facility] rehab Continue with multivitamin, folic acid, thiamine on discharge Lorazepam as needed Discussed need for complete abstinence. Patient endorses same (2) Acute alcoholic hepatitis: LFTs are trending down nicely Do not anticipate any further intervention Patient will need outpatient follow-up with primary care to continue to trend transaminitis (3) HTN (hypertension): Patient is not on any outpatient antihypertensives Was started on hydrochlorothiazide 25 mg every morning this admission We will discharge on hydrochlorothiazide 12.5 mg every morning Will need outpatient follow-up for blood pressure control (4) B12 deficiency: Cyanocobalamin 1000 mcg IM daily while inpatient Discharged on folic acid, vitamin B1, and multivitamin with minerals (5) Hyperlipidemia: Pt states he was to be taking medication for this. Lipid panel: LDL is high. We will begin statin therapy when liver profile normalizes Will need outpatient follow-up to trend LFTs (6) DVT prophylaxis: No chemical prophylaxis required Patient is ambulating frequently throughout the day in the hallways Total Time Total Time Spent Total Time Spent (In Minutes): 40 minutes Total Time Includes: Examination of the Patient, Discharge Planning, Medication Reconciliation, Communication With Other Providers and Other (Coordination with case management) Discharge Plan Discharge Items Patient Disposition: Transfer Behavioral Health Fac Reason For Visit: ALCOHOL WITHDRAWAL, ALCOHOLIC HEPATITIS Discharge Diagnosis: Alcohol withdrawal, transaminitis Condition on Discharge: Fair Activity: Resume your previous activity Lifting: Gradually increase as tolerated Bathing: No limitations Sexual Activity: When tolerated Driving/Machine Use: No limitations Weightbearing: Full weightbearing Non-emergency contact: Primary Care Provider Call non-emergency contact if: you have any medication questions and your pain is not controlled Follow-up/Referrals: Dorene Dominguez [Primary Care Provider] - Diet: Heart Healthy Addtl Attending Provider Instructions: You can take supplements to help with liver support. Milk thistle and NAC are two that can help to prevent further damage to your liver. They are over the counter supplements. You can use marshmallow root extract (available at [employer] or [employer]) to help with your reflux/heartburn. You would take this daily in addition to your prilosec. If your alcohol use is under control and you feel that your heartburn is better, you can use the marshmallow root extract to gradually taper off the prilosec. You would start by taking the prilosec only once a day for two weeks, then every other day for two weeks, and then stop it. You could then gradually taper off of the marshmallow root extract the same way you tapered off of the omeprazole. Pending Studies at Discharge: No Stand-Alone Forms: My [facility] Skilled Items DNR: No Lines: None Urinary Catheter: No Medications and DC Order Prescriptions: New folic acid 1 mg tablet 1 mg PO DAILY Qty: 30 RF: 1 hydrochlorothiazide 12.5 mg tablet 12.5 mg PO DAILY Qty: 30 RF: 1 multivitamin with minerals Tablet 1 tab PO DAILY Qty: 30 RF: 1 pantoprazole 40 mg tablet,delayed release (DR/EC) 40 mg PO DAILY Qty: 30 RF: 1 thiamine HCl (vitamin B1) 100 mg tablet 100 mg PO DAILY Qty: 30 RF: 1 nicotine 7 mg/24 hr patch 24 hour 1 patch transdermal DAILY Qty: 7 RF: 0 Continued albuterol sulfate 90 mcg/actuation HFA aerosol inhaler 2 puff INHALATION QID PRN (Reason: Shortness Of Breath Or Wheezing) RF: 0 sertraline 50 mg tablet 50 mg PO HS RF: 0 Discontinued omeprazole magnesium [Prilosec OTC] 20 mg Tablet,Delayed Release (Dr/Ec) 20 mg PO BID RF: 0 pantoprazole 40 mg Tablet,Delayed Release (Dr/Ec) 40 mg PO QAM Qty: 30 RF: 0 Discharge Orders: Discharge Order (Routine); Ordered 06/10/20 Ordered By: Tunde De León/Other Patient Handouts: Alcohol Abuse Life [facility] [employer], Alcoholism: Myths and Facts, Addiction Ask These Questions Admission Data Admit Date/Time: 05/26/20 12:45 Attending Provider: Bud Reinoso Admit Provider: Karlos Bennett Primary Care Provider: Dorene Dominguez Other Providers: Vince Teague Other Interventions: Discharge Summary Assessment (RN) Last Done: 06/10/20 12:06 Supervising Physician Co-Signing Physician Notes During my face to face encounter with the patient, I discussed discharge plan with the patient and performed a physical examination. Patient had no further questions. I reviewed above document and agree with it after discussing case with Tunde BLAKELY. Patient has been evaluated for alcohol withdrawal. He is no longer having symptoms and is cleared for discharge. He melva be going to rehab. Coding Level of Care Code D/C Day Management >30 mins Diagnoses Alcohol withdrawal F10.230 Complication of substance-induced condition: uncomplicated Acute alcoholic hepatitis K70.10 HTN (hypertension) I10 B12 deficiency E53.8 Hyperlipidemia E78.5 DVT prophylaxis Z29.9 Time Spent (min) 40
== END 2020-06-10 14:15 | DRG 897 ==
LOC: ED 10:08 → 2N 12:45 → SUATTDRO 12:45 → 2N 13:36 → 3N 05-29 19:07